=== PATIENT | male | born 1935 | race Caucasian/White ===

== ENCOUNTER → 2016-03-08 | Outpatient (CLI) | payer BC ==
[~2016-03-08] MED LIST: AMLO-114 PO; ANT25 PO; ASPEC81 PO; ATOR-24 PO; CEPH500C2 PO; CHOL1000 PO; CLOP1TAB15 PO; CYAN10004 PO; DOXY100C2 PO; INSDGIPEN SQ; INSU100I2 SC; ISOS120T5 PO; LSX20 PO; NTRGSL/4 SL; PANT40TA PO
[2016-03-08 15:07] LABS: SYNOVIAL FLUID APPEARANCE BLOODY; SYNOVIAL FLUID COLOR RED; SYNOVIAL FLUID MONONUC RELAT 8.1 %; SYNOVIAL FLUID POLYNUC RELAT 91.9 %
== END | disposition home or self-care (01) ==
LOC: C.LABSPEC 14:41
PROVIDERS: ATTEND Internal Medicine
DX: M25.469 Effusion, unspecified knee (principal)

== ENCOUNTER → 2016-03-11 | Outpatient (CLI) | payer BC ==
[2016-03-11 11:12] LABS: URINE APPEARANCE CLEAR (CLEAR); URINE BILIRUBIN NEG (NEG); URINE COLOR YELLOW; URINE EPITHELIAL CELL AUTO 20-30 /lpf (0-5); URINE NITRITE NEG (NEG); UROBILINOGEN NEG (NEG); ZZUR CULT IF INDIC CLEAN CATCH NO
[2016-03-11 11:19] LABS: MANUAL MICROSCOPIC REQUIRED? NO; REVIEW REQ? NO
[2016-03-11 12:56] LABS: URINE PROTIEN/CREAT RATIO 0.6 (0-0.2); URINE TOTAL PROTEIN 76.5 mg/dl (0-11.9)
[2016-03-11 12:58] LABS: BLOOD UREA NITROGEN 32 mg/dl (7-18); BUN/CREATININE RATIO 14.7 (10-20); CALCIUM 9.1 mg/dl (8.5-10.1); CARBON DIOXIDE 24 mmol/L (21-32); CHLORIDE 106 mmol/L (98-107); GLUCOSE 310 mg/dl (70-99); MAGNESIUM 1.9 mg/dl (1.8-2.4); PHOSPHORUS 3.4 mg/dl (2.5-4.9); POTASSIUM 4.5 mmol/L (3.5-5.1); SODIUM 140 mmol/L (136-145)
[2016-03-11 13:17] LABS: BETA-HYDROXYBUTYRATE 1.49 mg/dL (0.2-2.81)
== END | disposition home or self-care (01) ==
LOC: C.LAB1850 09:16
PROVIDERS: ATTEND Internal Medicine
DX: N18.4 Chronic kidney disease, stage 4 (severe) (principal)

== ENCOUNTER 2016-03-19 12:13 | Inpatient (IN) | payer BC, OTHER ==
[~2016-03-19] VITALS: Ht 177.8 cm; Wt 86.6 kg
[~2016-03-19 12:13] MED LIST changes: -ASPEC81 PO; -CEPH500C2 PO; -CHOL1000 PO; -DOXY100C2 PO
[2016-03-19] MEDS ORDERED: SODIUM CHLORIDE 0.9% 500ML 500 ML IV STA (12:53)
--- NOTE | 2016-03-19 12:59 | EMERGENCY ROOM VISIT NOTE ---
History Report prepared by Rupal: Isabell Valiente Under the Supervision of: Dr. Anayeli Livingston M.D. First contact with patient: 12:43 Chief Complaint: ILLNESS Stated Complaint: "HAS A COLD, CAN'T NAVIGATE" - REF BY History of Present Illness The patient is a 80 year old male who presents to the Emergency Room with complaints of worsening weakness and shortness of breath over the past several days. He has had a decreased appetite. Upon arrival to the ED, he had an episode of diarrhea. He has not had his temperature taken and is unsure if he has had a fever. Per patient's family, the patient had his left knee aspirated several days ago. His family is unsure of why fluid was accumulating. A couple days later, he had a fall against a chair. He still complains of left knee pain. His notes that his knee does look much better than it did prior tot he aspiration. He is currently on antibiotics. The patient has a history of heart disease and diabetes. He is on insulin and reports that he took his Lantus this morning, although his questions his compliance with taking his insulin. He does not have a history of lung disease and has no history of smoking. Denies vomiting or other complaints. 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 A total of 10 systems reviewed and were otherwise negative. 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) (9) NSTEMI, initial episode of care (10) Precordial chest pain (11) Thrombocytopenia Surgical Problems: (1) H/O heart bypass surgery Family History Heart disease Social History Smoking Status: Never Smoker Drug Use: none Marital Status: Housing Status: lives with significant other Occupation Status: retired Current/Historical Medications Scheduled Amlodipine (Norvasc), 10 MG PO DAILY Atorvastatin (Lipitor), 40 MG PO DAILY Cholecalciferol (Vitamin D3), 1 TAB PO DAILY Clopidogrel (Plavix), 75 MG PO DAILY Cyanocobalamin (Vitamin B-12 1000 Mcg), 1,000 MCG PO DAILY Doxycycline Hyclate (Vibramycin), 100 MG PO Q12H Insulin Glargine (Lantus Solostar), 18-20 UNITS SQ QAM Insulin Lispro (Human) (Humalog Kwikpen), 8 UNITS SC TIDM Isosorbide Mononitrate Ext Rel (Imdur Ext Rel), 120 MG PO QAM Meclizine HCl (Meclizine HCl), 25 MG PO Q6H Pantoprazole (Protonix), 40 MG PO DAILY Scheduled PRN Furosemide (Furosemide), 20 MG PO DAILY PRN for Fluid Retention Nitroglycerin (Nitrostat), 0.4 MG SL UD PRN for Chest Pain Allergies Coded Allergies: No Known Allergies (Verified , 03/19/16) Physical Exam Vital Signs Date Time Temp Pulse Resp B/P Pulse Ox O2 Delivery O2 Flow Rate FiO2 03/19/16 15:16 56 16 94/47 100 Room Air 03/19/16 14:41 57 18 89/50 100 Room Air 03/19/16 14:32 57 18 96/48 100 Room Air 03/19/16 14:25 57 03/19/16 14:21 62 18 96/45 100 Room Air 03/19/16 13:57 55 16 103/48 100 Room Air 03/19/16 13:42 58 18 100/48 100 Room Air 03/19/16 13:20 61 18 95/50 100 Room Air 03/19/16 13:10 65 18 82/45 100 Room Air 03/19/16 12:55 66 18 96/47 94 Room Air 03/19/16 12:44 68 18 82/46 100 Room Air 03/19/16 12:44 36.8 03/19/16 12:40 67 03/19/16 12:35 68 18 99/52 100 Room Air 03/19/16 12:24 77 18 55/39 94 Room Air Physical Exam Vital signs reviewed. General: Elderly, chronically ill-appearing 80 year old male, in no significant distress. HEENT: No scleral icterus, PERRLA, neck supple. Atraumatic. Cardiovascular: Regular rate and rhythm, no extra sounds. Pulmonary: Coarse breath sounds to auscultation bilaterally, normal work of breathing. Abdomen: Soft, nontender, nondistended, positive bowel sounds. Musculoskeletal: Swelling to the left knee positive fluctuance and erythema, minimally warm. No significant peripheral edema otherwise. Neurologic: Patient is somnolent, but arouses to verbal stimuli, oriented x 3. Follows commands. Skin: Warm, dry, no rash Medical Decision & Procedures ER Provider Diagnostic Interpretation: X-ray results as stated below per interpretation by me and the radiologist: SINGLE VIEW CHEST CLINICAL HISTORY: Cough. Hypotension. FINDINGS: An AP, portable, upright chest radiograph is compared to study dated 07/29/2015 and correlated with chest CT dated 06/25/2013. The examination is degraded by portable technique and patient rotation. The patient is status post midline sternotomy. The heart is mildly enlarged and there is atherosclerotic calcification of the thoracic aorta. The pulmonary vasculature is noncongested. Chronic elevation of the right hemidiaphragm with right basilar atelectasis is similar to previous. No airspace consolidation is seen typical for pneumonia and there is no large pleural effusion. Emphysema is suspected. No pneumothorax is seen. The skeletal structures are osteopenic. The bony thorax is grossly intact. IMPRESSION: Cardiomegaly with no acute cardiopulmonary abnormality. Chronic changes are detailed above. Electronically signed by: Tony Reagan M.D. 03/19/2016 1:34 PM Dictated Date/Time: 03/19/2016 1:32 PM LEFT KNEE 1 OR 2 VIEWS ROUTINE CLINICAL HISTORY: Left knee pain and swelling. COMPARISON: None FINDINGS: Extensive vascular calcification is noted. No acute fracture is present. No joint effusion is identified. There is marked prepatellar soft tissue swelling. Soft tissue calcifications are noted. There is an indeterminate 4 mm radiodensity anterior to the medial tibial plateau. IMPRESSION: 1. No acute fracture. 2. Marked prepatellar and infrapatellar soft tissue swelling. This is nonspecific but could reflect bursitis or contusion. Electronically signed by: Harjinder Moreira M.D. 03/19/2016 3:11 PM Dictated Date/Time: 03/19/2016 3:10 PM Laboratory Results 03/19/16 12:40 Red Blood Count 3.97, Mean Corpuscular Volume 90.7, Mean Corpuscular Hemoglobin 30.5, Mean Corpuscular Hemoglobin Concent 33.6, Mean Platelet Volume 12.0 1/20/17 12:40 Test 03/19/16 12:40 03/19/16 12:45 03/19/16 13:00 White Blood Count 15.20 K/uL (4.8-10.8) Red Blood Count 3.97 M/uL (4.7-6.1) Hemoglobin 12.1 g/dL (14.0-18.0) Hematocrit 36.0 % (42-52) Mean Corpuscular Volume 90.7 fL (80-100) Mean Corpuscular Hemoglobin 30.5 pg (25-34) Mean Corpuscular Hemoglobin Concent 33.6 g/dl (32-36) Platelet Count 169 K/uL (130-400) Mean Platelet Volume 12.0 fL (7.4-10.4) RDW Standard Deviation 65.2 fL (36.4-46.3) RDW Coefficient of Variation 19.6 % (11.5-14.5) Neutrophils % (Manual) 48.2 % Lymphocytes % (Manual) 7.1 % Monocytes % (Manual) 42.0 % Basophils % (Manual) 1.8 % (0-2) Myelocytes % 0.9 % Neutrophils # (Manual) 7.33 K/uL (1.4-6.5) Total Absolute Neutrophils 7.33 K/uL (1.4-6.5) Lymphocytes # (Manual) 1.08 K/uL (1.2-3.4) Total Absolute Lymphocytes 1.08 K/uL (1.2-3.4) Monocytes # (Manual) 6.38 K/uL (0.11-0.59) Basophils # (Manual) 0.27 K/uL (0-0.2) Myelocytes # 0.14 K/uL (0-0) Giant Platelets 1+ Spherocytes 1+ Prothrombin Time 12.3 SECONDS (9.0-12.0) Prothromb Time International Ratio 1.1 (0.9-1.1) Activated Partial Thromboplast Time 20.8 SECONDS (21.0-31.0) Partial Thromboplastin Ratio 0.8 Anion Gap 16.0 mmol/L (3-11) Estimated GFR () 26.9 Estimated GFR (Non- 23.2 BUN/Creatinine Ratio 12.3 (10-20) Calcium Level 9.1 mg/dl (8.5-10.1) Magnesium Level 1.7 mg/dl (1.8-2.4) Total Bilirubin 0.6 mg/dl (0.2-1) Direct Bilirubin 0.1 mg/dl (0-0.2) Aspartate Amino Transf (AST/SGOT) 23 U/L (15-37) Alanine Aminotransferase (ALT/SGPT) 15 U/L (12-78) Alkaline Phosphatase 97 U/L (45-117) Total Protein 7.8 gm/dl (6.4-8.2) Albumin 3.1 gm/dl (3.4-5.0) Beta-Hydroxybutyric Acid 1.97 mg/dL (0.2-2.81) Bedside Lactic Acid Venous 4.88 mmol/L (0.90-1.70) Influenza Type A (RT-PCR) Neg for Influ A (NEG) Influenza Type B (RT-PCR) Neg for Influ B (NEG) Laboratory results per my review. Medications Administered Medications (Trade) Dose Ordered Sig/Denny Route Start Time Stop Time Status Last Admin Dose Admin Sodium Chloride (Nss 500ml) 500 ml @ 999 mls/hr Q31M STAT IV 03/19/16 12:53 03/19/16 13:23 DC 03/19/16 12:53 999 MLS/HR Miscellaneous (Insulin Protocol Hhs Goal Range) 1 ea ONE ONCE N/A 03/19/16 13:30 03/19/16 13:31 DC 03/19/16 17:15 1 EA Miscellaneous (Insulin Protocol Severe Stress) 1 ea ONE ONCE N/A 03/19/16 13:30 03/19/16 13:31 DC 03/19/16 17:15 1 EA Piperacillin Sod/ Tazobactam Sod (Zosyn Iv) 4.5 gm NOW STAT IV 03/19/16 13:19 03/19/16 13:24 DC 03/19/16 13:35 4.5 GM Levofloxacin 750 mg 750 mg NOW ONCE IV 03/19/16 13:30 03/19/16 13:31 DC 03/19/16 14:08 750 MG Insulin Human Regular 3.5 unit/ Syringe 3.5 ml @ 21 mls/min NOW ONCE IV 03/19/16 13:45 03/19/16 13:46 DC 03/19/16 13:55 21 MLS/MIN Insulin Human Regular 250 units/ Sodium Chloride 252.5 ml @ 0 mls/hr DAILY@1130 IV 03/19/16 13:45 03/19/16 16:29 DC 03/19/16 13:57 3.3 MLS/HR Sodium Chloride (Nss 1000ml) 1,000 ml @ 100 mls/hr Q10H IV 03/19/16 15:12 04/18/16 15:11 03/19/16 17:16 100 MLS/HR ECG Indication: weakness Rate (beats per minute): 74 Rhythm: sinus rhythm Findings: 1st degree AV block, no acute ischemic change, no ectopy, other ( likely previous anterior and inferior infarct, poor quality baseline for interpretation) ED Course 1243: Past medical records reviewed. The patient was evaluated in room A1. A complete history and physical examination was performed. 1253: Ordered NSS 500 ml @ 999 mls/hr IV. 1319: I reassessed the patient. He was resting comfortably. Ordered NSS 1000 ml @ 200 mls/hr IV, Zosyn 4.5 gm IV, Insulin Human regular 1 ea, Levofloxacin 750 mg IV, Insulin protocol severe stress 1 ea, Insulin protocol Hhs goal range 1 ea. 1345: Ordered Glucagon 1 mg SQ, Dextrose 50 ml IV, Glucose chew tab 1 tab PO, Glucose 40% gel PO, Insulin Human Regular 250 units/Sodium Chloride 252.5 ml @ 0 mls/hr IV, Insulin Human Regular 3.5 unit/Syringe 3.5 ml @ 21 mls/min IV, Insulin Aspart sliding scale SC. 1409: I reassessed the patient. His blood pressure was up over 100. I discussed the treatment plan with the patient, his , and his daughter. They verbalized agreement. 1414: I discussed the case with Dr. Campbell [place] [facility] The patient will be evaluated for further management. 1420: Dr. Campbell was at the patient's bedside. Medical Decision Differential diagnosis: Etiologies such as benign positional vertigo, dehydration, hypovolemia, anemia, tumor, infection, hypoglycemia, electrolyte abnormalities, cardiac sources, intracerebral event, toxicologic, neurologic, as well as others were entertained. This patient was evaluated and appeared to be in no significant distress. Patient states he is tired and weak. He was hydrated with normal saline solution and noted to be markedly hypotensive. Patient's lactate is elevated. Blood cultures were obtained. Patient was medicated with IV Zosyn and Levaquin due to his cough. The left knee does not appear to be septic. Previous aspirate from the knee was reviewed and appears to be mostly blood. Patient's blood pressure did improve. Patient was started on an IV insulin infusion secondary to a hyperglycemia of 408. Patient's troponin is positive. EKG reveals a first-degree AV block without evidence of acute ischemic change to my review. His vital signs stabilized. His case was discussed with the hospitalist service, Dr. Murray who will evaluate the patient for further management. He was made aware of the findings and plan and agrees. Consults Time Called: 1400 Consulting Physician: Dr. Campbell - [facility] Returned Call: 1414 I discussed the case with him. The patient will be evaluated for further management. Impression Primary Impression: Cardiac ischemia Additional Impressions: Sepsis Weakness Critical Care I have personally spent greater than 30 minutes of critical care time in the direct management of this patient. This includes bedside care, interpretation of diagnostic studies, and testing, discussion with consultants, patient, and family members, and other required patient management activities. This 30 minutes is in excess of all separately billable procedures. Scribe Attestation The scribe's documentation has been prepared under my direction and personally reviewed by me in its entirety. I confirm that the note above accurately reflects all work, treatment, procedures, and medical decision making performed by me. Departure Information Dispostion Being Evaluated By Hospitalist Referrals Mahesh Hackett M.D. (PCP) Patient Instructions My [facility] Problem Qualifiers Additional Impressions: Sepsis Sepsis type: sepsis due to unspecified organism Qualified Codes: A41.9 - Sepsis, unspecified organism
[2016-03-19 13:04] LABS: MEAN CORPUSCULAR HGB CONC 33.6 g/dl (32-36); PLATELET COUNT 169 K/uL (130-400)
[2016-03-19 13:14] LABS: MEAN CELL VOLUME 90.7 fL (80-100); MEAN CORPUSCULAR HEMOGLOBIN 30.5 pg (25-34); RED BLOOD COUNT 3.97 M/uL (4.7-6.1)
[2016-03-19 13:18] LABS: ALKALINE PHOSPHATASE 97 U/L (45-117); ALT/SGPT 15 U/L (12-78); AST/SGOT 23 U/L (15-37); BLOOD UREA NITROGEN 31 mg/dl (7-18); BUN/CREATININE RATIO 12.3 (10-20); CALCIUM 9.1 mg/dl (8.5-10.1); CARBON DIOXIDE 19 mmol/L (21-32); CHLORIDE 103 mmol/L (98-107); CKMB/CK RATIO 5.3 (0-3.0); GLUCOSE 409 mg/dl (70-99); MAGNESIUM 1.7 mg/dl (1.8-2.4); POTASSIUM 4.3 mmol/L (3.5-5.1); SODIUM 138 mmol/L (136-145)
[2016-03-19 13:19] LABS: INR 1.1 (0.9-1.1); PARTIAL THROMBOPLASTIN RATIO 0.8; PROTHROMBIN TIME (PATIENT) 12.3 SECONDS (9.0-12.0)
[2016-03-19] MEDS ORDERED: SODIUM CHLORIDE 0.9% 1000ML 1,000 ML IV STA (13:19)
[2016-03-19] MEDS ORDERED: PIPERACILLIN/TAZOBACTAM 4.5 GM/100ML D5W IV STA (13:19)
[2016-03-19] MEDS ORDERED: INSULIN IV INFUSION PROTOCOL STA (13:19)
[2016-03-19 13:23] LABS: BASO ABS # 0.27 K/uL (0-0.2); BASOPHIL % 1.8 % (0-2); COMPLETE YES; GIANT PLATELETS 1+; LYMPH ABS # 1.08 K/uL (1.2-3.4); LYMPHOCYTE % 7.1 %; MYELOCYTE % 0.9 %; NEUTROPHILS % 48.2 %; SPHEROCYTE 1+
[2016-03-19] MEDS ORDERED: SEVERE STRESS LEVEL ONE (13:30)
[2016-03-19] MEDS ORDERED: HHS GOAL RANGE 250-350 mg/dl ONE (13:30)
[2016-03-19] MEDS ORDERED: LEVAQUIN 750MG / 150ML D5W IV ONE (13:30)
[2016-03-19 13:35] LABS: BETA-HYDROXYBUTYRATE 1.97 mg/dL (0.2-2.81)
--- NOTE | 2016-03-19 13:35 | DIAGNOSTIC IMAGING REPORT ---
SINGLE VIEW CHEST CLINICAL HISTORY: Cough. Hypotension. FINDINGS: An AP, portable, upright chest radiograph is compared to study dated 07/29/2015 and correlated with chest CT dated 06/25/2013. The examination is degraded by portable technique and patient rotation. The patient is status post midline sternotomy. The heart is mildly enlarged and there is atherosclerotic calcification of the thoracic aorta. The pulmonary vasculature is noncongested. Chronic elevation of the right hemidiaphragm with right basilar atelectasis is similar to previous. No airspace consolidation is seen typical for pneumonia and there is no large pleural effusion. Emphysema is suspected. No pneumothorax is seen. The skeletal structures are osteopenic. The bony thorax is grossly intact. IMPRESSION: Cardiomegaly with no acute cardiopulmonary abnormality. Chronic changes are detailed above. Electronically signed by: Tony Reagan M.D. 03/19/2016 1:34 PM Dictated Date/Time: 03/19/2016 1:32 PM
[2016-03-19] MEDS ORDERED: GLUCOSE 10 TABS/TUBE PO PRN ×2 (13:45→15:15)
[2016-03-19] MEDS ORDERED: GLUCAGON FOR INJ 1 MG VIAL SQ PRN ×2 (13:45→15:15)
[2016-03-19] MEDS ORDERED: DEXTROSE 50% 50 ML SYR IV PRN ×2 (13:45→15:15)
[2016-03-19] MEDS ORDERED: GLUCOSE 40% GEL 15 GM TUBE PO PRN ×2 (13:45→15:15)
[2016-03-19] MEDS ORDERED: INSULIN REGULAR 250 UNITS in SODIUM CHLORIDE 0.9% 250ML 250 ML IV SCH (13:45)
[2016-03-19] MEDS ORDERED: INSULIN HUMAN REGULAR IV BOLUS 3.5 UNIT in SYRINGE 0 ML IV ONE (13:45)
[2016-03-19] MEDS ORDERED: CHOL1000 PO (14:22)
[2016-03-19] MEDS ORDERED: DOXY100C2 PO (14:22)
[2016-03-19 15:03] LABS: INFLUENZA A PCR Neg for Influ A (NEG); INFLUENZA B PCR Neg for Influ B (NEG)
--- NOTE | 2016-03-19 15:13 | DIAGNOSTIC IMAGING REPORT ---
LEFT KNEE 1 OR 2 VIEWS ROUTINE CLINICAL HISTORY: Left knee pain and swelling. COMPARISON: None FINDINGS: Extensive vascular calcification is noted. No acute fracture is present. No joint effusion is identified. There is marked prepatellar soft tissue swelling. Soft tissue calcifications are noted. There is an indeterminate 4 mm radiodensity anterior to the medial tibial plateau. IMPRESSION: 1. No acute fracture. 2. Marked prepatellar and infrapatellar soft tissue swelling. This is nonspecific but could reflect bursitis or contusion. Electronically signed by: Harjinder Moreira M.D. 03/19/2016 3:11 PM Dictated Date/Time: 03/19/2016 3:10 PM
[2016-03-19] MEDS ORDERED: ONDANSETRON INJ 2 MG/ML 2 ML VIAL IV PRN ×2 (15:15→15:30)
[2016-03-19] MEDS ORDERED: NITROGLYCERIN 0.4 MG SL PER TAB CHARGE SL PRN (15:15)
[2016-03-19] MEDS ORDERED: LORAZEPAM 2 MG/ML 1 ML VIAL IV PRN (15:15)
[2016-03-19] MEDS ORDERED: DiphenhydrAMINE HCL 50 MG/ML VIAL IV PRN (15:15)
[2016-03-19] MEDS ORDERED: MAGNESIUM HYDROXIDE SUSP 30 ML UDC PO PRN (15:15)
[2016-03-19] MEDS ORDERED: ALUMINUM/MAGNESIUM/SIMETH (MAALOX MAX) 30 ML UDC PO PRN (15:15)
[2016-03-19] MEDS ORDERED: BISACODYL 10 MG SUPP PR PRN (15:15)
[2016-03-19] MEDS ORDERED: PROMETHAZINE HCL INJ 12.5 MG in SODIUM CHLORIDE 0.9% 50ML 50 ML IV PRN (15:15)
[2016-03-19] MEDS ORDERED: ZOLPIDEM TARTRATE 5 MG TAB PO PRN (15:15)
[2016-03-19] MEDS: INSULIN ASPART 100 UNITS/ML 3 ML PEN SC SCH ×3 (16:00→21:20)
[2016-03-19 16:15] VITALS: BP 108/54; PULSE 57; TEMP 36.5; O2SAT 98; Ht 177.8 cm; Wt 86.6 kg
[2016-03-19] MEDS ORDERED: PIPERACILL/TAZOBAC CONSULT ACTIVE PRN (16:15)
[2016-03-19] MEDS ORDERED: VANCOMYCIN CONSULT ACTIVE PRN (16:15)
[2016-03-19] MEDS ORDERED: LEVOFLOXACIN CONSULT ACTIVE PRN (16:15)
--- NOTE | 2016-03-19 16:21 | Pharmacy Progress Note ---
Pharmacy Antibiotic Consult Date of Service: Mar 19, 2016. Pharmacy Dosing Scope Pharmacy is consulted to initiate Vancomycin IV dosing therapy, order appropriate labs and adjust drug dose/frequency. Subjective The patient is a 80 year old male admitted on 03/20/16. Objective Height (Feet): 5 Height (Inches): 11.00 Weight (Kilograms): 87.100 Lab Results (24hrs): Laboratory Tests Test 03/19/16 12:40 BUN/Creatinine Ratio 12.3 Blood Urea Nitrogen 31 mg/dl Creatinine 2.50 mg/dl White Blood Count 15.20 K/uL Red Blood Count 3.97 M/uL Hemoglobin 12.1 g/dL Hematocrit 36.0 % Mean Corpuscular Volume 90.7 fL Mean Corpuscular Hemoglobin 30.5 pg Mean Corpuscular Hemoglobin Concent 33.6 g/dl Platelet Count 169 K/uL Mean Platelet Volume 12.0 fL Micro Results: Item Value Date Time Blood Culture Received 03/19/16 1250 Blood Pending Blood Culture Received 03/19/16 1240 Blood Pending Recent Pertinent Medications Item Value Date Time Levofloxacin 750 150 ml @ 100 mls/hr 03/21/16 1400 mg/Prmx Q2D@1400/IV Piperacillin Sod/ 115 ml 03/19/16 2200 Tazobactam Sod Q8/IV 3.375 gm/Dextrose Assessment & Plan 80 yo M admitted with weakness and shortness of breath initiated on broad spectrum IV antibiotics: Vancomycin, Levaquin, Zosyn IV. Of note, patient recently was on doxycycline PO- unsure of indication (knee or respiratory). Blood cultures pending. MRSA nasal swab ordered to aid in de-escalation of antibiotics given pulmonary source. Vancomycin * Loading dose: 1750 mg IV X 1 dose (modified load due to CKD) * Since patient's estimated half life is ~30 hours, I find it inappropriate to schedule ongoing dosing * Goal trough level estimate: between 15- 20 mcg/mL * A random level has been ordered for: with AM labs * *If MRSA swab negative, recommend discontinuing Vancomycin Zosyn * Continue 3.375 g IV every 8 hours * No renal adjustment unless Crcl <20 mL/min * No adjustment necessary for critical illness or BMI Levaquin * 750 mg IV every 48 hours * Adjustment for Crcl 20 to 49 mL/min Pharmacy will continue to follow and will adjust dose/frequency as necessary. Thank you
[2016-03-19] MEDS ORDERED: VANCOMYCIN INJ 1,750 MG in SODIUM CHLORIDE 0.9% 500ML 500 ML IV ONE (16:30)
[2016-03-19] MEDS ORDERED: INSULIN GLARGINE SOLOSTAR 100 UNITS/ML 3 ML PEN SQ ONE (16:30)
[2016-03-19] MEDS: SODIUM CHLORIDE 0.9% 1000ML 1,000 ML IV SCH (17:16)
--- NOTE | 2016-03-19 17:26 | Cardiology Consultation ---
Cardiology Consultation Date of Consultation: Mar 19, 2016. Requesting Physician: Dr. Campbell Reason for Consultation: Elevated troponin Pt evaluation today including: conversation w/ patient, conversation w/ family , physical exam, lab review, review of studies, review of inpatient medication list History of Present Illness This is an 80-year-old gentleman with a history of coronary artery disease including myocardial infarction in 1996 bypass surgery in 2007, stage IV kidney disease, diabetes, hyperlipidemia, sick sinus syndrome and a history of chest discomfort. His chest discomfort has been evaluated in the past and he has had elevated troponins in the past however with his kidney disease he has declined invasive evaluation although it has been offered. He has also had a GI bleed in June 2015. He was hospitalized in October 2014 and at that time his troponin increased to a maximum of 2.4, in June 2015 his troponin was 0.068. He had an echocardiogram done 07/27/2015 which showed normal left ventricular size and function with concentric left ventricular hypertrophy. He presents now with symptoms of fatigue and was noted to have an elevated troponin. He is not having chest discomfort, he does have chronic difficulty with exertion which is becoming very short of breath with climbing steps or even minimal exertion. He does not think that is been changing recently but has changed over the last several years. He did use a nitroglycerin tablet for chest discomfort on the evening of 03/18/2016, he evidently hasn't use one for some time before that. That did relieve his chest discomfort. He feels that he is suffering from a "cold" and is having little more difficulty with his breathing than usual. 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 (4) Thrombocytopenia Status: Chronic Surgical Problems: (1) H/O heart bypass surgery Status: Chronic Family History Heart disease Social History Smoking Status: Never Smoker History of Alcohol Use: No Review of Systems Constitutional: + fatigue, No fever, No weakness, No weight loss Respiratory: + dyspnea on exertion, + see HPI, + wheezing, No cough, No shortness of breath Cardiac: + chest pain, + see HPI Abdomen: No GI bleeding, No diarrhea, No nausea, No pain, No vomiting Male : No nocturia more than once/night, No sexual dysfunction, No slowing stream, No urinary frequency Neurologic: No balance problems, No numbness/tingling, No paralysis, No weakness Heme: No abnormal bleeding/bruising, No clotting problems Endo: No fatigue Skin: No problem reported All Other Systems: Reviewed and Negative Allergies Coded Allergies: No Known Allergies (Verified , 03/28/16) Medications Current Inpatient Medications Medications (Trade) Dose Ordered Sig/Denny Route Start Time Stop Time Status Last Admin Dose Admin Atorvastatin Calcium (Lipitor Tab) 40 mg DAILY PO 03/20/16 09:00 04/19/16 08:59 Cholecalciferol (Vitamin D Tab) 1,000 inter.unit DAILY PO 03/20/16 09:00 04/19/16 08:59 Clopidogrel Bisulfate (plAVix TAB) 75 mg DAILY PO 03/20/16 09:00 04/19/16 08:59 Cyanocobalamin (Vitamin B-12 Tab) 1,000 mcg DAILY PO 03/20/16 09:00 04/19/16 08:59 Meclizine HCl 25 mg 25 mg Q6 PO 03/19/16 18:00 04/18/16 17:59 Pantoprazole Sodium/Syringe (Protonix Inj/ Syringe) 10 ml @ 5 mls/min DAILY@11 IV 03/20/16 11:00 04/19/16 10:59 Enoxaparin Sodium 30 mg 30 mg QPM SC 03/19/16 21:00 04/18/16 20:59 Sodium Chloride (Nss 1000ml) 1,000 ml @ 100 mls/hr Q10H IV 03/19/16 15:12 04/18/16 15:11 Acetaminophen (Tylenol Tab) 650 mg Q4H PRN PO 03/19/16 15:15 04/18/16 15:14 Zolpidem Tartrate (Ambien Tab) 5 mg HSZ PRN PO 03/19/16 15:15 04/18/16 15:14 Nitroglycerin (Nitrostat Tab) 0.4 mg UD PRN SL 03/19/16 15:15 04/18/16 15:14 Lorazepam (Ativan Inj) 0.5 mg Q4H PRN IV 03/19/16 15:15 04/18/16 15:14 Magnesium Hydroxide (Milk Of Magnesia Susp) 30 ml Q6H PRN PO 03/19/16 15:15 04/18/16 15:14 Bisacodyl (Dulcolax Supp) 10 mg DAILY PRN SD 03/19/16 15:15 04/18/16 15:14 Diphenhydramine HCl (Benadryl Inj) 25 mg Q4H PRN IV 03/19/16 15:15 04/18/16 15:14 Al Hydrox/Mg Hydrox/ Simethicone 15 ml 15 ml Q4H PRN PO 03/19/16 15:15 04/18/16 15:14 Promethazine HCl/ Sodium Chloride (Phenergan Inj/ Nss 50ml) 50.5 ml @ 202 mls/hr Q4H PRN IV 03/19/16 15:15 04/18/16 15:14 Ondansetron HCl (Zofran Inj) 4 mg Q6H PRN IV 03/19/16 15:15 04/18/16 15:14 Docusate Sodium (coLACE CAP) 100 mg BID PO 03/19/16 21:00 04/18/16 20:59 Morphine Sulfate (MoRPHine SULFATE INJ) 2 mg Q2H PRN IV 03/19/16 15:15 04/02/16 15:14 Insulin Aspart (novoLOG ASPART) SLIDING SCALE If C... ACHS SC 03/19/16 16:00 04/18/16 15:59 Glucose (Glucose 40% Gel) UD PRN PO 03/19/16 15:15 04/18/16 15:14 Glucose (Glucose Chew Tab) 1 tabs UD PRN PO 03/19/16 15:15 04/18/16 15:14 Dextrose (Dextrose 50% 50ML Syringe) 50 ml UD PRN IV 03/19/16 15:15 04/18/16 15:14 Glucagon (Glucagon Inj) 1 mg UD PRN SQ 03/19/16 15:15 04/18/16 15:14 Insulin Glargine 20 unit 20 unit QAM SQ 03/20/16 09:00 04/19/16 08:59 Piperacillin Sod/ Tazobactam Sod 3.375 gm/Dextrose 115 ml @ 28.75 mls/ hr Q8H IV 03/19/16 20:00 03/26/16 19:59 Vancomycin HCl 1750 mg/Sodium Chloride 535 ml @ 200 mls/hr TODAY@1630 ONCE IV 03/19/16 16:30 03/19/16 19:10 Levofloxacin/Prmx (Levaquin / D5W/ Premixed D5W) 150 ml @ 100 mls/hr Q2D@1400 IV 03/21/16 14:00 03/25/16 23:59 Guaifenesin (Organidin Nr Tab) 600 mg BID PO 03/19/16 21:00 04/18/16 20:59 Budesonide (Pulmicort Respules 0.5MG/ 2ML Neb Soln) 0.5 mg BIDR INH 03/19/16 20:00 04/18/16 19:59 Levofloxacin (Consult) 1 ea UD PRN N/A 03/19/16 16:15 04/18/16 16:14 Piperacillin Sod/ Tazobactam Sod (Consult) 1 ea UD PRN N/A 03/19/16 16:15 04/18/16 16:14 Vancomycin HCl (Consult) 1 ea UD PRN N/A 03/19/16 16:15 04/18/16 16:14 Ipratropium [place] (Atrovent 0.02% 0.5MG/2.5ML [facility]) 0.5 mg Q6R INH 03/19/16 21:00 04/18/16 20:59 Levalbuterol (Xopenex 1.25MG/ 0.5ML [facility]) 1.25 mg Q6R INH 03/19/16 21:00 04/18/16 20:59 Physical Exam Vital Signs Past 12 Hours Date Time Temp Pulse Resp B/P Pulse Ox O2 Delivery O2 Flow Rate FiO2 03/19/16 15:43 61 16 87/44 100 Room Air 03/19/16 15:16 56 16 94/47 100 Room Air 03/19/16 14:41 57 18 89/50 100 Room Air 03/19/16 14:32 57 18 96/48 100 Room Air 03/19/16 14:25 57 03/19/16 14:21 62 18 96/45 100 Room Air 03/19/16 13:57 55 16 103/48 100 Room Air 03/19/16 13:42 58 18 100/48 100 Room Air 03/19/16 13:20 61 18 95/50 100 Room Air 03/19/16 13:10 65 18 82/45 100 Room Air 03/19/16 12:55 66 18 96/47 94 Room Air 03/19/16 12:44 68 18 82/46 100 Room Air 03/19/16 12:44 36.8 03/19/16 12:40 67 03/19/16 12:35 68 18 99/52 100 Room Air 03/19/16 12:24 77 18 55/39 94 Room Air Constitutional: Level of Distress: mild distress Psychiatric: Mental Status: active & alert Head: normocephalic Eyes: EOM: EOMI ENMT: normal ENT inspection, hearing grossly normal Neck: supple, no masses Lungs: Respiratory effort: no dyspnea, good air movement Auscultation: breath sounds normal, no wheezing Cardiovascular: Heart Auscultation: RRR, no murmurs, no rubs, no gallops Peripheral Pulses: Bruits: none appreciated Abdomen: Bowel Sounds: normal Inspection & Palpation: soft, no tenderness, guarding & rebound, no masses Musculoskeletal: normal strength (5/5 throughout) Extremities: no edema Neurologic: Cranial Nerves: grossly intact Sensation: grossly intact Data Laboratory Results: Last 24 Hours Test 03/19/16 12:37 03/19/16 12:40 03/19/16 12:45 03/19/16 13:00 Bedside Glucose 427 mg/dl White Blood Count 15.20 K/uL Red Blood Count 3.97 M/uL Hemoglobin 12.1 g/dL Hematocrit 36.0 % Mean Corpuscular Volume 90.7 fL Mean Corpuscular Hemoglobin 30.5 pg Mean Corpuscular Hemoglobin Concent 33.6 g/dl Platelet Count 169 K/uL Mean Platelet Volume 12.0 fL RDW Standard Deviation 65.2 fL RDW Coefficient of Variation 19.6 % Neutrophils % (Manual) 48.2 % Lymphocytes % (Manual) 7.1 % Monocytes % (Manual) 42.0 % Basophils % (Manual) 1.8 % Myelocytes % 0.9 % Neutrophils # (Manual) 7.33 K/uL Total Absolute Neutrophils 7.33 K/uL Lymphocytes # (Manual) 1.08 K/uL Total Absolute Lymphocytes 1.08 K/uL Monocytes # (Manual) 6.38 K/uL Basophils # (Manual) 0.27 K/uL Myelocytes # 0.14 K/uL Giant Platelets 1+ Spherocytes 1+ Prothrombin Time 12.3 SECONDS Prothromb Time International Ratio 1.1 Activated Partial Thromboplast Time 20.8 SECONDS Partial Thromboplastin Ratio 0.8 Sodium Level 138 mmol/L Potassium Level 4.3 mmol/L Chloride Level 103 mmol/L Carbon Dioxide Level 19 mmol/L Anion Gap 16.0 mmol/L Blood Urea Nitrogen 31 mg/dl Creatinine 2.50 mg/dl Estimated GFR () 26.9 Estimated GFR (Non- 23.2 BUN/Creatinine Ratio 12.3 Random Glucose 409 mg/dl Calcium Level 9.1 mg/dl Magnesium Level 1.7 mg/dl Total Bilirubin 0.6 mg/dl Direct Bilirubin 0.1 mg/dl Aspartate Amino Transf (AST/SGOT) 23 U/L Alanine Aminotransferase (ALT/SGPT) 15 U/L Alkaline Phosphatase 97 U/L Total Creatine Kinase 104 U/L Creatine Kinase MB 5.5 ng/ml Creatine Kinase MB Ratio 5.3 Troponin I 1.070 ng/ml Total Protein 7.8 gm/dl Albumin 3.1 gm/dl Beta-Hydroxybutyric Acid 1.97 mg/dL Bedside Lactic Acid Venous 4.88 mmol/L Influenza Type A (RT-PCR) Neg for Influ A Influenza Type B (RT-PCR) Neg for Influ B Test 03/19/16 14:56 03/19/16 15:12 03/19/16 15:58 03/19/16 16:47 Bedside Glucose 359 mg/dl 304 mg/dl Creatine Kinase MB Ratio EKG: His electrocardiogram shows sinus rhythm at 74 bpm, he has nonspecific ST- T abnormalities but no findings of acute infarction. There appears to be an age- indeterminate inferior and anterior myocardial infarction. Telemetry reviewed: Sinus rhythm with a controlled heart rate Assessment & Plan #1. Elevated cardiac enzymes: His troponin is slightly elevated, that could be from the chest discomfort he had yesterday, it could be due to demand ischemia due to his current pulmonary condition. He does not have anything to suggest an acute myocardial infarction now (no diagnostic electrocardiographic changes and no discomfort currently) therefore I would not consider invasive evaluation. I am going to start him on heparin and trend his cardiac enzymes. Depending on how things look tomorrow we can consider invasive evaluation although he is not wanted to do that in the past. #2. Coronary disease: He has coronary artery disease, he has significant difficulty with exertion which could be an anginal equivalent although he typically does not have chest discomfort with exertion. He did of chest discomfort last night without exertion which could have been due to coronary disease. We may have to consider stress testing but only if we would plan on further evaluation. Certainly I would not do that now with his pulmonary condition. #3. Chronic kidney disease: He has long-standing kidney disease and his creatinine is 2.5 today. That is roughly stable compared to prior values. This may interfere with our ability to perform invasive evaluation. Thank you for allowing me to participate in his care.
[2016-03-19] MEDS ORDERED: INSULIN ASPART 100 UNITS/ML 3 ML PEN SC SCH (17:30)
[2016-03-19 17:39] LABS: CKMB/CK RATIO 4.8 (0-3.0)
--- NOTE | 2016-03-19 17:49 | Nephrology Consultation ---
Nephrology Consultation Date & Providers Date of Consultation: Mar 19, 2016. Primary Care Provider: Mahesh Hackett M.D. Referring Provider: Reason for Consultation Chronic renal insufficiency History of Present Illness Mr. 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 I have followed Mr. Riggs for CKD in the nephrology clinic since October 2015. Renal function stable on assessment earlier this month with a serum creatinine of 2.2 mg/dL. It is noted that he was hyperglycemic at that time in the setting of oral steroids for a prepatellar bursitis. Mr. Riggs was hospitalized at [facility] from November 19 - with NSTEMI and lower GI bleed. He received medical management including transfusion support. Antiplatelet agents were held and due to persistent bradycardia metoprolol was decreased. He was discharged on twice daily pantoprazole. He continued to experience stable angina with intermittent chest heaviness as well as dyspnea with what he describes as moderate activity. 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 He did have stable angina with chest pain responsive to nitroglycerin. More recently, Mr. Riggs has been suffering from knee pain. His left knee is swollen and tender. The bursa was aspirated on March 08. Bloody fluid with minimal WBCs and negative culture was obtained. No crystals were appreciated. Doxycycline and methylprednisolone were started. Mr. Riggs developed persistent hyperglycemia with the medications. He was not taking any NSAIDs for pain. He was maintained on a course of doxycylcine for suspected septic bursitis. He presented to the ED today with progressive weakness and dyspnea. Poor appetite and one episode of loose stool were also reported. He has baseline occasional lightheadedness or dizziness but no syncopal episodes. He suffers from chronic orthostasis. Lightheadedness and dizziness has been present for several years and is unchanged. He has not had any recent change in weight. He has chronic resistant hypertension which has not been well controlled. Mr. Riggs multiple chronic urinary complaints including frequency, nocturia, hesitancy and weak urinary stream. He has not noted any recent change in his urine output. He denies any hematuria or foamy urine. He has occasional postvoiding incontinence denies denies any significant stress or urge incontinence. Initial laboratory studies show a slight rise in creatinine. Metabolic profile otherwise within normal limits. Hyperglycemia noted. CXR documented cardiomegaly without significant PVC or interstitial changes. EKG showing sinus rhythm with first degree AV block and anterior and inferior ST changes. Piña catheter was unable to be placed due to phimosis. Blood pressure was low on presentation. Normal saline infusion x 1 liter was administered. 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 (250.40,585.9) Chronic kidney disease, stage IV (severe) (585.4) Diabetes mellitus (250.00) Asymmetrical sensorineural hearing loss (389.16) Hyperlipidemia (272.4) Hypertension (401.9) Monoclonal gammopathy of undetermined significance (273.1) Prepatellar bursitis (726.65) Thrombocytopenia (287.5) Surgical: CABG Allergies Coded Allergies: No Known Allergies (Verified , 03/19/16) Inpatient Medications Current Inpatient Medications Medications (Trade) Dose Ordered Sig/Denny Route Start Time Stop Time Status Last Admin Dose Admin Atorvastatin Calcium (Lipitor Tab) 40 mg DAILY PO 03/20/16 09:00 04/19/16 08:59 Cholecalciferol (Vitamin D Tab) 1,000 inter.unit DAILY PO 03/20/16 09:00 04/19/16 08:59 Clopidogrel Bisulfate (plAVix TAB) 75 mg DAILY PO 03/20/16 09:00 04/19/16 08:59 Cyanocobalamin (Vitamin B-12 Tab) 1,000 mcg DAILY PO 03/20/16 09:00 04/19/16 08:59 Meclizine HCl 25 mg 25 mg Q6 PO 03/19/16 18:00 04/18/16 17:59 Pantoprazole Sodium/Syringe (Protonix Inj/ Syringe) 10 ml @ 5 mls/min DAILY@11 IV 03/20/16 11:00 04/19/16 10:59 Enoxaparin Sodium 30 mg 30 mg QPM SC 03/19/16 21:00 04/18/16 20:59 Sodium Chloride (Nss 1000ml) 1,000 ml @ 100 mls/hr Q10H IV 03/19/16 15:12 04/18/16 15:11 Acetaminophen (Tylenol Tab) 650 mg Q4H PRN PO 03/19/16 15:15 04/18/16 15:14 Zolpidem Tartrate (Ambien Tab) 5 mg HSZ PRN PO 03/19/16 15:15 04/18/16 15:14 Nitroglycerin (Nitrostat Tab) 0.4 mg UD PRN SL 03/19/16 15:15 04/18/16 15:14 Lorazepam (Ativan Inj) 0.5 mg Q4H PRN IV 03/19/16 15:15 04/18/16 15:14 Magnesium Hydroxide (Milk Of Magnesia Susp) 30 ml Q6H PRN PO 03/19/16 15:15 04/18/16 15:14 Bisacodyl (Dulcolax Supp) 10 mg DAILY PRN [place] 03/19/16 15:15 04/18/16 15:14 Diphenhydramine HCl (Benadryl Inj) 25 mg Q4H PRN IV 03/19/16 15:15 04/18/16 15:14 Al Hydrox/Mg Hydrox/ Simethicone 15 ml 15 ml Q4H PRN PO 03/19/16 15:15 04/18/16 15:14 Promethazine HCl/ Sodium Chloride (Phenergan Inj/ Nss 50ml) 50.5 ml @ 202 mls/hr Q4H PRN IV 03/19/16 15:15 04/18/16 15:14 Ondansetron HCl (Zofran Inj) 4 mg Q6H PRN IV 03/19/16 15:15 04/18/16 15:14 Docusate Sodium (coLACE CAP) 100 mg BID PO 03/19/16 21:00 04/18/16 20:59 Morphine Sulfate (MoRPHine SULFATE INJ) 2 mg Q2H PRN IV 03/19/16 15:15 04/02/16 15:14 Insulin Aspart (novoLOG ASPART) SLIDING SCALE If C... ACHS SC 03/19/16 16:00 04/18/16 15:59 Glucose (Glucose 40% Gel) UD PRN PO 03/19/16 15:15 04/18/16 15:14 Glucose (Glucose Chew Tab) 1 tabs UD PRN PO 03/19/16 15:15 04/18/16 15:14 Dextrose (Dextrose 50% 50ML Syringe) 50 ml UD PRN IV 03/19/16 15:15 04/18/16 15:14 Glucagon (Glucagon Inj) 1 mg UD PRN SQ 03/19/16 15:15 04/18/16 15:14 Insulin Glargine 20 unit 20 unit QAM SQ 03/20/16 09:00 04/19/16 08:59 Piperacillin Sod/ Tazobactam Sod 3.375 gm/Dextrose 115 ml @ 28.75 mls/ hr Q8H IV 03/19/16 20:00 03/26/16 19:59 Vancomycin HCl 1750 mg/Sodium Chloride 535 ml @ 200 mls/hr TODAY@1630 ONCE IV 03/19/16 16:30 03/19/16 19:10 Levofloxacin/Prmx (Levaquin / D5W/ Premixed D5W) 150 ml @ 100 mls/hr Q2D@1400 IV 03/21/16 14:00 03/25/16 23:59 Guaifenesin (Organidin Nr Tab) 600 mg BID PO 03/19/16 21:00 04/18/16 20:59 Budesonide (Pulmicort Respules 0.5MG/ 2ML Neb Soln) 0.5 mg BIDR INH 03/19/16 20:00 04/18/16 19:59 Levofloxacin (Consult) 1 ea UD PRN N/A 03/19/16 16:15 04/18/16 16:14 Piperacillin Sod/ Tazobactam Sod (Consult) 1 ea UD PRN N/A 03/19/16 16:15 04/18/16 16:14 Vancomycin HCl (Consult) 1 ea UD PRN N/A 03/19/16 16:15 04/18/16 16:14 Ipratropium [place] (Atrovent 0.02% 0.5MG/2.5ML Neb) 0.5 mg Q6R INH 03/19/16 21:00 04/18/16 20:59 Levalbuterol (Xopenex 1.25MG/ 0.5ML Neb) 1.25 mg Q6R INH 03/19/16 21:00 04/18/16 20:59 Family History Heart disease Social History Smoking Status: Never Smoker Drug Use: none Marital Status: Housing Status: lives with family Occupation: retired Review of Systems A complete review of systems was performed. Pertinent positives are noted above. All other systems are negative. Physical Exam Date Time Temp Pulse Resp B/P Pulse Ox O2 Delivery O2 Flow Rate FiO2 03/19/16 15:43 61 16 87/44 100 Room Air 03/19/16 15:16 56 16 94/47 100 Room Air 03/19/16 14:41 57 18 89/50 100 Room Air 03/19/16 14:32 57 18 96/48 100 Room Air 03/19/16 14:25 57 03/19/16 14:21 62 18 96/45 100 Room Air 03/19/16 13:57 55 16 103/48 100 Room Air 03/19/16 13:42 58 18 100/48 100 Room Air 03/19/16 13:20 61 18 95/50 100 Room Air 03/19/16 13:10 65 18 82/45 100 Room Air 03/19/16 12:55 66 18 96/47 94 Room Air 03/19/16 12:44 68 18 82/46 100 Room Air 03/19/16 12:44 36.8 03/19/16 12:40 67 03/19/16 12:35 68 18 99/52 100 Room Air 03/19/16 12:24 77 18 55/39 94 Room Air General Appearance: WD/WN, no apparent distress Head: normocephalic, atraumatic Eyes: normal inspection, sclerae normal ENT: normal ENT inspection, + pertinent finding (oral mucosa slightly dry) Neck: supple, no JVD Respiratory/Chest: lungs clear, no respiratory distress, no accessory muscle use Cardiovascular: regular rate, rhythm, no gallop Abdomen/GI: non tender, soft Back: normal inspection, no muscle spasm Extremities/Musculoskelatal: normal inspection, no pedal edema Neurologic/Psych: alert, oriented x 3 Skin: normal color Laboratory Results Last 24 Hours Test 03/19/16 12:37 03/19/16 12:40 03/19/16 12:45 03/19/16 13:00 Bedside Glucose 427 mg/dl White Blood Count 15.20 K/uL Red Blood Count 3.97 M/uL Hemoglobin 12.1 g/dL Hematocrit 36.0 % Mean Corpuscular Volume 90.7 fL Mean Corpuscular Hemoglobin 30.5 pg Mean Corpuscular Hemoglobin Concent 33.6 g/dl Platelet Count 169 K/uL Mean Platelet Volume 12.0 fL RDW Standard Deviation 65.2 fL RDW Coefficient of Variation 19.6 % Neutrophils % (Manual) 48.2 % Lymphocytes % (Manual) 7.1 % Monocytes % (Manual) 42.0 % Basophils % (Manual) 1.8 % Myelocytes % 0.9 % Neutrophils # (Manual) 7.33 K/uL Total Absolute Neutrophils 7.33 K/uL Lymphocytes # (Manual) 1.08 K/uL Total Absolute Lymphocytes 1.08 K/uL Monocytes # (Manual) 6.38 K/uL Basophils # (Manual) 0.27 K/uL Myelocytes # 0.14 K/uL Giant Platelets 1+ Spherocytes 1+ Prothrombin Time 12.3 SECONDS Prothromb Time International Ratio 1.1 Activated Partial Thromboplast Time 20.8 SECONDS Partial Thromboplastin Ratio 0.8 Sodium Level 138 mmol/L Potassium Level 4.3 mmol/L Chloride Level 103 mmol/L Carbon Dioxide Level 19 mmol/L Anion Gap 16.0 mmol/L Blood Urea Nitrogen 31 mg/dl Creatinine 2.50 mg/dl Estimated GFR () 26.9 Estimated GFR (Non- 23.2 BUN/Creatinine Ratio 12.3 Random Glucose 409 mg/dl Calcium Level 9.1 mg/dl Magnesium Level 1.7 mg/dl Total Bilirubin 0.6 mg/dl Direct Bilirubin 0.1 mg/dl Aspartate Amino Transf (AST/SGOT) 23 U/L Alanine Aminotransferase (ALT/SGPT) 15 U/L Alkaline Phosphatase 97 U/L Total Creatine Kinase 104 U/L Creatine Kinase MB 5.5 ng/ml Creatine Kinase MB Ratio 5.3 Troponin I 1.070 ng/ml Total Protein 7.8 gm/dl Albumin 3.1 gm/dl Beta-Hydroxybutyric Acid 1.97 mg/dL Bedside Lactic Acid Venous 4.88 mmol/L Influenza Type A (RT-PCR) Neg for Influ A Influenza Type B (RT-PCR) Neg for Influ B Test 03/19/16 14:56 03/19/16 15:12 03/19/16 15:58 03/19/16 16:47 Bedside Glucose 359 mg/dl 304 mg/dl Creatine Kinase MB Ratio Impression (1) CKD (chronic kidney disease), stage IV (2) Acute kidney injury superimposed on chronic kidney disease (3) MGUS (monoclonal gammopathy of unknown significance) (4) ACS (acute coronary syndrome) Mr. 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 Baseline creatinine ~2.0-2.2 mg/dL. He has stated that he would not consider hemodialysis during prior discussions. He has an extensive history of cardiovascular disease. He presented to the ED today with hypotension, hypoglycemia, generalized weakness, shortness of breath. He has been struggling recently with septic bursitis. He was admitted with ACS and acute on chronic renal insufficiency in addition to sepsis and hyperglycemia. Recommendations Acute renal insufficiency: -- Suspect prerenal in the setting of hyperglycemia, decreased PO intake and potential sepsis -- Agree with gentle monitored hydration - monitor with saline @ 100 ml/hr -- Document I/O -- Obtain renal US following Piña placement -- UA/microscopy pending -- Hold ACEi -- Check vanco level prior to next dose ACS: -- Cardiology consult pending Sepsis with bursitis: -- Antibiotics appropriate for renal function Chronic kidney disease stage IV A2 in the setting of vascular disease, diabetes mellitus and hypertension. --Mr. Riggs has expressed multiple times in the past that he would not consider dialysis under any circumstances. 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
[2016-03-19] MEDS: MECLIZINE HCL 25 MG TAB PO SCH (18:11)
[2016-03-19] MEDS ORDERED: HEPARIN IV BOLUS 6,000 UNIT in SYRINGE 0 ML IV ONE (18:45)
[2016-03-19 19:02] VITALS: PULSE 76; O2SAT 93
[2016-03-19] MEDS: IPRATROPIUM BROMIDE NEB SOLN 0.02% 2.5 ML VIAL INH SCH (19:02)
[2016-03-19] MEDS: LEVALBUTEROL 1.25MG/0.5ML NEB INH SCH (19:02)
[2016-03-19] MEDS: BUDESONIDE 0.5 MG/2 ML VIAL (PULMICORT) INH SCH (19:02)
[2016-03-19] MEDS: HEPARIN 25,000 UNIT/500ML D5W 500 ML IV PRN (19:32)
[2016-03-19 19:34] VITALS: BP 119/62; PULSE 62; TEMP 36.4; O2SAT 93
--- NOTE | 2016-03-19 19:36 | History and Physical ---
History & Physical Date & Time of Service: Mar 19, 2016 at 19:07 Chief Complaint: Nstemi,Initial Episode Of Care Primary Care Physician: Mahesh Hackett M.D. History of Present Illness Source: patient, family, spouse The patient is an 80-year-old male who presents to the emergency department with a complaint of worsening generalized weakness, dizziness, shortness of breath, cough, decreased appetite over the past several days, and over the past 24 hours has developed some loose stools. He did have a left knee aspiration done on March 08 by his PCP of his left knee was look to be primarily bloody aspirate, and since that time, after he fell on the knee again, the swelling returned, along with significant tenderness. He's currently on an unknown antibiotic. He reports he took his Lantus dosing this morning, but his says he is noncompliant and doubts he took it this morning. 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 (4) Thrombocytopenia Status: Chronic Surgical Problems: (1) H/O heart bypass surgery Status: Chronic Family History Heart disease Social History Smoking Status: Never Smoker Smokeless Tobacco Use: No Alcohol Use: none Drug Use: none Marital Status: Housing status: lives with family Occupational Status: retired Immunizations History of Influenza Vaccine: Yes History of Tetanus Vaccine?: Yes History of Pneumococcal: Yes History of Hepatitis B Vaccine: No Multi-Drug Resistant Organisms History of MDRO: No Allergies Coded Allergies: No Known Allergies (Verified , 03/19/16) Home Medications Scheduled Amlodipine (Norvasc), 10 MG PO DAILY Atorvastatin (Lipitor), 40 MG PO DAILY Cholecalciferol (Vitamin D3), 1 TAB PO DAILY Clopidogrel (Plavix), 75 MG PO DAILY Cyanocobalamin (Vitamin B-12 1000 Mcg), 1,000 MCG PO DAILY Doxycycline Hyclate (Vibramycin), 100 MG PO Q12H Insulin Glargine (Lantus Solostar), 18-20 UNITS SQ QAM Insulin Lispro (Human) (Humalog Kwikpen), 8 UNITS SC TIDM Isosorbide Mononitrate Ext Rel (Imdur Ext Rel), 120 MG PO QAM Meclizine HCl (Meclizine HCl), 25 MG PO Q6H Pantoprazole (Protonix), 40 MG PO DAILY Scheduled PRN Furosemide (Furosemide), 20 MG PO DAILY PRN for Fluid Retention Nitroglycerin (Nitrostat), 0.4 MG SL UD PRN for Chest Pain Review of Systems The patient denies palpitations, vision change, hearing change, sore throat, fevers, chills, sweats, weight change, nausea, vomiting, abdominal pain, pelvic pain, blood in urine or stool, dysuria, urinary frequency or urgency, headache , memory loss, abnormal bruising imbalance, focal weakness, numbness or tingling in arms , arthralgias or myalgias, back or neck pain, night sweats, or allergy symptoms. The review of systems is otherwise negative other than for that already noted above, and at least 10 systems have been reviewed. Physical Exam Vital Signs Date Time Temp Pulse Resp B/P Pulse Ox O2 Delivery O2 Flow Rate FiO2 03/19/16 19:02 76 16 93 Room Air 03/19/16 16:15 36.5 57 15 108/54 98 Room Air 03/19/16 15:43 61 16 87/44 100 Room Air 03/19/16 15:16 56 16 94/47 100 Room Air 03/19/16 14:41 57 18 89/50 100 Room Air 03/19/16 14:32 57 18 96/48 100 Room Air 03/19/16 14:25 57 03/19/16 14:21 62 18 96/45 100 Room Air 03/19/16 13:57 55 16 103/48 100 Room Air 03/19/16 13:42 58 18 100/48 100 Room Air 03/19/16 13:20 61 18 95/50 100 Room Air 03/19/16 13:10 65 18 82/45 100 Room Air 03/19/16 12:55 66 18 96/47 94 Room Air 03/19/16 12:44 68 18 82/46 100 Room Air 03/19/16 12:44 36.8 03/19/16 12:40 67 03/19/16 12:35 68 18 99/52 100 Room Air 03/19/16 12:24 77 18 55/39 94 Room Air The patient is awake, well-developed and adequately nourished, alert and oriented 3, normocephalic and atraumatic, lying in bed and in no acute distress. HEENT--PERRL, EOMI, mucous membranes moist, and oropharynx normal. Neck--supple, no JVD or bruits, thyroid normal, trachea midline, no adenopathy. Heart--normal S1 and S2, no extra beats, no murmurs, rubs or gallops. Lungs--wheezes left greater than right anterior and posterior, no respiratory distress, no accessory muscle use. Abdomen--normal bowel sounds and soft, nontender and nondistended, no hernias or masses, no organomegaly. Extremities--no cyanosis, clubbing or edema. There are good distal pulses b/l. Dermatologic--normal skin turgor, normal color, warm and dry, no abnormal lymph nodes. Neurologic--cranial nerves II through XII grossly intact. Rheumatologic--left knee with prepatellar bursitis, that is warm and red and swollen. Psychiatric--normal affect. Diagnostics Laboratory Results Results Past 24 Hours Test 03/19/16 12:37 03/19/16 12:40 03/19/16 12:45 03/19/16 13:00 Range/Units Bedside Glucose 427 70-99 mg/dl White Blood Count 15.20 4.8-10.8 K/uL Red Blood Count 3.97 4.7-6.1 M/uL Hemoglobin 12.1 14.0-18.0 g/dL Hematocrit 36.0 42-52 % Mean Corpuscular Volume 90.7 80-100 fL Mean Corpuscular Hemoglobin 30.5 25-34 pg Mean Corpuscular Hemoglobin Concent 33.6 32-36 g/dl Platelet Count 169 130-400 K/uL Mean Platelet Volume 12.0 7.4-10.4 fL RDW Standard Deviation 65.2 36.4-46.3 fL RDW Coefficient of Variation 19.6 11.5-14.5 % Neutrophils % (Manual) 48.2 % Lymphocytes % (Manual) 7.1 % Monocytes % (Manual) 42.0 % Basophils % (Manual) 1.8 0-2 % Myelocytes % 0.9 % Neutrophils # (Manual) 7.33 1.4-6.5 K/uL Total Absolute Neutrophils 7.33 1.4-6.5 K/uL Lymphocytes # (Manual) 1.08 1.2-3.4 K/uL Total Absolute Lymphocytes 1.08 1.2-3.4 K/uL Monocytes # (Manual) 6.38 0.11-0.59 K/uL Basophils # (Manual) 0.27 0-0.2 K/uL Myelocytes # 0.14 0-0 K/uL Giant Platelets 1+ Spherocytes 1+ Prothrombin Time 12.3 9.0-12.0 SECONDS Prothromb Time International Ratio 1.1 0.9-1.1 Activated Partial Thromboplast Time 20.8 21.0-31.0 SECONDS Partial Thromboplastin Ratio 0.8 Sodium Level 138 136-145 mmol/L Potassium Level 4.3 3.5-5.1 mmol/L Chloride Level 103 98-107 mmol/L Carbon Dioxide Level 19 21-32 mmol/L Anion Gap 16.0 3-11 mmol/L Blood Urea Nitrogen 31 7-18 mg/dl Creatinine 2.50 0.60-1.40 mg/dl Estimated GFR () 26.9 Estimated GFR (Non- 23.2 BUN/Creatinine Ratio 12.3 10-20 Random Glucose 409 70-99 mg/dl Calcium Level 9.1 8.5-10.1 mg/dl Magnesium Level 1.7 1.8-2.4 mg/dl Total Bilirubin 0.6 0.2-1 mg/dl Direct Bilirubin 0.1 0-0.2 mg/dl Aspartate Amino Transf (AST/SGOT) 23 15-37 U/L Alanine Aminotransferase (ALT/SGPT) 15 12-78 U/L Alkaline Phosphatase 97 45-117 U/L Total Creatine Kinase 104 39-308 U/L Creatine Kinase MB 5.5 0.5-3.6 ng/ml Creatine Kinase MB Ratio 5.3 0-3.0 Troponin I 1.070 0-0.045 ng/ml Total Protein 7.8 6.4-8.2 gm/dl Albumin 3.1 3.4-5.0 gm/dl Beta-Hydroxybutyric Acid 1.97 0.2-2.81 mg/dL Bedside Lactic Acid Venous 4.88 0.90-1.70 mmol/L Influenza Type A (RT-PCR) Neg for Influ A NEG Influenza Type B (RT-PCR) Neg for Influ B NEG Test 03/19/16 14:56 03/19/16 15:58 03/19/16 16:47 03/19/16 17:04 Range/Units Bedside Glucose 359 304 257 70-99 mg/dl Lactic Acid Level 3.1 0.4-2.0 mmol/L Total Creatine Kinase 83 39-308 U/L Creatine Kinase MB 4.0 0.5-3.6 ng/ml Creatine Kinase MB Ratio 4.8 0-3.0 Troponin I 0.996 0-0.045 ng/ml Test 03/19/16 18:06 Range/Units Bedside Glucose 204 70-99 mg/dl Microbiology Results 03/19/16 Blood Culture, Received Pending 03/19/16 Blood Culture, Received Pending 03/19/16 MRSA DNA Surveillance Screen, Received Pending Diagnostic Radiology Patient Name: LUPE BOWENS Unit Number: [id number] Dictated: 03/19/161509 Transcribed: 03/19/161509 JA Printed Date/Time: [~ rep prt dt]/[~ rep prt tm] [~ rep ct labl] - [~ rep ct ivnm] [facility] [place] [address] Dictated: 03/19/161509 Transcribed: 03/19/161509 JA Printed Date/Time: [~ rep prt dt]/[~ rep prt tm] [~ rep ct labl] - [~ rep ct ivnm] LEFT KNEE 1 OR 2 VIEWS ROUTINE CLINICAL HISTORY: Left knee pain and swelling. COMPARISON: None FINDINGS: Extensive vascular calcification is noted. No acute fracture is present. No joint effusion is identified. There is marked prepatellar soft tissue swelling. Soft tissue calcifications are noted. There is an indeterminate 4 mm radiodensity anterior to the medial tibial plateau. IMPRESSION: 1. No acute fracture. 2. Marked prepatellar and infrapatellar soft tissue swelling. This is nonspecific but could reflect bursitis or contusion. Electronically signed by: Harjinder Moreira M.D. 03/19/2016 3:11 PM Dictated Date/Time: 03/19/2016 3:10 PM The status of this report is Signed. Draft = Not yet reviewed or approved by Radiologist. Signed = Reviewed and approved by Radiologist. <AttendingPhy></AttendingPhy> <FamilyPhy>Mahesh Hackett M.D.</FamilyPhy> < PrimaryPhy>Mahesh Hackett M.D.</PrimaryPhy> <UnitNumber>[id number]</UnitNumber> <VisitNumber>[id number]</VisitNumber> <PatientName>LUPE BOWENS</ PatientName> <DateOfBirth>1935</DateOfBirth> <Location>[facility]</Location> < ServiceDate>03/19/16</ServiceDate> <MNE>ESINDI</MNE> <OrderingPhy>Anayeli Livingston M.D.</OrderingPhy> <OrderingPhyMNE>f rep ord dr olivares</OrderingPhyMNE> < DictatingPhyMNE>f rep dict dr olivares</DictatingPhyMNE> <CCListMNE>f rep ct mne</ CCListMNE> <AdmittingPhyMNE>f pt admit dr olivares</AdmittingPhyMNE> <AttendingPhyMNE >f pt attend dr olivares</AttendingPhyMNE> <ConsultingPhyMNE>f pt consult dr olivares</ConsultingPhyMNE> <FamilyPhyMNE>f pt fam dr olivares</FamilyPhyMNE> <OtherPhyMNE>f pt other dr olivares</OtherPhyMNE> < PrimaryPhyMNE>f pt prim care dr olivares</PrimaryPhyMNE> <ReferringPhyMNE>f pt referring dr olivares</ReferringPhyMNE> Patient Name: LUPE BOWENS Unit Number: [id number] Dictated: 03/19/161331 Transcribed: 03/19/161331 EV Printed Date/Time: [~ rep prt dt]/[~ rep prt tm] [~ rep ct labl] - [~ rep ct ivnm] [facility] [place] [address] Dictated: 03/19/161331 Transcribed: 03/19/161331 EV Printed Date/Time: [~ rep prt dt]/[~ rep prt tm] [~ rep ct labl] - [~ rep ct ivnm] SINGLE VIEW CHEST CLINICAL HISTORY: Cough. Hypotension. FINDINGS: An AP, portable, upright chest radiograph is compared to study dated 07/29/2015 and correlated with chest CT dated 06/25/2013. The examination is degraded by portable technique and patient rotation. The patient is status post midline sternotomy. The heart is mildly enlarged and there is atherosclerotic calcification of the thoracic aorta. The pulmonary vasculature is noncongested. Chronic elevation of the right hemidiaphragm with right basilar atelectasis is similar to previous. No airspace consolidation is seen typical for pneumonia and there is no large pleural effusion. Emphysema is suspected. No pneumothorax is seen. The skeletal structures are osteopenic. The bony thorax is grossly intact. IMPRESSION: Cardiomegaly with no acute cardiopulmonary abnormality. Chronic changes are detailed above. Electronically signed by: Tony Reagan M.D. 03/19/2016 1:34 PM Dictated Date/Time: 03/19/2016 1:32 PM The status of this report is Signed. Draft = Not yet reviewed or approved by Radiologist. Signed = Reviewed and approved by Radiologist. <AttendingPhy></AttendingPhy> <FamilyPhy>Mahesh Hackett M.D.</FamilyPhy> < PrimaryPhy>Mahesh Hackett M.D.</PrimaryPhy> <UnitNumber>[id number]</UnitNumber> <VisitNumber>[id number]</VisitNumber> <PatientName>LUPE BOWENS</ PatientName> <DateOfBirth>1935</DateOfBirth> <Location>C.ED</Location> < ServiceDate>03/19/16</ServiceDate> <MNE>ESINDI</MNE> <OrderingPhy>Anayeli Livingston M.D.</OrderingPhy> <OrderingPhyMNE>f rep ord dr olivares</OrderingPhyMNE> < DictatingPhyMNE>f rep dict dr olivares</DictatingPhyMNE> <CCListMNE>f rep ct marshall</ CCListMNE> <AdmittingPhyMNE>f pt admit dr olivares</AdmittingPhyMNE> <AttendingPhyMNE >f pt attend dr olivraes</AttendingPhyMNE> <ConsultingPhyMNE>f pt consult dr olivares</ConsultingPhyMNE> <FamilyPhyMNE>f pt fam dr olivares</FamilyPhyMNE> <OtherPhyMNE>f pt other dr olivares</OtherPhyMNE> < PrimaryPhyMNE>f pt prim care dr olivares</PrimaryPhyMNE> <ReferringPhyMNE>f pt referring dr olivares</ReferringPhyMNE> Impression Assessment and Plan SIRS - patient meets criteria for systemic inflammatory response syndrome, with possible sites including lungs and left knee. He is admitted to the hospital and will be placed on vancomycin IV per pharmacy dosing, Zosyn 3.375 mg IV every 8 hours, levofloxacin 500 mg IV every 24 hours, guaifenesin extended release 600 mg by mouth twice a day, and Xopenex with Atrovent nebulizers to use every 6 hours while awake and every 2 hours when necessary. Continue Plavix 75 mg by mouth daily. Lactic acid was elevated at 4.88, WBC is elevated at 15.20. 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 Preciado. His blood pressure was relatively low in the emergency department early on, and did respond to fluid resuscitation, but will hold his amlodipine 10 mg by mouth daily and isosorbide mononitrate extended release 120 mg by mouth every morning and his furosemide 20 mg daily when necessary. Diabetes mellitus--continue Lantus insulin 20 units subcutaneous every morning, and place on Accu-Cheks before meals and at bedtime with NovoLog coverage. Will hold his standard 8 units subcutaneous 3 times a day with meals Humalog. Of note, he did not take his Lantus insulin the morning of admission. And he was started on an insulin drip by the emergency department, but is not in either DKA or HHNK. The insulin drip has been discontinued when his sugar dropped to 240, and he'll be placed on coverage for the rest of the evening, and coverage as noted above. Left knee prepatellar bursitis--Will consult orthopedics. He was noted to have a previous On March 08 which appeared primarily bloody. Hypomagnesemia--magnesium upon entry labs is 1.7, will give 1 g of magnesium sulfate IV. GERD--continue pantoprazole 40 mg by mouth daily. Hypercholesterolemia--continue atorvastatin 40 mg by mouth daily. Level of Care Telemetry (6) Advanced Directives Existing Advance Directive: Yes Existing Living Will: Yes Existing Power of Recreational Aide: Yes Resuscitation Status FULL RESUSCITATION VTE Prophylaxis VTE Risk Assessment Done? Y/N: Yes Risk Level: High Given or contraindicated: SCD's
[2016-03-19] MEDS: PIPERACILL/TAZOBAC IV 3.375 GM in DEXTROSE 5% 100ML 100 ML IV SCH (19:51)
[2016-03-19] MEDS: DOCUSATE SODIUM 100 MG CAP PO SCH (19:57)
[2016-03-19] MEDS: GUAIFENESIN 200 MG TAB PO SCH (19:59)
[2016-03-19 20:00] VITALS: O2SAT 93
[2016-03-19] MEDS ORDERED: MAGNESIUM SULFATE 1GM / D5W 1 GM in PREMIXED IN D5W 100 ML IV ONE (20:00)
[2016-03-19] MEDS ORDERED: ENOXAPARIN 30 MG/0.3 ML SYR SC SCH (21:00)
[2016-03-19] MEDS ORDERED: LEVALBUTEROL/IPRATROPIUM NEB INH SCH (21:00)
[2016-03-19 22:21] LABS: URINE APPEARANCE CLOUDY (CLEAR); URINE BILIRUBIN NEG (NEG); URINE COLOR YELLOW; URINE EPITHELIAL CELL AUTO >30 /lpf (0-5); URINE NITRITE NEG (NEG); URINE SPECIFIC GRAVITY 1.014 (1.000-1.030); UROBILINOGEN NEG (NEG)
[2016-03-19 22:23] LABS: MANUAL MICROSCOPIC REQUIRED? NO; REVIEW REQ? YES
[2016-03-19 22:32] LABS: URINE PATH CASTS 1-5 GRANULAR CASTS /lpf (0)
[2016-03-20] VITALS (13 sets, daily range): BP systolic 115–176; BP diastolic 55–70; PULSE 55–75; TEMP 36.4–36.9; O2SAT 90–98
[2016-03-20 00:33] LABS: CKMB/CK RATIO 4.7 (0-3.0)
[2016-03-20] MEDS: SODIUM CHLORIDE 0.9% 1000ML 1,000 ML IV SCH (01:24)
[2016-03-20 03:00] LABS: PARTIAL THROMBOPLASTIN RATIO 2.7
[2016-03-20] MEDS: LEVALBUTEROL 1.25MG/0.5ML NEB INH SCH ×5 (03:00→23:40)
[2016-03-20] MEDS: IPRATROPIUM BROMIDE NEB SOLN 0.02% 2.5 ML VIAL INH SCH ×5 (03:00→23:40)
[2016-03-20] MEDS: PIPERACILL/TAZOBAC IV 3.375 GM in DEXTROSE 5% 100ML 100 ML IV SCH ×3 (04:12→21:44)
[2016-03-20] MEDS: ACETAMINOPHEN 325 MG TAB PO PRN (04:14)
[2016-03-20 05:42] LABS: INR 1.3 (0.9-1.1); PARTIAL THROMBOPLASTIN RATIO 3.1; PROTHROMBIN TIME (PATIENT) 13.6 SECONDS (9.0-12.0)
[2016-03-20 05:50] LABS: BUN/CREATININE RATIO 14.5 (10-20); CALCIUM 7.7 mg/dl (8.5-10.1); CREATININE 2.5 mg/dl (0.60-1.40); MAGNESIUM 1.8 mg/dl (1.8-2.4); POTASSIUM 3.7 mmol/L (3.5-5.1)
[2016-03-20 06:02] LABS: HEMATOCRIT 27.2 % (42-52); MEAN CELL VOLUME 88.3 fL (80-100); MEAN CORPUSCULAR HEMOGLOBIN 29.9 pg (25-34); MEAN CORPUSCULAR HGB CONC 33.8 g/dl (32-36); MEAN PLATELET VOLUME 12.3 fL (7.4-10.4); PLATELET COUNT 101 K/uL (130-400); RED BLOOD COUNT 3.08 M/uL (4.7-6.1); WHITE BLOOD COUNT 11.13 K/uL (4.8-10.8)
[2016-03-20 06:04] LABS: BASOPHIL % 0.9 % (0-2); COMPLETE YES; LYMPH ABS # 0.78 K/uL (1.2-3.4); META ABS # 0.19 K/uL (0-0); METAMYELOCYTE % 1.7 %; MYELOCYTE % 0.9 %; NEUTROPHILS % 48.6 %
[2016-03-20] MEDS: MECLIZINE HCL 25 MG TAB PO SCH ×4 (06:07→18:13)
[2016-03-20] MEDS: HEPARIN 25,000 UNIT/500ML D5W 500 ML IV PRN (06:25)
[2016-03-20] MEDS: INSULIN ASPART 100 UNITS/ML 3 ML PEN SC SCH ×4 (07:00→21:47)
[2016-03-20] MEDS: BUDESONIDE 0.5 MG/2 ML VIAL (PULMICORT) INH SCH ×2 (07:30→19:35)
[2016-03-20] MEDS: CHOLECALCIFEROL 1000 INTER.UNIT TAB PO SCH (08:04)
[2016-03-20] MEDS: GUAIFENESIN 200 MG TAB PO SCH ×2 (08:04→21:45)
[2016-03-20] MEDS: CLOPIDOGREL BISULFATE 75 MG TAB PO SCH (08:04)
[2016-03-20] MEDS: ATORVASTATIN 40 MG TAB PO SCH (08:04)
[2016-03-20] MEDS: CYANOCOBALAMIN 500 MCG TAB (VIT B-12) PO SCH (08:05)
[2016-03-20] MEDS: DOCUSATE SODIUM 100 MG CAP PO SCH ×2 (08:05→21:45)
[2016-03-20] MEDS: INSULIN GLARGINE SOLOSTAR 100 UNITS/ML 3 ML PEN SQ SCH (08:11)
[2016-03-20 08:22] LABS: CKMB/CK RATIO 3.9 (0-3.0)
--- NOTE | 2016-03-20 10:26 | Cardiology Follow-Up ---
Subjective Date of Service: Mar 20, 2016. Pt evaluation today including: conversation w/ patient, conversation w/ family , physical exam, lab review, review of studies, review of inpatient medication list History of Present Illness This is an 80-year-old gentleman with a history of coronary artery disease including myocardial infarction in 1996 bypass surgery in 2007, stage IV kidney disease, diabetes, hyperlipidemia, sick sinus syndrome and a history of chest discomfort. His chest discomfort has been evaluated in the past and he has had elevated troponins in the past however with his kidney disease he has declined invasive evaluation although it has been offered. He has also had a GI bleed in June 2015. He was hospitalized in October 2014 and at that time his troponin increased to a maximum of 2.4, in June 2015 his troponin was 0.068. He had an echocardiogram done 07/27/2015 which showed normal left ventricular size and function with concentric left ventricular hypertrophy. He presented now with symptoms of fatigue and was noted to have an elevated troponin as well as lung disease. He was not having chest discomfort, he does have chronic difficulty with exertion which is becoming very short of breath with climbing steps or even minimal exertion. He does not think that is been changing recently but has changed over the last several years. He did use a nitroglycerin tablet for chest discomfort on the evening of 03/18/2016, he evidently hasn't use one for some time before that. That did relieve his chest discomfort. He feels that he is suffering from a "cold" and is having little more difficulty with his breathing than usual. Since admission he has had no chest pain. He is only complaining of knee pain today. Social History Smoking Status: Never Smoker History of Alcohol Use: No Review of Systems Respiratory: + dyspnea on exertion, + see HPI, + wheezing, No cough, No shortness of breath Cardiac: + see HPI, No chest pain Medications Cardiovascular: Item Value Date Time Atorvastatin 40 mg 03/20/16 0900 Calcium DAILY/PO 03/20/16 0804 (Lipitor Tab) Clopidogrel 75 mg 03/20/16 0900 Bisulfate DAILY/PO 03/20/16 0804 (plAVix TAB) Nitroglycerin 0.4 mg 03/19/16 1515 (Nitrostat Tab) UD PRN/SL Objective Vital Signs Past 12 Hours Date Time Temp Pulse Resp B/P Pulse Ox O2 Delivery O2 Flow Rate FiO2 03/20/16 07:30 55 16 93 Room Air 03/20/16 07:30 36.9 56 20 142/68 94 03/20/16 04:12 36.6 71 18 115/55 96 03/20/16 04:00 96 Room Air 03/20/16 03:00 58 16 90 Room Air 03/20/16 00:46 36.6 70 16 136/70 95 Room Air 03/20/16 00:01 93 Room Air Last Recorded Weight-Kilograms: 88.200 Intake & Output 8-Hour Column 03/19/16 03/20/16 03/20/16 16:00 00:00 08:00 Intake Total 1554 ml 1261 ml Output Total 250 ml 690 ml Balance 1304 ml 571 ml 24-Hour Column 03/20/16 08:00 Intake Total 2815 ml Output Total 940 ml Balance 1875 ml Physical Exam Constitutional: Level of Distress: mild distress Lungs: Respiratory effort: no dyspnea, good air movement Auscultation: breath sounds normal, no wheezing Cardiovascular: Heart Auscultation: RRR, no murmurs, no rubs, no gallops Peripheral Pulses: Bruits: none appreciated Extremities: no edema Data Laboratory Results: Last 24 Hours Test 03/19/16 12:37 03/19/16 12:40 03/19/16 12:45 03/19/16 13:00 Bedside Glucose 427 mg/dl White Blood Count 15.20 K/uL Red Blood Count 3.97 M/uL Hemoglobin 12.1 g/dL Hematocrit 36.0 % Mean Corpuscular Volume 90.7 fL Mean Corpuscular Hemoglobin 30.5 pg Mean Corpuscular Hemoglobin Concent 33.6 g/dl Platelet Count 169 K/uL Mean Platelet Volume 12.0 fL RDW Standard Deviation 65.2 fL RDW Coefficient of Variation 19.6 % Neutrophils % (Manual) 48.2 % Lymphocytes % (Manual) 7.1 % Monocytes % (Manual) 42.0 % Basophils % (Manual) 1.8 % Myelocytes % 0.9 % Neutrophils # (Manual) 7.33 K/uL Total Absolute Neutrophils 7.33 K/uL Lymphocytes # (Manual) 1.08 K/uL Total Absolute Lymphocytes 1.08 K/uL Monocytes # (Manual) 6.38 K/uL Basophils # (Manual) 0.27 K/uL Myelocytes # 0.14 K/uL Giant Platelets 1+ Spherocytes 1+ Prothrombin Time 12.3 SECONDS Prothromb Time International Ratio 1.1 Activated Partial Thromboplast Time 20.8 SECONDS Partial Thromboplastin Ratio 0.8 Sodium Level 138 mmol/L Potassium Level 4.3 mmol/L Chloride Level 103 mmol/L Carbon Dioxide Level 19 mmol/L Anion Gap 16.0 mmol/L Blood Urea Nitrogen 31 mg/dl Creatinine 2.50 mg/dl Estimated GFR () 26.9 Estimated GFR (Non- 23.2 BUN/Creatinine Ratio 12.3 Random Glucose 409 mg/dl Calcium Level 9.1 mg/dl Magnesium Level 1.7 mg/dl Total Bilirubin 0.6 mg/dl Direct Bilirubin 0.1 mg/dl Aspartate Amino Transf (AST/SGOT) 23 U/L Alanine Aminotransferase (ALT/SGPT) 15 U/L Alkaline Phosphatase 97 U/L Total Creatine Kinase 104 U/L Creatine Kinase MB 5.5 ng/ml Creatine Kinase MB Ratio 5.3 Troponin I 1.070 ng/ml Total Protein 7.8 gm/dl Albumin 3.1 gm/dl Beta-Hydroxybutyric Acid 1.97 mg/dL Bedside Lactic Acid Venous 4.88 mmol/L Influenza Type A (RT-PCR) Neg for Influ A Influenza Type B (RT-PCR) Neg for Influ B Test 03/19/16 14:56 03/19/16 15:58 03/19/16 16:47 03/19/16 17:04 Bedside Glucose 359 mg/dl 304 mg/dl 257 mg/dl Lactic Acid Level 3.1 mmol/L Total Creatine Kinase 83 U/L Creatine Kinase MB 4.0 ng/ml Creatine Kinase MB Ratio 4.8 Troponin I 0.996 ng/ml Test 03/19/16 18:06 03/19/16 20:38 03/19/16 21:55 03/19/16 23:46 Bedside Glucose 204 mg/dl 219 mg/dl Urine Color YELLOW Urine Appearance CLOUDY Urine pH 5.0 Urine Specific [place] 1.014 Urine Protein TRACE Urine Glucose (UA) 2+ Urine Ketones NEG Urine Occult Blood 3+ Urine Nitrite NEG Urine Bilirubin NEG Urine Urobilinogen NEG Urine Leukocyte Esterase NEG Urine WBC (Auto) 1-5 /hpf Urine RBC (Auto) 0-4 /hpf Urine Hyaline Casts (Auto) 10-30 /lpf Urine Epithelial Cells (Auto) >30 /lpf Urine Bacteria (Auto) NEG Urine Renal Epithelial Cells 0-5 /lpf Urine Pathogenic Casts 1-5 GRANULAR CASTS /lpf Urine Yeast (Auto) Total Creatine Kinase 79 U/L Creatine Kinase MB 3.7 ng/ml Creatine Kinase MB Ratio 4.7 Troponin I 0.943 ng/ml Test 03/20/16 02:10 03/20/16 04:51 03/20/16 04:57 03/20/16 06:59 Activated Partial Thromboplast Time 69.9 SECONDS 80.7 SECONDS Partial Thromboplastin Ratio 2.7 3.1 White Blood Count 11.13 K/uL Red Blood Count 3.08 M/uL Hemoglobin 9.2 g/dL Hematocrit 27.2 % Mean Corpuscular Volume 88.3 fL Mean Corpuscular Hemoglobin 29.9 pg Mean Corpuscular Hemoglobin Concent 33.8 g/dl Platelet Count 101 K/uL Mean Platelet Volume 12.3 fL RDW Standard Deviation 63.7 fL RDW Coefficient of Variation 19.8 % Neutrophils % (Manual) 48.6 % Lymphocytes % (Manual) 7.0 % Monocytes % (Manual) 40.9 % Basophils % (Manual) 0.9 % Metamyelocytes % 1.7 % Myelocytes % 0.9 % Neutrophils # (Manual) 5.41 K/uL Total Absolute Neutrophils 5.41 K/uL Lymphocytes # (Manual) 0.78 K/uL Total Absolute Lymphocytes 0.78 K/uL Monocytes # (Manual) 4.55 K/uL Basophils # (Manual) 0.10 K/uL Metamyelocytes # 0.19 K/uL Myelocytes # 0.10 K/uL Prothrombin Time 13.6 SECONDS Prothromb Time International Ratio 1.3 Sodium Level 142 mmol/L Potassium Level 3.7 mmol/L Chloride Level 107 mmol/L Carbon Dioxide Level 23 mmol/L Anion Gap 12.0 mmol/L Blood Urea Nitrogen 36 mg/dl Creatinine 2.50 mg/dl Est Creatinine Clear Calc Drug Dose 23.9 ml/min Estimated GFR () 26.9 Estimated GFR (Non- 23.2 BUN/Creatinine Ratio 14.5 Random Glucose 205 mg/dl Calcium Level 7.7 mg/dl Phosphorus Level 4.0 mg/dl Magnesium Level 1.8 mg/dl Random Vancomycin Level 17.6 mcg/ml Bedside Glucose 208 mg/dl Test 03/20/16 07:25 Total Creatine Kinase 83 U/L Creatine Kinase MB 3.2 ng/ml Creatine Kinase MB Ratio 3.9 Troponin I 0.764 ng/ml EKG: Today SB, no acute change Telemetry reviewed: SR, no significant arrhythmia Assessment and Plan #1. Elevated cardiac enzymes: His troponin is slightly elevated but the pattern is descending, that could be from the chest discomfort he had the day before admission, it could be due to demand ischemia due to his current pulmonary condition. He does not have anything to suggest an acute myocardial infarction now (no diagnostic electrocardiographic changes and no discomfort currently) therefore I would not consider invasive evaluation. I am going to stop heparin. #2. Coronary disease: He has coronary artery disease, he has significant difficulty with exertion which could be an anginal equivalent although he typically does not have chest discomfort with exertion. He did of chest discomfort 03/18/2016 without exertion. We may have to consider stress testing but only if we would plan on further invasive evaluation. Certainly I would not do that now with his pulmonary condition. #3. Chronic kidney disease: He has long-standing kidney disease and his creatinine is stable at 2.5. That is roughly stable compared to prior values. This may interfere with our ability to perform invasive evaluation. Thank you for allowing me to participate in his care.
[2016-03-20] MEDS: PANTOprazole INJ 40 MG in SYRINGE 0 ML IV SCH (11:00)
--- NOTE | 2016-03-20 11:00 | Nephrology Progress Note ---
Nephrology Progress Note Date of Service Mar 20, 2016. Chief Complaint Chronic renal insufficiency Subjective No acute events overnight. Mr. Riggs has no complaints this morning. He states that he feels well but admits to some persistent dyspnea. No fevers or chills. Denies cough. Plan of care discussed with Dr. Darby this morning. Heparin gtt discontinued. Appetite fair. Nursing reports notable dyspnea with minimal exertion. Patient dribbles urine due to phimosis. Oxygen supplied this morning for comfort. Review of Systems A complete review of systems was performed. Pertinent positives are noted above. All other systems are negative. Vital Signs Last 8 Hrs Date Time Temp Pulse Resp B/P Pulse Ox O2 Delivery O2 Flow Rate FiO2 03/20/16 08:04 Nasal Cannula 2.0 03/20/16 07:30 55 16 93 Room Air 03/20/16 07:30 36.9 56 20 142/68 94 03/20/16 04:12 36.6 71 18 115/55 96 03/20/16 04:00 96 Room Air 03/20/16 03:00 58 16 90 Room Air I & O 24-Hour Column 03/20/16 08:00 Intake Total 2815 ml Output Total 940 ml Balance 1875 ml Last Recorded Weight Weight (Kilograms): 88.200 Physical Exam General Appearance: no apparent distress, + thin Head: normocephalic, atraumatic Eyes: normal inspection, sclerae normal ENT: normal ENT inspection, pharynx normal Neck: supple, no JVD Respiratory/Chest: chest non-tender, + decreased breath sounds, + pertinent finding (tight with slight wheeze) Cardiovascular: regular rate, rhythm, no murmur Abdomen/GI: non tender, soft Extremities/Musculoskelatal: normal inspection, no pedal edema Neurologic/Psych: alert, oriented x 3 Family History Heart disease Social History Smokeless Tobacco Use: No Alcohol Use: none Drug Use: none Marital Status: Housing Status: lives with family Occupation: retired Laboratory Results Past 24 Hours 03/19/16 12:40 Red Blood Count 3.97, Mean Corpuscular Volume 90.7, Mean Corpuscular Hemoglobin 30.5, Mean Corpuscular Hemoglobin Concent 33.6, Mean Platelet Volume 12.0 03/20/16 04:51 Red Blood Count 3.08, Mean Corpuscular Volume 88.3, Mean Corpuscular Hemoglobin 29.9, Mean Corpuscular Hemoglobin Concent 33.8, Mean Platelet Volume 12.3 03/19/16 12:40 03/20/16 04:57 Test 03/19/16 12:37 03/19/16 12:40 03/19/16 12:45 03/19/16 13:00 Bedside Glucose 427 mg/dl (70-99) White Blood Count 15.20 K/uL (4.8-10.8) Red Blood Count 3.97 M/uL (4.7-6.1) Hemoglobin 12.1 g/dL (14.0-18.0) Hematocrit 36.0 % (42-52) Mean Corpuscular Volume 90.7 fL (80-100) Mean Corpuscular Hemoglobin 30.5 pg (25-34) Mean Corpuscular Hemoglobin Concent 33.6 g/dl (32-36) Platelet Count 169 K/uL (130-400) Mean Platelet Volume 12.0 fL (7.4-10.4) RDW Standard Deviation 65.2 fL (36.4-46.3) RDW Coefficient of Variation 19.6 % (11.5-14.5) Neutrophils % (Manual) 48.2 % Lymphocytes % (Manual) 7.1 % Monocytes % (Manual) 42.0 % Basophils % (Manual) 1.8 % (0-2) Myelocytes % 0.9 % Neutrophils # (Manual) 7.33 K/uL (1.4-6.5) Total Absolute Neutrophils 7.33 K/uL (1.4-6.5) Lymphocytes # (Manual) 1.08 K/uL (1.2-3.4) Total Absolute Lymphocytes 1.08 K/uL (1.2-3.4) Monocytes # (Manual) 6.38 K/uL (0.11-0.59) Basophils # (Manual) 0.27 K/uL (0-0.2) Myelocytes # 0.14 K/uL (0-0) Giant Platelets 1+ Spherocytes 1+ Prothrombin Time 12.3 SECONDS (9.0-12.0) Prothromb Time International Ratio 1.1 (0.9-1.1) Activated Partial Thromboplast Time 20.8 SECONDS (21.0-31.0) Partial Thromboplastin Ratio 0.8 Anion Gap 16.0 mmol/L (3-11) Estimated GFR () 26.9 Estimated GFR (Non- 23.2 BUN/Creatinine Ratio 12.3 (10-20) Calcium Level 9.1 mg/dl (8.5-10.1) Magnesium Level 1.7 mg/dl (1.8-2.4) Total Bilirubin 0.6 mg/dl (0.2-1) Direct Bilirubin 0.1 mg/dl (0-0.2) Aspartate Amino Transf (AST/SGOT) 23 U/L (15-37) Alanine Aminotransferase (ALT/SGPT) 15 U/L (12-78) Alkaline Phosphatase 97 U/L (45-117) Total Creatine Kinase 104 U/L (39-308) Creatine Kinase MB 5.5 ng/ml (0.5-3.6) Creatine Kinase MB Ratio 5.3 (0-3.0) Troponin I 1.070 ng/ml (0-0.045) Total Protein 7.8 gm/dl (6.4-8.2) Albumin 3.1 gm/dl (3.4-5.0) Beta-Hydroxybutyric Acid 1.97 mg/dL (0.2-2.81) Bedside Lactic Acid Venous 4.88 mmol/L (0.90-1.70) Influenza Type A (RT-PCR) Neg for Influ A (NEG) Influenza Type B (RT-PCR) Neg for Influ B (NEG) Test 03/19/16 14:56 03/19/16 15:58 03/19/16 16:47 03/19/16 17:04 Bedside Glucose 359 mg/dl (70-99) 304 mg/dl (70-99) 257 mg/dl (70-99) Lactic Acid Level 3.1 mmol/L (0.4-2.0) Total Creatine Kinase 83 U/L (39-308) Creatine Kinase MB 4.0 ng/ml (0.5-3.6) Creatine Kinase MB Ratio 4.8 (0-3.0) Troponin I 0.996 ng/ml (0-0.045) Test 03/19/16 18:06 03/19/16 20:38 03/19/16 21:55 03/19/16 23:46 Bedside Glucose 204 mg/dl (70-99) 219 mg/dl (70-99) Urine Color YELLOW Urine Appearance CLOUDY (CLEAR) Urine pH 5.0 (4.5-7.5) Urine Specific [place] 1.014 (1.000-1.030) Urine Protein TRACE (NEG) Urine Glucose (UA) 2+ (NEG) Urine Ketones NEG (NEG) Urine Occult Blood 3+ (NEG) Urine Nitrite NEG (NEG) Urine Bilirubin NEG (NEG) Urine Urobilinogen NEG (NEG) Urine Leukocyte Esterase NEG (NEG) Urine WBC (Auto) 1-5 /hpf (0-5) Urine RBC (Auto) 0-4 /hpf (0-4) Urine Hyaline Casts (Auto) 10-30 /lpf (0-5) Urine Epithelial Cells (Auto) >30 /lpf (0-5) Urine Bacteria (Auto) NEG (NEG) Urine Renal Epithelial Cells 0-5 /lpf (0-5) Urine Pathogenic Casts 1-5 GRANULAR CASTS /lpf (0) Urine Yeast (Auto) (NONE PRSENT) Total Creatine Kinase 79 U/L (39-308) Creatine Kinase MB 3.7 ng/ml (0.5-3.6) Creatine Kinase MB Ratio 4.7 (0-3.0) Troponin I 0.943 ng/ml (0-0.045) Test 03/20/16 02:10 03/20/16 04:51 03/20/16 04:57 03/20/16 06:59 Activated Partial Thromboplast Time 69.9 SECONDS (21.0-31.0) 80.7 SECONDS (21.0-31.0) Partial Thromboplastin Ratio 2.7 3.1 White Blood Count 11.13 K/uL (4.8-10.8) Red Blood Count 3.08 M/uL (4.7-6.1) Hemoglobin 9.2 g/dL (14.0-18.0) Hematocrit 27.2 % (42-52) Mean Corpuscular Volume 88.3 fL (80-100) Mean Corpuscular Hemoglobin 29.9 pg (25-34) Mean Corpuscular Hemoglobin Concent 33.8 g/dl (32-36) Platelet Count 101 K/uL (130-400) Mean Platelet Volume 12.3 fL (7.4-10.4) RDW Standard Deviation 63.7 fL (36.4-46.3) RDW Coefficient of Variation 19.8 % (11.5-14.5) Neutrophils % (Manual) 48.6 % Lymphocytes % (Manual) 7.0 % Monocytes % (Manual) 40.9 % Basophils % (Manual) 0.9 % (0-2) Metamyelocytes % 1.7 % Myelocytes % 0.9 % Neutrophils # (Manual) 5.41 K/uL (1.4-6.5) Total Absolute Neutrophils 5.41 K/uL (1.4-6.5) Lymphocytes # (Manual) 0.78 K/uL (1.2-3.4) Total Absolute Lymphocytes 0.78 K/uL (1.2-3.4) Monocytes # (Manual) 4.55 K/uL (0.11-0.59) Basophils # (Manual) 0.10 K/uL (0-0.2) Metamyelocytes # 0.19 K/uL (0-0) Myelocytes # 0.10 K/uL (0-0) Prothrombin Time 13.6 SECONDS (9.0-12.0) Prothromb Time International Ratio 1.3 (0.9-1.1) Anion Gap 12.0 mmol/L (3-11) Est Creatinine Clear Calc Drug Dose 23.9 ml/min Estimated GFR () 26.9 Estimated GFR (Non- 23.2 BUN/Creatinine Ratio 14.5 (10-20) Calcium Level 7.7 mg/dl (8.5-10.1) Phosphorus Level 4.0 mg/dl (2.5-4.9) Magnesium Level 1.8 mg/dl (1.8-2.4) Random Vancomycin Level 17.6 mcg/ml Bedside Glucose 208 mg/dl (70-99) Test 03/20/16 07:25 Total Creatine Kinase 83 U/L (39-308) Creatine Kinase MB 3.2 ng/ml (0.5-3.6) Creatine Kinase MB Ratio 3.9 (0-3.0) Troponin I 0.764 ng/ml (0-0.045) Date/Time Source Procedure Growth Status 03/19/16 17:30 Nasal MRSA DNA Surveillance Screen - Final Specimen Negative for MRSA by DNA Probe Complete Allergies Coded Allergies: No Known Allergies (Verified , 03/19/16) Medications Current Inpatient Medications Medications (Trade) Dose Ordered Sig/Denny Route Start Time Stop Time Status Last Admin Dose Admin Atorvastatin Calcium (Lipitor Tab) 40 mg DAILY PO 03/20/16 09:00 04/19/16 08:59 03/20/16 08:04 40 MG Cholecalciferol (Vitamin D Tab) 1,000 inter.unit DAILY PO 03/20/16 09:00 04/19/16 08:59 03/20/16 08:04 1,000 INTER.UNIT Clopidogrel Bisulfate (plAVix TAB) 75 mg DAILY PO 03/20/16 09:00 04/19/16 08:59 03/20/16 08:04 75 MG Cyanocobalamin (Vitamin B-12 Tab) 1,000 mcg DAILY PO 03/20/16 09:00 04/19/16 08:59 03/20/16 08:05 1,000 MCG Meclizine HCl 25 mg 25 mg Q6 PO 03/19/16 18:00 04/18/16 17:59 03/20/16 06:07 25 MG Pantoprazole Sodium 40 mg/ Syringe 10 ml @ 5 mls/min DAILY@11 IV 03/20/16 11:00 04/19/16 10:59 Sodium Chloride (Nss 1000ml) 1,000 ml @ 100 mls/hr Q10H IV 03/19/16 15:12 04/18/16 15:11 03/20/16 01:24 100 MLS/HR Acetaminophen (Tylenol Tab) 650 mg Q4H PRN PO 03/19/16 15:15 04/18/16 15:14 03/20/16 04:14 650 MG Zolpidem Tartrate (Ambien Tab) 5 mg HSZ PRN PO 03/19/16 15:15 04/18/16 15:14 Nitroglycerin (Nitrostat Tab) 0.4 mg UD PRN SL 03/19/16 15:15 04/18/16 15:14 Lorazepam (Ativan Inj) 0.5 mg Q4H PRN IV 03/19/16 15:15 04/18/16 15:14 Magnesium Hydroxide (Milk Of Magnesia Susp) 30 ml Q6H PRN PO 03/19/16 15:15 04/18/16 15:14 Bisacodyl (Dulcolax Supp) 10 mg DAILY PRN [place] 03/19/16 15:15 04/18/16 15:14 Diphenhydramine HCl (Benadryl Inj) 25 mg Q4H PRN IV 03/19/16 15:15 04/18/16 15:14 Al Hydrox/Mg Hydrox/ Simethicone 15 ml 15 ml Q4H PRN PO 03/19/16 15:15 04/18/16 15:14 Promethazine HCl/ Sodium Chloride (Phenergan Inj/ Nss 50ml) 50.5 ml @ 202 mls/hr Q4H PRN IV 03/19/16 15:15 04/18/16 15:14 Ondansetron HCl (Zofran Inj) 4 mg Q6H PRN IV 03/19/16 15:15 04/18/16 15:14 Docusate Sodium (coLACE CAP) 100 mg BID PO 03/19/16 21:00 04/18/16 20:59 03/20/16 08:05 100 MG Morphine Sulfate (MoRPHine SULFATE INJ) 2 mg Q2H PRN IV 03/19/16 15:15 04/02/16 15:14 Insulin Aspart (novoLOG ASPART) SLIDING SCALE If C... ACHS SC 03/19/16 16:00 04/18/16 15:59 03/20/16 07:00 10 UNITS Glucose (Glucose 40% Gel) UD PRN PO 03/19/16 15:15 04/18/16 15:14 Glucose (Glucose Chew Tab) 1 tabs UD PRN PO 03/19/16 15:15 04/18/16 15:14 Dextrose (Dextrose 50% 50ML Syringe) 50 ml UD PRN IV 03/19/16 15:15 04/18/16 15:14 Glucagon (Glucagon Inj) 1 mg UD PRN SQ 03/19/16 15:15 04/18/16 15:14 Insulin Glargine 20 unit 20 unit QAM SQ 03/20/16 09:00 04/19/16 08:59 03/20/16 08:11 20 UNIT Piperacillin Sod/ Tazobactam Sod 3.375 gm/Dextrose 115 ml @ 28.75 mls/ hr Q8H IV 03/19/16 20:00 03/26/16 19:59 03/20/16 04:12 28.75 MLS/HR Levofloxacin/Prmx (Levaquin / D5W/ Premixed D5W) 150 ml @ 100 mls/hr Q2D@1400 IV 03/21/16 14:00 03/25/16 23:59 Guaifenesin (Organidin Nr Tab) 600 mg BID PO 03/19/16 21:00 04/18/16 20:59 03/20/16 08:04 600 MG Budesonide (Pulmicort Respules 0.5MG/ 2ML Neb Soln) 0.5 mg BIDR INH 03/19/16 20:00 04/18/16 19:59 03/20/16 07:30 0.5 MG Levofloxacin (Consult) 1 ea UD PRN N/A 03/19/16 16:15 04/18/16 16:14 Piperacillin Sod/ Tazobactam Sod (Consult) 1 ea UD PRN N/A 03/19/16 16:15 04/18/16 16:14 Vancomycin HCl (Consult) 1 ea UD PRN N/A 03/19/16 16:15 04/18/16 16:14 Ipratropium [place] (Atrovent 0.02% 0.5MG/2.5ML Neb) 0.5 mg Q6R INH 03/19/16 21:00 04/18/16 20:59 03/20/16 07:30 0.5 MG Levalbuterol (Xopenex 1.25MG/ 0.5ML Neb) 1.25 mg Q6R INH 03/19/16 21:00 04/18/16 20:59 03/20/16 07:30 1.25 MG Impression (1) CKD (chronic kidney disease), stage IV (2) Acute kidney injury superimposed on chronic kidney disease (3) MGUS (monoclonal gammopathy of unknown significance) (4) ACS (acute coronary syndrome) Mr. 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 Baseline creatinine ~2.0-2.2 mg/dL. He has stated that he would not consider hemodialysis during prior discussions. He has an extensive history of cardiovascular disease. He presented to the ED with hypotension, hypoglycemia, generalized weakness, shortness of breath. He has been struggling recently with right knee prepatellar bursitis. He was admitted to rule-out ACS with hyperglycemia and some evidence of acute on chronic renal insufficiency in addition to possible sepsis. Recommendations Acute renal insufficiency: -- Renal function stable -- Will stop IV saline infusion -- Encourage oral intake to encourage even to slightly positive fluid balance -- Check renal US. If there are no signs of obstruction then there is no need for Piña placement -- Hold ACEi -- Check vanco level prior to next dose Shortness of breath: -- Clinically consistent with a viral respiratory syndrome -- Agree with continued use of bronchodilators r/o ACS: -- Enzymes trending down -- No chest pain -- Discussed with cardiology this AM -- No further interventions required at this time Sepsis with bursitis: -- Knee does not appear infected on exam but if limiting mobility may certainly need to be aspirated Chronic kidney disease stage IV A2 in the setting of vascular disease, diabetes mellitus and hypertension. --Mr. Riggs has expressed multiple times in the past that he would not consider dialysis under any circumstances. 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
[2016-03-20] MEDS ORDERED: LIDOCAINE HCL 1% 20 ML VIAL ONE (11:30)
[2016-03-20] MEDS ORDERED: LIDOCAINE HCL 2% JELLY 30 ML TUBE EXT ONE (11:30)
--- NOTE | 2016-03-20 11:41 | ECHOCARDIOGRAM REPORT ---
*NOTICE TO RECEIVING LIBERTARIAN AGENCY This information is strictly Confidential and protected under [place] law. [place] law prohibits you from making any further disclosure of this information unless further disclosure is expressly permitted by the written consent of the person to whom it pertains or is authorized by law. A general authorization for the release of medical or other information is not sufficient for this purpose. Hospital accepts no responsibility if the information is made available to any other person, INCLUDING THE PATIENT. Interpretation Summary * Name: LUPE BOWENS SR Study Date: 03/20/2016 10:22 AM BP: 115/55 mmHg * Patient Location: C.2T\S\S239\S\2 HR: 71 * : 1935 (M/d/yy) Gender: Male Height: 71 in * Age: 80 yrs Ethnicity: [place] Weight: 192 lb * Ordering Physician: Richard Campbell * Referring Physician: Mahesh Hackett * Performed By: Bernice Ventura * * Reason For Study: NSTEMI * BSA: 2.1 m2 * -- Conclusions -- * 1. Normal LV size. Moderate concentric LVH with asymmetric basal septal hypertrophy. * 2. Normal LV systolic function. LVEF 65-70%. No regional wall motion abnormalities. * 3. Mildly dilated RV with borderline reduced function. * 4. Mild aortic insufficiency * 5. Questionable MV AMARJIT. Trace MR. * 6. Borderline dilated aortic root, ascending aorta. * 7. Compared with prior study on 07/27/2015: No significant change. Procedure Details * A complete two-dimensional transthoracic echocardiogram was performed (2D, M-mode, Doppler and color flow Doppler). Left Ventricle * The left ventricle is grossly normal size. * There is mild concentric left ventricular hypertrophy. * Asymmetric basal septal hypertrophy (1.8 cm) * Ejection Fraction = 65-70%. * No regional wall motion abnormalities noted. Right Ventricle * The right ventricle is not well visualized. * The right ventricle is mildly dilated. * The right ventricular systolic function is borderline reduced. Atria * The left atrial size is normal. * Borderline right atrial enlargement. * Right atrium not well visualized. * No ASD detected; PFO is not assessed. Mitral Valve * The mitral valve is grossly normal. * Questionable mitral valve AMARJIT * There is no mitral valve stenosis. * There is trace mitral regurgitation. Tricuspid Valve * The tricuspid valve is not well visualized, but is grossly normal. * There is no tricuspid stenosis. * There is trace tricuspid regurgitation. Aortic Valve * The aortic valve opens well. * The aortic valve is trileaflet. * No hemodynamically significant valvular aortic stenosis. * Mild aortic regurgitation. Pulmonic Valve * The pulmonic valve is not well seen, but is grossly normal. * There is no pulmonic valvular stenosis. * Mild pulmonic valvular regurgitation. Great Vessels * Borderline aortic root dilatation. * Borderline dilated ascending aorta. * No Doppler or imaging evidence of an aortic coarctation. * Normal inferior vena cava diameter and respiratory variation suggests normal central venous pressure. MMode 2D Measurements and Calculations IVSd 1.4 cm IVSs 1.7 cm LVIDd 4.5 cm LVIDs 2.4 cm LVPWd 1.2 cm LVPWs 2.0 cm IVS/LVPW 1.2 FS 46.7 % EDV(Teich) 90.8 ml ESV(Teich) 19.8 ml EF(Teich) 78.2 % EDV(cubed) 89.1 ml ESV(cubed) 13.5 ml EF(cubed) 84.8 % % IVS thick 21.8 % % LVPW thick 69.6 % LV mass(C)d 222.9 grams LV mass(C)dI 107.6 grams/m\S\2 LV mass(C)s 182.4 grams LV mass(C)sI 88.0 grams/m\S\2 SV(Teich) 71.1 ml SI(Teich) 34.3 ml/m\S\2 SV(cubed) 75.6 ml SI(cubed) 36.5 ml/m\S\2 Ao root diam 4.1 cm Ao root area 12.9 cm\S\2 ACS 1.5 cm LA dimension 5.1 cm asc Aorta Diam 3.8 cm LA/Ao 1.2 LVOT diam 1.8 cm LVOT area 2.6 cm\S\2 LVAd ap4 37.9 cm\S\2 LVLd ap4 8.7 cm EDV(MOD-sp4) 137.3 ml EDV(sp4-el) 141.0 ml LVAs ap4 17.8 cm\S\2 LVLs ap4 6.3 cm ESV(MOD-sp4) 41.8 ml ESV(sp4-el) 42.9 ml EF(MOD-sp4) 69.6 % EF(sp4-el) 69.6 % LVAd ap2 29.4 cm\S\2 LVLd ap2 8.7 cm EDV(MOD-sp2) 82.7 ml EDV(sp2-el) 84.3 ml LVAs ap2 13.5 cm\S\2 LVLs ap2 6.6 cm ESV(MOD-sp2) 24.8 ml ESV(sp2-el) 23.4 ml EF(MOD-sp2) 70.0 % EF(sp2-el) 72.2 % LVLd %diff 0.08 % EDV(MOD-bp) 107.4 ml LVLs %diff 4.2 % ESV(MOD-bp) 32.2 ml EF(MOD-bp) 70.0 % SV(MOD-sp4) 95.5 ml SI(MOD-sp4) 46.1 ml/m\S\2 SV(MOD-sp2) 57.9 ml SI(MOD-sp2) 27.9 ml/m\S\2 SV(MOD-bp) 75.1 ml SI(MOD-bp) 36.3 ml/m\S\2 SV(sp4-el) 98.1 ml SI(sp4-el) 47.3 ml/m\S\2 SV(sp2-el) 60.9 ml SI(sp2-el) 29.4 ml/m\S\2 Doppler Measurements and Calculations MV E max trina 87.4 cm/sec MV A max trina 102.5 cm/sec MV E/A 0.85 MV dec time 0.21 sec Ao V2 max 159.6 cm/sec Ao max PG 10.2 mmHg Ao max PG (full) 2.4 mmHg JAME(V,A) 2.3 cm\S\2 JAME(V,D) 2.3 cm\S\2 AI max trina 415.4 cm/sec AI max PG 69.0 mmHg AI dec slope 181.5 cm/sec\S\2 AI P1/2t 670.4 msec LV V1 max PG 7.8 mmHg LV V1 mean PG 3.6 mmHg LV V1 max 139.8 cm/sec LV V1 mean 87.1 cm/sec LV V1 VTI 31.1 cm SV(LVOT) 80.7 ml SI(LVOT) 39.0 ml/m\S\2 PA V2 max 81.4 cm/sec PA max PG 2.7 mmHg PI end-d trina 98.9 cm/sec TR max trina 240.1 cm/sec
[2016-03-20] MEDS: MoRPHine SULFATE 2 MG/ML CARP IV PRN (12:11)
--- NOTE | 2016-03-20 12:56 | Urology Consultation ---
Urology Consultation Patient is an 80-year-old white male admitted to the hospital with shortness of breath increasing lethargy. We are asked to see the patient because of a very tight phimotic foreskin Patient says he has had troubles voiding for 3 or 4 years he will basically voided into the foreskin pocket and then basically manipulate the end of the penis to drain the urine The concern was that he is probably going to need diuresis and if a Piña catheter as needed was impossible to get the catheter in due to the extremely tight phimosis On exam the patient did have a very tight phimosis with just a pinpoint opening was unable to place a catheter blindly even through the foreskin. Gave options the patient he could continue like he had been oriented have either a dorsal slit at the bedside or circumcision on Tuesday in the operating room Decided to have the dorsal slit at the bedside Patient's phallus was then prepped with Betadine and draped in a sterile fashion penile block was done with 1% plain lidocaine the foreskin was crushed with a clamp at the 12:00 and incised sharply. This was done down to the coronal sulcus. The 2 cut edges were then reapproximated with a running 3-0 chromic for hemostasis. After completing the procedure the wound was washed and dried and dry sterile dressing was applied he will have antibiotic ointment placed on the incision twice a day is currently on an antibiotic at the end of the procedure could easily see the meatus and this should help him with voiding problems that he was having
[2016-03-20] MEDS ORDERED: NURSING VERBAL MED ORDER ONE ×2 (14:30)
--- NOTE | 2016-03-20 14:37 | DIAGNOSTIC IMAGING REPORT ---
SINGLE VIEW CHEST CLINICAL HISTORY: Dyspnea. FINDINGS: 2 AP, portable, upright chest radiographs are compared to study dated 03/19/2016 and correlated with chest CT dated 06/25/2013. The examination is degraded by portable technique and patient rotation. The patient is status post midline sternotomy. The heart is mildly enlarged and there is atherosclerotic calcification of the thoracic aorta. The pulmonary vasculature is noncongested. Chronic elevation of the right hemidiaphragm with right basilar atelectasis is similar to previous. No airspace consolidation is seen typical for pneumonia and there is no large pleural effusion. Emphysema is suspected. No pneumothorax is seen. The skeletal structures are osteopenic. The bony thorax is grossly intact. IMPRESSION: Cardiomegaly with no acute cardiopulmonary abnormality. There is been no significant change from yesterday's examination. Electronically signed by: Tony Reagan M.D. 03/20/2016 2:35 PM Dictated Date/Time: 03/20/2016 2:34 PM
[2016-03-20] MEDS ORDERED: OXYCODONE HCL IR 5 MG TAB (IMMEDIATE RELEASE) PO PRN (14:45)
--- NOTE | 2016-03-20 14:47 | Hospitalist Progress Note ---
Hospitalist Progress Note Date of Service Mar 20, 2016. Subjective Pt evaluation today including: conversation w/ patient, physical exam, chart review, lab review, review of studies, review of inpatient medication list overnight doing ok, no acute event Objective Vital Signs Date Time Temp Pulse Resp B/P Pulse Ox O2 Delivery O2 Flow Rate FiO2 03/20/16 12:03 Nasal Cannula 2.0 03/20/16 11:52 36.4 56 16 132/68 98 2.0 03/20/16 08:04 Nasal Cannula 2.0 03/20/16 07:30 55 16 93 Room Air 03/20/16 07:30 36.9 56 20 142/68 94 03/20/16 04:12 36.6 71 18 115/55 96 03/20/16 04:00 96 Room Air 03/20/16 03:00 58 16 90 Room Air 03/20/16 00:46 36.6 70 16 136/70 95 Room Air 03/20/16 00:01 93 Room Air 03/19/16 20:00 93 Room Air 03/19/16 19:34 36.4 62 16 119/62 93 Room Air 03/19/16 19:02 76 16 93 Room Air 03/19/16 16:15 36.5 57 15 108/54 98 Room Air 03/19/16 15:43 61 16 87/44 100 Room Air 03/19/16 15:16 56 16 94/47 100 Room Air 03/19/16 14:41 57 18 89/50 100 Room Air Physical Exam General Appearance: no apparent distress Eyes: normal inspection ENT: hearing grossly normal Neck: supple Respiratory/Chest: chest non-tender, + decreased breath sounds, + pertinent finding (right side lung sound is more congested comparing to left side ) Cardiovascular: regular rate, rhythm, no edema Abdomen: normal bowel sounds, non tender, soft Extremities: + swelling, + pertinent finding (left knee swelling, erythma ) Neurologic/Psychiatric: no motor/sensory deficits Skin: + pertinent finding (left knee erythma) Laboratory Results Last 24 Hours Test 03/19/16 14:56 03/19/16 15:58 03/19/16 16:47 03/19/16 17:04 Bedside Glucose 359 mg/dl 304 mg/dl 257 mg/dl Lactic Acid Level 3.1 mmol/L Total Creatine Kinase 83 U/L Creatine Kinase MB 4.0 ng/ml Creatine Kinase MB Ratio 4.8 Troponin I 0.996 ng/ml Test 03/19/16 18:06 03/19/16 20:38 03/19/16 21:55 03/19/16 23:46 Bedside Glucose 204 mg/dl 219 mg/dl Urine Color YELLOW Urine Appearance CLOUDY Urine pH 5.0 Urine Specific Hart 1.014 Urine Protein TRACE Urine Glucose (UA) 2+ Urine Ketones NEG Urine Occult Blood 3+ Urine Nitrite NEG Urine Bilirubin NEG Urine Urobilinogen NEG Urine Leukocyte Esterase NEG Urine WBC (Auto) 1-5 /hpf Urine RBC (Auto) 0-4 /hpf Urine Hyaline Casts (Auto) 10-30 /lpf Urine Epithelial Cells (Auto) >30 /lpf Urine Bacteria (Auto) NEG Urine Renal Epithelial Cells 0-5 /lpf Urine Pathogenic Casts 1-5 GRANULAR CASTS /lpf Urine Yeast (Auto) Total Creatine Kinase 79 U/L Creatine Kinase MB 3.7 ng/ml Creatine Kinase MB Ratio 4.7 Troponin I 0.943 ng/ml Test 03/20/16 02:10 03/20/16 04:51 03/20/16 04:57 03/20/16 06:59 Activated Partial Thromboplast Time 69.9 SECONDS 80.7 SECONDS Partial Thromboplastin Ratio 2.7 3.1 White Blood Count 11.13 K/uL Red Blood Count 3.08 M/uL Hemoglobin 9.2 g/dL Hematocrit 27.2 % Mean Corpuscular Volume 88.3 fL Mean Corpuscular Hemoglobin 29.9 pg Mean Corpuscular Hemoglobin Concent 33.8 g/dl Platelet Count 101 K/uL Mean Platelet Volume 12.3 fL RDW Standard Deviation 63.7 fL RDW Coefficient of Variation 19.8 % Neutrophils % (Manual) 48.6 % Lymphocytes % (Manual) 7.0 % Monocytes % (Manual) 40.9 % Basophils % (Manual) 0.9 % Metamyelocytes % 1.7 % Myelocytes % 0.9 % Neutrophils # (Manual) 5.41 K/uL Total Absolute Neutrophils 5.41 K/uL Lymphocytes # (Manual) 0.78 K/uL Total Absolute Lymphocytes 0.78 K/uL Monocytes # (Manual) 4.55 K/uL Basophils # (Manual) 0.10 K/uL Metamyelocytes # 0.19 K/uL Myelocytes # 0.10 K/uL Prothrombin Time 13.6 SECONDS Prothromb Time International Ratio 1.3 Sodium Level 142 mmol/L Potassium Level 3.7 mmol/L Chloride Level 107 mmol/L Carbon Dioxide Level 23 mmol/L Anion Gap 12.0 mmol/L Blood Urea Nitrogen 36 mg/dl Creatinine 2.50 mg/dl Est Creatinine Clear Calc Drug Dose 23.9 ml/min Estimated GFR () 26.9 Estimated GFR (Non- 23.2 BUN/Creatinine Ratio 14.5 Random Glucose 205 mg/dl Calcium Level 7.7 mg/dl Phosphorus Level 4.0 mg/dl Magnesium Level 1.8 mg/dl Random Vancomycin Level 17.6 mcg/ml Bedside Glucose 208 mg/dl Test 03/20/16 07:25 03/20/16 11:09 Total Creatine Kinase 83 U/L Creatine Kinase MB 3.2 ng/ml Creatine Kinase MB Ratio 3.9 Troponin I 0.764 ng/ml Bedside Glucose 266 mg/dl Assessment and Plan Patient is an 79-year-old male with PMH of atherosclerotic coronary artery disease, diabetes mellitus, CKD stage IV, HTN, dyslipidemia, monoclonal gammopathy with chronic anemia and thrombocytopenia presented to ER due to weakness, SOB and cough 1 SIRS - possible etiologies including lung and left knee. will continue IV zosyn and vancomycin. f/u lactic acid. continue IV fluid 100/hour/ f/u blood culture, sputum culture. 2 Elevated troponin- troponin was trending down. ECHO showed EF 65-70%, color paste mixer is on board, doesn't consider to do stress test now. 3 Diabetes mellitus--continue Lantus insulin 20 units subcutaneous every morning , and place on Accu-Cheks before meals and at bedtime with NovoLog coverage. 4 Left knee prepatellar bursitis- f/u orthopedics, consider aspiration 5 Acute renal insufficiency: renal is on board, suspect prerenal in the setting of hyperglycemia and decreased PO intake, continue IV fluid 100cc/hour. f/u renal US. DVT prophylaxis: heparin Code: full
[2016-03-20] MEDS ORDERED: VANCOMYCIN INJ 750 MG in SODIUM CHLORIDE 0.9% 250ML 250 ML IV ONE (15:00)
[2016-03-20] MEDS: BACITRACIN OINT 15 GM TUBE EXT SCH (15:19)
--- NOTE | 2016-03-20 21:25 | DIAGNOSTIC IMAGING REPORT ---
RENAL ULTRASOUND CLINICAL HISTORY: Acute kidney injury. Chronic kidney disease. COMPARISON STUDY: CT of the abdomen and pelvis November 21, 2006. TECHNIQUE: Sonography of the kidneys and the urinary bladder was performed. FINDINGS: This exam is compromised by suboptimal penetration. However, there is no hydronephrosis. The right kidney measures 10.6 x 6.4 x 6.3 cm and the left measures 11.2 6.2 x 6.8 cm. There is moderate renal cortical thinning. Increased renal echogenicity is noted. The left ureteral jet was not visualized. IMPRESSION: 1. No hydronephrosis. 2. Moderate renal cortical thinning. 3. Study compromised by suboptimal penetration. Electronically signed by: Harjinder Moreira M.D. 03/20/2016 9:24 PM Dictated Date/Time: 03/20/2016 9:22 PM
[2016-03-20] MEDS: HEPARIN SOD 5000 UNIT/0.5 ML CARP SQ SCH (21:48)
[2016-03-21] VITALS (14 sets, daily range): BP systolic 124–171; BP diastolic 61–80; PULSE 58–107; TEMP 36.5–36.8; O2SAT 89–97
[2016-03-21] MEDS: LEVALBUTEROL 1.25MG/0.5ML NEB INH SCH ×6 (03:25→23:20)
[2016-03-21] MEDS: IPRATROPIUM BROMIDE NEB SOLN 0.02% 2.5 ML VIAL INH SCH ×6 (03:25→23:20)
[2016-03-21] MEDS: PIPERACILL/TAZOBAC IV 3.375 GM in DEXTROSE 5% 100ML 100 ML IV SCH ×3 (04:35→20:17)
[2016-03-21] MEDS: MECLIZINE HCL 25 MG TAB PO SCH ×4 (06:03→17:32)
[2016-03-21] MEDS: HEPARIN SOD 5000 UNIT/0.5 ML CARP SQ SCH (06:03)
[2016-03-21 06:52] LABS: INR 1.2 (0.9-1.1); PARTIAL THROMBOPLASTIN RATIO 1.2; PROTHROMBIN TIME (PATIENT) 13.3 SECONDS (9.0-12.0)
[2016-03-21] MEDS: INSULIN ASPART 100 UNITS/ML 3 ML PEN SC SCH ×4 (07:00→20:25)
[2016-03-21 07:04] LABS: BUN/CREATININE RATIO 12.3 (10-20); CALCIUM 7.9 mg/dl (8.5-10.1); CREATININE 2.8 mg/dl (0.60-1.40); MAGNESIUM 1.7 mg/dl (1.8-2.4); POTASSIUM 4.4 mmol/L (3.5-5.1)
[2016-03-21 07:05] LABS: ANISOCYTOSIS PRESENT; COMPLETE YES; EOSINOPHIL % 0.9 %; HEMATOCRIT 26.8 % (42-52); LYMPH ABS # 0.73 K/uL (1.2-3.4); LYMPHOCYTE % 3.5 %; MEAN CELL VOLUME 89.6 fL (80-100); MEAN CORPUSCULAR HEMOGLOBIN 29.4 pg (25-34); MEAN CORPUSCULAR HGB CONC 32.8 g/dl (32-36); NEUTROPHILS % 66.7 %; PLATELET COUNT 98 K/uL (130-400); PLT ESTIMATE DECREASED; RED BLOOD COUNT 2.99 M/uL (4.7-6.1); WHITE BLOOD COUNT 20.96 K/uL (4.8-10.8)
[2016-03-21] MEDS: BUDESONIDE 0.5 MG/2 ML VIAL (PULMICORT) INH SCH ×2 (07:19→20:10)
[2016-03-21] MEDS: ATORVASTATIN 40 MG TAB PO SCH (08:34)
[2016-03-21] MEDS: DOCUSATE SODIUM 100 MG CAP PO SCH ×2 (08:34→20:15)
[2016-03-21] MEDS: GUAIFENESIN 200 MG TAB PO SCH ×2 (08:34→20:16)
[2016-03-21] MEDS: CLOPIDOGREL BISULFATE 75 MG TAB PO SCH (08:34)
[2016-03-21] MEDS: CHOLECALCIFEROL 1000 INTER.UNIT TAB PO SCH (08:34)
[2016-03-21] MEDS: NITROGLYCERIN 0.4 MG/HR PATCH TD SCH (08:34)
[2016-03-21] MEDS: CYANOCOBALAMIN 500 MCG TAB (VIT B-12) PO SCH (08:34)
[2016-03-21] MEDS: BACITRACIN OINT 15 GM TUBE EXT SCH ×2 (08:36→20:14)
[2016-03-21] MEDS: INSULIN GLARGINE SOLOSTAR 100 UNITS/ML 3 ML PEN SQ SCH (08:40)
[2016-03-21] MEDS ORDERED: NURSING VERBAL MED ORDER ONE ×2 (09:00→12:30)
[2016-03-21] MEDS ORDERED: SODIUM CHLORIDE 0.9% 1000ML 1,000 ML IV SCH (09:15)
[2016-03-21] MEDS: MoRPHine SULFATE 2 MG/ML CARP IV PRN (09:25)
--- NOTE | 2016-03-21 09:34 | ORTHOPEDIC CONSULTATION ---
DATE OF CONSULTATION: 03/21/2016 CHIEF COMPLAINT: Left knee swelling. HISTORY OF PRESENT ILLNESS: The patient is an 80-year-old gentleman with multiple underlying medical issues recently admitted with generalized weakness, dizziness, and confusion. He apparently had some swelling in the front of his knee for the past several weeks. He was seen in Dr. Hackett's office and had his prepatella bursa aspirated. It showed mostly bloody fluid. He did have cultures done at that time, which were negative. He also was sent for gout and there were no signs of gout or pseudogout. It seemed to get a little bit better than he did bump it again recently and it swelled a little bit more. He was admitted to the hospital 2 days ago. He has been placed on antibiotics. He does say that he has gotten some better over the past day. No history of knee problems in the past. PAST MEDICAL HISTORY: Significant for, 1. Chronic anemia. 2. End-stage renal disease. 3. Diabetes. 4. History of bypass surgery. 5. Thrombocytopenia. PHYSICAL EXAMINATION: VITAL SIGNS: Temperature is 36.7. Vital signs stable. EXTREMITIES: Physical examination of the left lower extremity reveals an obvious swelling of his prepatellar bursa area of the left knee. There is a little bit of redness and bruising appearance to it. It does not look cellulitic per se, but just traumatized. He can do a good straight leg raise. There is no significant knee effusion. He can range his knee from 0 to 90 degrees without a lot of pain. There is not much warmth to it. LABORATORY DATA: His white cell count is 20.96. Hemoglobin 8.8. Hematocrit 26.8. Previous labs, his knee aspirate from March 08 revealed 3000 white cells with 92% polys. There were 3 million red cells. His culture results are no growth. ASSESSMENT: An 80-year-old male with multiple underlying medical problems, admitted for confusion and fatigue with the left knee what appears to be a hemorrhagic prepatellar bursitis. There are no signs of fracture or knee effusion or knee intraarticular problem. On x-ray, it does appear that there may be a hint of our suggestion of gout, but this was negative on his prepatellar aspirate in early March 08. I do not think his knee is the source of infection, but we will aspirate the prepatellar bursa and see if we can get any fluid off and send it for analysis. PLAN: We will aspirate his prepatellar bursa and send it for analysis. We will put a compression dressing on it. Continue medical management. Clinically, does not appear infected or source of infection. Any questions can be directed to me at [phone]. [facility]
--- NOTE | 2016-03-21 09:35 | Cardiology Follow-Up ---
Subjective Date of Service: Mar 21, 2016. Pt evaluation today including: conversation w/ patient, physical exam, lab review, review of studies, review of inpatient medication list History of Present Illness This is an 80-year-old gentleman with a history of coronary artery disease including myocardial infarction in 1996 bypass surgery in 2007, stage IV kidney disease, diabetes, hyperlipidemia, sick sinus syndrome and a history of chest discomfort. His chest discomfort has been evaluated in the past and he has had elevated troponins in the past however with his kidney disease he has declined invasive evaluation although it has been offered. He has also had a GI bleed in June 2015. He was hospitalized in October 2014 and at that time his troponin increased to a maximum of 2.4, in June 2015 his troponin was 0.068. He had an echocardiogram done 07/27/2015 which showed normal left ventricular size and function with concentric left ventricular hypertrophy. He presented now with symptoms of fatigue and was noted to have an elevated troponin as well as lung disease. He was not having chest discomfort, he does have chronic difficulty with exertion which is becoming very short of breath with climbing steps or even minimal exertion. He does not think that is been changing recently but has changed over the last several years. He did use a nitroglycerin tablet for chest discomfort on the evening of 03/18/2016, he evidently hasn't use one for some time before that. That did relieve his chest discomfort. He feels that he is suffering from a "cold" and is having little more difficulty with his breathing than usual. Since admission he has had no chest pain until this morning. He developed chest discomfort this morning which is very typical of his angina, and electrocardiogram did show anterolateral ST depression but no ST elevation. He did receive nitroglycerin 3 but continues to have chest discomfort. His blood pressure is somewhat elevated, probably due to the anxiety associated with the discomfort. Social History Smoking Status: Never Smoker History of Alcohol Use: No Review of Systems Respiratory: + dyspnea on exertion, + see HPI, + wheezing, No cough, No shortness of breath Cardiac: + see HPI, No chest pain Medications Cardiovascular: Item Value Date Time Nitroglycerin 1 patch 03/21/16 0900 (Nitro-Dur 0.4 QAM/TD 03/21/16 0834 Mg/Hr Patch) Heparin Sodium 5,000 unit 03/20/16 2200 (Porcine) Q8/SQ 03/21/16 0603 (Heparin Sq 5000 Unit/0.5ml) Atorvastatin 40 mg 03/20/16 0900 Calcium DAILY/PO 03/21/16 0834 (Lipitor Tab) Clopidogrel 75 mg 03/20/16 0900 Bisulfate DAILY/PO 03/21/16 0834 (plAVix TAB) Meclizine HCl 25 mg 03/19/16 1800 (Antivert Tab) Q6/PO 03/21/16 0603 Nitroglycerin 0.4 mg 03/19/16 1515 (Nitrostat Tab) UD PRN/SL 03/21/16 0832 Objective Vital Signs Past 12 Hours Date Time Temp Pulse Resp B/P Pulse Ox O2 Delivery O2 Flow Rate FiO2 03/21/16 08:02 36.7 63 18 144/74 93 03/21/16 07:20 64 16 93 Room Air 03/21/16 04:01 36.6 64 20 129/68 93 Room Air 03/21/16 04:00 Room Air 03/21/16 03:26 79 16 93 Room Air 03/21/16 00:00 Room Air 03/20/16 23:49 36.7 73 20 119/69 92 Room Air 03/20/16 23:41 73 16 94 Room Air Last Recorded Weight-Kilograms: 88.600 Intake & Output 8-Hour Column 03/20/16 03/21/16 03/21/16 16:00 00:00 08:00 Intake Total 3212 ml 1005 ml 805 ml Output Total 300 ml Balance 3212 ml 705 ml 805 ml 24-Hour Column 03/21/16 08:00 Intake Total 5022 ml Output Total 300 ml Balance 4722 ml Physical Exam Constitutional: Level of Distress: mild distress Lungs: Respiratory effort: no dyspnea, good air movement Auscultation: no rales/crackles, expiratory wheezing Cardiovascular: Heart Auscultation: RRR, no murmurs, no rubs, no gallops Peripheral Pulses: Bruits: none appreciated Extremities: no edema Data Laboratory Results: Last 24 Hours Test 03/20/16 11:09 03/20/16 16:08 03/20/16 16:33 03/20/16 20:21 Bedside Glucose 266 mg/dl 162 mg/dl 126 mg/dl Lactic Acid Level 2.6 mmol/L Test 1/22/17 05:49 03/21/16 06:47 03/21/16 08:47 White Blood Count 20.96 K/uL Red Blood Count 2.99 M/uL Hemoglobin 8.8 g/dL Hematocrit 26.8 % Mean Corpuscular Volume 89.6 fL Mean Corpuscular Hemoglobin 29.4 pg Mean Corpuscular Hemoglobin Concent 32.8 g/dl Platelet Count 98 K/uL RDW Standard Deviation 65.2 fL RDW Coefficient of Variation 20.0 % Neutrophils % (Manual) 66.7 % Lymphocytes % (Manual) 3.5 % Monocytes % (Manual) 28.9 % Eosinophils % (Manual) 0.9 % Neutrophils # (Manual) 13.98 K/uL Total Absolute Neutrophils 13.98 K/uL Lymphocytes # (Manual) 0.73 K/uL Total Absolute Lymphocytes 0.73 K/uL Monocytes # (Manual) 6.06 K/uL Eosinophils # (Manual) 0.19 K/uL Platelet Estimate DECREASED Anisocytosis PRESENT Prothrombin Time 13.3 SECONDS Prothromb Time International Ratio 1.2 Activated Partial Thromboplast Time 30.3 SECONDS Partial Thromboplastin Ratio 1.2 Sodium Level 140 mmol/L Potassium Level 4.4 mmol/L Chloride Level 107 mmol/L Carbon Dioxide Level 20 mmol/L Anion Gap 13.0 mmol/L Blood Urea Nitrogen 35 mg/dl Creatinine 2.80 mg/dl Est Creatinine Clear Calc Drug Dose 23.2 ml/min Estimated GFR () 23.5 Estimated GFR (Non- 20.2 BUN/Creatinine Ratio 12.3 Random Glucose 262 mg/dl Calcium Level 7.9 mg/dl Magnesium Level 1.7 mg/dl Random Vancomycin Level 15.0 mcg/ml Bedside Glucose 271 mg/dl EKG: This morning with chest discomfort, sinus rhythm with [address] depression consistent with ischemia. Telemetry reviewed: Sinus rhythm, no significant abnormality. Assessment and Plan #1. Chest discomfort: It sounds as though he has been having more chest discomfort lately, he had it the night before admission and had elevated troponins in the descending pattern after admission, and now he has had chest discomfort this morning not relieved by 3 nitroglycerin. He has been reluctant to consider catheterization but this certainly seems like it is an ischemic event based on his electrocardiogram and his symptoms. I am going to give him morphine and put him back on heparin. I discussed catheterization with him and he is not refusing, he does want to talk to his family. If we can control his chest discomfort it may not be urgent. #2. Elevated cardiac enzymes: His troponin was slightly elevated on admission but the pattern was descending, that could be from the chest discomfort he had the day before admission, it could be due to demand ischemia due to his current pulmonary condition. He does not have anything to suggest an acute myocardial infarction now (no diagnostic electrocardiographic changes) therefore I would not consider urgent invasive evaluation. #3. Coronary disease: He has coronary artery disease, he has significant difficulty with exertion which could be an anginal equivalent although he typically does not have chest discomfort with exertion. He did of chest discomfort 03/18/2016 without exertion. #4. Chronic kidney disease: He has long-standing kidney disease and his creatinine is a little bit higher at 2.8 today. This may interfere with our ability to perform invasive evaluation but if his symptoms persist we may have no alternative. Thank you for allowing me to participate in his care.
--- NOTE | 2016-03-21 09:59 | Cardiology Follow-Up ---
Subjective Subjective Date of Service: Mar 21, 2016. Pt evaluation today including: conversation w/ patient, physical exam, chart review, lab review, review of studies, review of inpatient medication list Additional Details: Chest pain this AM concerning for angina - max 10/07, SBP to 160s at that time Received nitropaste, 2 mg morphine --> chest pain now largely resolved. SBP 120s No other new complaints. Problem List Medical Problems: (1) Cardiac ischemia Status: Acute (2) Chest pain Status: Acute (3) Dyspnea on exertion Status: Acute (4) Renal insufficiency Status: Acute (5) Sepsis Status: Acute (6) Shortness of breath Status: Acute (7) SOB (shortness of breath) Status: Acute (8) Symptomatic anemia Status: Acute (9) Upper GI bleeding Status: Acute (10) Vertigo Status: Acute (11) Weakness Status: Acute Review of Systems Constitutional: + fatigue, No fever Respiratory: + see HPI, No cough, No shortness of breath Cardiac: + chest pain Abdomen: No GI bleeding, No pain Male : + urinary frequency, No sexual dysfunction Neurologic: No balance problems, No numbness/tingling, No paralysis, No weakness Skin: No problem reported Objective Vital Signs Last Vital Signs Documentation Date Time Temp Pulse Resp B/P Pulse Ox O2 Delivery O2 Flow Rate FiO2 03/21/16 09:26 94 20 167/74 93 Nasal Cannula 2.0 03/21/16 09:13 36.6 Physical Exam: General Appearance: no apparent distress ENT: hearing grossly normal Neck: supple Respiratory/Chest: chest non-tender, lungs clear, + decreased breath sounds ( minimally at bases), + pertinent finding (right side lung sound is more congested comparing to left side ) Cardiovascular: regular rate, rhythm, no edema, + pertinent finding (well- perfused) Abdomen: normal bowel sounds, non tender, soft Extremities: no pedal edema, + pertinent finding (left knee swelling, erythma ) Neurologic/Psychiatric: no motor/sensory deficits Skin: warm/dry, + pertinent finding (left knee erythma) Assessment and Plan 1. NSTEMI/H/o CAD s/p remote CABG 2. Acute on chronic renal insufficiency 3. Anemia, H/o GI bleed 4. ?Septic bursitis 5. DM 6. HTN 7. Prior history of symptomatic bradycardia Recurrent chest pain this AM now resolved with nitro/morphine. Remains hemodynamically/electrically stable, with no signs of heart failure and LV function preserved ---> in that setting, with acute on chronic renal insufficiency and worsening anemia - would hold off on cardiac cath at this time. Continue medical management - agree with plavix. Add ASA. Would hold off on restarting heparin for now. Continue to trend hemoglobin, if < 8 would transfuse. Continue nitropatch --> if recurrent symptoms would start nitro drip, target SBP <130 Continue Statin. Trend trops Please contact if were to develop uncontrollable chest pain. Will follow. Medications: Current Inpatient Medications Medications (Trade) Dose Ordered Sig/Denny Route Start Time Stop Time Status Last Admin Dose Admin Atorvastatin Calcium (Lipitor Tab) 40 mg DAILY PO 03/20/16 09:00 04/19/16 08:59 03/21/16 08:34 40 MG Cholecalciferol (Vitamin D Tab) 1,000 inter.unit DAILY PO 03/20/16 09:00 04/19/16 08:59 03/21/16 08:34 1,000 INTER.UNIT Clopidogrel Bisulfate (plAVix TAB) 75 mg DAILY PO 03/20/16 09:00 04/19/16 08:59 03/21/16 08:34 75 MG Cyanocobalamin (Vitamin B-12 Tab) 1,000 mcg DAILY PO 03/20/16 09:00 04/19/16 08:59 03/21/16 08:34 1,000 MCG Meclizine HCl 25 mg 25 mg Q6 PO 03/19/16 18:00 04/18/16 17:59 03/21/16 06:03 25 MG Pantoprazole Sodium/Syringe (Protonix Inj/ Syringe) 10 ml @ 5 mls/min DAILY@11 IV 03/20/16 11:00 04/19/16 10:59 03/20/16 11:00 5 MLS/MIN Acetaminophen (Tylenol Tab) 650 mg Q4H PRN PO 03/19/16 15:15 04/18/16 15:14 03/20/16 04:14 650 MG Zolpidem Tartrate (Ambien Tab) 5 mg HSZ PRN PO 03/19/16 15:15 04/18/16 15:14 Nitroglycerin (Nitrostat Tab) 0.4 mg UD PRN SL 03/19/16 15:15 04/18/16 15:14 03/21/16 08:32 0.4 MG Lorazepam (Ativan Inj) 0.5 mg Q4H PRN IV 03/19/16 15:15 04/18/16 15:14 Magnesium Hydroxide (Milk Of Magnesia Susp) 30 ml Q6H PRN PO 03/19/16 15:15 04/18/16 15:14 Bisacodyl (Dulcolax Supp) 10 mg DAILY PRN SC 03/19/16 15:15 04/18/16 15:14 Diphenhydramine HCl (Benadryl Inj) 25 mg Q4H PRN IV 03/19/16 15:15 04/18/16 15:14 Al Hydrox/Mg Hydrox/ Simethicone 15 ml 15 ml Q4H PRN PO 03/19/16 15:15 04/18/16 15:14 Promethazine HCl/ Sodium Chloride (Phenergan Inj/ Nss 50ml) 50.5 ml @ 202 mls/hr Q4H PRN IV 03/19/16 15:15 04/18/16 15:14 Ondansetron HCl (Zofran Inj) 4 mg Q6H PRN IV 03/19/16 15:15 04/18/16 15:14 Docusate Sodium (coLACE CAP) 100 mg BID PO 03/19/16 21:00 04/18/16 20:59 03/21/16 08:34 100 MG Morphine Sulfate (MoRPHine SULFATE INJ) 2 mg Q2H PRN IV 03/19/16 15:15 04/02/16 15:14 03/21/16 09:25 2 MG Insulin Aspart (novoLOG ASPART) SLIDING SCALE If C... ACHS SC 03/19/16 16:00 04/18/16 15:59 03/21/16 07:00 8 UNITS Glucose (Glucose 40% Gel) UD PRN PO 03/19/16 15:15 04/18/16 15:14 Glucose (Glucose Chew Tab) 1 tabs UD PRN PO 03/19/16 15:15 04/18/16 15:14 Dextrose (Dextrose 50% 50ML Syringe) 50 ml UD PRN IV 03/19/16 15:15 04/18/16 15:14 Glucagon (Glucagon Inj) 1 mg UD PRN SQ 03/19/16 15:15 04/18/16 15:14 Insulin Glargine 20 unit 20 unit QAM SQ 03/20/16 09:00 04/19/16 08:59 03/21/16 08:40 20 UNIT Piperacillin Sod/ Tazobactam Sod/ Dextrose (Zosyn Iv/D5 100ml) 115 ml @ 28.75 mls/ hr Q8H IV 03/19/16 20:00 03/26/16 19:59 03/21/16 04:35 28.75 MLS/HR Guaifenesin (Organidin Nr Tab) 600 mg BID PO 03/19/16 21:00 04/18/16 20:59 03/21/16 08:34 600 MG Budesonide (Pulmicort Respules 0.5MG/ 2ML Neb Soln) 0.5 mg BIDR INH 03/19/16 20:00 04/18/16 19:59 03/21/16 07:19 0.5 MG Levofloxacin (Consult) 1 ea UD PRN N/A 03/19/16 16:15 04/18/16 16:14 Piperacillin Sod/ Tazobactam Sod (Consult) 1 ea UD PRN N/A 03/19/16 16:15 04/18/16 16:14 Vancomycin HCl (Consult) 1 ea UD PRN N/A 03/19/16 16:15 04/18/16 16:14 Bacitracin (Bacitracin Oint) 1 appln BID EXT 03/20/16 21:00 03/25/16 09:01 03/21/16 08:36 1 APPLN Ipratropium [place] (Atrovent 0.02% 0.5MG/2.5ML Neb) 0.5 mg Q4R INH 03/20/16 16:00 04/18/16 20:59 03/21/16 07:18 0.5 MG Levalbuterol (Xopenex 1.25MG/ 0.5ML Neb) 1.25 mg Q4R INH 03/20/16 16:00 04/18/16 20:59 03/21/16 07:18 1.25 MG Oxycodone HCl (Roxicodone Immediate Rel Tab) 5 mg Q4 PRN PO 03/20/16 14:45 04/03/16 14:44 03/20/16 15:28 5 MG Heparin Sodium (Porcine) (Heparin Sq 5000 Unit/0.5ml) 5,000 unit Q8 SQ 03/20/16 22:00 04/19/16 21:59 03/21/16 06:03 5,000 UNIT Nitroglycerin (Nitro-Dur 0.4 Mg/Hr Patch) 1 patch QAM TD 03/21/16 09:00 04/20/16 08:59 03/21/16 08:34 1 PATCH Miscellaneous 1 ea 1 ea DAILY@21 N/A 03/20/16 21:00 04/19/16 20:59 Sodium Chloride (Nss 1000ml) 1,000 ml @ 100 mls/hr Q10H IV 03/21/16 09:15 04/20/16 09:14 03/21/16 09:06 100 MLS/HR Magnesium Oxide (Mag-Ox Tab) 400 mg QAM PO 03/22/16 09:00 04/21/16 08:59 UNV Heparin Sodium/ Dextrose 1 ea NOW STAT N/A 03/21/16 09:35 03/21/16 09:36 UNV Lab Results: 03/21/16 05:49 Red Blood Count 2.99, Mean Corpuscular Volume 89.6, Mean Corpuscular Hemoglobin 29.4, Mean Corpuscular Hemoglobin Concent 32.8 03/21/16 05:49 Test 03/20/16 16:33 03/21/16 05:49 03/21/16 06:47 03/21/16 08:47 Lactic Acid Level 2.6 mmol/L (0.4-2.0) White Blood Count 20.96 K/uL (4.8-10.8) Red Blood Count 2.99 M/uL (4.7-6.1) Hemoglobin 8.8 g/dL (14.0-18.0) Hematocrit 26.8 % (42-52) Mean Corpuscular Volume 89.6 fL (80-100) Mean Corpuscular Hemoglobin 29.4 pg (25-34) Mean Corpuscular Hemoglobin Concent 32.8 g/dl (32-36) Platelet Count 98 K/uL (130-400) RDW Standard Deviation 65.2 fL (36.4-46.3) RDW Coefficient of Variation 20.0 % (11.5-14.5) Neutrophils % (Manual) 66.7 % Lymphocytes % (Manual) 3.5 % Monocytes % (Manual) 28.9 % Eosinophils % (Manual) 0.9 % Neutrophils # (Manual) 13.98 K/uL (1.4-6.5) Total Absolute Neutrophils 13.98 K/uL (1.4-6.5) Lymphocytes # (Manual) 0.73 K/uL (1.2-3.4) Total Absolute Lymphocytes 0.73 K/uL (1.2-3.4) Monocytes # (Manual) 6.06 K/uL (0.11-0.59) Eosinophils # (Manual) 0.19 K/uL (0-0.5) Platelet Estimate DECREASED Anisocytosis PRESENT Prothrombin Time 13.3 SECONDS (9.0-12.0) Prothromb Time International Ratio 1.2 (0.9-1.1) Activated Partial Thromboplast Time 30.3 SECONDS (21.0-31.0) Partial Thromboplastin Ratio 1.2 Anion Gap 13.0 mmol/L (3-11) Est Creatinine Clear Calc Drug Dose 23.2 ml/min Estimated GFR () 23.5 Estimated GFR (Non- 20.2 BUN/Creatinine Ratio 12.3 (10-20) Calcium Level 7.9 mg/dl (8.5-10.1) Magnesium Level 1.7 mg/dl (1.8-2.4) Random Vancomycin Level 15.0 mcg/ml Bedside Glucose 271 mg/dl (70-99) Troponin I 0.260 ng/ml (0-0.045)
[2016-03-21] MEDS ORDERED: HEPARIN 25,000 UNIT/500ML D5W 500 ML IV PRN (10:30)
[2016-03-21] MEDS ORDERED: HEPARIN IV BOLUS 6,000 UNIT in SYRINGE 0 ML IV ONE (10:30)
[2016-03-21] MEDS: PANTOprazole INJ 40 MG in SYRINGE 0 ML IV SCH (10:45)
[2016-03-21] MEDS ORDERED: ASPIRIN 81 MG CHEW ONE (10:45)
[2016-03-21] MEDS: ASPIRIN 81 MG ECTAB PO SCH (11:00)
--- NOTE | 2016-03-21 11:18 | Nephrology Progress Note ---
Nephrology Progress Note Date of Service Mar 21, 2016. Chief Complaint Chronic renal insufficiency Subjective Mr. Riggs was resting comfortably on my assessment this morning. He did have reported chest pain with dynamic EKG changes reported. I discussed the plan of care with Dr. Darby. Opted to continue medical management at this time with close monitoring. Mr. Riggs denies significant shortness of breath at rest. No fevers or chills. Appetite appropriate. IV NS infusion restarted this morning. Mr. Smith denied significant pain or discomfort with regards to the dorsal slit procedure performed yesterday at the bedside for phimosis. He denies voiding difficulty. Review of Systems A complete review of systems was performed. Pertinent positives are noted above. All other systems are negative. Vital Signs Last 8 Hrs Date Time Temp Pulse Resp B/P Pulse Ox O2 Delivery O2 Flow Rate FiO2 03/21/16 09:26 94 20 167/74 93 Nasal Cannula 2.0 03/21/16 09:13 36.6 107 23 171/75 93 Nasal Cannula 2.0 03/21/16 08:05 Nasal Cannula 2.0 03/21/16 08:02 36.7 63 18 144/74 93 03/21/16 07:20 64 16 93 Room Air 03/21/16 04:01 36.6 64 20 129/68 93 Room Air 03/21/16 04:00 Room Air 03/21/16 03:26 79 16 93 Room Air I & O 24-Hour Column 03/21/16 08:00 Intake Total 5022 ml Output Total 300 ml Balance 4722 ml Last Recorded Weight Weight (Kilograms): 88.600 Physical Exam General Appearance: no apparent distress, + thin Head: normocephalic, atraumatic Eyes: normal inspection, sclerae normal ENT: normal ENT inspection, pharynx normal Neck: supple, no JVD Respiratory/Chest: + decreased breath sounds, + wheezing Cardiovascular: regular rate, rhythm, no gallop Abdomen/GI: non tender, soft Extremities/Musculoskelatal: normal inspection, + pedal edema (trace) Neurologic/Psych: alert, normal mood/affect Family History Heart disease Social History Smokeless Tobacco Use: No Alcohol Use: none Drug Use: none Marital Status: Housing Status: lives with family Occupation: retired Laboratory Results Past 24 Hours 03/21/16 05:49 Red Blood Count 2.99, Mean Corpuscular Volume 89.6, Mean Corpuscular Hemoglobin 29.4, Mean Corpuscular Hemoglobin Concent 32.8 03/21/16 05:49 Test 03/20/16 11:09 03/20/16 16:08 03/20/16 16:33 03/20/16 20:21 Bedside Glucose 266 mg/dl (70-99) 162 mg/dl (70-99) 126 mg/dl (70-99) Lactic Acid Level 2.6 mmol/L (0.4-2.0) Test 03/21/16 05:49 03/21/16 06:47 03/21/16 08:47 White Blood Count 20.96 K/uL (4.8-10.8) Red Blood Count 2.99 M/uL (4.7-6.1) Hemoglobin 8.8 g/dL (14.0-18.0) Hematocrit 26.8 % (42-52) Mean Corpuscular Volume 89.6 fL (80-100) Mean Corpuscular Hemoglobin 29.4 pg (25-34) Mean Corpuscular Hemoglobin Concent 32.8 g/dl (32-36) Platelet Count 98 K/uL (130-400) RDW Standard Deviation 65.2 fL (36.4-46.3) RDW Coefficient of Variation 20.0 % (11.5-14.5) Neutrophils % (Manual) 66.7 % Lymphocytes % (Manual) 3.5 % Monocytes % (Manual) 28.9 % Eosinophils % (Manual) 0.9 % Neutrophils # (Manual) 13.98 K/uL (1.4-6.5) Total Absolute Neutrophils 13.98 K/uL (1.4-6.5) Lymphocytes # (Manual) 0.73 K/uL (1.2-3.4) Total Absolute Lymphocytes 0.73 K/uL (1.2-3.4) Monocytes # (Manual) 6.06 K/uL (0.11-0.59) Eosinophils # (Manual) 0.19 K/uL (0-0.5) Platelet Estimate DECREASED Anisocytosis PRESENT Prothrombin Time 13.3 SECONDS (9.0-12.0) Prothromb Time International Ratio 1.2 (0.9-1.1) Activated Partial Thromboplast Time 30.3 SECONDS (21.0-31.0) Partial Thromboplastin Ratio 1.2 Anion Gap 13.0 mmol/L (3-11) Est Creatinine Clear Calc Drug Dose 23.2 ml/min Estimated GFR () 23.5 Estimated GFR (Non- 20.2 BUN/Creatinine Ratio 12.3 (10-20) Calcium Level 7.9 mg/dl (8.5-10.1) Magnesium Level 1.7 mg/dl (1.8-2.4) Random Vancomycin Level 15.0 mcg/ml Bedside Glucose 271 mg/dl (70-99) Troponin I 0.260 ng/ml (0-0.045) Allergies Coded Allergies: No Known Allergies (Verified , 03/19/16) Medications Current Inpatient Medications Medications (Trade) Dose Ordered Sig/Denny Route Start Time Stop Time Status Last Admin Dose Admin Atorvastatin Calcium (Lipitor Tab) 40 mg DAILY PO 03/20/16 09:00 04/19/16 08:59 03/21/16 08:34 40 MG Cholecalciferol (Vitamin D Tab) 1,000 inter.unit DAILY PO 03/20/16 09:00 04/19/16 08:59 03/21/16 08:34 1,000 INTER.UNIT Clopidogrel Bisulfate (plAVix TAB) 75 mg DAILY PO 03/20/16 09:00 04/19/16 08:59 03/21/16 08:34 75 MG Cyanocobalamin (Vitamin B-12 Tab) 1,000 mcg DAILY PO 03/20/16 09:00 04/19/16 08:59 03/21/16 08:34 1,000 MCG Meclizine HCl 25 mg 25 mg Q6 PO 03/19/16 18:00 04/18/16 17:59 03/21/16 06:03 25 MG Pantoprazole Sodium/Syringe (Protonix Inj/ Syringe) 10 ml @ 5 mls/min DAILY@11 IV 03/20/16 11:00 04/19/16 10:59 03/21/16 10:45 5 MLS/MIN Acetaminophen (Tylenol Tab) 650 mg Q4H PRN PO 03/19/16 15:15 04/18/16 15:14 03/20/16 04:14 650 MG Zolpidem Tartrate (Ambien Tab) 5 mg HSZ PRN PO 03/19/16 15:15 04/18/16 15:14 Nitroglycerin (Nitrostat Tab) 0.4 mg UD PRN SL 03/19/16 15:15 04/18/16 15:14 03/21/16 08:32 0.4 MG Lorazepam (Ativan Inj) 0.5 mg Q4H PRN IV 03/19/16 15:15 04/18/16 15:14 Magnesium Hydroxide (Milk Of Magnesia Susp) 30 ml Q6H PRN PO 03/19/16 15:15 04/18/16 15:14 Bisacodyl (Dulcolax Supp) 10 mg DAILY PRN RI 03/19/16 15:15 04/18/16 15:14 Diphenhydramine HCl (Benadryl Inj) 25 mg Q4H PRN IV 03/19/16 15:15 04/18/16 15:14 Al Hydrox/Mg Hydrox/ Simethicone 15 ml 15 ml Q4H PRN PO 03/19/16 15:15 04/18/16 15:14 Promethazine HCl/ Sodium Chloride (Phenergan Inj/ Nss 50ml) 50.5 ml @ 202 mls/hr Q4H PRN IV 03/19/16 15:15 04/18/16 15:14 Ondansetron HCl (Zofran Inj) 4 mg Q6H PRN IV 03/19/16 15:15 04/18/16 15:14 Docusate Sodium (coLACE CAP) 100 mg BID PO 03/19/16 21:00 04/18/16 20:59 03/21/16 08:34 100 MG Morphine Sulfate (MoRPHine SULFATE INJ) 2 mg Q2H PRN IV 03/19/16 15:15 04/02/16 15:14 03/21/16 09:25 2 MG Insulin Aspart (novoLOG ASPART) SLIDING SCALE If C... ACHS SC 03/19/16 16:00 04/18/16 15:59 03/21/16 07:00 8 UNITS Glucose (Glucose 40% Gel) UD PRN PO 03/19/16 15:15 04/18/16 15:14 Glucose (Glucose Chew Tab) 1 tabs UD PRN PO 03/19/16 15:15 04/18/16 15:14 Dextrose (Dextrose 50% 50ML Syringe) 50 ml UD PRN IV 03/19/16 15:15 04/18/16 15:14 Glucagon (Glucagon Inj) 1 mg UD PRN SQ 03/19/16 15:15 04/18/16 15:14 Insulin Glargine 20 unit 20 unit QAM SQ 03/20/16 09:00 04/19/16 08:59 03/21/16 08:40 20 UNIT Piperacillin Sod/ Tazobactam Sod/ Dextrose (Zosyn Iv/D5 100ml) 115 ml @ 28.75 mls/ hr Q8H IV 03/19/16 20:00 03/26/16 19:59 03/21/16 04:35 28.75 MLS/HR Guaifenesin (Organidin Nr Tab) 600 mg BID PO 03/19/16 21:00 04/18/16 20:59 03/21/16 08:34 600 MG Budesonide (Pulmicort Respules 0.5MG/ 2ML Neb Soln) 0.5 mg BIDR INH 03/19/16 20:00 04/18/16 19:59 03/21/16 07:19 0.5 MG Levofloxacin (Consult) 1 ea UD PRN N/A 03/19/16 16:15 04/18/16 16:14 Piperacillin Sod/ Tazobactam Sod (Consult) 1 ea UD PRN N/A 03/19/16 16:15 04/18/16 16:14 Vancomycin HCl (Consult) 1 ea UD PRN N/A 03/19/16 16:15 04/18/16 16:14 Bacitracin (Bacitracin Oint) 1 appln BID EXT 03/20/16 21:00 03/25/16 09:01 03/21/16 08:36 1 APPLN Ipratropium [place] (Atrovent 0.02% 0.5MG/2.5ML Neb) 0.5 mg Q4R INH 03/20/16 16:00 04/18/16 20:59 03/21/16 07:18 0.5 MG Levalbuterol (Xopenex 1.25MG/ 0.5ML Neb) 1.25 mg Q4R INH 03/20/16 16:00 04/18/16 20:59 03/21/16 07:18 1.25 MG Oxycodone HCl (Roxicodone Immediate Rel Tab) 5 mg Q4 PRN PO 03/20/16 14:45 04/03/16 14:44 03/20/16 15:28 5 MG Nitroglycerin (Nitro-Dur 0.4 Mg/Hr Patch) 1 patch QAM TD 03/21/16 09:00 04/20/16 08:59 03/21/16 08:34 1 PATCH Miscellaneous 1 ea 1 ea DAILY@21 N/A 03/20/16 21:00 04/19/16 20:59 Sodium Chloride (Nss 1000ml) 1,000 ml @ 100 mls/hr Q10H IV 03/21/16 09:15 04/20/16 09:14 03/21/16 09:06 100 MLS/HR Magnesium Oxide (Mag-Ox Tab) 400 mg QAM PO 03/22/16 09:00 04/21/16 08:59 Aspirin 81 mg 81 mg QAM PO 03/21/16 11:00 04/20/16 10:59 Heparin Sodium/ Dextrose (Heparin 25,000 Unit/500ml D5W) 500 ml @ 29 mls/hr [id number] PRN IV 03/21/16 10:30 04/20/16 10:29 Impression (1) CKD (chronic kidney disease), stage IV (2) Acute kidney injury superimposed on chronic kidney disease (3) MGUS (monoclonal gammopathy of unknown significance) (4) ACS (acute coronary syndrome) Mr. 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 Baseline creatinine ~2.0-2.2 mg/dL. He has stated that he would not consider hemodialysis during prior discussions. He has an extensive history of cardiovascular disease. He presented to the ED with hypotension, hypoglycemia, generalized weakness, shortness of breath. He has been struggling recently with right knee prepatellar bursitis. He was admitted to rule-out ACS with hyperglycemia and some evidence of acute on chronic renal insufficiency in addition to possible sepsis. Creatinine worsening in past 24 hours. Net positive fluid balance since admission. Recommendations Acute renal insufficiency: -- Volume status appears appropriate. Avoid aggressive IVF replacement -- Hold ACEi -- Suggest holding vancomycin unless clear source of infection Shortness of breath: -- Clinically consistent with a viral respiratory syndrome -- Agree with continued use of bronchodilators Cardiovascular disease with angina: -- Discussed with cardiology this AM -- Continue medical management Monoclonal gammopathy: -- Progressive anemia and thrombocytopenia noted -- Given evidence of cardiac ischemia suggest PRBC transfusion support Lactic acidosis: -- Continue to trend for improvement Bursitis: -- Knee does not appear infected on exam but if limiting mobility may certainly need to be aspirated Chronic kidney disease stage IV A2 in the setting of vascular disease, diabetes mellitus and hypertension. --Mr. Riggs has expressed multiple times in the past that he would not consider dialysis under any circumstances. 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
--- NOTE | 2016-03-21 11:24 | Progress Note ---
Progress Note Postop day 1 bedside dorsal slit Patient afebrile vital signs are stable He says he is voiding much better now that the foreskin has been opened no longer has to strain in order has any pain when he voids The incision is clean Assessment-history of phimosis post dorsal slit Patient doing well in terms of voiding Continue with antibiotic ointment application to the incision twice a day He should follow-up in our office in a couple weeks after discharge for wound check
--- NOTE | 2016-03-21 12:02 | PROGRESS NOTE ---
DATE: 03/21/2016 PROCEDURE: The patient's knee was prepped with alcohol. We aspirated the prepatellar bursa area. I got a small amount of just bloody fluid. There were no signs of infection or abscess. We got about a total of 5 mL of bloody fluid. There is still quite a bit of remaining blood present. We did not send this off for culture, as it was clearly just blood. A compressive bandage was applied. The patient tolerated the procedure well with no complications. EMEKA
[2016-03-21] MEDS ORDERED: LEVOFLOXACIN / D5W 750 MG in PREMIXED IN D5W 150 ML IV SCH (14:00)
--- NOTE | 2016-03-21 15:10 | Hospitalist Progress Note ---
Hospitalist Progress Note Date of Service Mar 21, 2016. Subjective Pt evaluation today including: conversation w/ patient, conversation w/ family , physical exam, chart review, lab review, review of studies, review of inpatient medication list overnight doing ok, but around 7am , has one episode of chest pain, Objective Vital Signs Date Time Temp Pulse Resp B/P Pulse Ox O2 Delivery O2 Flow Rate FiO2 03/21/16 12:06 Nasal Cannula 2.0 03/21/16 11:53 36.5 58 18 124/72 95 2.0 03/21/16 11:09 66 16 96 Room Air 03/21/16 09:26 94 20 167/74 93 Nasal Cannula 2.0 03/21/16 09:13 36.6 107 23 171/75 93 Nasal Cannula 2.0 03/21/16 08:05 Nasal Cannula 2.0 03/21/16 08:02 36.7 63 18 144/74 93 03/21/16 07:20 64 16 93 Room Air 03/21/16 04:01 36.6 64 20 129/68 93 Room Air 03/21/16 04:00 Room Air 03/21/16 03:26 79 16 93 Room Air 03/21/16 00:00 Room Air 03/20/16 23:49 36.7 73 20 119/69 92 Room Air 03/20/16 23:41 73 16 94 Room Air 03/20/16 20:00 Room Air 03/20/16 19:35 75 16 95 Nasal Cannula 2.0 03/20/16 19:23 36.6 75 18 176/68 97 Nasal Cannula 2.0 03/20/16 16:03 Nasal Cannula 2.0 03/20/16 15:48 36.9 64 16 159/70 97 Nasal Cannula 2.0 03/20/16 14:20 67 16 93 Room Air Physical Exam General Appearance: no apparent distress Eyes: normal inspection ENT: hearing grossly normal Neck: supple Respiratory/Chest: chest non-tender, normal breath sounds Cardiovascular: regular rate, rhythm Abdomen: normal bowel sounds, non tender Neurologic/Psychiatric: oriented x 3 Laboratory Results Last 24 Hours Test 03/20/16 16:08 03/20/16 16:33 03/20/16 20:21 03/21/16 05:49 Bedside Glucose 162 mg/dl 126 mg/dl Lactic Acid Level 2.6 mmol/L White Blood Count 20.96 K/uL Red Blood Count 2.99 M/uL Hemoglobin 8.8 g/dL Hematocrit 26.8 % Mean Corpuscular Volume 89.6 fL Mean Corpuscular Hemoglobin 29.4 pg Mean Corpuscular Hemoglobin Concent 32.8 g/dl Platelet Count 98 K/uL RDW Standard Deviation 65.2 fL RDW Coefficient of Variation 20.0 % Neutrophils % (Manual) 66.7 % Lymphocytes % (Manual) 3.5 % Monocytes % (Manual) 28.9 % Eosinophils % (Manual) 0.9 % Neutrophils # (Manual) 13.98 K/uL Total Absolute Neutrophils 13.98 K/uL Lymphocytes # (Manual) 0.73 K/uL Total Absolute Lymphocytes 0.73 K/uL Monocytes # (Manual) 6.06 K/uL Eosinophils # (Manual) 0.19 K/uL Platelet Estimate DECREASED Anisocytosis PRESENT Prothrombin Time 13.3 SECONDS Prothromb Time International Ratio 1.2 Activated Partial Thromboplast Time 30.3 SECONDS Partial Thromboplastin Ratio 1.2 Sodium Level 140 mmol/L Potassium Level 4.4 mmol/L Chloride Level 107 mmol/L Carbon Dioxide Level 20 mmol/L Anion Gap 13.0 mmol/L Blood Urea Nitrogen 35 mg/dl Creatinine 2.80 mg/dl Est Creatinine Clear Calc Drug Dose 23.2 ml/min Estimated GFR () 23.5 Estimated GFR (Non- 20.2 BUN/Creatinine Ratio 12.3 Random Glucose 262 mg/dl Calcium Level 7.9 mg/dl Magnesium Level 1.7 mg/dl Random Vancomycin Level 15.0 mcg/ml Test 03/21/16 06:47 03/21/16 08:47 03/21/16 11:14 Bedside Glucose 271 mg/dl 219 mg/dl Troponin I 0.260 ng/ml Assessment and Plan Patient is an 79-year-old male with PMH of atherosclerotic coronary artery disease, diabetes mellitus, CKD stage IV, HTN, dyslipidemia, 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 monitor 2 SIRS - improving, unknow etiology, according ortho, unlikely left knee infection. nasal MRSA is negative, D/C vancomycin now. continue IV zosyn. f/u lactic acid. f/u blood culture, sputum culture. 3 Diabetes mellitus--continue Lantus insulin 20 units subcutaneous every morning , and place on Accu-Cheks before meals and at bedtime with NovoLog coverage. 4 Left knee prepatellar bursitis- orthopedics did aspiration, doesn't look like infection. f/u culture results. 5 Acute renal insufficiency: renal is on board, hold vancomycin now due to renal toxicity and unclear infection source. monitor renal function DVT prophylaxis: heparin Code: full Diet: diabetic diet
[2016-03-22] VITALS (11 sets, daily range): BP systolic 122–170; BP diastolic 61–81; PULSE 57–96; TEMP 36.4–36.6; O2SAT 93–97
[2016-03-22 02:16] LABS: PARTIAL THROMBOPLASTIN RATIO 2.7
[2016-03-22] MEDS: LEVALBUTEROL 1.25MG/0.5ML NEB INH SCH ×6 (03:28→23:49)
[2016-03-22] MEDS: IPRATROPIUM BROMIDE NEB SOLN 0.02% 2.5 ML VIAL INH SCH ×6 (03:28→23:49)
[2016-03-22] MEDS: PIPERACILL/TAZOBAC IV 3.375 GM in DEXTROSE 5% 100ML 100 ML IV SCH ×3 (04:18→20:01)
[2016-03-22] MEDS: MECLIZINE HCL 25 MG TAB PO SCH ×4 (05:24→18:09)
[2016-03-22 07:19] LABS: HEMATOCRIT 25.7 % (42-52); MEAN CELL VOLUME 89.5 fL (80-100); MEAN CORPUSCULAR HEMOGLOBIN 28.9 pg (25-34); MEAN CORPUSCULAR HGB CONC 32.3 g/dl (32-36); RED BLOOD COUNT 2.87 M/uL (4.7-6.1); WHITE BLOOD COUNT 10.79 K/uL (4.8-10.8)
[2016-03-22 07:23] LABS: INR 1.1 (0.9-1.1); PARTIAL THROMBOPLASTIN RATIO 2.6; PROTHROMBIN TIME (PATIENT) 12.3 SECONDS (9.0-12.0)
[2016-03-22 07:31] LABS: BUN/CREATININE RATIO 11.8 (10-20); CALCIUM 8.1 mg/dl (8.5-10.1); CREATININE 2.5 mg/dl (0.60-1.40); MAGNESIUM 1.7 mg/dl (1.8-2.4); POTASSIUM 4.1 mmol/L (3.5-5.1)
[2016-03-22] MEDS: BUDESONIDE 0.5 MG/2 ML VIAL (PULMICORT) INH SCH ×2 (07:36→19:34)
[2016-03-22 07:44] LABS: BASO % 0.2 %; BASO ABS # 0.02 K/uL (0-0.2); COMPLETE YES; EOS % 0.2 %; IG% 1.5 %; LYMPH % 21.6 %; LYMPH ABS # 2.33 K/uL (1.2-3.4); MEAN PLATELET VOLUME 11.9 fL (7.4-10.4); MONO % 24.5 %; PLATELET COUNT 89 K/uL (130-400); PLT ESTIMATE DECREASED; ROULEAUX 1+
[2016-03-22] MEDS: INSULIN ASPART 100 UNITS/ML 3 ML PEN SC SCH ×4 (08:39→21:32)
[2016-03-22] MEDS: INSULIN GLARGINE SOLOSTAR 100 UNITS/ML 3 ML PEN SQ SCH (08:40)
[2016-03-22] MEDS: ASPIRIN 81 MG ECTAB PO SCH (08:43)
[2016-03-22] MEDS: DOCUSATE SODIUM 100 MG CAP PO SCH ×2 (08:43→20:00)
[2016-03-22] MEDS: GUAIFENESIN 200 MG TAB PO SCH ×2 (08:43→20:00)
[2016-03-22] MEDS: CLOPIDOGREL BISULFATE 75 MG TAB PO SCH (08:43)
[2016-03-22] MEDS: CHOLECALCIFEROL 1000 INTER.UNIT TAB PO SCH (08:44)
[2016-03-22] MEDS: CYANOCOBALAMIN 500 MCG TAB (VIT B-12) PO SCH (08:44)
[2016-03-22] MEDS: ATORVASTATIN 40 MG TAB PO SCH (08:44)
[2016-03-22] MEDS: MAGNESIUM OXIDE 400 MG TAB PO SCH (08:45)
[2016-03-22] MEDS: NITROGLYCERIN 0.4 MG/HR PATCH TD SCH (08:45)
[2016-03-22] MEDS: BACITRACIN OINT 15 GM TUBE EXT SCH ×2 (08:46→20:00)
--- NOTE | 2016-03-22 09:37 | Nephrology Progress Note ---
Nephrology Progress Note Date of Service Mar 22, 2016. Chief Complaint Follow up evaluation of acute on chronic kidney injury Subjective Mr. Riggs was seen & examined in the PCU this morning. He was admitted with a NSTEMI. Cardiology has recommended medical management. Patient currently denies angina. The patient was admitted w/ left prepatellar bursitis. He is on broad spectrum antibiotics. He reports that his pain and swelling have improved. He had follow up join aspiration performed yesterday. Mr. Smith has phimosis. He required a dorsal slit procedure this hospitalization. He currently denies voiding difficulty. Review of Systems Constitutional: No fever Cardiovascular: No chest pain Respiratory: No dyspnea at rest Abdomen: No nausea, No pain Genitourinary - Male: No dysuria, No urinary hesitancy Extremities: No leg edema A complete review of systems was performed. Pertinent positives are noted above. All other systems are negative. Vital Signs Last 8 Hrs Date Time Temp Pulse Resp B/P Pulse Ox O2 Delivery O2 Flow Rate FiO2 03/22/16 07:53 36.6 65 18 170/81 97 03/22/16 07:28 74 20 97 Nasal Cannula 2.0 03/22/16 04:36 36.6 69 18 122/69 97 Nasal Cannula 2.0 03/22/16 04:00 Nasal Cannula 2.0 03/22/16 03:29 62 18 97 Nasal Cannula 2.0 I & O 24-Hour Column 03/22/16 08:00 Intake Total 1620 ml Balance 1620 ml Last Recorded Weight Weight (Kilograms): 88.600 Physical Exam General Appearance: no apparent distress Head: atraumatic Eyes: PERRL, EOMI Neck: no adenopathy Respiratory/Chest: lungs clear, no respiratory distress Cardiovascular: regular rate, rhythm Abdomen/GI: normal bowel sounds, non tender, soft Extremities/Musculoskelatal: no calf tenderness, no pedal edema, + pertinent finding (left knee is currently wrapped) Neurologic/Psych: alert, oriented x 3 Family History Heart disease Social History Smokeless Tobacco Use: No Alcohol Use: none Drug Use: none Marital Status: Housing Status: lives with family Occupation: retired Laboratory Results Past 24 Hours 03/22/16 06:35 Red Blood Count 2.87, Mean Corpuscular Volume 89.5, Mean Corpuscular Hemoglobin 28.9, Mean Corpuscular Hemoglobin Concent 32.3, Mean Platelet Volume 11.9, Neutrophils (%) (Auto) 52.0, Lymphocytes (%) (Auto) 21.6, Monocytes (%) (Auto) 24.5, Eosinophils (%) (Auto) 0.2, Basophils (%) (Auto) 0.2, Neutrophils # (Auto ) 5.62, Lymphocytes # (Auto) 2.33, Monocytes # (Auto) 2.64, Eosinophils # (Auto ) 0.02, Basophils # (Auto) 0.02 03/22/16 06:35 Test 03/21/16 11:14 03/21/16 16:05 03/21/16 17:39 03/21/16 20:19 Bedside Glucose 219 mg/dl (70-99) 202 mg/dl (70-99) 125 mg/dl (70-99) Activated Partial Thromboplast Time 102.7 SECONDS (21.0-31.0) Partial Thromboplastin Ratio 4.0 Lactic Acid Level 2.0 mmol/L (0.4-2.0) Test 03/22/16 01:24 03/22/16 06:28 03/22/16 06:35 Activated Partial Thromboplast Time 69.5 SECONDS (21.0-31.0) 68.6 SECONDS (21.0-31.0) Partial Thromboplastin Ratio 2.7 2.6 Bedside Glucose 216 mg/dl (70-99) White Blood Count 10.79 K/uL (4.8-10.8) Red Blood Count 2.87 M/uL (4.7-6.1) Hemoglobin 8.3 g/dL (14.0-18.0) Hematocrit 25.7 % (42-52) Mean Corpuscular Volume 89.5 fL (80-100) Mean Corpuscular Hemoglobin 28.9 pg (25-34) Mean Corpuscular Hemoglobin Concent 32.3 g/dl (32-36) Platelet Count 89 K/uL (130-400) Mean Platelet Volume 11.9 fL (7.4-10.4) Neutrophils (%) (Auto) 52.0 % Lymphocytes (%) (Auto) 21.6 % Monocytes (%) (Auto) 24.5 % Eosinophils (%) (Auto) 0.2 % Basophils (%) (Auto) 0.2 % Neutrophils # (Auto) 5.62 K/uL (1.4-6.5) Lymphocytes # (Auto) 2.33 K/uL (1.2-3.4) Monocytes # (Auto) 2.64 K/uL (0.11-0.59) Eosinophils # (Auto) 0.02 K/uL (0-0.5) Basophils # (Auto) 0.02 K/uL (0-0.2) RDW Standard Deviation 65.2 fL (36.4-46.3) RDW Coefficient of Variation 19.9 % (11.5-14.5) Immature Granulocyte % (Auto) 1.5 % Immature Granulocyte # (Auto) 0.16 K/uL (0.00-0.02) Hypogranular Neutrophils 2+ Platelet Estimate DECREASED Rouleau 1+ Prothrombin Time 12.3 SECONDS (9.0-12.0) Prothromb Time International Ratio 1.1 (0.9-1.1) Anion Gap 13.0 mmol/L (3-11) Est Creatinine Clear Calc Drug Dose 26.0 ml/min Estimated GFR () 26.9 Estimated GFR (Non- 23.2 BUN/Creatinine Ratio 11.8 (10-20) Calcium Level 8.1 mg/dl (8.5-10.1) Magnesium Level 1.7 mg/dl (1.8-2.4) Allergies Coded Allergies: No Known Allergies (Verified , 03/19/16) Medications Current Inpatient Medications Medications (Trade) Dose Ordered Sig/Denny Route Start Time Stop Time Status Last Admin Dose Admin Atorvastatin Calcium (Lipitor Tab) 40 mg DAILY PO 03/20/16 09:00 04/19/16 08:59 03/22/16 08:44 40 MG Cholecalciferol (Vitamin D Tab) 1,000 inter.unit DAILY PO 03/20/16 09:00 04/19/16 08:59 03/22/16 08:44 1,000 INTER.UNIT Clopidogrel Bisulfate (plAVix TAB) 75 mg DAILY PO 03/20/16 09:00 04/19/16 08:59 03/22/16 08:43 75 MG Cyanocobalamin (Vitamin B-12 Tab) 1,000 mcg DAILY PO 03/20/16 09:00 04/19/16 08:59 03/22/16 08:44 1,000 MCG Meclizine HCl 25 mg 25 mg Q6 PO 03/19/16 18:00 04/18/16 17:59 03/21/16 17:32 25 MG Pantoprazole Sodium/Syringe (Protonix Inj/ Syringe) 10 ml @ 5 mls/min DAILY@11 IV 03/20/16 11:00 04/19/16 10:59 03/21/16 10:45 5 MLS/MIN Acetaminophen (Tylenol Tab) 650 mg Q4H PRN PO 03/19/16 15:15 04/18/16 15:14 03/20/16 04:14 650 MG Zolpidem Tartrate (Ambien Tab) 5 mg HSZ PRN PO 03/19/16 15:15 04/18/16 15:14 Nitroglycerin (Nitrostat Tab) 0.4 mg UD PRN SL 03/19/16 15:15 04/18/16 15:14 03/21/16 08:32 0.4 MG Lorazepam (Ativan Inj) 0.5 mg Q4H PRN IV 03/19/16 15:15 04/18/16 15:14 Magnesium Hydroxide (Milk Of Magnesia Susp) 30 ml Q6H PRN PO 03/19/16 15:15 04/18/16 15:14 Bisacodyl (Dulcolax Supp) 10 mg DAILY PRN [place] 03/19/16 15:15 04/18/16 15:14 Diphenhydramine HCl (Benadryl Inj) 25 mg Q4H PRN IV 03/19/16 15:15 04/18/16 15:14 Al Hydrox/Mg Hydrox/ Simethicone 15 ml 15 ml Q4H PRN PO 03/19/16 15:15 04/18/16 15:14 Promethazine HCl/ Sodium Chloride (Phenergan Inj/ Nss 50ml) 50.5 ml @ 202 mls/hr Q4H PRN IV 03/19/16 15:15 04/18/16 15:14 Ondansetron HCl (Zofran Inj) 4 mg Q6H PRN IV 03/19/16 15:15 04/18/16 15:14 Docusate Sodium (coLACE CAP) 100 mg BID PO 03/19/16 21:00 04/18/16 20:59 03/22/16 08:43 100 MG Morphine Sulfate (MoRPHine SULFATE INJ) 2 mg Q2H PRN IV 03/19/16 15:15 04/02/16 15:14 03/21/16 09:25 2 MG Insulin Aspart (novoLOG ASPART) SLIDING SCALE If C... ACHS SC 03/19/16 16:00 04/18/16 15:59 03/22/16 08:39 7 UNITS Glucose (Glucose 40% Gel) UD PRN PO 03/19/16 15:15 04/18/16 15:14 Glucose (Glucose Chew Tab) 1 tabs UD PRN PO 03/19/16 15:15 04/18/16 15:14 Dextrose (Dextrose 50% 50ML Syringe) 50 ml UD PRN IV 03/19/16 15:15 04/18/16 15:14 Glucagon (Glucagon Inj) 1 mg UD PRN SQ 03/19/16 15:15 04/18/16 15:14 Insulin Glargine 20 unit 20 unit QAM SQ 03/20/16 09:00 04/19/16 08:59 03/22/16 08:40 20 UNIT Piperacillin Sod/ Tazobactam Sod/ Dextrose (Zosyn Iv/D5 100ml) 115 ml @ 28.75 mls/ hr Q8H IV 03/19/16 20:00 03/26/16 19:59 03/22/16 04:18 28.75 MLS/HR Guaifenesin (Organidin Nr Tab) 600 mg BID PO 03/19/16 21:00 04/18/16 20:59 03/22/16 08:43 600 MG Budesonide (Pulmicort Respules 0.5MG/ 2ML Neb Soln) 0.5 mg BIDR INH 03/19/16 20:00 04/18/16 19:59 03/22/16 07:36 0.5 MG Piperacillin Sod/ Tazobactam Sod (Consult) 1 ea UD PRN N/A 03/19/16 16:15 04/18/16 16:14 Bacitracin (Bacitracin Oint) 1 appln BID EXT 03/20/16 21:00 03/25/16 09:01 03/22/16 08:46 1 APPLN Ipratropium [place] (Atrovent 0.02% 0.5MG/2.5ML Neb) 0.5 mg Q4R INH 03/20/16 16:00 04/18/16 20:59 03/22/16 07:36 0.5 MG Levalbuterol (Xopenex 1.25MG/ 0.5ML Neb) 1.25 mg Q4R INH 03/20/16 16:00 04/18/16 20:59 03/22/16 07:36 1.25 MG Oxycodone HCl (Roxicodone Immediate Rel Tab) 5 mg Q4 PRN PO 03/20/16 14:45 04/03/16 14:44 03/20/16 15:28 5 MG Nitroglycerin (Nitro-Dur 0.4 Mg/Hr Patch) 1 patch QAM TD 03/21/16 09:00 04/20/16 08:59 03/22/16 08:45 1 PATCH Miscellaneous (Remove Nitro-Dur Patch) 1 ea DAILY@21 N/A 03/20/16 21:00 04/19/16 20:59 Magnesium Oxide (Mag-Ox Tab) 400 mg QAM PO 03/22/16 09:00 04/21/16 08:59 03/22/16 08:45 400 MG Aspirin 81 mg 81 mg QAM PO 03/21/16 11:00 04/20/16 10:59 03/22/16 08:43 81 MG Heparin Sodium/ Dextrose (Heparin 25,000 Unit/500ml D5W) 500 ml @ 26 mls/hr [id number] PRN IV 03/21/16 10:30 04/20/16 10:29 03/21/16 11:23 29 MLS/HR Miscellaneous Information (Nursing Heparin Iv Rate Change) 1 ea ONE ONCE N/A 03/22/16 09:15 03/22/16 09:16 UNV Impression (1) CKD (chronic kidney disease), stage IV (2) Acute kidney injury superimposed on chronic kidney disease (3) MGUS (monoclonal gammopathy of unknown significance) (4) ACS (acute coronary syndrome) Mr. 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 Baseline creatinine ~2.0 - 2.2 mg/dL. He has stated that he would not consider hemodialysis during prior discussions. He has an extensive history of cardiovascular disease. He presented to the ED with hypotension, hypoglycemia, generalized weakness, shortness of breath. He has been struggling recently with right knee prepatellar bursitis. He was admitted to rule-out ACS with hyperglycemia and some evidence of acute on chronic renal insufficiency in addition to possible sepsis. Recommendations ACUTE KIDNEY INJURY: -- Improving. Baseline creatinine has been 2.0 - 2.2. Will ask staffing branch manager to record all UO -- Volume status and electrolyte balance remain acceptable at this time -- Monitor PRP CHRONIC KIDNEY DISEASE: -- Baseline creatinine 2.0 - 2.2 -- Mr. Riggs has expressed multiple times in the past that he would not consider dialysis under any circumstances. ASCVD: -- CPK normal. Troponin is trending down -- Medical management as per cardiology ANEMIA: -- H/o MGUS and ASCVD -- Recommend blood transfusion to maintain Hgb > or = 8.0 ID: -- L prepatellar bursitis -- Await joint aspirate results. Patient is on empiric IV Zosyn BPH & PHIMOSIS: -- Dorsal slit procedure performed 03/21/16 by urology
[2016-03-22] MEDS: PANTOprazole INJ 40 MG in SYRINGE 0 ML IV SCH (12:01)
--- NOTE | 2016-03-22 12:31 | Cardiology Follow-Up ---
Subjective Subjective Date of Service: Mar 22, 2016. Pt evaluation today including: conversation w/ patient, physical exam, chart review, lab review, review of studies, review of inpatient medication list Additional Details: Minimal chest pain overnight. No discomfort this AM. No shortness of breath. No other new complaints. Tele reviewed - sinus regla, otherwise no events. Problem List Medical Problems: (1) Cardiac ischemia Status: Acute (2) Chest pain Status: Acute (3) Dyspnea on exertion Status: Acute (4) Renal insufficiency Status: Acute (5) Sepsis Status: Acute (6) Shortness of breath Status: Acute (7) SOB (shortness of breath) Status: Acute (8) Symptomatic anemia Status: Acute (9) Upper GI bleeding Status: Acute (10) Vertigo Status: Acute (11) Weakness Status: Acute Review of Systems Constitutional: + fatigue, No fever Respiratory: + see HPI, No cough, No shortness of breath Cardiac: No chest pain Abdomen: No GI bleeding, No pain Male : + urinary frequency, No sexual dysfunction Neurologic: No balance problems, No numbness/tingling, No paralysis, No weakness Skin: No problem reported Objective Vital Signs Last Vital Signs Documentation Date Time Temp Pulse Resp B/P Pulse Ox O2 Delivery O2 Flow Rate FiO2 03/22/16 11:32 60 20 96 Nasal Cannula 2.0 03/22/16 07:53 36.6 170/81 Physical Exam: General Appearance: no apparent distress ENT: hearing grossly normal Neck: supple Respiratory/Chest: chest non-tender, lungs clear, + pertinent finding (coarse breath sounds with few scattered wheezing) Cardiovascular: regular rate, rhythm Abdomen: normal bowel sounds, non tender Extremities: no pedal edema Neurologic/Psychiatric: oriented x 3 Skin: warm/dry, + pertinent finding Assessment and Plan 1. NSTEMI/H/o CAD s/p remote CABG 2. Acute on chronic renal insufficiency 3. Anemia, H/o GI bleed 4. ?Septic bursitis 5. DM 6. HTN 7. Prior history of symptomatic bradycardia Remains largely chest pain free. Continued medical management for NSTEMI Can d/c heparin. Continue plavix, statin, ASA. No Beta-emerita with prior symptomatic sinus bradycardia Continue to trend hemoglobin, if < 8 would transfuse Can transition nitropatch--> to long acting nitrate, suggest Imdur 30 mg daily Medications: Current Inpatient Medications Medications (Trade) Dose Ordered Sig/Denny Route Start Time Stop Time Status Last Admin Dose Admin Atorvastatin Calcium (Lipitor Tab) 40 mg DAILY PO 03/20/16 09:00 04/19/16 08:59 03/22/16 08:44 40 MG Cholecalciferol (Vitamin D Tab) 1,000 inter.unit DAILY PO 03/20/16 09:00 04/19/16 08:59 03/22/16 08:44 1,000 INTER.UNIT Clopidogrel Bisulfate (plAVix TAB) 75 mg DAILY PO 03/20/16 09:00 04/19/16 08:59 03/22/16 08:43 75 MG Cyanocobalamin (Vitamin B-12 Tab) 1,000 mcg DAILY PO 03/20/16 09:00 04/19/16 08:59 03/22/16 08:44 1,000 MCG Meclizine HCl 25 mg 25 mg Q6 PO 03/19/16 18:00 04/18/16 17:59 03/22/16 12:04 25 MG Pantoprazole Sodium/Syringe (Protonix Inj/ Syringe) 10 ml @ 5 mls/min DAILY@11 IV 03/20/16 11:00 04/19/16 10:59 03/22/16 12:01 5 MLS/MIN Acetaminophen (Tylenol Tab) 650 mg Q4H PRN PO 03/19/16 15:15 04/18/16 15:14 03/20/16 04:14 650 MG Zolpidem Tartrate (Ambien Tab) 5 mg HSZ PRN PO 03/19/16 15:15 04/18/16 15:14 Nitroglycerin (Nitrostat Tab) 0.4 mg UD PRN SL 03/19/16 15:15 04/18/16 15:14 03/21/16 08:32 0.4 MG Lorazepam (Ativan Inj) 0.5 mg Q4H PRN IV 03/19/16 15:15 04/18/16 15:14 Magnesium Hydroxide (Milk Of Magnesia Susp) 30 ml Q6H PRN PO 03/19/16 15:15 04/18/16 15:14 Bisacodyl (Dulcolax Supp) 10 mg DAILY PRN [place] 03/19/16 15:15 04/18/16 15:14 Diphenhydramine HCl (Benadryl Inj) 25 mg Q4H PRN IV 03/19/16 15:15 04/18/16 15:14 Al Hydrox/Mg Hydrox/ Simethicone 15 ml 15 ml Q4H PRN PO 03/19/16 15:15 04/18/16 15:14 Promethazine HCl/ Sodium Chloride (Phenergan Inj/ Nss 50ml) 50.5 ml @ 202 mls/hr Q4H PRN IV 03/19/16 15:15 04/18/16 15:14 Ondansetron HCl (Zofran Inj) 4 mg Q6H PRN IV 03/19/16 15:15 04/18/16 15:14 Docusate Sodium (coLACE CAP) 100 mg BID PO 03/19/16 21:00 04/18/16 20:59 03/22/16 08:43 100 MG Morphine Sulfate (MoRPHine SULFATE INJ) 2 mg Q2H PRN IV 03/19/16 15:15 04/02/16 15:14 03/21/16 09:25 2 MG Insulin Aspart (novoLOG ASPART) SLIDING SCALE If C... ACHS SC 03/19/16 16:00 04/18/16 15:59 03/22/16 12:04 9 UNITS Glucose (Glucose 40% Gel) UD PRN PO 03/19/16 15:15 04/18/16 15:14 Glucose (Glucose Chew Tab) 1 tabs UD PRN PO 03/19/16 15:15 04/18/16 15:14 Dextrose (Dextrose 50% 50ML Syringe) 50 ml UD PRN IV 03/19/16 15:15 04/18/16 15:14 Glucagon (Glucagon Inj) 1 mg UD PRN SQ 03/19/16 15:15 04/18/16 15:14 Insulin Glargine 20 unit 20 unit QAM SQ 03/20/16 09:00 04/19/16 08:59 03/22/16 08:40 20 UNIT Piperacillin Sod/ Tazobactam Sod/ Dextrose (Zosyn Iv/D5 100ml) 115 ml @ 28.75 mls/ hr Q8H IV 03/19/16 20:00 03/26/16 19:59 03/22/16 12:05 28.75 MLS/HR Guaifenesin (Organidin Nr Tab) 600 mg BID PO 03/19/16 21:00 04/18/16 20:59 03/22/16 08:43 600 MG Budesonide (Pulmicort Respules 0.5MG/ 2ML Neb Soln) 0.5 mg BIDR INH 03/19/16 20:00 04/18/16 19:59 03/22/16 07:36 0.5 MG Piperacillin Sod/ Tazobactam Sod (Consult) 1 ea UD PRN N/A 03/19/16 16:15 04/18/16 16:14 Bacitracin (Bacitracin Oint) 1 appln BID EXT 03/20/16 21:00 03/25/16 09:01 03/22/16 08:46 1 APPLN Ipratropium [place] (Atrovent 0.02% 0.5MG/2.5ML [facility]) 0.5 mg Q4R INH 03/20/16 16:00 04/18/16 20:59 03/22/16 11:35 0.5 MG Levalbuterol (Xopenex 1.25MG/ 0.5ML [facility]) 1.25 mg Q4R INH 03/20/16 16:00 04/18/16 20:59 03/22/16 11:35 1.25 MG Oxycodone HCl (Roxicodone Immediate Rel Tab) 5 mg Q4 PRN PO 03/20/16 14:45 04/03/16 14:44 03/20/16 15:28 5 MG Nitroglycerin (Nitro-Dur 0.4 Mg/Hr Patch) 1 patch QAM TD 03/21/16 09:00 04/20/16 08:59 03/22/16 08:45 1 PATCH Miscellaneous (Remove Nitro-Dur Patch) 1 ea DAILY@21 N/A 03/20/16 21:00 04/19/16 20:59 Magnesium Oxide (Mag-Ox Tab) 400 mg QAM PO 03/22/16 09:00 04/21/16 08:59 03/22/16 08:45 400 MG Aspirin 81 mg 81 mg QAM PO 03/21/16 11:00 04/20/16 10:59 03/22/16 08:43 81 MG Heparin Sodium/ Dextrose (Heparin 25,000 Unit/500ml D5W) 500 ml @ 26 mls/hr [id number] PRN IV 03/21/16 10:30 04/20/16 10:29 03/21/16 11:23 29 MLS/HR Lab Results: 03/22/16 06:35 Red Blood Count 2.87, Mean Corpuscular Volume 89.5, Mean Corpuscular Hemoglobin 28.9, Mean Corpuscular Hemoglobin Concent 32.3, Mean Platelet Volume 11.9, Neutrophils (%) (Auto) 52.0, Lymphocytes (%) (Auto) 21.6, Monocytes (%) (Auto) 24.5, Eosinophils (%) (Auto) 0.2, Basophils (%) (Auto) 0.2, Neutrophils # (Auto ) 5.62, Lymphocytes # (Auto) 2.33, Monocytes # (Auto) 2.64, Eosinophils # (Auto ) 0.02, Basophils # (Auto) 0.02 03/22/16 06:35 Test 03/21/16 17:39 03/22/16 06:35 03/22/16 11:15 Lactic Acid Level 2.0 mmol/L (0.4-2.0) White Blood Count 10.79 K/uL (4.8-10.8) Red Blood Count 2.87 M/uL (4.7-6.1) Hemoglobin 8.3 g/dL (14.0-18.0) Hematocrit 25.7 % (42-52) Mean Corpuscular Volume 89.5 fL (80-100) Mean Corpuscular Hemoglobin 28.9 pg (25-34) Mean Corpuscular Hemoglobin Concent 32.3 g/dl (32-36) Platelet Count 89 K/uL (130-400) Mean Platelet Volume 11.9 fL (7.4-10.4) Neutrophils (%) (Auto) 52.0 % Lymphocytes (%) (Auto) 21.6 % Monocytes (%) (Auto) 24.5 % Eosinophils (%) (Auto) 0.2 % Basophils (%) (Auto) 0.2 % Neutrophils # (Auto) 5.62 K/uL (1.4-6.5) Lymphocytes # (Auto) 2.33 K/uL (1.2-3.4) Monocytes # (Auto) 2.64 K/uL (0.11-0.59) Eosinophils # (Auto) 0.02 K/uL (0-0.5) Basophils # (Auto) 0.02 K/uL (0-0.2) RDW Standard Deviation 65.2 fL (36.4-46.3) RDW Coefficient of Variation 19.9 % (11.5-14.5) Immature Granulocyte % (Auto) 1.5 % Immature Granulocyte # (Auto) 0.16 K/uL (0.00-0.02) Hypogranular Neutrophils 2+ Platelet Estimate DECREASED Rouleau 1+ Prothrombin Time 12.3 SECONDS (9.0-12.0) Prothromb Time International Ratio 1.1 (0.9-1.1) Activated Partial Thromboplast Time 68.6 SECONDS (21.0-31.0) Partial Thromboplastin Ratio 2.6 Anion Gap 13.0 mmol/L (3-11) Est Creatinine Clear Calc Drug Dose 26.0 ml/min Estimated GFR () 26.9 Estimated GFR (Non- 23.2 BUN/Creatinine Ratio 11.8 (10-20) Calcium Level 8.1 mg/dl (8.5-10.1) Magnesium Level 1.7 mg/dl (1.8-2.4) Bedside Glucose 269 mg/dl (70-99)
[2016-03-22] MEDS: ACETAMINOPHEN 325 MG TAB PO PRN ×2 (14:04→21:35)
--- NOTE | 2016-03-22 17:44 | Hospitalist Progress Note ---
Hospitalist Progress Note Date of Service Mar 22, 2016. Subjective Pt evaluation today including: conversation w/ patient, physical exam, chart review, lab review, review of studies, review of inpatient medication list The patient reports doing well without new complaint. He wants out of the hospital as soon as possible. Additional Comments: A 10 system review was performed and all were negative. Positives were placed in the subjective section. Objective Vital Signs Date Time Temp Pulse Resp B/P Pulse Ox O2 Delivery O2 Flow Rate FiO2 03/22/16 16:00 Nasal Cannula 2.0 03/22/16 15:48 36.4 58 20 132/61 93 Nasal Cannula 2.0 03/22/16 15:24 96 20 94 Nasal Cannula 2.0 03/22/16 12:42 36.5 57 18 152/71 94 Nasal Cannula 2.0 03/22/16 12:00 Nasal Cannula 2.0 03/22/16 11:32 60 20 96 Nasal Cannula 2.0 03/22/16 08:00 Nasal Cannula 2.0 03/22/16 07:53 36.6 65 18 170/81 97 03/22/16 07:28 74 20 97 Nasal Cannula 2.0 03/22/16 04:36 36.6 69 18 122/69 97 Nasal Cannula 2.0 03/22/16 04:00 Nasal Cannula 2.0 03/22/16 03:29 62 18 97 Nasal Cannula 2.0 03/22/16 00:00 Nasal Cannula 2.0 03/21/16 23:42 36.6 65 18 157/78 96 Room Air 03/21/16 23:20 73 18 97 Nasal Cannula 2.0 03/21/16 20:11 80 16 89 Room Air 03/21/16 20:00 Nasal Cannula 2.0 03/21/16 19:49 36.7 71 16 143/70 94 Room Air Physical Exam Notes: GEN: Awake, alert, and oriented x 3. Not in acute distress HEENT: Tm's intact, no inflammation, EOMI, PERRLA, MMM Neck: Soft, supple Lungs: CTA b/l, + prolonged expiratory phase. scattered rhonchi. Heart: REG, nrl S1S2 without murmurs, rubs or gallops Abdomen: Soft, NT, ND, + BS EXT: No C/C/E NEURO: CN's II-XII grossly intact, non-focal Skin: warm, dry, no rashes PSYCH: pleasant, cooperative, no signs of significant anxiety or depression. Laboratory Results Last 24 Hours Test 03/21/16 17:39 03/21/16 20:19 03/22/16 01:24 03/22/16 06:28 Activated Partial Thromboplast Time 102.7 SECONDS 69.5 SECONDS Partial Thromboplastin Ratio 4.0 2.7 Lactic Acid Level 2.0 mmol/L Bedside Glucose 125 mg/dl 216 mg/dl Test 03/22/16 06:35 03/22/16 11:15 03/22/16 16:03 03/22/16 16:04 White Blood Count 10.79 K/uL Red Blood Count 2.87 M/uL Hemoglobin 8.3 g/dL Hematocrit 25.7 % Mean Corpuscular Volume 89.5 fL Mean Corpuscular Hemoglobin 28.9 pg Mean Corpuscular Hemoglobin Concent 32.3 g/dl Platelet Count 89 K/uL Mean Platelet Volume 11.9 fL Neutrophils (%) (Auto) 52.0 % Lymphocytes (%) (Auto) 21.6 % Monocytes (%) (Auto) 24.5 % Eosinophils (%) (Auto) 0.2 % Basophils (%) (Auto) 0.2 % Neutrophils # (Auto) 5.62 K/uL Lymphocytes # (Auto) 2.33 K/uL Monocytes # (Auto) 2.64 K/uL Eosinophils # (Auto) 0.02 K/uL Basophils # (Auto) 0.02 K/uL RDW Standard Deviation 65.2 fL RDW Coefficient of Variation 19.9 % Immature Granulocyte % (Auto) 1.5 % Immature Granulocyte # (Auto) 0.16 K/uL Hypogranular Neutrophils 2+ Platelet Estimate DECREASED Rouleau 1+ Prothrombin Time 12.3 SECONDS Prothromb Time International Ratio 1.1 Activated Partial Thromboplast Time 68.6 SECONDS Partial Thromboplastin Ratio 2.6 Sodium Level 142 mmol/L Potassium Level 4.1 mmol/L Chloride Level 109 mmol/L Carbon Dioxide Level 20 mmol/L Anion Gap 13.0 mmol/L Blood Urea Nitrogen 29 mg/dl Creatinine 2.50 mg/dl Est Creatinine Clear Calc Drug Dose 26.0 ml/min Estimated GFR () 26.9 Estimated GFR (Non- 23.2 BUN/Creatinine Ratio 11.8 Random Glucose 210 mg/dl Calcium Level 8.1 mg/dl Magnesium Level 1.7 mg/dl Bedside Glucose 269 mg/dl 68 mg/dl 68 mg/dl Test 03/22/16 16:20 Bedside Glucose 79 mg/dl Assessment and Plan 1. Non-STEMI with history of CAD. - can D/C heparin gtt per cardiology recommendation. start imdur 30mg daily also per cards. 2. Acute on chronic renal insufficiency - stable and monitored. 3. Anemia, H/o GI bleed following H&H. 4. Prepatellar bursitis. 5. DM 6. HTN Continued medical management for NSTEMI Continue plavix, ASA. No Beta-emerita with prior symptomatic sinus bradycardia
[2016-03-23] VITALS (11 sets, daily range): BP systolic 143–192; BP diastolic 67–87; PULSE 61–84; TEMP 36.5–36.8; O2SAT 90–98
[2016-03-23] MEDS: LEVALBUTEROL 1.25MG/0.5ML NEB INH SCH ×6 (03:14→23:29)
[2016-03-23] MEDS: IPRATROPIUM BROMIDE NEB SOLN 0.02% 2.5 ML VIAL INH SCH ×6 (03:14→23:29)
[2016-03-23] MEDS: PIPERACILL/TAZOBAC IV 3.375 GM in DEXTROSE 5% 100ML 100 ML IV SCH ×2 (04:08→12:22)
[2016-03-23] MEDS: MECLIZINE HCL 25 MG TAB PO SCH ×5 (05:03→23:32)
[2016-03-23 06:42] LABS: MEAN CORPUSCULAR HGB CONC 33.9 g/dl (32-36)
[2016-03-23 06:51] LABS: PARTIAL THROMBOPLASTIN RATIO 1.5
[2016-03-23 06:52] LABS: HEMATOCRIT 24.2 % (42-52); MEAN CELL VOLUME 88.3 fL (80-100); MEAN CORPUSCULAR HEMOGLOBIN 29.9 pg (25-34); RED BLOOD COUNT 2.74 M/uL (4.7-6.1); WHITE BLOOD COUNT 8.91 K/uL (4.8-10.8)
[2016-03-23 07:13] LABS: CALCIUM 8.1 mg/dl (8.5-10.1); CREATININE 2.3 mg/dl (0.60-1.40)
[2016-03-23] MEDS: BUDESONIDE 0.5 MG/2 ML VIAL (PULMICORT) INH SCH ×2 (07:14→19:48)
[2016-03-23 07:22] LABS: PLATELET COUNT 85 K/uL (130-400); PLT ESTIMATE DECREASED
[2016-03-23] MEDS: ATORVASTATIN 40 MG TAB PO SCH (08:26)
[2016-03-23] MEDS: MAGNESIUM OXIDE 400 MG TAB PO SCH (08:26)
[2016-03-23] MEDS: GUAIFENESIN 200 MG TAB PO SCH ×2 (08:26→21:30)
[2016-03-23] MEDS: ISOSORBIDE MONONITRATE 30 MG TABCR PO SCH (08:26)
[2016-03-23] MEDS: CYANOCOBALAMIN 500 MCG TAB (VIT B-12) PO SCH (08:27)
[2016-03-23] MEDS: DOCUSATE SODIUM 100 MG CAP PO SCH ×2 (08:27→21:29)
[2016-03-23] MEDS: CHOLECALCIFEROL 1000 INTER.UNIT TAB PO SCH (08:28)
[2016-03-23] MEDS: INSULIN GLARGINE SOLOSTAR 100 UNITS/ML 3 ML PEN SQ SCH (08:34)
[2016-03-23] MEDS: INSULIN ASPART 100 UNITS/ML 3 ML PEN SC SCH ×4 (08:35→21:32)
[2016-03-23] MEDS: PANTOprazole SOD 40 MG TAB PO SCH (08:35)
[2016-03-23] MEDS: ASPIRIN 81 MG ECTAB PO SCH (11:09)
[2016-03-23] MEDS: CLOPIDOGREL BISULFATE 75 MG TAB PO SCH (11:10)
[2016-03-23] MEDS: BACITRACIN OINT 15 GM TUBE EXT SCH ×2 (11:25→21:29)
--- NOTE | 2016-03-23 12:23 | Progress Note ---
Progress Note Came by to check on the patient as he has had some bleeding after his bedside dorsal slit this weekend - denies any pain - reports he is voiding better than he has in several years - incision with some superficial clot, no active bleeding. - still with expected degree of edema - reassured the patient and his - no need for any further intervention right now
--- NOTE | 2016-03-23 13:10 | Nephrology Progress Note ---
Nephrology Progress Note Date of Service Mar 23, 2016. Chief Complaint Follow up evaluation of acute on chronic kidney injury Subjective Mr. Riggs was seen & examined in the PCU this morning. He was admitted with a NSTEMI. Cardiology has recommended medical management. Patient currently denies angina. The patient was admitted w/ left prepatellar bursitis. He is on broad spectrum antibiotics. He reports that his pain and swelling have improved. He had follow up join aspiration performed 03/21/16. 5 cc bloody fluid obtained. No purulent drainage. Aspirate was not sent for culture. Mr. Smith has phimosis. He required a dorsal slit procedure this hospitalization. He currently denies voiding difficulty. Review of Systems Constitutional: No fever Cardiovascular: No chest pain Respiratory: No dyspnea at rest Abdomen: No pain Extremities: + problem reported (L knee discomfort) A complete review of systems was performed. Pertinent positives are noted above. All other systems are negative. Vital Signs Last 8 Hrs Date Time Temp Pulse Resp B/P Pulse Ox O2 Delivery O2 Flow Rate FiO2 03/23/16 12:00 Nasal Cannula 2.0 03/23/16 11:19 66 20 94 Room Air 03/23/16 11:19 36.5 62 20 143/71 94 Room Air 03/23/16 07:38 36.6 66 20 161/78 94 Room Air 03/23/16 07:14 66 20 94 Room Air I & O 24-Hour Column 03/23/16 08:00 Intake Total 2130 ml Output Total 300 ml Balance 1830 ml Last Recorded Weight Weight (Kilograms): 87.500 Physical Exam General Appearance: no apparent distress Head: atraumatic Eyes: PERRL, EOMI Neck: no adenopathy Respiratory/Chest: lungs clear Cardiovascular: regular rate, rhythm Abdomen/GI: normal bowel sounds, non tender, soft Extremities/Musculoskelatal: + pertinent finding (Left knee with decreasing erythema and tenderness) Neurologic/Psych: alert, oriented x 3 Family History Heart disease Social History Smokeless Tobacco Use: No Alcohol Use: none Drug Use: none Marital Status: Housing Status: lives with family Occupation: retired Laboratory Results Past 24 Hours 03/23/16 06:03 03/23/16 06:03 Test 03/22/16 16:03 03/22/16 16:04 03/22/16 16:20 03/22/16 20:10 Bedside Glucose 68 mg/dl (70-99) 68 mg/dl (70-99) 79 mg/dl (70-99) 236 mg/dl (70-99) Test 03/23/16 06:03 03/23/16 06:38 03/23/16 09:59 03/23/16 11:11 Red Blood Count 2.74 M/uL (4.7-6.1) Mean Corpuscular Volume 88.3 fL (80-100) Mean Corpuscular Hemoglobin 29.9 pg (25-34) Mean Corpuscular Hemoglobin Concent 33.9 g/dl (32-36) RDW Standard Deviation 63.3 fL (36.4-46.3) RDW Coefficient of Variation 19.8 % (11.5-14.5) Platelet Estimate DECREASED Activated Partial Thromboplast Time 39.4 SECONDS (21.0-31.0) Partial Thromboplastin Ratio 1.5 Anion Gap 11.0 mmol/L (3-11) Est Creatinine Clear Calc Drug Dose 26.0 ml/min Estimated GFR () 29.8 Estimated GFR (Non- 25.7 BUN/Creatinine Ratio 10.0 (10-20) Calcium Level 8.1 mg/dl (8.5-10.1) Bedside Glucose 174 mg/dl (70-99) 261 mg/dl (70-99) 214 mg/dl (70-99) Allergies Coded Allergies: No Known Allergies (Verified , 03/19/16) Medications Current Inpatient Medications Medications (Trade) Dose Ordered Sig/Denny Route Start Time Stop Time Status Last Admin Dose Admin Atorvastatin Calcium (Lipitor Tab) 40 mg DAILY PO 03/20/16 09:00 04/19/16 08:59 03/23/16 08:26 40 MG Cholecalciferol (Vitamin D Tab) 1,000 inter.unit DAILY PO 03/20/16 09:00 04/19/16 08:59 03/23/16 08:28 1,000 INTER.UNIT Clopidogrel Bisulfate (plAVix TAB) 75 mg DAILY PO 03/20/16 09:00 04/19/16 08:59 03/22/16 08:43 75 MG Cyanocobalamin (Vitamin B-12 Tab) 1,000 mcg DAILY PO 03/20/16 09:00 04/19/16 08:59 03/23/16 08:27 1,000 MCG Meclizine HCl (Antivert Tab) 25 mg Q6 PO 03/19/16 18:00 04/18/16 17:59 03/23/16 12:22 25 MG Acetaminophen (Tylenol Tab) 650 mg Q4H PRN PO 03/19/16 15:15 04/18/16 15:14 03/22/16 21:35 650 MG Zolpidem Tartrate (Ambien Tab) 5 mg HSZ PRN PO 03/19/16 15:15 04/18/16 15:14 Nitroglycerin (Nitrostat Tab) 0.4 mg UD PRN SL 03/19/16 15:15 04/18/16 15:14 03/21/16 08:32 0.4 MG Lorazepam (Ativan Inj) 0.5 mg Q4H PRN IV 03/19/16 15:15 04/18/16 15:14 Magnesium Hydroxide (Milk Of Magnesia Susp) 30 ml Q6H PRN PO 03/19/16 15:15 04/18/16 15:14 Bisacodyl (Dulcolax Supp) 10 mg DAILY PRN WI 03/19/16 15:15 04/18/16 15:14 Diphenhydramine HCl (Benadryl Inj) 25 mg Q4H PRN IV 03/19/16 15:15 04/18/16 15:14 Al Hydrox/Mg Hydrox/ Simethicone 15 ml 15 ml Q4H PRN PO 03/19/16 15:15 04/18/16 15:14 Promethazine HCl/ Sodium Chloride (Phenergan Inj/ Nss 50ml) 50.5 ml @ 202 mls/hr Q4H PRN IV 03/19/16 15:15 04/18/16 15:14 Ondansetron HCl (Zofran Inj) 4 mg Q6H PRN IV 03/19/16 15:15 04/18/16 15:14 Docusate Sodium (coLACE CAP) 100 mg BID PO 03/19/16 21:00 04/18/16 20:59 03/23/16 08:27 100 MG Morphine Sulfate (MoRPHine SULFATE INJ) 2 mg Q2H PRN IV 03/19/16 15:15 04/02/16 15:14 03/21/16 09:25 2 MG Insulin Aspart (novoLOG ASPART) SLIDING SCALE If C... ACHS SC 03/19/16 16:00 04/18/16 15:59 03/23/16 12:25 6 UNITS Glucose (Glucose 40% Gel) UD PRN PO 03/19/16 15:15 04/18/16 15:14 Glucose (Glucose Chew Tab) 1 tabs UD PRN PO 03/19/16 15:15 04/18/16 15:14 Dextrose (Dextrose 50% 50ML Syringe) 50 ml UD PRN IV 03/19/16 15:15 04/18/16 15:14 Glucagon (Glucagon Inj) 1 mg UD PRN SQ 03/19/16 15:15 04/18/16 15:14 Insulin Glargine 20 unit 20 unit QAM SQ 03/20/16 09:00 04/19/16 08:59 03/23/16 08:34 20 UNIT Piperacillin Sod/ Tazobactam Sod/ Dextrose (Zosyn Iv/D5 100ml) 115 ml @ 28.75 mls/ hr Q8H IV 03/19/16 20:00 03/26/16 19:59 03/23/16 12:22 28.75 MLS/HR Guaifenesin (Organidin Nr Tab) 600 mg BID PO 03/19/16 21:00 04/18/16 20:59 03/23/16 08:26 600 MG Budesonide (Pulmicort Respules 0.5MG/ 2ML Neb Soln) 0.5 mg BIDR INH 03/19/16 20:00 04/18/16 19:59 03/23/16 07:14 0.5 MG Piperacillin Sod/ Tazobactam Sod (Consult) 1 ea UD PRN N/A 03/19/16 16:15 04/18/16 16:14 Bacitracin (Bacitracin Oint) 1 appln BID EXT 03/20/16 21:00 03/25/16 09:01 03/23/16 11:25 1 APPLN Ipratropium [place] (Atrovent 0.02% 0.5MG/2.5ML Neb) 0.5 mg Q4R INH 03/20/16 16:00 04/18/16 20:59 03/23/16 11:19 0.5 MG Levalbuterol (Xopenex 1.25MG/ 0.5ML Neb) 1.25 mg Q4R INH 03/20/16 16:00 04/18/16 20:59 03/23/16 11:19 1.25 MG Oxycodone HCl (Roxicodone Immediate Rel Tab) 5 mg Q4 PRN PO 03/20/16 14:45 04/03/16 14:44 03/20/16 15:28 5 MG Magnesium Oxide (Mag-Ox Tab) 400 mg QAM PO 03/22/16 09:00 04/21/16 08:59 03/23/16 08:26 400 MG Aspirin (Ecotrin Tab) 81 mg QAM PO 03/21/16 11:00 04/20/16 10:59 03/22/16 08:43 81 MG Pantoprazole Sodium (Protonix Tab) 40 mg QAM PO 03/23/16 09:00 04/22/16 08:59 03/23/16 08:35 40 MG Isosorbide Mononitrate (Imdur Ext Rel Tab) 30 mg QAM PO 03/23/16 09:00 04/22/16 08:59 03/23/16 08:26 30 MG Impression (1) CKD (chronic kidney disease), stage IV (2) Acute kidney injury superimposed on chronic kidney disease (3) MGUS (monoclonal gammopathy of unknown significance) (4) ACS (acute coronary syndrome) Mr. Gideon Riggs is an 80-year-old male w/ ASCVD, DM, HTN, dyslipidemia, MGUS with chronic anemia / thrombocytopenia and stage IV CKD. Baseline creatinine has been 2.0 - 2.2 mg/dL. He has stated that he would not consider hemodialysis during prior discussions. He has an extensive history of cardiovascular disease. He presented to the ED with hypotension, hypoglycemia, generalized weakness, shortness of breath. He has been struggling recently with right knee prepatellar bursitis. He was admitted to rule-out ACS with hyperglycemia and some evidence of acute on chronic renal insufficiency in addition to possible sepsis. Recommendations ACUTE KIDNEY INJURY: -- Improving. Baseline creatinine has been 2.0 - 2.2. Will ask staff auditor to record all UO -- Volume status and electrolyte balance remain acceptable at this time -- Monitor PRP CHRONIC KIDNEY DISEASE: -- Baseline creatinine 2.0 - 2.2 -- Mr. Riggs has expressed multiple times in the past that he would not consider dialysis under any circumstances. ASCVD: -- CPK normal. Troponin is trending down -- Medical management as per cardiology. Patient is on ASA, plavix and nitrate. Beta emerita held due to h/o symptomatic bradycardia ANEMIA: -- H/o MGUS and ASCVD -- Recommend blood transfusion to maintain Hgb > or = 8.0 ID: -- L prepatellar bursitis. Patient is on empiric IV Zosyn. Area of erythema appears to be much less. Patient is clinically improved BPH & PHIMOSIS: -- Dorsal slit procedure performed 03/21/16 by urology
[2016-03-23 17:13] LABS: SYNOVIAL FLUID APPEARANCE BLOODY; SYNOVIAL FLUID COLOR RED; SYNOVIAL FLUID MONONUC RELAT 2.9 %; SYNOVIAL FLUID POLYNUC RELAT 97.1 %
[2016-03-23 17:14] LABS: SALINE CHECK YES
--- NOTE | 2016-03-23 19:02 | PROGRESS NOTE ---
DATE: 03/23/2016 SUBJECTIVE: An 80-year-old gentleman admitted with medical reasons and we were consulted for left knee hemorrhagic prepatellar bursitis and possible infection. He had a painful night last night, but doing better today. Mostly pain is in the lateral side of his knee. It is very manageable. He removed the Sohail bandage and he seems much more comfortable. OBJECTIVE: VITAL SIGNS: Temperature 36.8. Vital signs stable. PHYSICAL EXAMINATION: Examination of the left knee reveals a boggy swollen prepatellar bursa. Any redness is completely resolved. He does have kind of a thickened indurated area laterally which is a bit more tender. He can do a straight leg raise. There are no signs of knee effusion. Range of motion is 0-90 degrees with fairly minor pain. He is neurologically intact. LABORATORIES: White cell count 8.91. Sed rate is elevated at 58. C-reactive protein is also elevated at 8.23. ASSESSMENT: An 80-year-old gentleman admitted for medical reasons and with left knee hemorrhagic prepatellar bursitis. There may have been associated cellulitis, but there is no sign of abscess. We did aspirate this before, it seems a little bit softer today and we will try and aspirate it again today. There are no signs of pus or surgical indication. Any cellulitis seems to have resolved. I do not think he has got a major infection in this area. PLAN: We are going to aspirate this prepatellar bursa area again today and try to get more fluid. We will send it off for analysis. I do not think there is any surgical indication at this point. I do think it is probably best to continue on antibiotics and he can be switched to p.o. antibiotics from my standpoint for about a 2-week period of time and we will follow him up in clinic. We did attempt to aspirate this and just got about 5-10 mL of bloody fluid. It did not look purulent at all. We did send it off for analysis. We aspirated the prepatellar bursa again today. We sent it off for analysis. He can be active within limits of pain or discomfort. I think he can be switched to oral antibiotics from his leg standpoint and discharged with a 2-week followup in my clinic. Any questions can be directed to me at [phone]. The patient's left knee was prepped with alcohol. We aspirated multiple areas and just got about 5-10 mL of bloody fluid. The patient tolerated the procedure well with no complications. EMEKA
--- NOTE | 2016-03-23 19:37 | Hospitalist Progress Note ---
Hospitalist Progress Note Date of Service Mar 23, 2016. Subjective Pt evaluation today including: conversation w/ patient, conversation w/ family , physical exam, chart review, lab review, review of studies, review of inpatient medication list I met the patients who was in the room with him today. He has had no further chest pain. Ortho planning to aspirate the left knee shortly after I was finish seeing the patient. Additional Comments: A 10 system review was performed and all were negative. Positives were placed in the subjective section. Objective Vital Signs Date Time Temp Pulse Resp B/P Pulse Ox O2 Delivery O2 Flow Rate FiO2 03/23/16 19:25 36.7 80 16 155/81 94 Room Air 03/23/16 15:22 79 20 90 Room Air 03/23/16 15:22 36.8 61 20 147/67 98 Room Air 03/23/16 12:00 Nasal Cannula 2.0 03/23/16 11:19 66 20 94 Room Air 03/23/16 11:19 36.5 62 20 143/71 94 Room Air 03/23/16 07:38 36.6 66 20 161/78 94 Room Air 03/23/16 07:14 66 20 94 Room Air 03/23/16 04:31 36.8 81 19 172/87 92 Room Air 03/23/16 04:00 Nasal Cannula 2.0 03/23/16 00:00 Nasal Cannula 2.0 03/22/16 23:49 83 20 94 Room Air 03/22/16 23:07 36.6 60 20 166/73 97 Room Air 03/22/16 20:23 36.6 64 20 159/71 93 Room Air 03/22/16 20:00 Nasal Cannula 2.0 Physical Exam Notes: GEN: Awake, alert, and oriented x 3. Not in acute distress HEENT: Tm's intact, no inflammation, EOMI, PERRLA, MMM Neck: Soft, supple Lungs: CTA b/l, no r/r/w Heart: REG, nrl S1S2 without murmurs, rubs or gallops Abdomen: Soft, NT, ND, + BS EXT: No C/C/E Swelling over the patella on left with purple discoloration to the skin surface. NEURO: CN's II-XII grossly intact, non-focal Skin: warm, dry, no rashes PSYCH: pleasant, cooperative, no signs of significant anxiety or depression. Laboratory Results Last 24 Hours Test 03/22/16 20:10 03/23/16 00:00 03/23/16 06:03 03/23/16 06:38 Bedside Glucose 236 mg/dl 174 mg/dl Synovial Fluid Source KNEE Synovial Fluid Color RED Synovial Fluid Appearance BLOODY Synovial Fluid WBC 71416 /uL Synovial Fluid RBC [id number] /uL Synovial Fluid Polynuclear WBCs % 97.1 % Synovial Fluid Mononuclear WBCs % 2.9 % White Blood Count 8.91 K/uL Red Blood Count 2.74 M/uL Hemoglobin 8.2 g/dL Hematocrit 24.2 % Mean Corpuscular Volume 88.3 fL Mean Corpuscular Hemoglobin 29.9 pg Mean Corpuscular Hemoglobin Concent 33.9 g/dl RDW Standard Deviation 63.3 fL RDW Coefficient of Variation 19.8 % Platelet Count 85 K/uL Platelet Estimate DECREASED Activated Partial Thromboplast Time 39.4 SECONDS Partial Thromboplastin Ratio 1.5 Sodium Level 141 mmol/L Potassium Level 4.0 mmol/L Chloride Level 108 mmol/L Carbon Dioxide Level 22 mmol/L Anion Gap 11.0 mmol/L Blood Urea Nitrogen 23 mg/dl Creatinine 2.30 mg/dl Est Creatinine Clear Calc Drug Dose 26.0 ml/min Estimated GFR () 29.8 Estimated GFR (Non- 25.7 BUN/Creatinine Ratio 10.0 Random Glucose 169 mg/dl Calcium Level 8.1 mg/dl Test 03/23/16 09:59 03/23/16 11:11 Bedside Glucose 261 mg/dl 214 mg/dl Assessment and Plan 1. Non-STEMI with history of CAD. - . imdur 30mg daily. . 2. Acute on chronic renal insufficiency - stable and monitored. 3. Anemia, H/o GI bleed following H&H. 4. Prepatellar bursitis aspiration today, await analysis results. 5. DM 6. HTN Continued medical management for NSTEMI Continue plavix, ASA. No Beta-emerita with prior symptomatic sinus bradycardia DVT prophylaxis - heparin gtt d/c'd thus I ordered sub-q heparin for prophylaxis after the aspiration was completed.
[2016-03-23] MEDS: HEPARIN SOD 5000 UNIT/0.5 ML CARP SQ SCH ×2 (21:00→21:33)
[2016-03-24] VITALS (14 sets, daily range): BP systolic 127–176; BP diastolic 68–83; PULSE 62–91; TEMP 36.5–37; O2SAT 94–97
[2016-03-24] MEDS: LEVALBUTEROL 1.25MG/0.5ML NEB INH SCH ×6 (03:08→23:15)
[2016-03-24] MEDS: IPRATROPIUM BROMIDE NEB SOLN 0.02% 2.5 ML VIAL INH SCH ×6 (03:08→23:15)
[2016-03-24] MEDS: MECLIZINE HCL 25 MG TAB PO SCH ×3 (06:15→18:27)
[2016-03-24 07:44] LABS: BUN/CREATININE RATIO 9.7 (10-20); CALCIUM 8.2 mg/dl (8.5-10.1); CREATININE 2.3 mg/dl (0.60-1.40); POTASSIUM 4.1 mmol/L (3.5-5.1)
[2016-03-24] MEDS: ATORVASTATIN 40 MG TAB PO SCH (08:12)
[2016-03-24] MEDS: ISOSORBIDE MONONITRATE 30 MG TABCR PO SCH (08:13)
[2016-03-24] MEDS: DOCUSATE SODIUM 100 MG CAP PO SCH ×2 (08:13→21:07)
[2016-03-24] MEDS: CYANOCOBALAMIN 500 MCG TAB (VIT B-12) PO SCH (08:13)
[2016-03-24] MEDS: MAGNESIUM OXIDE 400 MG TAB PO SCH (08:14)
[2016-03-24] MEDS: PANTOprazole SOD 40 MG TAB PO SCH (08:14)
[2016-03-24] MEDS: CHOLECALCIFEROL 1000 INTER.UNIT TAB PO SCH (08:14)
[2016-03-24] MEDS: GUAIFENESIN 200 MG TAB PO SCH ×2 (08:15→21:09)
[2016-03-24] MEDS: BACITRACIN OINT 15 GM TUBE EXT SCH ×2 (08:17→21:09)
[2016-03-24] MEDS: INSULIN ASPART 100 UNITS/ML 3 ML PEN SC SCH ×4 (08:21→21:14)
[2016-03-24] MEDS: INSULIN GLARGINE SOLOSTAR 100 UNITS/ML 3 ML PEN SQ SCH (08:22)
[2016-03-24] MEDS: ASPIRIN 81 MG ECTAB PO SCH (09:00)
[2016-03-24] MEDS: HEPARIN SOD 5000 UNIT/0.5 ML CARP SQ SCH ×2 (09:00→21:15)
[2016-03-24] MEDS: CLOPIDOGREL BISULFATE 75 MG TAB PO SCH (09:00)
--- NOTE | 2016-03-24 09:05 | Progress Note ---
Subjective Date of Service: Mar 24, 2016. Subjective Pt evaluation today including: conversation w/ patient, chart review, lab review Voiding: no voiding problems 80 yo male s/p dorsal slit. Pt reports he is voiding well on his own, but area of the dorsal slit is bleeding. He is currently on Heparin, Plavix, and ASA. Denies other pain today. Problem List Medical Problems: (1) Cardiac ischemia Status: Acute (2) Chest pain Status: Acute (3) Dyspnea on exertion Status: Acute (4) Renal insufficiency Status: Acute (5) Sepsis Status: Acute (6) Shortness of breath Status: Acute (7) SOB (shortness of breath) Status: Acute (8) Symptomatic anemia Status: Acute (9) Upper GI bleeding Status: Acute (10) Vertigo Status: Acute (11) Weakness Status: Acute Review of Systems Constitutional: No chills, No fever Respiratory: No shortness of breath Cardiac: No chest pain Abdomen: No nausea, No pain, No vomiting Male : No dysuria Heme: + abnormal bleeding/bruising (dorsal slit incision) Objective Vital Signs Date Time Temp Pulse Resp B/P Pulse Ox O2 Delivery O2 Flow Rate FiO2 03/24/16 07:35 36.6 71 18 137/74 95 Room Air 03/24/16 06:49 90 18 96 Room Air 03/24/16 04:10 36.7 88 18 159/78 95 Room Air 03/24/16 04:00 Room Air 03/24/16 03:08 91 18 97 Room Air 03/23/16 23:59 Room Air 03/23/16 23:29 84 18 93 Room Air 03/23/16 23:15 36.6 83 18 192/75 97 Room Air 03/23/16 20:00 95 Room Air 03/23/16 19:48 74 20 90 Room Air 03/23/16 19:25 36.7 80 16 155/81 94 Room Air 03/23/16 16:00 96 Room Air 03/23/16 15:22 79 20 90 Room Air 03/23/16 15:22 36.8 61 20 147/67 98 Room Air 03/23/16 12:00 Nasal Cannula 2.0 03/23/16 11:19 66 20 94 Room Air 03/23/16 11:19 36.5 62 20 143/71 94 Room Air Physical Exam General Appearance: no apparent distress Eyes: normal inspection ENT: hearing grossly normal Neck: no JVD Respiratory/Chest: no respiratory distress, no accessory muscle use Cardiovascular: no JVD Extremities: normal inspection Neurologic/Psychiatric: alert, normal mood/affect, oriented x 3 Comments: Significant amount of blood noted around dorsal slit and in brief this AM. No areas of active bleeding visualized. Laboratory Results Last 24 Hours Test 03/23/16 09:59 03/23/16 11:11 03/23/16 16:20 03/23/16 20:16 Bedside Glucose 261 mg/dl 214 mg/dl 186 mg/dl 229 mg/dl Test 03/24/16 06:34 Sodium Level 141 mmol/L Potassium Level 4.1 mmol/L Chloride Level 109 mmol/L Carbon Dioxide Level 21 mmol/L Anion Gap 11.0 mmol/L Blood Urea Nitrogen 22 mg/dl Creatinine 2.30 mg/dl Est Creatinine Clear Calc Drug Dose 26.0 ml/min Estimated GFR () 29.8 Estimated GFR (Non- 25.7 BUN/Creatinine Ratio 9.7 Random Glucose 191 mg/dl Calcium Level 8.2 mg/dl Assessment and Plan S/p dorsal slit. AFVSS. Significant amount of blood noted around dorsal slit and in brief this AM. No areas of active bleeding visualized. Will have nursing cleanse the wound twice daily with soap and water and apply Bacitracin ointment and sterile 4x4s to the area. Consider stopping anticoagulation while actively bleeding if able. Continue to monitor H&H. Discussed the pt's bleeding with Dr. Serrano this morning. He will stop by to check the incision at some point today.
[2016-03-24] MEDS ORDERED: LIDOCAINE HCL 1% 20 ML VIAL ONE (09:06)
--- NOTE | 2016-03-24 09:31 | Progress Note ---
Progress Note Patient is 4 days post dorsal slit He had some bleeding from one of the incisions yesterday basically just a very slow ooze My partner came to evaluate him at that time and it appeared that the bleeding had stopped Overnight though the bleeding again started again just a very slow ooze On inspection it appeared that the issues came from the inferior portion of the skin from the dorsal slit on the right-hand side Since the oozing seems to be intermittent but persistent I prepped his phallus with Betadine and draped in a sterile fashion and a numb the inferior portion of the right side dorsal slit skin and then using a 3-0 chromic and put a [id number] stitch in which stopped the bleeding. I also used silver nitrate sticks around the edge to cauterize any other areas of ooze although I didn't see any at this time. Patient said he is voiding much better since having the dorsal slit. He tolerated the procedure well we'll watch him for signs of recurrent bleeding.
[2016-03-24 10:12] LABS: HEMATOCRIT 24.9 % (42-52); MEAN CELL VOLUME 89.6 fL (80-100); MEAN CORPUSCULAR HEMOGLOBIN 29.1 pg (25-34); RED BLOOD COUNT 2.78 M/uL (4.7-6.1); WHITE BLOOD COUNT 7.52 K/uL (4.8-10.8)
[2016-03-24 10:26] LABS: MEAN CORPUSCULAR HGB CONC 32.5 g/dl (32-36); PLATELET COUNT 95 K/uL (130-400); PLT ESTIMATE DECREASED
--- NOTE | 2016-03-24 11:41 | Nephrology Progress Note ---
Nephrology Progress Note Date of Service Mar 24, 2016. Chief Complaint Follow up evaluation of acute on chronic kidney injury Subjective Mr. Riggs was seen & examined in the PCU this morning. He was admitted with a NSTEMI. Cardiology has recommended medical management. Patient currently denies angina. The patient was admitted w/ left prepatellar bursitis. He is on broad spectrum antibiotics. He reports that his pain and swelling have improved. He had follow up join aspiration performed 03/21 and 03/23. Only a small amount of bloody fluid was obtained each time. No purulent drainage. Aspirates were not sent for culture. Mr. Smith has phimosis. He required a dorsal slit procedure this hospitalization. He currently denies voiding difficulty. Review of Systems Constitutional: No fever Cardiovascular: No chest pain Respiratory: No dyspnea at rest Abdomen: No nausea, No pain, No vomiting Extremities: No leg edema A complete review of systems was performed. Pertinent positives are noted above. All other systems are negative. Vital Signs Last 8 Hrs Date Time Temp Pulse Resp B/P Pulse Ox O2 Delivery O2 Flow Rate FiO2 03/24/16 11:14 36.6 69 22 127/68 97 Room Air 03/24/16 11:13 66 18 95 Room Air 03/24/16 08:00 Room Air 03/24/16 07:35 36.6 71 18 137/74 95 Room Air 03/24/16 06:49 90 18 96 Room Air 03/24/16 04:10 36.7 88 18 159/78 95 Room Air 03/24/16 04:00 Room Air I & O 24-Hour Column 03/24/16 08:00 Intake Total 820 ml Output Total 1375 ml Balance -555 ml Last Recorded Weight Weight (Kilograms): 86.500 Physical Exam General Appearance: no apparent distress Head: normocephalic, atraumatic Eyes: PERRL, EOMI Neck: no adenopathy Respiratory/Chest: lungs clear Cardiovascular: regular rate, rhythm Abdomen/GI: normal bowel sounds, non tender, soft Extremities/Musculoskelatal: no pedal edema, + pertinent finding (Left prepatellar erythema and swelling is greatly improved) Neurologic/Psych: alert, oriented x 3 Family History Heart disease Social History Smokeless Tobacco Use: No Alcohol Use: none Drug Use: none Marital Status: Housing Status: lives with family Occupation: retired Laboratory Results Past 24 Hours 1/25/17 09:45 03/24/16 06:34 Test 03/23/16 16:20 03/23/16 20:16 03/24/16 06:34 03/24/16 09:45 Bedside Glucose 186 mg/dl (70-99) 229 mg/dl (70-99) Anion Gap 11.0 mmol/L (3-11) Est Creatinine Clear Calc Drug Dose 26.0 ml/min Estimated GFR () 29.8 Estimated GFR (Non- 25.7 BUN/Creatinine Ratio 9.7 (10-20) Calcium Level 8.2 mg/dl (8.5-10.1) Red Blood Count 2.78 M/uL (4.7-6.1) Mean Corpuscular Volume 89.6 fL (80-100) Mean Corpuscular Hemoglobin 29.1 pg (25-34) Mean Corpuscular Hemoglobin Concent 32.5 g/dl (32-36) RDW Standard Deviation 64.5 fL (36.4-46.3) RDW Coefficient of Variation 19.6 % (11.5-14.5) Platelet Estimate DECREASED Test 03/24/16 11:20 Bedside Glucose 220 mg/dl (70-99) Allergies Coded Allergies: No Known Allergies (Verified , 03/19/16) Medications Current Inpatient Medications Medications (Trade) Dose Ordered Sig/Denny Route Start Time Stop Time Status Last Admin Dose Admin Atorvastatin Calcium (Lipitor Tab) 40 mg DAILY PO 03/20/16 09:00 04/19/16 08:59 03/24/16 08:12 40 MG Cholecalciferol (Vitamin D Tab) 1,000 inter.unit DAILY PO 03/20/16 09:00 04/19/16 08:59 03/24/16 08:14 1,000 INTER.UNIT Clopidogrel Bisulfate (plAVix TAB) 75 mg DAILY PO 03/20/16 09:00 04/19/16 08:59 03/22/16 08:43 75 MG Cyanocobalamin (Vitamin B-12 Tab) 1,000 mcg DAILY PO 03/20/16 09:00 04/19/16 08:59 03/24/16 08:13 1,000 MCG Meclizine HCl (Antivert Tab) 25 mg Q6 PO 03/19/16 18:00 04/18/16 17:59 03/24/16 06:15 25 MG Acetaminophen (Tylenol Tab) 650 mg Q4H PRN PO 03/19/16 15:15 04/18/16 15:14 03/22/16 21:35 650 MG Zolpidem Tartrate (Ambien Tab) 5 mg HSZ PRN PO 03/19/16 15:15 04/18/16 15:14 Nitroglycerin (Nitrostat Tab) 0.4 mg UD PRN SL 03/19/16 15:15 04/18/16 15:14 03/21/16 08:32 0.4 MG Lorazepam (Ativan Inj) 0.5 mg Q4H PRN IV 03/19/16 15:15 04/18/16 15:14 Magnesium Hydroxide (Milk Of Magnesia Susp) 30 ml Q6H PRN PO 03/19/16 15:15 04/18/16 15:14 Bisacodyl (Dulcolax Supp) 10 mg DAILY PRN VT 03/19/16 15:15 04/18/16 15:14 Diphenhydramine HCl (Benadryl Inj) 25 mg Q4H PRN IV 03/19/16 15:15 04/18/16 15:14 Al Hydrox/Mg Hydrox/ Simethicone 15 ml 15 ml Q4H PRN PO 03/19/16 15:15 04/18/16 15:14 Promethazine HCl/ Sodium Chloride (Phenergan Inj/ Nss 50ml) 50.5 ml @ 202 mls/hr Q4H PRN IV 03/19/16 15:15 04/18/16 15:14 Ondansetron HCl (Zofran Inj) 4 mg Q6H PRN IV 03/19/16 15:15 04/18/16 15:14 Docusate Sodium (coLACE CAP) 100 mg BID PO 03/19/16 21:00 04/18/16 20:59 03/24/16 08:13 100 MG Morphine Sulfate (MoRPHine SULFATE INJ) 2 mg Q2H PRN IV 03/19/16 15:15 04/02/16 15:14 03/21/16 09:25 2 MG Insulin Aspart (novoLOG ASPART) SLIDING SCALE If C... ACHS SC 03/19/16 16:00 04/18/16 15:59 03/24/16 08:21 9 UNITS Glucose (Glucose 40% Gel) UD PRN PO 03/19/16 15:15 04/18/16 15:14 Glucose (Glucose Chew Tab) 1 tabs UD PRN PO 03/19/16 15:15 04/18/16 15:14 Dextrose (Dextrose 50% 50ML Syringe) 50 ml UD PRN IV 03/19/16 15:15 04/18/16 15:14 Glucagon (Glucagon Inj) 1 mg UD PRN SQ 03/19/16 15:15 04/18/16 15:14 Insulin Glargine (Lantus Solostar Pen) 20 unit QAM SQ 03/20/16 09:00 04/19/16 08:59 03/24/16 08:22 20 UNIT Guaifenesin (Organidin Nr Tab) 600 mg BID PO 03/19/16 21:00 04/18/16 20:59 03/24/16 08:15 600 MG Budesonide (Pulmicort Respules 0.5MG/ 2ML Neb Soln) 0.5 mg BIDR INH 03/19/16 20:00 04/18/16 19:59 03/23/16 19:48 0.5 MG Bacitracin (Bacitracin Oint) 1 appln BID EXT 03/20/16 21:00 03/25/16 09:01 03/24/16 08:17 1 APPLN Ipratropium [place] (Atrovent 0.02% 0.5MG/2.5ML Neb) 0.5 mg Q4R INH 03/20/16 16:00 04/18/16 20:59 03/24/16 11:13 0.5 MG Levalbuterol (Xopenex 1.25MG/ 0.5ML Neb) 1.25 mg Q4R INH 03/20/16 16:00 04/18/16 20:59 03/24/16 11:13 1.25 MG Oxycodone HCl (Roxicodone Immediate Rel Tab) 5 mg Q4 PRN PO 03/20/16 14:45 04/03/16 14:44 03/20/16 15:28 5 MG Magnesium Oxide (Mag-Ox Tab) 400 mg QAM PO 1/23/17 09:00 04/21/16 08:59 03/24/16 08:14 400 MG Aspirin (Ecotrin Tab) 81 mg QAM PO 03/21/16 11:00 04/20/16 10:59 03/22/16 08:43 81 MG Pantoprazole Sodium (Protonix Tab) 40 mg QAM PO 03/23/16 09:00 04/22/16 08:59 03/24/16 08:14 40 MG Isosorbide Mononitrate (Imdur Ext Rel Tab) 30 mg QAM PO 03/23/16 09:00 04/22/16 08:59 03/24/16 08:13 30 MG Heparin Sodium (Porcine) (Heparin Sq 5000 Unit/0.5ml) 5,000 unit Q12 SQ 03/23/16 21:00 04/22/16 20:59 Impression (1) CKD (chronic kidney disease), stage IV (2) Acute kidney injury superimposed on chronic kidney disease (3) MGUS (monoclonal gammopathy of unknown significance) (4) ACS (acute coronary syndrome) Mr. Riggs is an 80-year-old male w/ ASCVD, DM, HTN, dyslipidemia, MGUS with chronic anemia / thrombocytopenia and stage IV CKD. Baseline creatinine has been 2.0 - 2.2. He has stated that he would not consider hemodialysis during prior discussions. He has an extensive history of cardiovascular disease. He presented to the ED with hypotension, hypoglycemia, generalized weakness, shortness of breath. He has been struggling recently with right knee prepatellar bursitis. He was admitted to rule-out ACS with hyperglycemia and some evidence of acute on chronic renal insufficiency in addition to possible sepsis. Recommendations ACUTE KIDNEY INJURY: -- Resolved. -- Volume status and electrolyte balance remain acceptable at this time CHRONIC KIDNEY DISEASE: -- Baseline creatinine 2.0 - 2.2 -- Mr. Riggs has expressed multiple times in the past that he would not consider dialysis under any circumstances. ASCVD: -- CPK normal. Troponin is trending down -- Medical management as per cardiology. Patient is on ASA, plavix and nitrate. Beta emerita held due to h/o symptomatic bradycardia ANEMIA: -- H/o MGUS and ASCVD -- Recommend blood transfusion to maintain Hgb > or = 8.0 ID: -- L prepatellar bursitis. Patient is on empiric IV Zosyn. Area of erythema appears to be much less. Patient is clinically improved BPH & PHIMOSIS: -- Dorsal slit procedure performed 03/21/16 by urology OTHER: -- No further nephrology evaluation needed at this time. Will sign off. Please call if further assistance is needed. Patient does already have an appointment scheduled to follow up as with Dr. Gorge Gamble [facility] Nephrology within the next 2 - 3 weeks.
--- NOTE | 2016-03-24 13:25 | PROGRESS NOTE ---
DATE: 03/24/2016 SUBJECTIVE: An 80-year-old gentleman admitted by the medicine service and we were consulted for a prepatellar bursitis. He seems to be doing better. He really does not complain of much pain in his leg today. OBJECTIVE: VITAL SIGNS: Temperature 36.6. Vital signs stable. EXTREMITIES: Physical examination of the left knee and leg reveals a thickened boggy prepatellar bursa. There is pretty minimal warmth. Minimal redness to this. There is no knee effusion. He can flex his knee to 90 degrees without much pain. Good straight leg raise. He is neurologically intact. LABS: His white cell count is normal. His prepatellar bursa aspirate revealed mostly all red blood cells. There were 12,000 white cells. Culture is pending. ASSESSMENT: An 80-year-old gentleman admitted with a hemorrhagic prepatellar bursitis. There may have been some surrounding cellulitis, but if so appears markedly improved. We attempted to aspirate this and it is just blood. No pus. PLAN: From the orthopedic standpoint now, he can be discharged at any time. I would recommend he be discharged on 2 weeks of p.o. antibiotics. If there is concern for MRSA, I would recommend Keflex 500 mg 4 times a day with some Bactrim double strength tablets twice a day. He can follow up in my office in 2 weeks for repeat clinical exam. He can weightbear as tolerated. Any questions can be directed to me at [phone]. [facility]
[2016-03-24] MEDS: BUDESONIDE 0.5 MG/2 ML VIAL (PULMICORT) INH SCH (19:04)
--- NOTE | 2016-03-24 19:20 | Hospitalist Progress Note ---
Hospitalist Progress Note Date of Service Mar 24, 2016. Subjective Pt evaluation today including: conversation w/ patient, physical exam, chart review, lab review, review of studies, review of inpatient medication list Patient is feeling better. He continued to bleed from the dorsal slit and required suturing. I would like to watch him overnight and make sure that he has no further bleeding and discharge to home. He is pleased with this plan. I spoke with the patients updating her on his conditions and plan of care. She was in agreement with discharge tomorrow. Additional Comments: A 10 system review was performed and all were negative. Positives were placed in the subjective section. Objective Vital Signs Date Time Temp Pulse Resp B/P Pulse Ox O2 Delivery O2 Flow Rate FiO2 03/24/16 19:08 37.0 65 20 176/80 96 Room Air 03/24/16 19:05 65 18 96 Room Air 03/24/16 16:00 94 Room Air 03/24/16 15:26 63 18 94 Room Air 03/24/16 15:23 36.5 62 18 136/69 94 Room Air 03/24/16 12:00 Room Air 03/24/16 11:14 36.6 69 22 127/68 97 Room Air 03/24/16 11:13 66 18 95 Room Air 03/24/16 08:00 Room Air 03/24/16 07:35 36.6 71 18 137/74 95 Room Air 03/24/16 06:49 90 18 96 Room Air 03/24/16 04:10 36.7 88 18 159/78 95 Room Air 03/24/16 04:00 Room Air 03/24/16 03:08 91 18 97 Room Air 03/23/16 23:59 Room Air 03/23/16 23:29 84 18 93 Room Air 03/23/16 23:15 36.6 83 18 192/75 97 Room Air 03/23/16 20:00 95 Room Air 03/23/16 19:48 74 20 90 Room Air 03/23/16 19:25 36.7 80 16 155/81 94 Room Air Physical Exam Notes: GEN: Awake, alert, and oriented x 3. Not in acute distress HEENT: Tm's intact, no inflammation, EOMI, PERRLA, MMM Neck: Soft, supple Lungs: CTA b/l, no r/r/w Heart: REG, nrl S1S2 without murmurs, rubs or gallops Abdomen: Soft, NT, ND, + BS EXT: No C/C/E There is much less swelling over the patella on left with purple discoloration to the skin surface. NEURO: CN's II-XII grossly intact, non-focal Skin: warm, dry, no rashes PSYCH: pleasant, cooperative, no signs of significant anxiety or depression. Laboratory Results Last 24 Hours Test 03/23/16 20:16 03/24/16 06:34 03/24/16 09:45 03/24/16 11:20 Bedside Glucose 229 mg/dl 220 mg/dl Sodium Level 141 mmol/L Potassium Level 4.1 mmol/L Chloride Level 109 mmol/L Carbon Dioxide Level 21 mmol/L Anion Gap 11.0 mmol/L Blood Urea Nitrogen 22 mg/dl Creatinine 2.30 mg/dl Est Creatinine Clear Calc Drug Dose 26.0 ml/min Estimated GFR () 29.8 Estimated GFR (Non- 25.7 BUN/Creatinine Ratio 9.7 Random Glucose 191 mg/dl Calcium Level 8.2 mg/dl White Blood Count 7.52 K/uL Red Blood Count 2.78 M/uL Hemoglobin 8.1 g/dL Hematocrit 24.9 % Mean Corpuscular Volume 89.6 fL Mean Corpuscular Hemoglobin 29.1 pg Mean Corpuscular Hemoglobin Concent 32.5 g/dl RDW Standard Deviation 64.5 fL RDW Coefficient of Variation 19.6 % Platelet Count 95 K/uL Platelet Estimate DECREASED Test 03/24/16 16:04 Bedside Glucose 173 mg/dl Assessment and Plan 1. Non-STEMI with history of CAD. - . imdur 30mg daily. . 2. Acute on chronic renal insufficiency - stable and monitored. 3. Anemia, H/o GI bleed following H&H. 4. Prepatellar bursitis aspiration today, await analysis results. 5. DM 6. HTN Continued medical management for NSTEMI Continue plavix, ASA. No Beta-emerita with prior symptomatic sinus bradycardia DVT prophylaxis - sub-q heparin Discharge to home planned for tomorrow.
[2016-03-25] VITALS (15 sets, daily range): BP systolic 120–191; BP diastolic 63–76; PULSE 68–85; TEMP 36.5–37; O2SAT 92–97
[2016-03-25] MEDS: MECLIZINE HCL 25 MG TAB PO SCH ×4 (00:28→17:35)
[2016-03-25] MEDS: IPRATROPIUM BROMIDE NEB SOLN 0.02% 2.5 ML VIAL INH SCH ×4 (03:25→15:27)
[2016-03-25] MEDS: LEVALBUTEROL 1.25MG/0.5ML NEB INH SCH ×4 (03:25→15:27)
[2016-03-25] MEDS: BUDESONIDE 0.5 MG/2 ML VIAL (PULMICORT) INH SCH (07:13)
[2016-03-25 07:40] LABS: BUN/CREATININE RATIO 11.1 (10-20); CALCIUM 8.1 mg/dl (8.5-10.1); CREATININE 2.1 mg/dl (0.60-1.40); POTASSIUM 4.2 mmol/L (3.5-5.1)
[2016-03-25 07:43] LABS: HEMATOCRIT 22.8 % (42-52); MEAN CELL VOLUME 90.5 fL (80-100); MEAN CORPUSCULAR HEMOGLOBIN 29.4 pg (25-34); MEAN CORPUSCULAR HGB CONC 32.5 g/dl (32-36); MEAN PLATELET VOLUME 12.1 fL (7.4-10.4); PLATELET COUNT 100 K/uL (130-400); PLT ESTIMATE DECREASED; RED BLOOD COUNT 2.52 M/uL (4.7-6.1); WHITE BLOOD COUNT 6.71 K/uL (4.8-10.8)
--- NOTE | 2016-03-25 07:45 | Progress Note ---
Subjective Date of Service: Mar 25, 2016. Subjective Pt evaluation today including: conversation w/ patient, chart review, lab review Voiding: no voiding problems 80 yo male s/p dorsal slit. Suture placed by Dr. Nayak yesterday, and bleeding has stopped since that time. Pt denies pain or difficulty voiding this morning. Cr has improved to 2.10. Problem List Medical Problems: (1) Cardiac ischemia Status: Acute (2) Chest pain Status: Acute (3) Dyspnea on exertion Status: Acute (4) Renal insufficiency Status: Acute (5) Sepsis Status: Acute (6) Shortness of breath Status: Acute (7) SOB (shortness of breath) Status: Acute (8) Symptomatic anemia Status: Acute (9) Upper GI bleeding Status: Acute (10) Vertigo Status: Acute (11) Weakness Status: Acute Review of Systems Constitutional: No chills, No fever Respiratory: + cough, + shortness of breath (chronic per pt; nebulizer in progress), + sputum Cardiac: No chest pain Abdomen: No nausea, No pain, No vomiting Male : No dysuria, No hematuria Heme: No abnormal bleeding/bruising Objective Vital Signs Date Time Temp Pulse Resp B/P Pulse Ox O2 Delivery O2 Flow Rate FiO2 03/25/16 07:09 36.5 83 18 191/76 94 Room Air 03/25/16 04:00 Room Air 03/25/16 03:51 36.6 76 17 129/69 92 Room Air 03/25/16 03:25 78 18 93 Room Air 03/24/16 23:59 Room Air 03/24/16 23:16 91 18 94 Room Air 03/24/16 23:06 36.7 84 17 166/83 95 Room Air 03/24/16 20:00 96 Room Air 2.0 03/24/16 19:08 37.0 65 20 176/80 96 Room Air 03/24/16 19:05 65 18 96 Room Air 03/24/16 16:00 94 Room Air 03/24/16 15:26 63 18 94 Room Air 03/24/16 15:23 36.5 62 18 136/69 94 Room Air 03/24/16 12:00 Room Air 03/24/16 11:14 36.6 69 22 127/68 97 Room Air 03/24/16 11:13 66 18 95 Room Air 03/24/16 08:00 Room Air Physical Exam General Appearance: no apparent distress Eyes: normal inspection ENT: hearing grossly normal Neck: no JVD Respiratory/Chest: no respiratory distress, no accessory muscle use Cardiovascular: no JVD Extremities: normal inspection Neurologic/Psychiatric: alert, normal mood/affect, oriented x 3 Skin: normal color Laboratory Results Last 24 Hours Test 03/24/16 09:45 03/24/16 11:20 03/24/16 16:04 03/24/16 20:01 White Blood Count 7.52 K/uL Red Blood Count 2.78 M/uL Hemoglobin 8.1 g/dL Hematocrit 24.9 % Mean Corpuscular Volume 89.6 fL Mean Corpuscular Hemoglobin 29.1 pg Mean Corpuscular Hemoglobin Concent 32.5 g/dl RDW Standard Deviation 64.5 fL RDW Coefficient of Variation 19.6 % Platelet Count 95 K/uL Platelet Estimate DECREASED Bedside Glucose 220 mg/dl 173 mg/dl 154 mg/dl Test 03/25/16 06:35 03/25/16 06:39 Sodium Level 141 mmol/L Potassium Level 4.2 mmol/L Chloride Level 109 mmol/L Carbon Dioxide Level 22 mmol/L Anion Gap 10.0 mmol/L Blood Urea Nitrogen 23 mg/dl Creatinine 2.10 mg/dl Est Creatinine Clear Calc Drug Dose 28.5 ml/min Estimated GFR () 33.2 Estimated GFR (Non- 28.7 BUN/Creatinine Ratio 11.1 Random Glucose 144 mg/dl Calcium Level 8.1 mg/dl Bedside Glucose 151 mg/dl Assessment and Plan S/p dorsal slit. AFVSS. Incisional bleeding improved this morning. H&H pending. Will have nursing cleanse the wound twice daily with soap and water and apply Bacitracin ointment and sterile 4x4s to the area. Pt OK for d/c home from [facility]. Will arrange for outpatient f/u in 2 weeks. No further management at this time. Recall PRN issues. Thanks for allowing us to participate in this pt's care.
[2016-03-25] MEDS: CHOLECALCIFEROL 1000 INTER.UNIT TAB PO SCH (09:08)
[2016-03-25] MEDS: ATORVASTATIN 40 MG TAB PO SCH (09:08)
[2016-03-25] MEDS: CLOPIDOGREL BISULFATE 75 MG TAB PO SCH (09:08)
[2016-03-25] MEDS: DOCUSATE SODIUM 100 MG CAP PO SCH (09:08)
[2016-03-25] MEDS: MAGNESIUM OXIDE 400 MG TAB PO SCH (09:08)
[2016-03-25] MEDS: PANTOprazole SOD 40 MG TAB PO SCH (09:08)
[2016-03-25] MEDS: CYANOCOBALAMIN 500 MCG TAB (VIT B-12) PO SCH (09:08)
[2016-03-25] MEDS: ASPIRIN 81 MG ECTAB PO SCH (09:08)
[2016-03-25] MEDS: ISOSORBIDE MONONITRATE 30 MG TABCR PO SCH (09:08)
[2016-03-25] MEDS: GUAIFENESIN 200 MG TAB PO SCH (09:09)
[2016-03-25] MEDS: BACITRACIN OINT 15 GM TUBE EXT SCH (09:09)
[2016-03-25] MEDS: HEPARIN SOD 5000 UNIT/0.5 ML CARP SQ SCH (09:11)
[2016-03-25] MEDS: INSULIN GLARGINE SOLOSTAR 100 UNITS/ML 3 ML PEN SQ SCH (09:12)
[2016-03-25] MEDS: INSULIN ASPART 100 UNITS/ML 3 ML PEN SC SCH ×3 (09:13→17:39)
[2016-03-25] MEDS: CEPHALEXIN MONOHYDRATE 250 MG CAP PO SCH ×2 (10:00→17:36)
[2016-03-25 17:28] LABS: HEMATOCRIT 26.3 % (42-52)
[2016-03-25] MEDS ORDERED: ASPEC81 PO (18:13)
[2016-03-25] MEDS ORDERED: CEPH500C2 PO (18:13)
--- NOTE | 2016-03-25 18:43 | Discharge Instructions ---
Discharge Instructions Admission Reason for Admission: Nstemi,Initial Episode Of Care Discharge Discharge Diagnosis / Problem: Chest pain, Demand ischemia, Phimosis, Acute on chronic kidney disease Discharge Goals Goal(s): Decrease discomfort, Improve function, Improve disease control Activity Recommendations Activity Limitations: resume your previous activity . Instructions / Follow-Up Instructions / Follow-Up Nephrology - follow up with Dr. Gorge Gamble D.O. - as is already scheduled Urology - follow up with Dr. Chino Nayak M.D. and/or JANELL Dodson in 2 weeks. Call office for appointment Wound care: Use soap and water twice a day. Dry the area gently and place Bacitracin ointment on area and cover with sterile 4x4. Orthopedics - follow up with Dr. Leonel Rowell M.D. in 2 weeks. Call office for appointment Cardiology - follow up with Dr. Micah Darby M.D. or Dr. Tristan Wiggins M.D. for hospital follow up. Call office for appointment Current Hospital Diet Patient's current hospital diet: Diabetes Type 2 Diet, AHA Diet (Heart Healthy) Discharge Diet Recommended Diet: AHA Diet (Heart Healthy), Diabetes Type 2 Diet Procedures Procedures Performed: Dorsal slit due to phimosis on 03/20/16 Aspiration of prepattellar bursa on 03/21 and 03/23/16 You received 1 unit of blood due to Hgb of 7.5. After the transfusion your Hgb was 8.8. Pending Studies Studies pending at discharge: no Laboratory Results Last 24 Hours Test 03/24/16 20:01 03/25/16 06:35 03/25/16 06:39 03/25/16 10:49 Bedside Glucose 154 mg/dl 151 mg/dl 163 mg/dl White Blood Count 6.71 K/uL Red Blood Count 2.52 M/uL Hemoglobin 7.4 g/dL Hematocrit 22.8 % Mean Corpuscular Volume 90.5 fL Mean Corpuscular Hemoglobin 29.4 pg Mean Corpuscular Hemoglobin Concent 32.5 g/dl RDW Standard Deviation 64.5 fL RDW Coefficient of Variation 19.4 % Platelet Count 100 K/uL Mean Platelet Volume 12.1 fL Platelet Estimate DECREASED Sodium Level 141 mmol/L Potassium Level 4.2 mmol/L Chloride Level 109 mmol/L Carbon Dioxide Level 22 mmol/L Anion Gap 10.0 mmol/L Blood Urea Nitrogen 23 mg/dl Creatinine 2.10 mg/dl Est Creatinine Clear Calc Drug Dose 28.5 ml/min Estimated GFR () 33.2 Estimated GFR (Non- 28.7 BUN/Creatinine Ratio 11.1 Random Glucose 144 mg/dl Calcium Level 8.1 mg/dl Test 03/25/16 16:06 03/25/16 17:20 Bedside Glucose 92 mg/dl Hemoglobin 8.8 g/dL Hematocrit 26.3 % Medical Emergencies . Who to Call and When: Medical Emergencies: If at any time you feel your situation is an emergency, please call 911 immediately. . Non-Emergent Contact Non-Emergency issues call your: Primary Care Provider . . "Provider Documentation" section prepared by Calixto Frost. VTE Core Measure Inpt VTE Proph given/why not?: Unfractionated heparin SQ, SCD's
--- NOTE | 2016-03-25 19:07 | Discharge Summary ---
Discharge Summary Admission Date: Mar 19, 2016 at 15:20 Discharge Date: Mar 25, 2016 Discharge Disposition: Home with services Principal Diagnosis: SIRS Problems/Secondary Diagnoses: Elevated troponins felt to be demand ischemia Phimosis Acute on Chronic Kidney Disease Anemia - multifactorial Hemorrhagic prepatellar bursitis with local cellulitis Left. BPH CAD Immunizations: Have You Had Influenza Vaccine: Yes History of Tetanus Vaccine?: Yes History of Pneumococcal: Yes History of Hepatitis B Vaccine: No Procedures: Dorsal slit 03/20/16 Aspiration of Left prepatellar bursa 03/21 & 03/23/16 Consultations: Nephrology, Dr. Gorge Gamble D.O. Urology, Dr. Chino Nayak M.D. & JANELL Dodson Ortho, Dr. Leonel Rowell M.D. Cardiology, Dr. Tristan Wiggins M.D. & Dr. Micah Darby M.D. Medication Reconciliation New Medications: Aspirin (Aspirin EC Low Dose) 81 Mg Ectab 81 MG PO DAILY for 30 Days, #30 0 Refills NS Cephalexin Monohydrate (Keflex) 500 Mg Cap 500 MG PO QID for 14 Days, #56 CAP NS Continued Medications: Amlodipine (Norvasc) 10 Mg Tab 10 MG PO DAILY, TAB Atorvastatin (Lipitor) 40 Mg Tab 40 MG PO DAILY, TAB Cholecalciferol (Vitamin D3) 1,000 Unit Tab 1 TAB PO DAILY, TAB 3 Refills Clopidogrel (Plavix) 75 Mg Tab 75 MG PO DAILY, TAB Cyanocobalamin (Vitamin B-12 1000 Mcg) 1,000 Mcg Tab 1000 MCG PO DAILY, TAB Furosemide (Furosemide) 20 Mg Tab 20 MG PO DAILY PRN for Fluid Retention Insulin Glargine (Lantus Solostar) 100 Unit/Ml Inj 18-20 UNITS SQ QAM Insulin Lispro (Human) (Humalog Kwikpen) 100 Unit/Ml Inj 8 UNITS SC TIDM ADJUST DIRECTED BY SLIDING SCALE. Isosorbide Mononitrate Ext Rel (Imdur Ext Rel) 120 Mg Ertab 120 MG PO QAM, TAB Meclizine HCl (Meclizine HCl) 25 Mg Tab 25 MG PO Q6H, #30 TAB Nitroglycerin (Nitrostat) 0.4 Mg Tab 0.4 MG SL UD PRN for Chest Pain PLACE ONE TABLET UNDER THE TONGUE EVERY 5 MINUTES FOR UP TO 3 DOSES IF NEEDED FOR CHEST PAIN. Pantoprazole (Protonix) 40 Mg Tab 40 MG PO DAILY, #30 TAB Discontinued Medications: Doxycycline Hyclate (Vibramycin) 100 Mg Cap 100 MG PO Q12H, #14 Discharge Exam A 10 system review was performed and all were negative. Positives were placed in the subjective section. GEN: Awake, alert, and oriented x 3. Not in acute distress HEENT: Tm's intact, no inflammation, EOMI, PERRLA, MMM Neck: Soft, supple Lungs: trace expiratory wheeze b/l. Heart: REG, nrl S1S2 without murmurs, rubs or gallops Abdomen: Soft, NT, ND, + BS EXT: No C/C/E NEURO: CN's II-XII grossly intact, non-focal Skin: warm, dry, no rashes PSYCH: pleasant, cooperative, no signs of significant anxiety or depression. Hospital Course Patient was initially admitted with SIRS criteria with possible infectious sites to be lung and Left knee. He was placed on vancomycin IV per pharmacy dosing, Zosyn 3.375 mg IV every 8 hours, levofloxacin 500 mg IV every 24 hours , Xopenex with Atrovent nebs. Lactic acid was elevated at 4.88, WBC is elevated at 15.20. His troponin was elevated and cardiology evaluated and followed the patient. It was felt that the elevation was due to demand ischemia and that he did NOT have an RI this admission. The patient described difficulty with urination and was found to have a phimosis. Urology was consulted and performed a dorsal slit. Swelling over the left prepatellar bursa led to orthopedic evaluation and the patient underwent aspiration on 2 occasions. The bursal fluid was bloody, but did not appear to be infected. [id number] the patient was on broad antibiotic coverage for possibility of lung infection. At discharge the patient was sent with Keflex 500mg QID for the next 14 days as advised by ortho. The combination of antiplatelet therapy and heparin gtt for cardiac issues lead to oozing of blood from the dorsal slit incision. The day prior to discharge, urology sutured the site and there was no further bleeding. The patients Hgb came down to 7.5. He was given 1 unit of PRBCs and the post transfusion Hgb was 8.8. Physical therapy recommend to continue home physical therapy. Total Time Spent: Greater than 30 minutes This includes examination of the patient, discharge planning, medication reconciliation, and communication with other providers. Discharge Instructions Please refer to the electronic Patient Visit Report (Discharge Instructions) for additional information. Follow-Up See the patient discharge record for follow up instructions.
[2016-07-09] MEDS ORDERED: PANT40TA PO (15:44)
== END 2016-03-25 19:15 | disposition home or self-care (01) | DRG 558 ==
LOC: ENRESERVDT → ENRESERVTM → C.EDB 12:14 → C.2T 15:20
PROVIDERS: ADMIT Hospitalist; ATTEND Hospitalist
PROC: 0VNTXZZ Release Prepuce, External Approach (ICD-10-PCS; 2016-03-20)
PROC: 0M9P3ZX Drainage of Left Knee Bursa and Ligament, Percutaneous Approach, Diagnostic (ICD-10-PCS; principal; 2016-03-21)
DX: M71.162 Other infective bursitis, left knee (principal); M25.062 Hemarthrosis, left knee; I24.8 Other forms of acute ischemic heart disease; N18.4 Chronic kidney disease, stage 4 (severe); L03.116 Cellulitis of left lower limb; N47.1 Phimosis; D47.2 Monoclonal gammopathy; D69.6 Thrombocytopenia, unspecified; Z82.49 Family history of ischemic heart disease and other diseases of the circulatory system; E83.42 Hypomagnesemia; K21.9 Gastro-esophageal reflux disease without esophagitis; I25.2 Old myocardial infarction; Z95.0 Presence of cardiac pacemaker; Z95.1 Presence of aortocoronary bypass graft; I25.10 Atherosclerotic heart disease of native coronary artery without angina pectoris; I12.9 Hypertensive chronic kidney disease with stage 1 through stage 4 chronic kidney disease, or unspecified chronic kidney disease; D46.9 Myelodysplastic syndrome, unspecified; N40.1 Benign prostatic hyperplasia with lower urinary tract symptoms; M10.9 Gout, unspecified; E78.00 Pure hypercholesterolemia, unspecified; E11.21 Type 2 diabetes mellitus with diabetic nephropathy

== ENCOUNTER 2016-03-28 15:32 | Emergency (ER) | payer BC, OTHER ==
[~2016-03-28] VITALS: Ht 177.8 cm; Wt 90.5 kg
[~2016-03-28 15:32] MED LIST changes: +ASPEC81 PO; +CEPH500C2 PO; +CHOL1000 PO
[2016-03-28 15:42] VITALS: TEMP 36.4; Ht 177.8 cm; Wt 90.5 kg
[2016-03-28] MEDS ORDERED: SODIUM CHLORIDE 0.9% 1000ML 1,000 ML IV STA (16:21)
[2016-03-28 16:56] LABS: HEMATOCRIT 25.1 % (42-52); MEAN CELL VOLUME 91.6 fL (80-100); MEAN CORPUSCULAR HEMOGLOBIN 29.6 pg (25-34); MEAN CORPUSCULAR HGB CONC 32.3 g/dl (32-36); MEAN PLATELET VOLUME 11.4 fL (7.4-10.4); PLATELET COUNT 260 K/uL (130-400); RED BLOOD COUNT 2.74 M/uL (4.7-6.1); WHITE BLOOD COUNT 12.21 K/uL (4.8-10.8)
[2016-03-28 17:12] LABS: BUN/CREATININE RATIO 11.1 (10-20); CALCIUM 8.4 mg/dl (8.5-10.1); CREATININE 2.4 mg/dl (0.60-1.40); POTASSIUM 4.2 mmol/L (3.5-5.1)
--- NOTE | 2016-03-28 17:22 | EMERGENCY ROOM VISIT NOTE ---
History Report prepared by Rupal: Marina Narvaez Under the Supervision of: Dr. Gorge Beaulieu D.O. First contact with patient: 16:16 Chief Complaint: HYPOGLYCEMIA Stated Complaint: HYPOGLYCEMIA Nursing Triage Summary: pt arrived via ALS states "I fell asleep while frying chicken", was frying chicken; states he checked his sugar, "it was 160 something""took 8 units humalog"; BSG on EMS arrival 60, gave D10, repeat BSG 102; pt A&O on arrival. History of Present Illness The patient is a 80 year old male who presents to the Emergency Room with complaints of constant hypoglycemia occurring just prior to arrival. The patient ate breakfast this morning and has since not eaten. He checked his blood sugar levels and it was 167. He took 8 units of Humalog. When EMS arrived his blood sugar level was 60 and he was given D10. A repeat blood sugar level was 102. He notes that he has an headache. The patient has an appointment with his doctor this coming week to follow up about this recent episode of hypoglycemia. He was been hospitalized before for hyperglycemia. The patient denies any other symptoms at this time. 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 Review of Systems See HPI for pertinent positives & negatives. A total of 10 systems reviewed and were otherwise negative. 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) (9) NSTEMI, initial episode of care (10) Precordial chest pain (11) Thrombocytopenia Surgical Problems: (1) H/O heart bypass surgery Family History Heart disease Social History Smoking Status: Never Smoker Drug Use: none Marital Status: Housing Status: lives with significant other Occupation Status: retired Current/Historical Medications Scheduled Amlodipine (Norvasc), 10 MG PO DAILY Aspirin (Aspirin EC Low Dose), 81 MG PO DAILY Atorvastatin (Lipitor), 40 MG PO DAILY Cephalexin Monohydrate (Keflex), 500 MG PO QID Cholecalciferol (Vitamin D3), 1 TAB PO DAILY Clopidogrel (Plavix), 75 MG PO DAILY Cyanocobalamin (Vitamin B-12 1000 Mcg), 1,000 MCG PO DAILY Insulin Glargine (Lantus Solostar), 18-20 UNITS SQ QAM Insulin Lispro (Human) (Humalog Kwikpen), 8 UNITS SC TIDM Isosorbide Mononitrate Ext Rel (Imdur Ext Rel), 120 MG PO QAM Meclizine HCl (Meclizine HCl), 25 MG PO Q6H Pantoprazole (Protonix), 40 MG PO DAILY Scheduled PRN Furosemide (Furosemide), 20 MG PO DAILY PRN for Fluid Retention Nitroglycerin (Nitrostat), 0.4 MG SL UD PRN for Chest Pain Allergies Coded Allergies: No Known Allergies (Verified , 03/28/16) Physical Exam Vital Signs Date Time Temp Pulse Resp B/P Pulse Ox O2 Delivery O2 Flow Rate FiO2 03/28/16 17:13 59 20 155/61 96 Room Air 03/28/16 16:09 57 03/28/16 15:42 36.4 62 24 158/67 100 Room Air Physical Exam CONSTITUTIONAL/VITAL SIGNS: Reviewed / noted above. GENERAL: Non-toxic in appearance. INTEGUMENTARY: Warm, dry, and [place]. HEAD: Normocephalic. EYES: without scleral icterus or trauma. ENT/OROPHARYNX: clear and moist. LYMPHADENOPATHY/NECK: Is supple without lymphadenopathy or meningismus. RESPIRATORY: Lungs clear and equal. CARDIOVASCULAR: Regular rate and rhythm. GI/ABDOMEN: Soft and nontender. No organomegaly or pulsatile mass. No rebound or guarding. Normal bowel sounds. EXTREMITIES: Warm and well perfused. BACK: No CVA tenderness. NEUROLOGICAL: Intact without focal deficits. PSYCHIATRIC: normal affect. MUSCULOSKELETAL: Normally developed with good muscle tone. Medical Decision & Procedures Laboratory Results 03/28/16 15:49 Red Blood Count 2.74, Mean Corpuscular Volume 91.6, Mean Corpuscular Hemoglobin 29.6, Mean Corpuscular Hemoglobin Concent 32.3, Mean Platelet Volume 11.4 03/28/16 15:49 Test 03/28/16 15:49 White Blood Count 12.21 K/uL (4.8-10.8) Red Blood Count 2.74 M/uL (4.7-6.1) Hemoglobin 8.1 g/dL (14.0-18.0) Hematocrit 25.1 % (42-52) Mean Corpuscular Volume 91.6 fL (80-100) Mean Corpuscular Hemoglobin 29.6 pg (25-34) Mean Corpuscular Hemoglobin Concent 32.3 g/dl (32-36) Platelet Count 260 K/uL (130-400) Mean Platelet Volume 11.4 fL (7.4-10.4) RDW Standard Deviation 61.4 fL (36.4-46.3) RDW Coefficient of Variation 19.0 % (11.5-14.5) Anion Gap 12.0 mmol/L (3-11) Est Creatinine Clear Calc Drug Dose 27.3 ml/min Estimated GFR () 28.3 Estimated GFR (Non- 24.4 BUN/Creatinine Ratio 11.1 (10-20) Bedside Glucose 96 mg/dl (70-99) Calcium Level 8.4 mg/dl (8.5-10.1) Laboratory results as stated above per my review. Medications Administered Medications (Trade) Dose Ordered Sig/Denny Route Start Time Stop Time Status Last Admin Dose Admin Sodium Chloride (Nss 1000ml) 1,000 ml @ 999 mls/hr Q1H1M STAT IV 03/28/16 16:21 03/28/16 17:21 DC 03/28/16 17:09 999 MLS/HR ED Course 1618: Previous medical records were reviewed. The patient was evaluated in room A11. A complete history and physical examination was performed. 1621: Sodium Chloride 1,000 ml @ 999 mls/hr IV. 1729: On reevaluation, the patient is hemodynamically stable. I discussed the results and findings with the patient. He verbalized agreement of the treatment plan. He was discharged home. Medical Decision The patient is a 80 year old male who presents to the ED with complaints of hypoglycemia. The patient states that he took 8 units of Humalog insulin for a blood sugar 160. His was watching a movie and she did not cooker loader right away. She began cooking some chicken and when she called her , he did not respond. He was found unresponsive by family and EMS was called. A blood sugar was reportedly 60. D10 was administered and the patient's blood sugar improved and the patient became awake and alert. On my evaluation, the patient is awake, alert and oriented. His blood sugar here was 96. He was fed. Blood work reveals hemoglobin of 8.1. Based on his last admission, this is multifactorial and chronic. The patient's BUN was 27 and the creatinine was 2.4. This is slightly worse than his baseline but this is likely related to dehydration. He was hydrated with IV fluids. On reassessment, the patient is continuing to feel well. He has no complaints. He was fed. He is felt to be stable for discharge with family. Differential includes acute coronary syndrome, myocardial infarction, CVA, TIA, anemia, infection, pneumonia, UTI, pyelonephritis, poor nutrition, dehydration, electrolyte disturbance,hypoglycemia. Impression Primary Impression: Hypoglycemia Additional Impression: Anemia Scribe Attestation The scribe's documentation has been prepared under my direction and personally reviewed by me in its entirety. I confirm that the note above accurately reflects all work, treatment, procedures, and medical decision making performed by me. Departure Information Dispostion Home / Self-Care Referrals Mahesh Hackett M.D. (PCP) Forms HOME CARE DOCUMENTATION FORM, IMPORTANT VISIT INFORMATION, WORK / SCHOOL INSTRUCTIONS Patient Instructions My [facility] Additional Instructions Follow-up with your doctor as scheduled. Return for any concerns or worsening. Problem Qualifiers
[2016-03-28 17:35] LABS: ANISOCYTOSIS PRESENT; BASO % 0.2 %; BASO ABS # 0.03 K/uL (0-0.2); COMPLETE YES; EOS % 0.2 %; IG% 5.4 %; LYMPH % 21.2 %; LYMPH ABS # 2.59 K/uL (1.2-3.4); MONO % 22.9 %; NEUT % 50.1 %
[2016-03-28 18:07] VITALS: BP 140/55; PULSE 64; O2SAT 94
[2016-07-09] MEDS ORDERED: PANT40TA PO (15:44)
== END 2016-03-28 18:09 | disposition home or self-care (01) ==
LOC: EDBD 15:32 → C.EDA 15:33
DX: E16.2 Hypoglycemia, unspecified (principal); D64.9 Anemia, unspecified; N18.6 End stage renal disease; Z82.49 Family history of ischemic heart disease and other diseases of the circulatory system; R51 Headache

== ENCOUNTER → 2016-04-12 | Outpatient (CLI) | payer BC ==
[~2016-04-12] MED LIST changes: -CEPH500C2 PO
[2016-04-12 12:46] LABS: MEAN CORPUSCULAR HGB CONC 31.3 g/dl (32-36)
[2016-04-12 13:04] LABS: BLOOD UREA NITROGEN 19 mg/dl (7-18); BUN/CREATININE RATIO 8.4 (10-20); CALCIUM 8.8 mg/dl (8.5-10.1); CARBON DIOXIDE 22 mmol/L (21-32); CHLORIDE 104 mmol/L (98-107); GLUCOSE 247 mg/dl (70-99); SODIUM 138 mmol/L (136-145)
[2016-04-12 13:33] LABS: MEAN CELL VOLUME 92.5 fL (80-100); MEAN CORPUSCULAR HEMOGLOBIN 28.9 pg (25-34); MEAN PLATELET VOLUME 11.6 fL (7.4-10.4); PLATELET COUNT 133 K/uL (130-400); PLT ESTIMATE NORMAL; RED BLOOD COUNT 3.46 M/uL (4.7-6.1); WHITE BLOOD COUNT 7.64 K/uL (4.8-10.8)
== END | disposition home or self-care (01) ==
LOC: C.LABPVFM 09:12
PROVIDERS: ATTEND Internal Medicine Geriatric Medicine
DX: D64.9 Anemia, unspecified (principal); E11.9 Type 2 diabetes mellitus without complications

== ENCOUNTER → 2016-04-27 | Outpatient (CLI) | payer BC ==
[2016-04-27 12:28] LABS: BLOOD UREA NITROGEN 20 mg/dl (7-18); BUN/CREATININE RATIO 9.3 (10-20); CALCIUM 8.4 mg/dl (8.5-10.1); CARBON DIOXIDE 24 mmol/L (21-32); CHLORIDE 107 mmol/L (98-107); GLUCOSE 255 mg/dl (70-99); MAGNESIUM 1.6 mg/dl (1.8-2.4); PHOSPHORUS 3.7 mg/dl (2.5-4.9); POTASSIUM 4.3 mmol/L (3.5-5.1); SODIUM 140 mmol/L (136-145)
== END | disposition home or self-care (01) ==
LOC: C.LABPVFM 08:38
PROVIDERS: ATTEND Internal Medicine Nephrology
DX: N18.4 Chronic kidney disease, stage 4 (severe) (principal)

== ENCOUNTER 2016-07-04 13:10 | Inpatient (IN) | payer BC, OTHER ==
[2016-07-04] VITALS (11 sets, daily range): BP systolic 103–157; BP diastolic 58–72; PULSE 57–74; TEMP 36.3–36.8; O2SAT 95–100; BMI 28.5
[~2016-07-04] VITALS: Ht 177.8 cm; Wt 84.8 kg
[2016-07-04] MEDS ORDERED: SODIUM CHLORIDE 0.9% 500ML 500 ML IV STA (13:23)
[2016-07-04] MEDS ORDERED: PANTOprazole INJ 80 MG in DEXTROSE 5% 100ML IV SCH (13:45)
[2016-07-04] MEDS ORDERED: PANTOprazole INJ 40 MG in DEXTROSE 5% 100ML IV SCH (14:00)
[2016-07-04 14:05] LABS: ISTAT CREATININE 2.6 mg/dl (0.6-1.3); ISTAT HEMOGLOBIN 7.1 g/dl (14.0-18.0); ISTAT IONIZED CALCIUM 1.11 mmol/l (1.12-1.32)
--- NOTE | 2016-07-04 14:11 | DIAGNOSTIC IMAGING REPORT ---
CHEST ONE VIEW PORTABLE CLINICAL HISTORY: Torus of breath. Gastrointestinal hemorrhage COMPARISON STUDY: 03/20/2016 FINDINGS: There are postsurgical changes of a midline sternotomy. The heart is normal in size. There is no failure. There is persistent elevation right hemidiaphragm. There are improving right basilar atelectatic changes.[ There is no lobar consolidation. IMPRESSION: 1. Persistent elevation right hemidiaphragm. Improving right basilar atelectatic change. Electronically signed by: Trenton Lofton M.D. 07/04/2016 2:09 PM Dictated Date/Time: 07/04/2016 2:08 PM
[2016-07-04 14:15] LABS: INR 1.1 (0.9-1.1); PARTIAL THROMBOPLASTIN RATIO 0.9; PROTHROMBIN TIME (PATIENT) 11.6 SECONDS (9.0-12.0)
[2016-07-04 14:16] LABS: ALT/SGPT 14 U/L (12-78); AST/SGOT 9 U/L (15-37); BLOOD UREA NITROGEN 54 mg/dl (7-18); BUN/CREATININE RATIO 19.2 (10-20); CALCIUM 8.1 mg/dl (8.5-10.1); CARBON DIOXIDE 20 mmol/L (21-32); CHLORIDE 107 mmol/L (98-107); GLUCOSE 340 mg/dl (70-99); POTASSIUM 4.8 mmol/L (3.5-5.1); SODIUM 141 mmol/L (136-145)
[2016-07-04 14:26] LABS: ALKALINE PHOSPHATASE 52 U/L (45-117); BETA-HYDROXYBUTYRATE 1.29 mg/dL (0.2-2.81)
[2016-07-04 14:36] LABS: COMPLETE YES; EOSINOPHIL % 0.8 %; LYMPH ABS # 1.03 K/uL (1.2-3.4); LYMPHOCYTE % 7.6 %; MEAN CORPUSCULAR HEMOGLOBIN 27.6 pg (25-34); MEAN CORPUSCULAR HGB CONC 31.4 g/dl (32-36); NEUTROPHILS % 75.5 %; PLATELET COUNT 67 K/uL (130-400); PLT ESTIMATE DECREASED; WHITE BLOOD COUNT 13.51 K/uL (4.8-10.8)
[2016-07-04] MEDS ORDERED: ONDANSETRON INJ 2 MG/ML 2 ML VIAL IV PRN (16:00)
[2016-07-04] MEDS ORDERED: NITROGLYCERIN 0.4 MG SL PER TAB CHARGE SL PRN (16:00)
--- NOTE | 2016-07-04 16:13 | History and Physical ---
History & Physical Date & Time of Service: July 04, 2016 at 14:54 Chief Complaint: Light Headed, Sob, Dark Stool Primary Care Physician: Mahesh Hackett M.D. History of Present Illness Patient is an 80 year old male with a history of End Stage Renal Disease, GERD, HLD, and Thrombocytopenia that presents with GI bleeding that has been going on since . his stool started to look dark but he did not mention it to any of his family members until today. This week his states that he was getting very short of breath with ambulation, was stumbling while walking, and was very lightheaded when getting out of bed this morning. His sons were needing to help him walk out of fear that he would have a fall. A few years ago he had a similar incidence of bleeding while taking aspirin daily and had a dark stools, eventually requiring blood transfusions. He also had a circumcision in March and had an episode of bleeding and thrombocytopenia that required blood transfusions as well. He is currently on plavix for his previous history of CAD. Patient states that he did once have hemorrhoids around 50 years ago but otherwise provides no history. Patient denies any abdominal pain, denies seeing any blood on toilet paper when wiping, denies seeing any gross blood in the stool or in the toilet. Patient denies any vomiting, coughing up blood, or any heartburn. His blood sugars were also in the 350s this morning when he took his blood glucose. His blood pressure at once point was 160 systolic on the home blood pressure cuff. 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 (4) Thrombocytopenia Status: Chronic Surgical Problems: (1) H/O heart bypass surgery Status: Chronic Family History Heart disease Social History Smoking Status: Never Smoker Drug Use: none Marital Status: Housing status: lives with family Occupational Status: retired Immunizations History of Influenza Vaccine: Yes History of Tetanus Vaccine?: Yes History of Pneumococcal: Yes History of Hepatitis B Vaccine: No Multi-Drug Resistant Organisms History of MDRO: No Allergies Coded Allergies: No Known Allergies (Verified , 07/04/16) Home Medications Scheduled Amlodipine (Norvasc), 10 MG PO DAILY Atorvastatin (Lipitor), 40 MG PO DAILY Cholecalciferol (Vitamin D3), 1 TAB PO DAILY Clopidogrel (Plavix), 75 MG PO DAILY Cyanocobalamin (Vitamin B-12 1000 Mcg), 1,000 MCG PO DAILY Insulin Glargine (Lantus Solostar), 18-20 UNITS SQ QAM Insulin Lispro (Human) (Humalog Kwikpen), 8 UNITS SC TIDM Isosorbide Mononitrate Ext Rel (Imdur Ext Rel), 120 MG PO QAM Pantoprazole (Protonix), 40 MG PO DAILY Scheduled PRN Furosemide (Furosemide), 20 MG PO DAILY PRN for Fluid Retention Nitroglycerin (Nitrostat), 0.4 MG SL UD PRN for Chest Pain Review of Systems Constitutional: + fatigue, + weakness, No chills, No fever, No weight loss ENT: No unusual epistaxis Respiratory: + dyspnea on exertion, + shortness of breath, No cough, No dyspnea at rest, No hemoptysis, No sputum Abdomen: + GI bleeding, No diarrhea, No nausea, No pain, No vomiting Genitourinary - Male: No dysuria, No hematuria, No urinary frequency Endocrine: + fatigue Physical Exam Vital Signs Date Time Temp Pulse Resp B/P Pulse Ox O2 Delivery O2 Flow Rate FiO2 07/04/16 14:18 58 18 95/47 98 Room Air 07/04/16 14:00 67 114/51 07/04/16 13:45 56 81/41 07/04/16 13:38 57 24 96/45 98 Room Air 07/04/16 13:27 58 07/04/16 13:22 95 Room Air 07/04/16 13:22 58 18 97/58 99 Room Air 07/04/16 13:14 36.4 93 24 77/46 100 Room Air General Appearance: WD/WN, no apparent distress Head: normocephalic, atraumatic Eyes: normal inspection, PERRL, EOMI, sclerae normal Neck: supple, no carotid bruits, trachea midline Respiratory/Chest: chest non-tender, lungs clear, normal breath sounds, no respiratory distress, no accessory muscle use Cardiovascular: regular rate, rhythm, no edema, no gallop, no murmur, normal peripheral pulses Abdomen/GI: normal bowel sounds, non tender, soft, no pulsatile mass, normal rectal exam Back: normal inspection, no CVA tenderness Extremities/Musculoskelatal: normal inspection, no calf tenderness, no pedal edema Neurologic/Psych: director social II-XII nml as tested, no motor/sensory deficits, alert, normal mood/affect, oriented x 3 Diagnostics Laboratory Results Results Past 24 Hours Test 07/04/16 13:46 07/04/16 13:52 07/04/16 13:54 Range/Units White Blood Count 13.51 4.8-10.8 K/uL Red Blood Count 2.50 4.7-6.1 M/uL Hemoglobin 6.9 14.0-18.0 g/dL Hematocrit 22.0 42-52 % Mean Corpuscular Volume 88.0 80-100 fL Mean Corpuscular Hemoglobin 27.6 25-34 pg Mean Corpuscular Hemoglobin Concent 31.4 32-36 g/dl Platelet Count 67 130-400 K/uL RDW Standard Deviation 64.8 36.4-46.3 fL RDW Coefficient of Variation 20.2 11.5-14.5 % Neutrophils % (Manual) 75.5 % Lymphocytes % (Manual) 7.6 % Monocytes % (Manual) 16.1 % Eosinophils % (Manual) 0.8 % Neutrophils # (Manual) 10.20 1.4-6.5 K/uL Total Absolute Neutrophils 10.20 1.4-6.5 K/uL Lymphocytes # (Manual) 1.03 1.2-3.4 K/uL Total Absolute Lymphocytes 1.03 1.2-3.4 K/uL Monocytes # (Manual) 2.18 0.11-0.59 K/uL Eosinophils # (Manual) 0.11 0-0.5 K/uL Platelet Estimate DECREASED Red Blood Cell Morphology Unremarkable Prothrombin Time 11.6 9.0-12.0 SECONDS Prothromb Time International Ratio 1.1 0.9-1.1 Activated Partial Thromboplast Time 23.6 21.0-31.0 SECONDS Partial Thromboplastin Ratio 0.9 Sodium Level 141 136-145 mmol/L Potassium Level 4.8 3.5-5.1 mmol/L Chloride Level 107 98-107 mmol/L Carbon Dioxide Level 20 21-32 mmol/L Anion Gap 14.0 22.0 16-25 mmol/L Blood Urea Nitrogen 54 7-18 mg/dl Creatinine 2.80 0.60-1.40 mg/dl Est Creatinine Clear Calc Drug Dose 23.4 ml/min Estimated GFR () 23.5 Estimated GFR (Non- 20.2 BUN/Creatinine Ratio 19.2 10-20 Random Glucose 340 70-99 mg/dl Calcium Level 8.1 8.5-10.1 mg/dl Total Bilirubin 0.3 0.2-1 mg/dl Direct Bilirubin < 0.1 0-0.2 mg/dl Aspartate Amino Transf (AST/SGOT) 9 15-37 U/L Alanine Aminotransferase (ALT/SGPT) 14 12-78 U/L Alkaline Phosphatase 52 45-117 U/L Total Protein 6.6 6.4-8.2 gm/dl Albumin 3.1 3.4-5.0 gm/dl Lipase 223 73-393 U/L Beta-Hydroxybutyric Acid 1.29 0.2-2.81 mg/dL Bedside Hemoglobin 7.1 14.0-18.0 g/dl Bedside Hematocrit 21 42-52 % Bedside Sodium 138 135-144 mEq/L Bedside Potassium 4.9 3.3-5.0 mEq/L Bedside Chloride 105 101-112 mEq/L Bedside Total CO2 18 24-31 mEq/l Bedside Blood Urea Nitrogen 53 7-18 mg/dl Bedside Creatinine 2.6 0.6-1.3 mg/dl Bedside Glucose (other) 334 70-99 mg/dl Bedside Ionized Calcium (Jose) 1.11 1.12-1.32 mmol/l Bedside Troponin I 0.000 0-0.045 ng/ml Impression Assessment and Plan Patient is an 80 year old male that presents with melena and hypotension 1) Melena with acute blood loss anemia - Received IV NS Bolus 1L - IV maintenance fluids 125 ml/hr - 2 unit PRBC transfusion, 2 units on hold - H/H q4h - NPO - Stool occult blood - INR/PTT - Protonix Drip - Admission to telemetry - GI consult. Has had negative GI evaluation in 07/13 2) Hypotension - IV Fluids - Regular blood pressure monitoring - Hold home Norvasc and Furosemide 3) Thrombocytopenia with h/o MGUS - Previous history of low platelets - Currently on Plavix. Hold - Initial resuscitation with fluids and blood products - If remains hemodynamically unstable consider platelet replacement 4) Diabetes - Lantus 10 units now, 14 units qAM since NPO. On 18-20 units at home 5) Hyperlipidemia - Hold Lipitor 6) DVT Prophylaxis - SCDs 7) Resuscitation status - Full Resuscitation Level of Care Telemetry Advanced Directives Existing Power of Bark Peeler: Yes Resuscitation Status FULL RESUSCITATION VTE Prophylaxis VTE Risk Assessment Done? Y/N: Yes Risk Level: High Given or contraindicated: SCD's Reviewed: Pt Seen/Exam by Me History 80 y/o with h/o anemia and MGUS here for feeling dizzi and having dark stools Constitutional: denies: fever Respiratory: negative: short of breath Cardiovascular: denies chest pain Gastrointestinal/Abdominal: positive: other (dark stools), negative: abdominal pain Musculoskeletal: negative: back pain General Appearance: no apparent distress Respiratory: lungs clear, no respiratory distress Cardiovascular: regular rate, rhythm Gastrointestinal: normal bowel sounds, non tender, soft Neurologic/Psychiatric: alert, oriented x 3 Skin Characteristics: pallor Assessment/Plan I have reviewed the medical record and performed a history and physical examination of this patient today. I have discussed the case with Dr. Stacy. The above note reflects my findings, conclusions, and recommendations.
[2016-07-04] MEDS ORDERED: GLUCAGON FOR INJ 1 MG VIAL SQ PRN (16:15)
[2016-07-04] MEDS ORDERED: GLUCOSE 40% GEL 15 GM TUBE PO PRN (16:15)
[2016-07-04] MEDS ORDERED: DEXTROSE 50% 50 ML SYR IV PRN (16:15)
[2016-07-04] MEDS ORDERED: GLUCOSE 10 TABS/TUBE PO PRN (16:15)
[2016-07-04 16:59] LABS: PARTIAL THROMBOPLASTIN RATIO 0.9
[2016-07-04] MEDS ORDERED: INSULIN GLARGINE SOLOSTAR 100 UNITS/ML 3 ML PEN SC ONE (17:00)
[2016-07-04 17:05] LABS: HEMATOCRIT 21.2 % (42-52)
[2016-07-04] MEDS: SODIUM CHLORIDE 0.9% 1000ML 1,000 ML IV SCH (17:17)
--- NOTE | 2016-07-04 18:13 | EMERGENCY ROOM VISIT NOTE ---
History Report prepared by Rupal: Josué Del Rosario Under the Supervision of: Dr. Rohit Valencia M.D. First contact with patient: 13:17 Chief Complaint: SHORTNESS OF BREATH Stated Complaint: LIGHT HEADED, SOB, DARK STOOL History of Present Illness The patient is a 80 year old male who presents to the Emergency Room with complaints of intermittent dark stools beginning two days ago. He also complains of shortness of breath, and lightheadedness. He denies any chest pain or abdominal pain. The patient has a history of blood transfusions and a stomach bleed. He is on Plavix but no other blood thinners. He notes that he had a circumcision three months ago that had a large amount of bleeding. Source of History: patient Onset: two days ago Position: other (global) Symptom Intensity: moderate Quality: other (dark stool) Timing: intermittent Associated Symptoms: + SOB, No abdominal pain, No chest pain Note: The patient also complains of lightheadedness. Review of Systems See HPI for pertinent positives & negatives. A total of 10 systems reviewed and were otherwise negative. 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) (9) NSTEMI, initial episode of care (10) Precordial chest pain (11) Thrombocytopenia Surgical Problems: (1) H/O heart bypass surgery Family History Heart disease Social History Smoking Status: Never Smoker Drug Use: none Marital Status: Housing Status: lives with significant other Occupation Status: retired Current/Historical Medications Scheduled Amlodipine (Norvasc), 10 MG PO DAILY Atorvastatin (Lipitor), 40 MG PO DAILY Cholecalciferol (Vitamin D3), 1 TAB PO DAILY Clopidogrel (Plavix), 75 MG PO DAILY Cyanocobalamin (Vitamin B-12 1000 Mcg), 1,000 MCG PO DAILY Insulin Glargine (Lantus Solostar), 18-20 UNITS SQ QAM Insulin Lispro (Human) (Humalog Kwikpen), 8 UNITS SC TIDM Isosorbide Mononitrate Ext Rel (Imdur Ext Rel), 120 MG PO QAM Pantoprazole (Protonix), 40 MG PO DAILY Scheduled PRN Furosemide (Furosemide), 20 MG PO DAILY PRN for Fluid Retention Nitroglycerin (Nitrostat), 0.4 MG SL UD PRN for Chest Pain Allergies Coded Allergies: No Known Allergies (Verified , 07/04/16) Physical Exam Vital Signs Date Time Temp Pulse Resp B/P Pulse Ox O2 Delivery O2 Flow Rate FiO2 07/04/16 15:11 61 20 120/53 99 Room Air 07/04/16 14:18 58 18 95/47 98 Room Air 07/04/16 14:00 67 114/51 07/04/16 13:45 56 81/41 07/04/16 13:38 57 24 96/45 98 Room Air 07/04/16 13:27 58 07/04/16 13:22 95 Room Air 07/04/16 13:22 58 18 97/58 99 Room Air 07/04/16 13:14 36.4 93 24 77/46 100 Room Air Physical Exam Constitutional: Vital signs reviewed. Hypotensive. Eyes: Pupils are equal round reactive to light. Conjunctiva are noninjected. ENT: Pharynx is clear without erythema or exudate. Mucous membranes are moist. Neck supple without meningeal signs. Respiratory: Clear to auscultation bilaterally. Breath sounds are equal bilaterally. Cardiovascular: Regular rate and rhythm. No rubs or gallops. GI: Soft, nondistended and nontender. Bowel sounds are present. Rectal: Guaiac positive with dark stool. No gross blood. Musculoskeletal: No peripheral edema. No lower extremity tenderness. Integumentary: No cyanosis. Pale. Neurological: The patient is awake and alert. No focal deficits. Psychiatric: Normal affect. Medical Decision & Procedures ER Provider Diagnostic Interpretation: X-ray results as stated below per interpretation by me and the radiologist: CHEST ONE VIEW PORTABLE FINDINGS: There are postsurgical changes of a midline sternotomy. The heart is normal in size. There is no failure. There is persistent elevation right hemidiaphragm. There are improving right basilar atelectatic changes.[ There is no lobar consolidation. IMPRESSION: 1. Persistent elevation right hemidiaphragm. Improving right basilar atelectatic change. Electronically signed by: Trenton Lofton M.D. Laboratory Results 07/04/16 13:46 Red Blood Count 2.50, Mean Corpuscular Volume 88.0, Mean Corpuscular Hemoglobin 27.6, Mean Corpuscular Hemoglobin Concent 31.4 07/04/16 13:46 Test 07/04/16 13:46 07/04/16 13:52 07/04/16 13:54 White Blood Count 13.51 K/uL (4.8-10.8) Red Blood Count 2.50 M/uL (4.7-6.1) Hemoglobin 6.9 g/dL (14.0-18.0) Hematocrit 22.0 % (42-52) Mean Corpuscular Volume 88.0 fL (80-100) Mean Corpuscular Hemoglobin 27.6 pg (25-34) Mean Corpuscular Hemoglobin Concent 31.4 g/dl (32-36) Platelet Count 67 K/uL (130-400) RDW Standard Deviation 64.8 fL (36.4-46.3) RDW Coefficient of Variation 20.2 % (11.5-14.5) Neutrophils % (Manual) 75.5 % Lymphocytes % (Manual) 7.6 % Monocytes % (Manual) 16.1 % Eosinophils % (Manual) 0.8 % Neutrophils # (Manual) 10.20 K/uL (1.4-6.5) Total Absolute Neutrophils 10.20 K/uL (1.4-6.5) Lymphocytes # (Manual) 1.03 K/uL (1.2-3.4) Total Absolute Lymphocytes 1.03 K/uL (1.2-3.4) Monocytes # (Manual) 2.18 K/uL (0.11-0.59) Eosinophils # (Manual) 0.11 K/uL (0-0.5) Platelet Estimate DECREASED Red Blood Cell Morphology Unremarkable Prothrombin Time 11.6 SECONDS (9.0-12.0) Prothromb Time International Ratio 1.1 (0.9-1.1) Activated Partial Thromboplast Time 23.6 SECONDS (21.0-31.0) Partial Thromboplastin Ratio 0.9 Est Creatinine Clear Calc Drug Dose 23.4 ml/min Estimated GFR () 23.5 Estimated GFR (Non- 20.2 BUN/Creatinine Ratio 19.2 (10-20) Calcium Level 8.1 mg/dl (8.5-10.1) Total Bilirubin 0.3 mg/dl (0.2-1) Direct Bilirubin < 0.1 mg/dl (0-0.2) Aspartate Amino Transf (AST/SGOT) 9 U/L (15-37) Alanine Aminotransferase (ALT/SGPT) 14 U/L (12-78) Alkaline Phosphatase 52 U/L (45-117) Total Protein 6.6 gm/dl (6.4-8.2) Albumin 3.1 gm/dl (3.4-5.0) Lipase 223 U/L (73-393) Beta-Hydroxybutyric Acid 1.29 mg/dL (0.2-2.81) Bedside Hemoglobin 7.1 g/dl (14.0-18.0) Bedside Hematocrit 21 % (42-52) Bedside Sodium 138 mEq/L (135-144) Bedside Potassium 4.9 mEq/L (3.3-5.0) Bedside Chloride 105 mEq/L (101-112) Bedside Total CO2 18 mEq/l (24-31) Anion Gap 22.0 mmol/L (16-25) Bedside Blood Urea Nitrogen 53 mg/dl (7-18) Bedside Creatinine 2.6 mg/dl (0.6-1.3) Bedside Glucose (other) 334 mg/dl (70-99) Bedside Ionized Calcium (Jose) 1.11 mmol/l (1.12-1.32) Bedside Troponin I 0.000 ng/ml (0-0.045) Laboratory results as reviewed by me. Medications Administered Medications (Trade) Dose Ordered Sig/Denny Route Start Time Stop Time Status Last Admin Dose Admin Sodium Chloride (Nss 500ml) 500 ml @ 999 mls/hr Q31M STAT IV 07/04/16 13:23 07/04/16 13:53 DC 07/04/16 13:39 999 MLS/HR Pantoprazole Sodium 1 ea 1 ea NOW STAT IV 07/04/16 13:23 07/04/16 13:26 DC 07/04/16 14:00 1 EA Pantoprazole Sodium 80 mg/ Dextrose 120 ml @ 480 mls/hr TODAY@1345 IV 07/04/16 13:45 07/04/16 13:59 DC 07/04/16 13:57 480 MLS/HR Pantoprazole Sodium/Dextrose (Protonix Inj/D5 100ml) 100 ml @ 20 mls/hr Q5H IV 07/04/16 14:00 07/04/16 18:59 07/04/16 14:16 20 MLS/HR ECG Indication: SOB/dyspnea, weakness Rate (beats per minute): 57 Rhythm: sinus bradycardia Findings: 1st degree AV block, no ectopy ED Course 1318: The patient was evaluated in room A9. A complete history and physical exam was performed. 1323: Ordered Protonix IV Bolus/Drip IV, Sodium Chloride 500 ml @ 999 mls/hr IV. 1334: I checked in on the patient. He is resting. He is still hypotensive. A second line is being established. I obtained consent for blood transfusions from the patient. 1345: Ordered Pantoprazole Sodium 80 mg/Dextrose 120 mL @ 480 mL/hr IV. 1358: I conducted a rectal exam. See the physical exam for findings. He is still hypotensive and waiting for transfusion 1413: The patient's blood pressure is 115/51, waiting for blood from the blood bank. 1436: The patient is normotensive awaiting blood transfusion. 1512: I reassessed the patient. He has no complaints. His blood pressure is 116/ 71. The blood bank informed me that there would be a delay in the transfusion because the patient has some antibodies. 1539: I was informed that the patient will be transfused in about an hour. Medical Decision This is an 80-year-old male who presents with dark stools and shortness of breath. Differential diagnosis includes anemia, GI bleed, peptic ulcer disease , cardiac, pneumonia. I did perform a limited focused review of portions of the patient's old chart on the electronic medical record. The patient had blood work April 122016 which showed a hemoglobin of 10 and a creatinine of 2.1. He was admitted for a GI bleed june of 2015 with a normal EDG and colonoscopy. I did evaluate the patient as noted above. IV access was established. 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 He is hypotensive and was immediately given an IV bolus of normal saline. Rectal examination shows guaiac positive black stools. I did order a type and cross for the patient. I did order 2 units of packed RBCs to be immediately given. I did obtain written and verbal consent from the patient for blood transfusion. I did order and personally review the patient's 12-lead EKG and chest x-ray as described above. I did order and review the patient's blood work as noted in the electronic medical record. He is severely anemic. I did reassess the patient multiple times. His blood pressure did improve. I did discuss the case with the [facility] case work aide. Consults Time Called: 1402 Consulting Physician: Dr. Shelton -MALDONADO Returned Call: [address] Shelton of [facility]. We discussed the patient and his results. The patient will be further evaluated by MALDONADO. Impression Primary Impression: Acute GI bleeding Additional Impressions: Symptomatic anemia Hypotension Critical Care I have personally spent 38 minutes of critical care time in the direct management of this patient. This includes bedside care, interpretation of diagnostic studies, and testing, discussion with consultants, patient, and family members, and other required patient management activities. This 38 minutes is in excess of all separately billable procedures. Scribe Attestation The scribe's documentation has been prepared under my direct and personally reviewed by me in its entirety. I confirm that the note above accurately reflects all work, treatment, procedures, and medical decision making performed by me. Departure Information Dispostion Being Evaluated By Hospitalist Referrals Mahesh Hackett M.D. (PCP) Patient Instructions My [facility] Problem Qualifiers Additional Impressions: Hypotension Hypotension type: unspecified hypotension type Qualified Codes: I95.9 - Hypotension, unspecified
--- NOTE | 2016-07-04 18:18 | Gastroenterology Progress Note ---
Progress Note Date of Service: July 04, 2016 Subjective Pt evaluation today including: conversation w/ patient, conversation w/ family ( and grandson), physical exam, chart review (EMR this admit, admit for GI bleed 2015 and outpt EMR capsule), lab review, review of studies, review of inpatient medication list Medications Current Inpatient Medications Medications (Trade) Dose Ordered Sig/Denny Route Start Time Stop Time Status Last Admin Dose Admin Pantoprazole Sodium 40 mg/ Dextrose 100 ml @ 20 mls/hr Q5H IV 07/04/16 14:00 07/04/16 18:59 07/04/16 14:16 20 MLS/HR Sodium Chloride (Nss 1000ml) 1,000 ml @ 125 mls/hr Q8H IV 07/04/16 15:55 08/03/16 15:54 07/04/16 17:17 125 MLS/HR Ondansetron HCl (Zofran Inj) 4 mg Q6H PRN IV 07/04/16 16:00 08/03/16 15:59 Cyanocobalamin (Vitamin B-12 Tab) 1,000 mcg DAILY PO 07/05/16 09:00 08/04/16 08:59 Nitroglycerin (Nitrostat Tab) 0.4 mg UD PRN SL 07/04/16 16:00 08/03/16 15:59 Insulin Glargine (Lantus Solostar Pen) 14 unit QAM SC 07/05/16 09:00 08/04/16 08:59 Glucose (Glucose 40% Gel) 15-30 GRAMS 15 GRAMS... UD PRN PO 07/04/16 16:15 08/03/16 16:14 Glucose (Glucose Chew Tab) 4-8 Tablets 4 Tabl... UD PRN PO 07/04/16 16:15 08/03/16 16:14 Dextrose (Dextrose 50% 50ML Syringe) 25-50ML OF 50% DW IV FOR... UD PRN IV 07/04/16 16:15 08/03/16 16:14 Glucagon (Glucagon Inj) 1 mg UD PRN SQ 07/04/16 16:15 08/03/16 16:14 Insulin Aspart (novoLOG ASPART) SLIDING SCALE Q6 SC 07/04/16 18:00 08/03/16 17:59 Objective Vital Signs Date Time Temp Pulse Resp B/P Pulse Ox O2 Delivery O2 Flow Rate FiO2 07/04/16 17:47 36.7 62 22 146/67 98 Room Air 07/04/16 16:30 36.4 62 20 139/68 100 Room Air 07/04/16 16:12 Room Air 07/04/16 15:11 61 20 120/53 99 Room Air 07/04/16 14:18 58 18 95/47 98 Room Air 07/04/16 14:00 67 114/51 07/04/16 13:45 56 81/41 07/04/16 13:38 57 24 96/45 98 Room Air 07/04/16 13:27 58 07/04/16 13:22 95 Room Air 07/04/16 13:22 58 18 97/58 99 Room Air 07/04/16 13:14 36.4 93 24 77/46 100 Room Air Laboratory Results Last 24 Hours Test 07/04/16 13:46 07/04/16 13:52 07/04/16 13:54 07/04/16 16:26 White Blood Count 13.51 K/uL Red Blood Count 2.50 M/uL Hemoglobin 6.9 g/dL 6.7 g/dL Hematocrit 22.0 % 21.2 % Mean Corpuscular Volume 88.0 fL Mean Corpuscular Hemoglobin 27.6 pg Mean Corpuscular Hemoglobin Concent 31.4 g/dl Platelet Count 67 K/uL RDW Standard Deviation 64.8 fL RDW Coefficient of Variation 20.2 % Neutrophils % (Manual) 75.5 % Lymphocytes % (Manual) 7.6 % Monocytes % (Manual) 16.1 % Eosinophils % (Manual) 0.8 % Neutrophils # (Manual) 10.20 K/uL Total Absolute Neutrophils 10.20 K/uL Lymphocytes # (Manual) 1.03 K/uL Total Absolute Lymphocytes 1.03 K/uL Monocytes # (Manual) 2.18 K/uL Eosinophils # (Manual) 0.11 K/uL Platelet Estimate DECREASED Red Blood Cell Morphology Unremarkable Prothrombin Time 11.6 SECONDS Prothromb Time International Ratio 1.1 Activated Partial Thromboplast Time 23.6 SECONDS Partial Thromboplastin Ratio 0.9 Sodium Level 141 mmol/L Potassium Level 4.8 mmol/L Chloride Level 107 mmol/L Carbon Dioxide Level 20 mmol/L Anion Gap 14.0 mmol/L 22.0 mmol/L Blood Urea Nitrogen 54 mg/dl Creatinine 2.80 mg/dl Est Creatinine Clear Calc Drug Dose 23.4 ml/min Estimated GFR () 23.5 Estimated GFR (Non- 20.2 BUN/Creatinine Ratio 19.2 Random Glucose 340 mg/dl Calcium Level 8.1 mg/dl Total Bilirubin 0.3 mg/dl Direct Bilirubin < 0.1 mg/dl Aspartate Amino Transf (AST/SGOT) 9 U/L Alanine Aminotransferase (ALT/SGPT) 14 U/L Alkaline Phosphatase 52 U/L Total Protein 6.6 gm/dl Albumin 3.1 gm/dl Lipase 223 U/L Beta-Hydroxybutyric Acid 1.29 mg/dL Bedside Hemoglobin 7.1 g/dl Bedside Hematocrit 21 % Bedside Sodium 138 mEq/L Bedside Potassium 4.9 mEq/L Bedside Chloride 105 mEq/L Bedside Total CO2 18 mEq/l Bedside Blood Urea Nitrogen 53 mg/dl Bedside Creatinine 2.6 mg/dl Bedside Glucose (other) 334 mg/dl Bedside Ionized Calcium (Jose) 1.11 mmol/l Bedside Troponin I 0.000 ng/ml Test 07/04/16 16:30 07/04/16 17:24 Activated Partial Thromboplast Time 23.1 SECONDS Partial Thromboplastin Ratio 0.9 Bedside Glucose 245 mg/dl Assessment and Plan GI consult dictated Job: [id number] GI bleeding---06/2015 admit with EGD /colo then outpt capsule negative--dark stool suggests UGI source so plan EGD tomorrow. Procedure and risks explained to patient and which include but not limited to medication reaction, bleeding, perforation, aspiration. Agree with protonix to cover UGI bleeding acute blood loss anemia---transfuse prn thrombocytopenia--low but should be adequate to prevent spontaneous GI bleeding
[2016-07-04] MEDS: INSULIN ASPART 100 UNITS/ML 3 ML PEN SC SCH (19:03)
--- NOTE | 2016-07-04 19:55 | GASTROINTESTINAL CONSULTATION ---
DATE OF CONSULTATION: 07/04/2016 DATE OF CONSULTATION: 07/04/2016. REQUESTING PHYSICIAN: Hospitalist. REASON FOR CONSULTATION: GI bleeding. CHIEF COMPLAINT OF THE PATIENT: Bleeding. HISTORY OF PRESENT ILLNESS: The patient had upper GI bleeding and dark stools in June 2015. I reviewed that admission from 07/01/2015 to 07/04/2015. EGD showed a small hiatal hernia. Colonoscopy showed some dark liquid in the colon, but bilious fluid in the terminal ileum, otherwise normal. A capsule endoscopy done as an outpatient 08/06/2015 showed duodenal diverticulum, otherwise unremarkable. No further bleeding until started having black stools, maybe 3 days prior to this admit, none yesterday. He became short of breath and weak and lightheaded and came to the Emergency Room with hemoglobin initial noted to 6.9 versus 10 on 04/12/2016. No abdominal pain. Stools are somewhat looser. Overall no dysphagia, no change in weight, feels cold. No nausea, vomiting. PAST MEDICAL HISTORY: ALLERGIES: Negative. MEDICATIONS ON ADMISSION: Norvasc, Lipitor, vitamin D, Plavix, vitamin B12, insulin, Imdur, Protonix, Lasix, nitrite. Denies any nonsteroidal use or aspirin use. PROBLEMS AND SURGERY: Coronary artery disease, history [place], chronic kidney disease, monoclonal gammopathy, diabetes, thrombocytopenia. He has had a CABG. FAMILY HISTORY: Coronary artery disease. SOCIAL HISTORY: Tobacco negative. REVIEW OF SYSTEMS: CONSTITUTIONAL: Lightheaded. EYES: Negative. EARS, NOSE, MOUTH AND THROAT: Negative. CARDIOVASCULAR: Negative. RESPIRATORY: Short of breath. GENITOURINARY: Negative. MUSCULOSKELETAL: Back pain. INTEGUMENTARY, NEUROLOGIC, PSYCHOLOGIC, ENDOCRINE, HEMATOLOGIC: Negative except as noted above. PHYSICAL EXAMINATION: GENERAL: Male appears stated age in no acute distress. VITAL SIGNS: Most recent vital signs in chart, temp 36.7, pulse 62, respiration 22, BP 146/67, O2 saturation 98% on room air. EYES: Conjunctivae and lids normal. EARS, NOSE, THROAT: Oropharynx clear. NECK: Without obvious mass or thyroid enlargement. RESPIRATORY: Normal effort, clear to anterior auscultation. CARDIOVASCULAR: Without obvious murmur. EXTREMITIES: Without edema. ABDOMEN: Positive bowel sounds, nontender, no obvious organomegaly or masses are appreciated. RECTAL EXAMINATION: Done by the Emergency Room dark heme positive stool, not repeated by me. LYMPH: No obvious neck or groin nodes. MUSCULOSKELETAL: Digits and nails normal. SKIN: Without obvious rash or induration anteriorly. NEUROLOGIC: Cranial nerves intact. Sensation intact. PSYCHIATRIC: Recent and remote memory good. Insight and judgment good. LABORATORY DATA: CBC, hemoglobin 6.9, platelets 67,000. PT, PTT were okay. CMP normal LFTs. Lipase was normal. Chest x-ray elevated right hemidiaphragm. IMPRESSION AND PLAN: 1. Gastrointestinal bleeding. Previous workup in 2016 normal. The dark stools suggests upper GI source. We will repeat an EGD tomorrow. I would transfuse tonight. I explained the procedure and risk to the patient and . The risks include but are not limited to medication reaction, bleeding, perforation, aspiration. Agree with Protonix in the meantime. 2. Acute blood loss anemia. Transfuse p.r.n. 3. Thrombocytopenia. Low but should be adequate to prevent spontaneous bleeding. MTDD
[2016-07-04] MEDS: PANTOprazole INJ 40 MG in DEXTROSE 5% 100ML IV SCH (21:09)
[2016-07-05] VITALS (9 sets, daily range): BP systolic 93–158; BP diastolic 49–78; PULSE 53–70; TEMP 36.6–37; O2SAT 92–97; Ht 177.8 cm; Wt 84.8 kg
[2016-07-05] MEDS: SODIUM CHLORIDE 0.9% 1000ML 1,000 ML IV SCH ×2 (00:31→07:55)
[2016-07-05 01:18] LABS: HEMATOCRIT 27.1 % (42-52)
[2016-07-05] MEDS: PANTOprazole INJ 40 MG in DEXTROSE 5% 100ML IV SCH ×3 (01:36→12:11)
[2016-07-05 03:55] LABS: HEMATOCRIT 25.1 % (42-52)
[2016-07-05] MEDS: INSULIN ASPART 100 UNITS/ML 3 ML PEN SC SCH ×5 (06:00→21:57)
--- NOTE | 2016-07-05 08:40 | Family Medicine Progress Note ---
Progress Note Date of Service July 05, 2016. Subjective Pt evaluation today including: conversation w/ patient, physical exam, chart review, lab review Patient feeling well currently, he denies any pain or discomfort. He does state that he has felt dizzy/lightheaded over the last few days, but that it has improved since admission. No headaches, syncope or presyncopal episodes. Family concerned about frequency of episodes of anemia requiring hospitalization and transfusion (last time similar symptoms occurred was a few months ago) and are keen to determine etiology. Constitutional: No chills, No fever Respiratory: No cough, No wheezing Cardiovascular: No chest pain, No edema, No palpitations Abdomen: + GI bleeding (dark tarry stools), No constipation, No diarrhea, No nausea, No pain, No vomiting Male : No dysuria, No hematuria Objective Vital Signs Date Time Temp Pulse Resp B/P Pulse Ox O2 Delivery O2 Flow Rate FiO2 07/05/16 07:58 36.6 64 20 112/64 96 Room Air 07/05/16 04:54 36.6 70 17 122/63 97 Room Air 07/05/16 04:01 36.6 70 17 122/63 97 Room Air 07/05/16 04:00 Room Air 07/04/16 23:59 Room Air 07/04/16 23:42 36.6 65 18 103/58 95 07/04/16 22:05 67 18 105/58 98 07/04/16 21:35 36.7 70 18 103/62 95 07/04/16 21:17 36.5 74 18 157/66 99 07/04/16 20:50 36.8 69 16 130/60 96 07/04/16 20:00 Room Air 07/04/16 19:50 60 16 151/71 97 07/04/16 18:50 36.3 57 16 122/69 95 07/04/16 18:15 36.5 58 12 152/70 96 07/04/16 18:10 36.4 58 16 149/72 97 07/04/16 17:47 36.7 62 22 146/67 98 Room Air 07/04/16 16:30 36.4 62 20 139/68 100 Room Air 07/04/16 16:12 Room Air 07/04/16 15:11 61 20 120/53 99 Room Air 07/04/16 14:18 58 18 95/47 98 Room Air 07/04/16 14:00 67 114/51 07/04/16 13:45 56 81/41 07/04/16 13:38 57 24 96/45 98 Room Air 07/04/16 13:27 58 07/04/16 13:22 95 Room Air 07/04/16 13:22 58 18 97/58 99 Room Air 07/04/16 13:14 36.4 93 24 77/46 100 Room Air Physical Exam General Appearance: WD/WN, no apparent distress Eyes: + abnormal sclerae exam (some conjunctival pallor) ENT: hearing grossly normal, pharynx normal Neck: supple Respiratory/Chest: lungs clear, normal breath sounds, no respiratory distress, no accessory muscle use Cardiovascular: regular rate, rhythm, no murmur, + normal peripheral pulses Abdomen: normal bowel sounds, non tender, soft Extremities: normal inspection, no pedal edema, no calf tenderness Neurologic/Psychiatric: alert, normal mood/affect, oriented x 3 Skin: normal color, warm/dry, no rash Laboratory Results Results Past 24 Hours Test 07/05/16 00:00 07/05/16 01:12 07/05/16 03:45 07/05/16 06:00 Range/Units Bedside Glucose 111 105 70-99 mg/dl Hemoglobin 8.8 8.3 14.0-18.0 g/dL Hematocrit 27.1 25.1 42-52 % Test 07/05/16 09:00 07/05/16 11:16 07/05/16 12:06 07/05/16 12:15 Range/Units White Blood Count 17.28 4.8-10.8 K/uL Red Blood Count 2.94 4.7-6.1 M/uL Hemoglobin 8.1 8.1 14.0-18.0 g/dL Hematocrit 25.2 25.4 42-52 % Mean Corpuscular Volume 85.7 80-100 fL Mean Corpuscular Hemoglobin 27.6 25-34 pg Mean Corpuscular Hemoglobin Concent 32.1 32-36 g/dl Platelet Count 41 130-400 K/uL Mean Platelet Volume 10.8 7.4-10.4 fL RDW Standard Deviation 58.0 36.4-46.3 fL RDW Coefficient of Variation 19.1 11.5-14.5 % Neutrophils % (Manual) 76.3 % Lymphocytes % (Manual) 2.6 % Monocytes % (Manual) 20.2 % Basophils % (Manual) 0.9 0-2 % Neutrophils # (Manual) 13.18 1.4-6.5 K/uL Total Absolute Neutrophils 13.18 1.4-6.5 K/uL Lymphocytes # (Manual) 0.45 1.2-3.4 K/uL Total Absolute Lymphocytes 0.45 1.2-3.4 K/uL Monocytes # (Manual) 3.49 0.11-0.59 K/uL Basophils # (Manual) 0.16 0-0.2 K/uL Hypogranular Neutrophils 1+ Anisocytosis PRESENT Sodium Level 144 136-145 mmol/L Potassium Level 4.4 3.5-5.1 mmol/L Chloride Level 114 98-107 mmol/L Carbon Dioxide Level 23 21-32 mmol/L Anion Gap 7.0 3-11 mmol/L Blood Urea Nitrogen 45 7-18 mg/dl Creatinine 2.20 0.60-1.40 mg/dl Est Creatinine Clear Calc Drug Dose 27.2 ml/min Estimated GFR () 31.4 Estimated GFR (Non- 27.1 BUN/Creatinine Ratio 20.6 10-20 Random Glucose 110 70-99 mg/dl Calcium Level 7.8 8.5-10.1 mg/dl Bedside Glucose 123 70-99 mg/dl Urine Color YELLOW Urine Appearance CLEAR CLEAR Urine pH 5.0 4.5-7.5 Urine Specific [place] 1.018 1.000-1.030 Urine Protein NEG NEG Urine Glucose (UA) NEG NEG Urine Ketones NEG NEG Urine Occult Blood NEG NEG Urine Nitrite NEG NEG Urine Bilirubin NEG NEG Urine Urobilinogen NEG NEG Urine Leukocyte Esterase NEG NEG Test 07/05/16 16:04 07/05/16 20:07 Range/Units Bedside Glucose 224 255 70-99 mg/dl Assessment and Plan 80 year old male presenting with severe anemia with melena and hypotension Melena with acute blood loss anemia - Plavix held. Symptoms improved post bolus IV fluids and 2 unit pRBC. Negative GI evaluation in 07/13. GI consult- recs appreciated. Ongoing melena but H/H stabilized. 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 Argon coagulation applied. Biopsies for H.Pylori taken. - IV maintenance fluids 75 ml/hr - 2 unit PRBC on hold if needed - Diet allowed - Protonix Drip - Recheck CBC, coags, BMP tomorrow AM Hypotension - measured BPs improving - mIV fluids reduced rate 75ml/hr in view of CKD IV - Regular blood pressure monitoring - Home Norvasc and Furosemide held Thrombocytopenia with h/o IgG Benjy MGUS - followed by [facility] hematology/ oncology. Previous history of low platelets, was on Plavix (held). Initial resuscitation with fluids and blood products, and monitoring of platelets - Consider platelet replacement if platelet level continues to fall, or spontaneous bleeding/bruising Leukocytosis - Likely secondary to acute stress given stable vitals. UA negative. - Trend on CBC tomorrow Diabetes - Lantus 10 units reduced while NPO - Resume home dose of insulin if tolerating diet well KYLE on CKD IV - Creatinine 2.8 on admission, now at baseline 2.2 - Monitor I/O - Trend on BMP tomorrow Hyperlipidemia - Lipitor held, will resume tomorrow DVT Prophylaxis - SCDs Resuscitation status - Full Resuscitation Continued [facility] stay due to: multiple IV medications needed Discharge planning: home Resident Tracking Resident Involvement: Resident Care Provided Care Provided: Adult Hospital Medicine Reviewed: Pt Seen/Exam by Me History Resident Physician Supervision Note: I interviewed and examined the patient. Discussed with Dr. Mckeon and agree with findings and plan as documented in the note. Any exceptions or clarifications are listed here: Had a dark stool today after the EGD but Hgb stable, BPs actually elevated. Eating and no abd pain. Vitals reviewed NAD RRR no mgr CTAB no wcr +BS soft NT ND no HSM Ext no edema 81 yo male with acute blood loss anemia from GI bleeding. 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 -continue to follow CBC, hold Plavix -continue PPI -may need another capsule endoscopy but will discuss with GI -may need plts transfused if continued bleeding and <50k Documented By: Marie Rodgers
[2016-07-05] MEDS: CYANOCOBALAMIN 500 MCG TAB (VIT B-12) PO SCH (09:00)
[2016-07-05] MEDS ORDERED: ATORVASTATIN 20 MG TAB PO SCH (09:00)
[2016-07-05 09:13] LABS: MEAN CORPUSCULAR HGB CONC 32.1 g/dl (32-36)
[2016-07-05 09:33] LABS: BUN/CREATININE RATIO 20.6 (10-20); CALCIUM 7.8 mg/dl (8.5-10.1); CREATININE 2.2 mg/dl (0.60-1.40); POTASSIUM 4.4 mmol/L (3.5-5.1)
[2016-07-05 09:49] LABS: HEMATOCRIT 25.2 % (42-52); MEAN CELL VOLUME 85.7 fL (80-100); MEAN CORPUSCULAR HEMOGLOBIN 27.6 pg (25-34); MEAN PLATELET VOLUME 10.8 fL (7.4-10.4); PLATELET COUNT 41 K/uL (130-400); RED BLOOD COUNT 2.94 M/uL (4.7-6.1); WHITE BLOOD COUNT 17.28 K/uL (4.8-10.8)
[2016-07-05 09:54] LABS: ANISOCYTOSIS PRESENT; BASO ABS # 0.16 K/uL (0-0.2); BASOPHIL % 0.9 % (0-2); COMPLETE YES; LYMPH ABS # 0.45 K/uL (1.2-3.4); LYMPHOCYTE % 2.6 %; NEUTROPHILS % 76.3 %
[2016-07-05 12:22] LABS: HEMATOCRIT 25.4 % (42-52)
[2016-07-05] MEDS ORDERED: SUCCINYLCHOLINE CHLORIDE 20 MG/ML 10 ML VIAL IV ONE (12:25)
[2016-07-05] MEDS ORDERED: LIDOCAINE HCL 2% 2 ML VIAL (20MG/ML) ONE (12:25)
--- NOTE | 2016-07-05 12:45 | Gastroenterology Progress Note ---
Progress Note Date of Service: July 05, 2016 Subjective Pt evaluation today including: conversation w/ patient, physical exam, chart review, lab review, review of studies, review of inpatient medication list CC f/u GI bleeding HPI Pt denies abd pain. No stools since admission. Review of Systems Respiratory: No shortness of breath Cardiac: No chest pain Medications Current Inpatient Medications Medications (Trade) Dose Ordered Sig/Denny Route Start Time Stop Time Status Last Admin Dose Admin Sodium Chloride (Nss 1000ml) 1,000 ml @ 75 mls/hr [id number] IV 07/04/16 15:55 08/04/16 15:54 07/05/16 07:55 125 MLS/HR Ondansetron HCl (Zofran Inj) 4 mg Q6H PRN IV 07/04/16 16:00 08/03/16 15:59 Cyanocobalamin (Vitamin B-12 Tab) 1,000 mcg DAILY PO 07/05/16 09:00 08/04/16 08:59 Nitroglycerin (Nitrostat Tab) 0.4 mg UD PRN SL 07/04/16 16:00 08/03/16 15:59 Insulin Glargine (Lantus Solostar Pen) 14 unit QAM SC 07/05/16 09:00 08/04/16 08:59 Glucose (Glucose 40% Gel) 15-30 GRAMS 15 GRAMS... UD PRN PO 07/04/16 16:15 08/03/16 16:14 Glucose (Glucose Chew Tab) 4-8 Tablets 4 Tabl... UD PRN PO 07/04/16 16:15 08/03/16 16:14 Dextrose (Dextrose 50% 50ML Syringe) 25-50ML OF 50% DW IV FOR... UD PRN IV 07/04/16 16:15 08/03/16 16:14 Glucagon (Glucagon Inj) 1 mg UD PRN SQ 07/04/16 16:15 08/03/16 16:14 Insulin Aspart SLIDING SCALE Q6 SC 07/04/16 18:00 08/03/16 17:59 07/04/16 19:03 4 UNITS Pantoprazole Sodium/Dextrose (Protonix Inj/D5 100ml) 100 ml @ 20 mls/hr Q5H IV 07/04/16 21:00 08/03/16 20:59 07/05/16 12:11 20 MLS/HR Objective Vital Signs Date Time Temp Pulse Resp B/P Pulse Ox O2 Delivery O2 Flow Rate FiO2 07/05/16 12:24 36.7 82 20 158/70 96 Room Air 07/05/16 12:00 95 Room Air 07/05/16 11:46 37.0 53 07/05/16 08:00 96 Room Air 07/05/16 07:58 36.6 64 20 112/64 96 Room Air 07/05/16 04:54 36.6 70 17 122/63 97 Room Air 07/05/16 04:01 36.6 70 17 122/63 97 Room Air 07/05/16 04:00 Room Air 07/04/16 23:59 Room Air 07/04/16 23:42 36.6 65 18 103/58 95 07/04/16 22:05 67 18 105/58 98 07/04/16 21:35 36.7 70 18 103/62 95 07/04/16 21:17 36.5 74 18 157/66 99 07/04/16 20:50 36.8 69 16 130/60 96 07/04/16 20:00 Room Air 07/04/16 19:50 60 16 151/71 97 07/04/16 18:50 36.3 57 16 122/69 95 07/04/16 18:15 36.5 58 12 152/70 96 07/04/16 18:10 36.4 58 16 149/72 97 07/04/16 17:47 36.7 62 22 146/67 98 Room Air 07/04/16 16:30 36.4 62 20 139/68 100 Room Air 07/04/16 16:12 Room Air 07/04/16 15:11 61 20 120/53 99 Room Air 07/04/16 14:18 58 18 95/47 98 Room Air 07/04/16 14:00 67 114/51 07/04/16 13:45 56 81/41 07/04/16 13:38 57 24 96/45 98 Room Air 07/04/16 13:27 58 07/04/16 13:22 95 Room Air 07/04/16 13:22 58 18 97/58 99 Room Air 07/04/16 13:14 36.4 93 24 77/46 100 Room Air Physical Exam General Appearance: WD/WN, no apparent distress Respiratory/Chest: lungs clear, no respiratory distress Cardiovascular: regular rate, rhythm Abdomen: normal bowel sounds, non tender, soft Neurologic/Psych: normal mood/affect, oriented x 3 Laboratory Results Last 24 Hours Test 07/04/16 13:46 07/04/16 13:52 07/04/16 13:54 07/04/16 16:26 White Blood Count 13.51 K/uL Red Blood Count 2.50 M/uL Hemoglobin 6.9 g/dL 6.7 g/dL Hematocrit 22.0 % 21.2 % Mean Corpuscular Volume 88.0 fL Mean Corpuscular Hemoglobin 27.6 pg Mean Corpuscular Hemoglobin Concent 31.4 g/dl Platelet Count 67 K/uL RDW Standard Deviation 64.8 fL RDW Coefficient of Variation 20.2 % Neutrophils % (Manual) 75.5 % Lymphocytes % (Manual) 7.6 % Monocytes % (Manual) 16.1 % Eosinophils % (Manual) 0.8 % Neutrophils # (Manual) 10.20 K/uL Total Absolute Neutrophils 10.20 K/uL Lymphocytes # (Manual) 1.03 K/uL Total Absolute Lymphocytes 1.03 K/uL Monocytes # (Manual) 2.18 K/uL Eosinophils # (Manual) 0.11 K/uL Platelet Estimate DECREASED Red Blood Cell Morphology Unremarkable Prothrombin Time 11.6 SECONDS Prothromb Time International Ratio 1.1 Activated Partial Thromboplast Time 23.6 SECONDS Partial Thromboplastin Ratio 0.9 Sodium Level 141 mmol/L Potassium Level 4.8 mmol/L Chloride Level 107 mmol/L Carbon Dioxide Level 20 mmol/L Anion Gap 14.0 mmol/L 22.0 mmol/L Blood Urea Nitrogen 54 mg/dl Creatinine 2.80 mg/dl Est Creatinine Clear Calc Drug Dose 23.4 ml/min Estimated GFR () 23.5 Estimated GFR (Non- 20.2 BUN/Creatinine Ratio 19.2 Random Glucose 340 mg/dl Calcium Level 8.1 mg/dl Total Bilirubin 0.3 mg/dl Direct Bilirubin < 0.1 mg/dl Aspartate Amino Transf (AST/SGOT) 9 U/L Alanine Aminotransferase (ALT/SGPT) 14 U/L Alkaline Phosphatase 52 U/L Total Protein 6.6 gm/dl Albumin 3.1 gm/dl Lipase 223 U/L Beta-Hydroxybutyric Acid 1.29 mg/dL Bedside Hemoglobin 7.1 g/dl Bedside Hematocrit 21 % Bedside Sodium 138 mEq/L Bedside Potassium 4.9 mEq/L Bedside Chloride 105 mEq/L Bedside Total CO2 18 mEq/l Bedside Blood Urea Nitrogen 53 mg/dl Bedside Creatinine 2.6 mg/dl Bedside Glucose (other) 334 mg/dl Bedside Ionized Calcium (Jose) 1.11 mmol/l Bedside Troponin I 0.000 ng/ml Test 07/04/16 16:30 07/04/16 17:24 07/04/16 18:17 07/05/16 00:00 Activated Partial Thromboplast Time 23.1 SECONDS Partial Thromboplastin Ratio 0.9 Bedside Glucose 245 mg/dl 260 mg/dl 111 mg/dl Test 07/05/16 01:12 07/05/16 03:45 07/05/16 06:00 07/05/16 09:00 Hemoglobin 8.8 g/dL 8.3 g/dL 8.1 g/dL Hematocrit 27.1 % 25.1 % 25.2 % Bedside Glucose 105 mg/dl White Blood Count 17.28 K/uL Red Blood Count 2.94 M/uL Mean Corpuscular Volume 85.7 fL Mean Corpuscular Hemoglobin 27.6 pg Mean Corpuscular Hemoglobin Concent 32.1 g/dl Platelet Count 41 K/uL Mean Platelet Volume 10.8 fL RDW Standard Deviation 58.0 fL RDW Coefficient of Variation 19.1 % Neutrophils % (Manual) 76.3 % Lymphocytes % (Manual) 2.6 % Monocytes % (Manual) 20.2 % Basophils % (Manual) 0.9 % Neutrophils # (Manual) 13.18 K/uL Total Absolute Neutrophils 13.18 K/uL Lymphocytes # (Manual) 0.45 K/uL Total Absolute Lymphocytes 0.45 K/uL Monocytes # (Manual) 3.49 K/uL Basophils # (Manual) 0.16 K/uL Hypogranular Neutrophils 1+ Anisocytosis PRESENT Sodium Level 144 mmol/L Potassium Level 4.4 mmol/L Chloride Level 114 mmol/L Carbon Dioxide Level 23 mmol/L Anion Gap 7.0 mmol/L Blood Urea Nitrogen 45 mg/dl Creatinine 2.20 mg/dl Est Creatinine Clear Calc Drug Dose 27.2 ml/min Estimated GFR () 31.4 Estimated GFR (Non- 27.1 BUN/Creatinine Ratio 20.6 Random Glucose 110 mg/dl Calcium Level 7.8 mg/dl Test 07/05/16 11:16 07/05/16 12:06 07/05/16 12:18 Bedside Glucose 123 mg/dl Hemoglobin 8.1 g/dL Hematocrit 25.4 % Assessment and Plan GI bleeding---06/2015 admit with EGD /colo then outpt capsule negative--dark stool suggests UGI source so plan EGD today. Procedure and risks explained to patient and which include but not limited to medication reaction, bleeding , perforation, aspiration. acute blood loss anemia---transfuse prn--Hgb incremented appropriately post 2 units transfused then drift down but no stools to indicate active bleeding. thrombocytopenia--low but should be adequate to prevent spontaneous GI bleeding
[2016-07-05] MEDS ORDERED: EpHEDrine SULFATE INJ 50 MG/ML AMP ONE (13:25)
--- NOTE | 2016-07-05 13:33 | GI REPORT ---
Procedure Date: 07/05/2016 12:56 PM Procedure: Upper GI endoscopy Indications: Melena Medicines: Monitored Anesthesia Care Complications: No immediate complications. Estimated Blood Loss: Estimated blood loss was minimal. Procedure: Pre-Anesthesia Assessment: - Patient identification and proposed procedure were verified prior to the procedure by the physician, the nurse, the oracle database administrator and the forensic technician. The procedure was verified in the procedure room. After obtaining informed consent, the endoscope was passed under direct vision. Throughout the procedure, the patient's blood pressure, pulse, and oxygen saturations were monitored continuously. The Scope was introduced through the mouth, and advanced to the second part of duodenum. The upper GI endoscopy was accomplished without difficulty. The patient tolerated the procedure well. Procedure and risks explained to patient which include but not limited to medication reaction, bleeding, perforation, aspiration , and missed lesions. Judicious gas insufflation was used and gas removal done on the way out. The lumen was always visualized when advancing the scope. Prep was good. Washes and suctioning used as needed to get good visualization of the mucosa. Retroflexion to look at the fundus and cardia of the stomach and GE junction was done. Findings: A 5 cm hiatus hernia was present. A mild Schatzki ring (acquired) was found at the gastroesophageal junction (at 38 cm). A single small non bleeding angioectasia was found in the gastric body. Coagulation for bleeding prevention using argon plasma was successful. Estimated blood loss: none. The gastric antrum was normal. Biopsies were taken with a cold forceps for Helicobacter pylori testing. Estimated blood loss was minimal. A few localized erosions without bleeding were found in the second part of the duodenum. No fresh nor old blood noted except post biopsy. The exam was otherwise without abnormality. Impression: - 5 cm hiatus hernia. - Mild Schatzki ring. - A single non-bleeding angioectasia in the stomach. Treated with argon plasma coagulation (APC) in case this was a source of bleeding. - Normal antrum. Biopsied. - Duodenal erosions without bleeding. - No fresh nor old blood noted except post biopsy. - The examination was otherwise normal. Recommendation: - Return patient to hospital lane for ongoing care. - Resume solid diet. Laxative to purge gut. Tagged RBC scan if has ongoing bleeding. Sam Bravo M.D. Sam Bravo MD 07/05/2016 1:33:22 PM This report has been signed electronically. Note Initiated On: 07/05/2016 12:56 PM I attest to the content of the Intraoperative Record and orders documented therein, exceptions below
[2016-07-05 13:36] LABS: URINE APPEARANCE CLEAR (CLEAR); URINE BILIRUBIN NEG (NEG); URINE COLOR YELLOW; URINE NITRITE NEG (NEG); URINE SPECIFIC GRAVITY 1.018 (1.000-1.030); UROBILINOGEN NEG (NEG)
[2016-07-05 13:43] LABS: MANUAL MICROSCOPIC REQUIRED? NO; REVIEW REQ? NO
[2016-07-05] MEDS ORDERED: LACTULOSE SYRUP 30 GM/45 ML UDP PO ONE (14:00)
[2016-07-05] MEDS ORDERED: NURSING VERBAL MED ORDER ONE (14:15)
[2016-07-05] MEDS: INSULIN GLARGINE SOLOSTAR 100 UNITS/ML 3 ML PEN SC SCH (14:19)
--- NOTE | 2016-07-05 16:05 | Anesthesiology Progress Note ---
Anesthesia Post Op Note Date & Time July 05, 2016 at 16:05 Vital Signs Pain Intensity: 0.0 Vital Signs Past 12 Hours Date Time Temp Pulse Resp B/P Pulse Ox O2 Delivery O2 Flow Rate FiO2 07/05/16 13:44 55 20 132/53 96 Room Air 0 07/05/16 13:29 62 20 134/53 97 Room Air 0 07/05/16 13:13 60 20 118/46 96 Nasal Cannula 10 07/05/16 12:24 36.7 82 20 158/70 96 Room Air 07/05/16 12:00 95 Room Air 07/05/16 11:46 37.0 53 07/05/16 08:00 96 Room Air 07/05/16 07:58 36.6 64 20 112/64 96 Room Air 07/05/16 04:54 36.6 70 17 122/63 97 Room Air Notes Mental Status: alert / awake / arousable, participated in evaluation Pt Amnestic to Procedure: Yes Nausea / Vomiting: adequately controlled Pain: adequately controlled Airway Patency, RR, SpO2: stable & adequate BP & HR: stable & adequate Hydration State: stable & adequate Anesthetic Complications: no major complications apparent
[2016-07-05] MEDS: PANTOprazole SOD 40 MG TAB PO SCH (21:54)
[2016-07-06] VITALS (16 sets, daily range): BP systolic 107–186; BP diastolic 59–81; PULSE 55–71; TEMP 36.4–36.9; O2SAT 92–99
[2016-07-06 06:21] LABS: MEAN CORPUSCULAR HGB CONC 32.5 g/dl (32-36)
[2016-07-06 06:25] LABS: ESTIMATED AVERAGE GLUCOSE 174 mg/dl; HA1C FLAG Normal (Normal)
[2016-07-06 06:41] LABS: INR 1.1 (0.9-1.1); PARTIAL THROMBOPLASTIN RATIO 0.9; PROTHROMBIN TIME (PATIENT) 12.3 SECONDS (9.0-12.0)
[2016-07-06 06:57] LABS: MEAN CELL VOLUME 86.3 fL (80-100); MEAN CORPUSCULAR HEMOGLOBIN 28.1 pg (25-34); PLATELET COUNT 47 K/uL (130-400); RED BLOOD COUNT 2.78 M/uL (4.7-6.1); WHITE BLOOD COUNT 8.87 K/uL (4.8-10.8)
[2016-07-06 06:58] LABS: ANISOCYTOSIS PRESENT; BASO % 0.1 %; BASO ABS # 0.01 K/uL (0-0.2); COMPLETE YES; ECHINOCYTES 1+; EOS % 0.7 %; IG% 0.9 %; LYMPH % 17.4 %; LYMPH ABS # 1.54 K/uL (1.2-3.4); MONO % 37.2 %; NEUT % 43.7 %; PLT ESTIMATE DECREASED
[2016-07-06 07:02] LABS: BUN/CREATININE RATIO 20.5 (10-20); CALCIUM 7.7 mg/dl (8.5-10.1); CREATININE 2.2 mg/dl (0.60-1.40); POTASSIUM 4.4 mmol/L (3.5-5.1)
[2016-07-06 07:05] LABS: ALB/GLOB RATIO 0.8 (0.9-2)
[2016-07-06] MEDS: PANTOprazole SOD 40 MG TAB PO SCH ×2 (08:09→20:37)
[2016-07-06] MEDS: CYANOCOBALAMIN 500 MCG TAB (VIT B-12) PO SCH (08:09)
[2016-07-06] MEDS: INSULIN ASPART 100 UNITS/ML 3 ML PEN SC SCH ×4 (08:12→20:38)
[2016-07-06] MEDS: INSULIN GLARGINE SOLOSTAR 100 UNITS/ML 3 ML PEN SC SCH (08:13)
--- NOTE | 2016-07-06 13:10 | Gastroenterology Progress Note ---
Progress Note Date of Service: July 06, 2016 Subjective Pt evaluation today including: conversation w/ patient, conversation w/ family (), physical exam, chart review, lab review, review of studies, review of inpatient medication list CC f/U GI bleeding HPI Had loose black stools last pm after laxative. Last stool about 6 hours ago still black. NO abd pain. Review of Systems Respiratory: No shortness of breath Cardiac: + chest pain (off and on) Medications Current Inpatient Medications Medications (Trade) Dose Ordered Sig/Denny Route Start Time Stop Time Status Last Admin Dose Admin Ondansetron HCl (Zofran Inj) 4 mg Q6H PRN IV 07/04/16 16:00 08/03/16 15:59 Cyanocobalamin (Vitamin B-12 Tab) 1,000 mcg DAILY PO 07/05/16 09:00 08/04/16 08:59 07/06/16 08:09 1,000 MCG Nitroglycerin (Nitrostat Tab) 0.4 mg UD PRN SL 07/04/16 16:00 08/03/16 15:59 Insulin Glargine (Lantus Solostar Pen) 14 unit QAM SC 07/05/16 09:00 08/04/16 08:59 07/06/16 08:13 14 UNIT Glucose (Glucose 40% Gel) 15-30 GRAMS 15 GRAMS... UD PRN PO 07/04/16 16:15 08/03/16 16:14 Glucose (Glucose Chew Tab) 4-8 Tablets 4 Tabl... UD PRN PO 07/04/16 16:15 08/03/16 16:14 Dextrose (Dextrose 50% 50ML Syringe) 25-50ML OF 50% DW IV FOR... UD PRN IV 07/04/16 16:15 08/03/16 16:14 Glucagon (Glucagon Inj) 1 mg UD PRN SQ 07/04/16 16:15 08/03/16 16:14 Pantoprazole Sodium (Protonix Tab) 40 mg BID PO 07/05/16 21:00 08/04/16 20:59 07/06/16 08:09 40 MG Insulin Aspart (novoLOG ASPART) SLIDING SCALE ACHS SC 07/05/16 16:15 07/06/16 11:00 9 UNITS Objective Vital Signs Date Time Temp Pulse Resp B/P Pulse Ox O2 Delivery O2 Flow Rate FiO2 5/9/17 12:02 Room Air 07/06/16 11:56 36.9 66 18 110/60 96 07/06/16 08:06 Room Air 07/06/16 07:54 36.8 58 18 107/59 96 07/06/16 05:59 Room Air 07/06/16 03:45 36.4 71 20 144/71 92 Room Air 07/05/16 23:49 36.6 66 19 125/68 92 Room Air 07/05/16 23:18 Room Air 07/05/16 20:00 Room Air 07/05/16 19:11 36.6 64 20 148/71 96 Room Air 07/05/16 16:05 36.6 61 18 158/78 97 Room Air 07/05/16 16:00 Room Air 07/05/16 13:44 55 20 132/53 96 Room Air 0 07/05/16 13:29 62 20 134/53 97 Room Air 0 07/05/16 13:13 60 20 118/46 96 Nasal Cannula 10 Physical Exam General Appearance: WD/WN, no apparent distress Cardiovascular: regular rate, rhythm Abdomen: normal bowel sounds, non tender, soft Neurologic/Psych: normal mood/affect, oriented x 3 Laboratory Results Last 24 Hours Test 07/05/16 16:04 07/05/16 20:07 07/06/16 06:00 07/06/16 06:52 Bedside Glucose 224 mg/dl 255 mg/dl 156 mg/dl White Blood Count 8.87 K/uL Red Blood Count 2.78 M/uL Hemoglobin 7.8 g/dL Hematocrit 24.0 % Mean Corpuscular Volume 86.3 fL Mean Corpuscular Hemoglobin 28.1 pg Mean Corpuscular Hemoglobin Concent 32.5 g/dl Platelet Count 47 K/uL Neutrophils (%) (Auto) 43.7 % Lymphocytes (%) (Auto) 17.4 % Monocytes (%) (Auto) 37.2 % Eosinophils (%) (Auto) 0.7 % Basophils (%) (Auto) 0.1 % Neutrophils # (Auto) 3.88 K/uL Lymphocytes # (Auto) 1.54 K/uL Monocytes # (Auto) 3.30 K/uL Eosinophils # (Auto) 0.06 K/uL Basophils # (Auto) 0.01 K/uL RDW Standard Deviation 60.1 fL RDW Coefficient of Variation 19.4 % Immature Granulocyte % (Auto) 0.9 % Immature Granulocyte # (Auto) 0.08 K/uL Nucleated RBC Absolute Count (auto) 0.07 K/uL Nucleated Red Blood Cells % 0.7 % Platelet Estimate DECREASED Anisocytosis PRESENT Echinocytes 1+ Prothrombin Time 12.3 SECONDS Prothromb Time International Ratio 1.1 Activated Partial Thromboplast Time 23.5 SECONDS Partial Thromboplastin Ratio 0.9 Sodium Level 142 mmol/L Potassium Level 4.4 mmol/L Chloride Level 113 mmol/L Carbon Dioxide Level 20 mmol/L Anion Gap 9.0 mmol/L Blood Urea Nitrogen 45 mg/dl Creatinine 2.20 mg/dl Est Creatinine Clear Calc Drug Dose 26.7 ml/min Estimated GFR () 31.2 Estimated GFR (Non- 26.9 BUN/Creatinine Ratio 20.5 Random Glucose 146 mg/dl Estimated Average Glucose 174 mg/dl Hemoglobin A1c 7.7 % Calcium Level 7.7 mg/dl Total Bilirubin 0.4 mg/dl Aspartate Amino Transf (AST/SGOT) 9 U/L Alanine Aminotransferase (ALT/SGPT) 13 U/L Alkaline Phosphatase 49 U/L Total Protein 5.8 gm/dl Albumin 2.5 gm/dl Globulin 3.3 gm/dl Albumin/Globulin Ratio 0.8 Test 07/06/16 11:25 07/06/16 13:00 Bedside Glucose 214 mg/dl Assessment and Plan GI bleeding---06/2015 admit with EGD /colo then outpt capsule negative--dark stool suggests UGI source. EGD duod erosion and AVM possible source but no fresh blood and no stigmata of bleeding so not sure. Recommend patient remain inpatient until stools brown and then can repeat outpt capsule endoscopy. On the other hand, if stools remain black then do nuc med bleeding scan. Give another dose of lactulose to purge gut. acute blood loss anemia---transfuse prn--Hgb slightly lower this am thrombocytopenia--low but should be adequate to prevent spontaneous GI bleeding
[2016-07-06 13:27] LABS: MEAN CORPUSCULAR HGB CONC 31.8 g/dl (32-36)
[2016-07-06 14:00] LABS: HEMATOCRIT 23.6 % (42-52); MEAN CELL VOLUME 86.8 fL (80-100); MEAN CORPUSCULAR HEMOGLOBIN 27.6 pg (25-34); RED BLOOD COUNT 2.72 M/uL (4.7-6.1); WHITE BLOOD COUNT 9.73 K/uL (4.8-10.8)
[2016-07-06 14:14] LABS: PLATELET COUNT 41 K/uL (130-400); PLT ESTIMATE DECREASED
[2016-07-06] MEDS ORDERED: LACTULOSE SYRUP 30 GM/45 ML UDP PO ONE (14:30)
--- NOTE | 2016-07-06 15:35 | Family Medicine Progress Note ---
Progress Note Date of Service July 06, 2016. Subjective Pt evaluation today including: conversation w/ patient, conversation w/ family , physical exam, chart review, lab review Patient feeling well currently, he denies any pain or discomfort. He does state that he has felt dizzy/lightheaded over the last few days, but that it has improved since admission. He is able to walk comfortably to the washroom without further orthostatic symptoms. He denies SOB, headaches, syncope or presyncopal episodes. He does say that he occasionally gets brief chest pain which resolves with nitroglycerin at home. He has not required any nitroglycerin in hospital. Constitutional: No chills, No fever Respiratory: + dyspnea on exertion, No cough, No shortness of breath, No wheezing Cardiovascular: No chest pain, No edema, No palpitations Abdomen: + GI bleeding (still having dark stools), No constipation, No diarrhea, No nausea, No pain, No vomiting Musculoskeletal: No joint pain Male : No dysuria, No hematuria Neurologic: No balance problems, No numbness/tingling, No weakness Psychiatric: No anxiety Endo: + fatigue Objective Vital Signs Date Time Temp Pulse Resp B/P Pulse Ox O2 Delivery O2 Flow Rate FiO2 07/06/16 15:26 36.5 64 22 158/81 97 Room Air 07/06/16 13:35 97 07/06/16 12:02 Room Air 07/06/16 11:56 36.9 66 18 110/60 96 07/06/16 08:06 Room Air 07/06/16 07:54 36.8 58 18 107/59 96 07/06/16 05:59 Room Air 07/06/16 03:45 36.4 71 20 144/71 92 Room Air 07/05/16 23:49 36.6 66 19 125/68 92 Room Air 07/05/16 23:18 Room Air 07/05/16 20:00 Room Air 07/05/16 19:11 36.6 64 20 148/71 96 Room Air 07/05/16 16:05 36.6 61 18 158/78 97 Room Air 07/05/16 16:00 Room Air Physical Exam General Appearance: WD/WN, no apparent distress Eyes: + pertinent finding (some conjunctival pallor) ENT: hearing grossly normal, pharynx normal Neck: supple Respiratory/Chest: lungs clear, normal breath sounds, no respiratory distress, no accessory muscle use Cardiovascular: regular rate, rhythm, no murmur Abdomen: normal bowel sounds, non tender, soft Extremities: normal inspection, no pedal edema, no calf tenderness Neurologic/Psychiatric: alert, normal mood/affect, oriented x 3 Laboratory Results Results Past 24 Hours Test 07/05/16 20:07 07/06/16 06:00 07/06/16 06:52 07/06/16 11:25 Range/Units Bedside Glucose 255 156 214 70-99 mg/dl White Blood Count 8.87 4.8-10.8 K/uL Red Blood Count 2.78 4.7-6.1 M/uL Hemoglobin 7.8 14.0-18.0 g/dL Hematocrit 24.0 42-52 % Mean Corpuscular Volume 86.3 80-100 fL Mean Corpuscular Hemoglobin 28.1 25-34 pg Mean Corpuscular Hemoglobin Concent 32.5 32-36 g/dl Platelet Count 47 130-400 K/uL Neutrophils (%) (Auto) 43.7 % Lymphocytes (%) (Auto) 17.4 % Monocytes (%) (Auto) 37.2 % Eosinophils (%) (Auto) 0.7 % Basophils (%) (Auto) 0.1 % Neutrophils # (Auto) 3.88 1.4-6.5 K/uL Lymphocytes # (Auto) 1.54 1.2-3.4 K/uL Monocytes # (Auto) 3.30 0.11-0.59 K/uL Eosinophils # (Auto) 0.06 0-0.5 K/uL Basophils # (Auto) 0.01 0-0.2 K/uL RDW Standard Deviation 60.1 36.4-46.3 fL RDW Coefficient of Variation 19.4 11.5-14.5 % Immature Granulocyte % (Auto) 0.9 % Immature Granulocyte # (Auto) 0.08 0.00-0.02 K/uL Nucleated RBC Absolute Count (auto) 0.07 0-0 K/uL Nucleated Red Blood Cells % 0.7 % Platelet Estimate DECREASED Anisocytosis PRESENT Echinocytes 1+ Prothrombin Time 12.3 9.0-12.0 SECONDS Prothromb Time International Ratio 1.1 0.9-1.1 Activated Partial Thromboplast Time 23.5 21.0-31.0 SECONDS Partial Thromboplastin Ratio 0.9 Sodium Level 142 136-145 mmol/L Potassium Level 4.4 3.5-5.1 mmol/L Chloride Level 113 98-107 mmol/L Carbon Dioxide Level 20 21-32 mmol/L Anion Gap 9.0 3-11 mmol/L Blood Urea Nitrogen 45 7-18 mg/dl Creatinine 2.20 0.60-1.40 mg/dl Est Creatinine Clear Calc Drug Dose 26.7 ml/min Estimated GFR () 31.2 Estimated GFR (Non- 26.9 BUN/Creatinine Ratio 20.5 10-20 Random Glucose 146 70-99 mg/dl Estimated Average Glucose 174 mg/dl Hemoglobin A1c 7.7 4.5-5.6 % Calcium Level 7.7 8.5-10.1 mg/dl Total Bilirubin 0.4 0.2-1 mg/dl Aspartate Amino Transf (AST/SGOT) 9 15-37 U/L Alanine Aminotransferase (ALT/SGPT) 13 12-78 U/L Alkaline Phosphatase 49 45-117 U/L Total Protein 5.8 6.4-8.2 gm/dl Albumin 2.5 3.4-5.0 gm/dl Globulin 3.3 2.5-4.0 gm/dl Albumin/Globulin Ratio 0.8 0.9-2 Test 07/06/16 12:57 07/06/16 16:03 Range/Units White Blood Count 9.73 4.8-10.8 K/uL Red Blood Count 2.72 4.7-6.1 M/uL Hemoglobin 7.5 14.0-18.0 g/dL Hematocrit 23.6 42-52 % Mean Corpuscular Volume 86.8 80-100 fL Mean Corpuscular Hemoglobin 27.6 25-34 pg Mean Corpuscular Hemoglobin Concent 31.8 32-36 g/dl RDW Standard Deviation 60.0 36.4-46.3 fL RDW Coefficient of Variation 19.4 11.5-14.5 % Platelet Count 41 130-400 K/uL Platelet Estimate DECREASED Bedside Glucose 272 70-99 mg/dl Assessment and Plan 80 year old male presenting with severe anemia with melena and hypotension Melena with acute blood loss anemia - ongoing melena despite lactulose and H/H continuing slow trend downwards. Patient describing anginal symptoms. Plavix held on admission. 2 unit pRBC transfused on 07/04. Negative GI evaluation in 07/13. GI consult- recs appreciated. 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 Argon coagulation applied. Biopsies for H.Pylori taken. - Transfuse 1 unit pRBC (1 unit pRBC on hold if needed) - Protonix 40mg BID - Recheck CBC, coags, BMP tomorrow AM - As per GI, may proceed to nuclear med bleeding scan - Trace H. pylori biopsy results - Iron supplementation on discharge Hypotension - BPs improved. Discontinued mIVF - Home Norvasc and Furosemide held Thrombocytopenia with h/o IgG Benjy MGUS - followed by [facility] hematology/ oncology. Previous history of low platelets. Initial resuscitation with fluids and blood products, and monitoring of platelets - Consider platelet replacement if platelet level continues to fall or spontaneous bleeding/bruising Leukocytosis - Previously elevated at 17.28, but now back WNL. Likely secondary to acute stress given stable vitals. UA negative. Diabetes - elevated glucose levels on lowered dose of Lantus for NPO status - Lantus 16 units qAM - ISS KYLE on CKD IV - Creatinine 2.8 on admission, now at baseline 2.2 - Monitor I/O - Trend on BMP tomorrow CAD - s/p CABG - on Plavix instead of aspirin given thrombocytopenia - Lipitor 40mg daily - Plavix held DVT Prophylaxis - SCDs Resuscitation status - Full Resuscitation Dispo - PT/OT evals Continued [facility] stay due to: multiple IV medications needed, other (unstable H/H ) Discharge planning: home Resident Tracking Resident Involvement: Resident Care Provided Care Provided: Adult Hospital Medicine Reviewed: Pt Seen/Exam by Me History Resident Physician Supervision Note: I interviewed and examined the patient. Discussed with Dr. Clayton and agree with findings and plan as documented in the note. Any exceptions or clarifications are listed here: Having substernal chest pain with bilateral arm numbness with walking around the hallway and back today that goes away with rest. He reports this is his typical angina because with nitroglycerin at home. Hemoglobin down to 7.5 today. Vitals reviewed NAD RRR no mgr CTAB no wcr +BS soft NT ND no HSM Ext no edema 81 yo male with acute blood loss anemia from GI bleeding. 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 Hemoglobin just slightly lower today at 7.5 and black stool probably old blood -continue to follow CBC, hold Plavix -Transfused 2 units PRBCs today due to history of CAD and stable angina in the hospital, patient refusing EKG and nitroglycerin at this time as symptoms resolved with rest -continue PPI -may need another capsule endoscopy but will discuss with GI -Consider RBC tagged scan if has persistent evidence of bleeding -may need plts transfused if continued bleeding and <50k Documented By: Marie Rodgers
--- NOTE | 2016-07-06 16:02 | Medical Student: [facility] ---
Med Student Progress Note Date of Service July 06, 2016. Subjective Pt evaluation today including: conversation w/ patient, chart review, lab review, review of studies, review of inpatient medication list Patient slept well through the night and was feeling well this morning. Complains of generalized weakness, in addition to chest pain/tightness "once or twice" through the night that relieved either on its own or by leaning forward. He states this happens at home as well, and takes sublingual nitroglycerin tablets for relief. Denies headache, denies vision or hearing changes, and denies abdominal pain. He was persistent in his desire to figure out what was wrong so he can go home. Family came in toward the end of the visit and any concerns/questions were addressed or reassurance was given that they would be addressed soon. Review of Systems Constitutional: + weakness, No fever ENT: + tinnitus, No trouble swallowing Respiratory: No dyspnea at rest, No dyspnea on exertion Cardiac: + chest pain ("once or twice" through the night. Relieved when he takes nitro sublingual at home, other times "leans forward" to relieve tightness and discomfort) Abdomen: + GI bleeding (dark, tarry black stool), No constipation, No diarrhea , No nausea, No pain, No vomiting Male : No dysuria Neurologic: + weakness Objective Vital Signs Date Time Temp Pulse Resp B/P Pulse Ox O2 Delivery O2 Flow Rate FiO2 07/06/16 12:02 Room Air 07/06/16 11:56 36.9 66 18 110/60 96 07/06/16 08:06 Room Air 07/06/16 07:54 36.8 58 18 107/59 96 07/06/16 05:59 Room Air 07/06/16 03:45 36.4 71 20 144/71 92 Room Air 07/05/16 23:49 36.6 66 19 125/68 92 Room Air 07/05/16 23:18 Room Air 07/05/16 20:00 Room Air 07/05/16 19:11 36.6 64 20 148/71 96 Room Air 07/05/16 16:05 36.6 61 18 158/78 97 Room Air 07/05/16 16:00 Room Air 07/05/16 13:44 55 20 132/53 96 Room Air 0 07/05/16 13:29 62 20 134/53 97 Room Air 0 Physical Exam General Appearance: WD/WN, no apparent distress Eyes: right eye abnormal pupil (ellipse shaped pupil in right eye, patient states he received silicon injection for his retina), bilateral eyes EOMI, bilateral eyes PERRL ENT: normal ENT inspection, hearing grossly normal, pharynx normal Respiratory/Chest: lungs clear, normal breath sounds, no respiratory distress Cardiovascular: regular rate, rhythm, no gallop, no murmur, + normal peripheral pulses Abdomen: normal bowel sounds, non tender, soft Neurologic/Psychiatric: director staffing II-XII nml as tested, alert, normal mood/affect, oriented x 3 Skin: normal color, warm/dry Laboratory Results Last 24 Hours Test 07/05/16 16:04 07/05/16 20:07 07/06/16 06:00 07/06/16 06:52 Bedside Glucose 224 mg/dl 255 mg/dl 156 mg/dl White Blood Count 8.87 K/uL Red Blood Count 2.78 M/uL Hemoglobin 7.8 g/dL Hematocrit 24.0 % Mean Corpuscular Volume 86.3 fL Mean Corpuscular Hemoglobin 28.1 pg Mean Corpuscular Hemoglobin Concent 32.5 g/dl Platelet Count 47 K/uL Neutrophils (%) (Auto) 43.7 % Lymphocytes (%) (Auto) 17.4 % Monocytes (%) (Auto) 37.2 % Eosinophils (%) (Auto) 0.7 % Basophils (%) (Auto) 0.1 % Neutrophils # (Auto) 3.88 K/uL Lymphocytes # (Auto) 1.54 K/uL Monocytes # (Auto) 3.30 K/uL Eosinophils # (Auto) 0.06 K/uL Basophils # (Auto) 0.01 K/uL RDW Standard Deviation 60.1 fL RDW Coefficient of Variation 19.4 % Immature Granulocyte % (Auto) 0.9 % Immature Granulocyte # (Auto) 0.08 K/uL Nucleated RBC Absolute Count (auto) 0.07 K/uL Nucleated Red Blood Cells % 0.7 % Platelet Estimate DECREASED Anisocytosis PRESENT Echinocytes 1+ Prothrombin Time 12.3 SECONDS Prothromb Time International Ratio 1.1 Activated Partial Thromboplast Time 23.5 SECONDS Partial Thromboplastin Ratio 0.9 Sodium Level 142 mmol/L Potassium Level 4.4 mmol/L Chloride Level 113 mmol/L Carbon Dioxide Level 20 mmol/L Anion Gap 9.0 mmol/L Blood Urea Nitrogen 45 mg/dl Creatinine 2.20 mg/dl Est Creatinine Clear Calc Drug Dose 26.7 ml/min Estimated GFR () 31.2 Estimated GFR (Non- 26.9 BUN/Creatinine Ratio 20.5 Random Glucose 146 mg/dl Estimated Average Glucose 174 mg/dl Hemoglobin A1c 7.7 % Calcium Level 7.7 mg/dl Total Bilirubin 0.4 mg/dl Aspartate Amino Transf (AST/SGOT) 9 U/L Alanine Aminotransferase (ALT/SGPT) 13 U/L Alkaline Phosphatase 49 U/L Total Protein 5.8 gm/dl Albumin 2.5 gm/dl Globulin 3.3 gm/dl Albumin/Globulin Ratio 0.8 Test 07/06/16 11:25 07/06/16 13:00 Bedside Glucose 214 mg/dl Medications Current Inpatient Medications Medications (Trade) Dose Ordered Sig/Denny Route Start Time Stop Time Status Last Admin Dose Admin Ondansetron HCl (Zofran Inj) 4 mg Q6H PRN IV 07/04/16 16:00 08/03/16 15:59 Cyanocobalamin (Vitamin B-12 Tab) 1,000 mcg DAILY PO 07/05/16 09:00 08/04/16 08:59 07/06/16 08:09 1,000 MCG Nitroglycerin (Nitrostat Tab) 0.4 mg UD PRN SL 07/04/16 16:00 08/03/16 15:59 Insulin Glargine (Lantus Solostar Pen) 14 unit QAM SC 07/05/16 09:00 08/04/16 08:59 07/06/16 08:13 14 UNIT Glucose (Glucose 40% Gel) 15-30 GRAMS 15 GRAMS... UD PRN PO 07/04/16 16:15 08/03/16 16:14 Glucose (Glucose Chew Tab) 4-8 Tablets 4 Tabl... UD PRN PO 07/04/16 16:15 08/03/16 16:14 Dextrose (Dextrose 50% 50ML Syringe) 25-50ML OF 50% DW IV FOR... UD PRN IV 07/04/16 16:15 08/03/16 16:14 Glucagon (Glucagon Inj) 1 mg UD PRN SQ 07/04/16 16:15 08/03/16 16:14 Pantoprazole Sodium (Protonix Tab) 40 mg BID PO 07/05/16 21:00 08/04/16 20:59 07/06/16 08:09 40 MG Insulin Aspart (novoLOG ASPART) SLIDING SCALE ACHS SC 07/05/16 16:15 07/06/16 11:00 9 UNITS Assessment and Plan Assessment and Plan: 81 year old male presenting with acute blood loss anemia and melena secondary to a GI bleed. Melena with acute blood loss anemia Clopidogrel is being held. He has received 2 units of pRBC and bolus IV fluids and symptoms improved. However, since the initial improvement, Hgb has decreased steadily from 8.1-->7.8-->7.5 over the last 24 hours. Melena continues. 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 A biopsy for H. pylori was taken and results are pending. -Continue to monitor CBC, coagulation studies, and BMP -May need to transfuse pRBC if H&H do not stabilize. -pentoprazole PO to help GI bleed -May need capsule endoscopy to investigate possible bleed distal to the proximal duodenum. Thrombocytopenia Clopidogrel is being held. Patient is followed by [facility] hem/onc. 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 -Platelet replacement if needed if the level continues to fall. -Check for any spontaneous bleeding or bruising Hypotension Resolved May be able to start Furosemide and Amlodipine again soon for HTN Diabetes Considering age and severity of comorbitidies, a recent Hgb A1C of 7.7 reveals relatively well controlled diabetes. Patient has experienced blood glucose fluctuations in the past including a hospital visit for hypoglycemia, so continue to educate the patient and family on diet and medication administration. Hyperlipidemia Lipitor was held, but being resumed tomorrow 07/07 CKD stage IV Creatinine stable at 2.2 -Continue to monitor Intake and Output as well as Creatinine levels DVT Prophylaxis -SCDs Continued [facility] stay due to: multiple IV medications needed, other (unstable H&H , unstable platelets, persistent melena)
[2016-07-07] VITALS (19 sets, daily range): BP systolic 150–179; BP diastolic 63–81; PULSE 51–60; TEMP 36.3–36.8; O2SAT 95–100
[2016-07-07] MEDS: PANTOprazole SOD 40 MG TAB PO SCH ×2 (07:40→19:27)
[2016-07-07] MEDS: CYANOCOBALAMIN 500 MCG TAB (VIT B-12) PO SCH (07:40)
[2016-07-07] MEDS: ATORVASTATIN 40 MG TAB PO SCH (07:40)
[2016-07-07] MEDS: INSULIN ASPART 100 UNITS/ML 3 ML PEN SC SCH ×4 (07:43→21:00)
[2016-07-07] MEDS: INSULIN GLARGINE SOLOSTAR 100 UNITS/ML 3 ML PEN SC SCH (07:44)
--- NOTE | 2016-07-07 08:02 | Family Medicine Progress Note ---
Progress Note Date of Service July 07, 2016. Subjective Pt evaluation today including: conversation w/ patient, conversation w/ family , physical exam, chart review, lab review Patient feeling well currently, he denies any pain or discomfort. He denies SOB , headaches, syncope or presyncopal episodes, feeling dizzy/lightheaded. He has not noticed any swelling in his face or extremities. He has not gone for a walk since the transfusion was completed last night, but feels that he would be able to. He did have another bowel movement with dark tarry stools yesterday evening. Constitutional: + fatigue, No chills, No fever, No weakness Respiratory: No cough, No shortness of breath Cardiovascular: No chest pain, No edema, No palpitations Abdomen: + GI bleeding, No nausea, No pain, No vomiting Male : No dysuria, No hematuria Objective Vital Signs Date Time Temp Pulse Resp B/P Pulse Ox O2 Delivery O2 Flow Rate FiO2 07/07/16 04:00 95 Room Air 07/07/16 03:43 36.3 57 19 150/72 95 Room Air 07/07/16 00:00 95 Room Air 07/06/16 23:13 36.5 58 20 166/75 95 07/06/16 21:19 36.7 65 17 143/73 97 07/06/16 20:49 36.6 66 16 154/69 97 07/06/16 20:43 36.5 62 17 186/78 96 07/06/16 20:00 96 Room Air 07/06/16 19:58 36.6 55 18 154/71 97 07/06/16 19:16 36.6 61 17 140/60 98 07/06/16 18:08 36.6 58 17 172/66 99 07/06/16 17:30 36.6 58 17 173/66 97 07/06/16 17:24 36.6 60 17 167/77 97 07/06/16 16:00 95 Room Air 07/06/16 15:26 36.5 64 22 158/81 97 Room Air 07/06/16 13:35 97 07/06/16 12:02 Room Air 07/06/16 11:56 36.9 66 18 110/60 96 07/06/16 08:06 Room Air Physical Exam General Appearance: WD/WN, no apparent distress Eyes: + pertinent finding ENT: pharynx normal Neck: supple Respiratory/Chest: lungs clear, normal breath sounds, no respiratory distress, no accessory muscle use Cardiovascular: regular rate, rhythm, + bradycardia Abdomen: normal bowel sounds, non tender, soft Extremities: normal inspection, no pedal edema, no calf tenderness Neurologic/Psychiatric: alert, normal mood/affect, oriented x 3 Skin: normal color, warm/dry, no rash Laboratory Results Results Past 24 Hours Test 07/07/16 06:54 07/07/16 08:30 07/07/16 11:31 07/07/16 12:45 Range/Units Bedside Glucose 144 223 70-99 mg/dl White Blood Count 6.65 4.8-10.8 K/uL Red Blood Count 3.33 4.7-6.1 M/uL Hemoglobin 9.8 14.0-18.0 g/dL Hematocrit 28.6 42-52 % Mean Corpuscular Volume 85.9 80-100 fL Mean Corpuscular Hemoglobin 29.4 25-34 pg Mean Corpuscular Hemoglobin Concent 34.3 32-36 g/dl Platelet Count 37 130-400 K/uL Mean Platelet Volume 10.2 7.4-10.4 fL Neutrophils (%) (Auto) 56.5 % Lymphocytes (%) (Auto) 22.7 % Monocytes (%) (Auto) 18.0 % Eosinophils (%) (Auto) 0.5 % Basophils (%) (Auto) 0.2 % Neutrophils # (Auto) 3.76 1.4-6.5 K/uL Lymphocytes # (Auto) 1.51 1.2-3.4 K/uL Monocytes # (Auto) 1.20 0.11-0.59 K/uL Eosinophils # (Auto) 0.03 0-0.5 K/uL Basophils # (Auto) 0.01 0-0.2 K/uL RDW Standard Deviation 54.9 36.4-46.3 fL RDW Coefficient of Variation 17.8 11.5-14.5 % Immature Granulocyte % (Auto) 2.1 % Immature Granulocyte # (Auto) 0.14 0.00-0.02 K/uL Sodium Level 140 136-145 mmol/L Potassium Level 4.1 3.5-5.1 mmol/L Chloride Level 110 98-107 mmol/L Carbon Dioxide Level 21 21-32 mmol/L Anion Gap 9.0 3-11 mmol/L Blood Urea Nitrogen 34 7-18 mg/dl Creatinine 2.20 0.60-1.40 mg/dl Est Creatinine Clear Calc Drug Dose 26.7 ml/min Estimated GFR () 31.2 Estimated GFR (Non- 26.9 BUN/Creatinine Ratio 15.4 10-20 Random Glucose 186 70-99 mg/dl Calcium Level 8.1 8.5-10.1 mg/dl Chemistry Specimen Hemolysis Peripheral Blood Smear Path Consult Test 07/07/16 16:08 07/07/16 17:16 07/07/16 20:13 Range/Units Bedside Glucose 136 166 70-99 mg/dl Hemoglobin 9.9 14.0-18.0 g/dL Hematocrit 30.5 42-52 % Absolute Reticulocyte Count 0.11 0.02-0.10 10^6/uL Percent Reticulocyte Count 3.1 0.5-2.0 % Iron Level 45 35-175 mcg/dl Total Iron Binding Capacity 256 250-450 mcg/dl Ferritin 33.5 8.0-388.0 ng/ml Vitamin B12 Level 513 211-911 pg/mL Folate 18.06 >5.38 ng/mL Assessment and Plan 80 year old male presenting with severe anemia with melena and hypotension Melena with acute blood loss anemia - ongoing melena. Bleeding source not confirmed. Patient asymptomatic currently. H/H stable Plavix held on admission. 2 unit pRBC transfused on 07/04. Negative GI evaluation in 07/13. GI consult- recs appreciated. 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 Argon coagulation applied. Biopsies for H.Pylori taken. 2 unit pRBC transfused on 07/06. Iron stores assessed and found to be largely WNL. - Protonix 40mg BID - Recheck CBC, coags, BMP tomorrow AM - As per GI, may proceed to nuclear med bleeding scan if ongoing bleeding - Trace H. pylori biopsy results - Iron supplementation on discharge Hypotension - BPs in acceptable range IVF bolus and mIVF given at admission, but since discontinued. - Home Norvasc and Furosemide held Thrombocytopenia with h/o IgG Benjy MGUS - previously followed by [facility] hematology/oncology. Previous history of low platelets. Initial resuscitation with fluids and blood products, and monitoring of platelets. Hematology/ oncology consulted- recs appreciated. Required platelet transfusion of 1 unit . - Trend platelets on CBC - Consider repeat platelet replacement if platelet level continues to fall or spontaneous bleeding/bruising Leukocytosis - Previously elevated at 17.28, but now back WNL. Likely secondary to acute stress given stable vitals. UA negative. Diabetes - elevated glucose levels on lowered dose of Lantus for NPO status, now improved with slight dose increase - Lantus 16 units qAM - ISS KYLE on CKD IV - Creatinine 2.8 on admission, now at baseline 2.2 - Monitor I/O - Trend on BMP tomorrow CAD - s/p CABG - on Plavix instead of aspirin given thrombocytopenia - Lipitor 40mg daily - Plavix held DVT Prophylaxis - SCDs Resuscitation status - Full Resuscitation Dispo - PT/OT evals Continued [facility] stay due to: multiple IV medications needed Discharge planning: home Resident Tracking Resident Involvement: Resident Care Provided Care Provided: Adult Hospital Medicine Reviewed: Pt Seen/Exam by Me History Resident Physician Supervision Note: I interviewed and examined the patient. Discussed with Dr. Clayton and agree with findings and plan as documented in the note. Any exceptions or clarifications are listed here: No more chest pain, doing well today, had 1 small bowel movement and he did not see what color it was, hemoglobin remained stable. Transfuse 2 units yesterday Vitals reviewed NAD RRR no mgr CTAB no wcr +BS soft NT ND no HSM Ext no edema Skin-some petechiae on the chest where he scratched himself earlier today 81 yo male with acute blood loss anemia from GI bleeding. 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 Hemoglobin dropped again to 7.5 and transfused 2 more units on 07/06/2016, hemoglobin up to 9.8 now today and stable. Platelets continue to drop down to 37. Thrombocytopenia may be related to autoimmune process. Peripheral smear showed evidence of MDS -continue to follow CBC, hold Plavix --Consult hematology appreciated-transfused platelets today, appreciate further recommendations moving forward -continue PPI -may need another capsule endoscopy as an outpatient -Consider RBC tagged scan if has persistent evidence of bleeding Documented By: Marie Rodgers
[2016-07-07 08:35] LABS: HEMATOCRIT 28.6 % (42-52); MEAN CELL VOLUME 85.9 fL (80-100); MEAN CORPUSCULAR HEMOGLOBIN 29.4 pg (25-34); MEAN CORPUSCULAR HGB CONC 34.3 g/dl (32-36); RED BLOOD COUNT 3.33 M/uL (4.7-6.1); WHITE BLOOD COUNT 6.65 K/uL (4.8-10.8)
[2016-07-07 08:49] LABS: MEAN PLATELET VOLUME 10.2 fL (7.4-10.4); PLATELET COUNT 37 K/uL (130-400)
[2016-07-07 09:08] LABS: BUN/CREATININE RATIO 15.4 (10-20); CREATININE 2.2 mg/dl (0.60-1.40); POTASSIUM 4.1 mmol/L (3.5-5.1)
[2016-07-07 09:29] LABS: BASO % 0.2 %; BASO ABS # 0.01 K/uL (0-0.2); COMPLETE YES; EOS % 0.5 %; IG% 2.1 %; LYMPH % 22.7 %; LYMPH ABS # 1.51 K/uL (1.2-3.4); NEUT % 56.5 %
[2016-07-07 09:35] LABS: CALCIUM 8.1 mg/dl (8.5-10.1)
--- NOTE | 2016-07-07 13:34 | Medical Student: [facility] ---
Med Student Progress Note Date of Service July 07, 2016. Subjective Pt evaluation today including: conversation w/ patient, conversation w/ family , physical exam, chart review, lab review, review of studies, review of inpatient medication list Objective Vital Signs Date Time Temp Pulse Resp B/P Pulse Ox O2 Delivery O2 Flow Rate FiO2 07/07/16 12:00 97 Room Air 07/07/16 11:50 36.8 54 18 158/63 98 07/07/16 08:29 36.8 60 18 166/81 100 07/07/16 08:00 95 Room Air 07/07/16 04:00 95 Room Air 07/07/16 03:43 36.3 57 19 150/72 95 Room Air 07/07/16 00:00 95 Room Air 07/06/16 23:13 36.5 58 20 166/75 95 07/06/16 21:19 36.7 65 17 143/73 97 07/06/16 20:49 36.6 66 16 154/69 97 07/06/16 20:43 36.5 62 17 186/78 96 07/06/16 20:00 96 Room Air 07/06/16 19:58 36.6 55 18 154/71 97 07/06/16 19:16 36.6 61 17 140/60 98 07/06/16 18:08 36.6 58 17 172/66 99 07/06/16 17:30 36.6 58 17 173/66 97 07/06/16 17:24 36.6 60 17 167/77 97 07/06/16 16:00 95 Room Air 07/06/16 15:26 36.5 64 22 158/81 97 Room Air 07/06/16 13:35 97 Laboratory Results Last 24 Hours Test 07/06/16 16:03 07/06/16 20:04 07/07/16 06:54 07/07/16 08:30 Bedside Glucose 272 mg/dl 164 mg/dl 144 mg/dl White Blood Count 6.65 K/uL Red Blood Count 3.33 M/uL Hemoglobin 9.8 g/dL Hematocrit 28.6 % Mean Corpuscular Volume 85.9 fL Mean Corpuscular Hemoglobin 29.4 pg Mean Corpuscular Hemoglobin Concent 34.3 g/dl Platelet Count 37 K/uL Mean Platelet Volume 10.2 fL Neutrophils (%) (Auto) 56.5 % Lymphocytes (%) (Auto) 22.7 % Monocytes (%) (Auto) 18.0 % Eosinophils (%) (Auto) 0.5 % Basophils (%) (Auto) 0.2 % Neutrophils # (Auto) 3.76 K/uL Lymphocytes # (Auto) 1.51 K/uL Monocytes # (Auto) 1.20 K/uL Eosinophils # (Auto) 0.03 K/uL Basophils # (Auto) 0.01 K/uL RDW Standard Deviation 54.9 fL RDW Coefficient of Variation 17.8 % Immature Granulocyte % (Auto) 2.1 % Immature Granulocyte # (Auto) 0.14 K/uL Sodium Level 140 mmol/L Potassium Level 4.1 mmol/L Chloride Level 110 mmol/L Carbon Dioxide Level 21 mmol/L Anion Gap 9.0 mmol/L Blood Urea Nitrogen 34 mg/dl Creatinine 2.20 mg/dl Est Creatinine Clear Calc Drug Dose 26.7 ml/min Estimated GFR () 31.2 Estimated GFR (Non- 26.9 BUN/Creatinine Ratio 15.4 Random Glucose 186 mg/dl Calcium Level 8.1 mg/dl Chemistry Specimen Hemolysis Test 07/07/16 11:31 07/07/16 12:45 Bedside Glucose 223 mg/dl Assessment and Plan Continued [facility] stay due to: multiple IV medications needed, other (unstable H/H ) Discharge planning: home
--- NOTE | 2016-07-07 15:47 | ONCOLOGY CONSULTATION ---
DATE OF CONSULTATION: 07/07/2016 DATE OF CONSULTATION: 07/07/2016. REASON FOR CONSULTATION: Anemia and thrombocytopenia. HISTORY OF PRESENT ILLNESS: Mr. Riggs is an 81-year-old gentleman who was admitted on 07/04/2016 with ongoing gastrointestinal bleeding. According to Gideon he had noticed darkening of his stools but did not relay this to any family members until the day of admission. During the week preceding admission, he had become very short of breath with ambulation to the point where he was stumbling and the risk of fall was quite high. He also reports becoming lightheaded on change of positions, specifically arising from bed. Mr. Riggs has a noted history of requiring blood transfusions. He has been hospitalized on numerous occasions over the past year. In fact, I had seen Mr. Riggs back in January 2015, at which time he was evaluated for anemia. At that time, I had suggested with his history of iron deficiency blood loss should be ruled out. He also had a degree of renal insufficiency which may have been attributable. For reasons unclear, he was lost to follow up. In fact, he was supposed to see me as an outpatient within the past couple weeks and because of adverse weather was unable to make that appointment. I have read gastroenterology notes, it appears he has undergone EGD with no direct active bleeding. The lean consultant suggests that if his stools normalize capsule endoscopy may be arranged for as outpatient. There is certainly a high degree of suspicion for arteriovenous malformation bleeding. Since hospitalization, he has received 4 units of packed RBCs. His platelet count has been steadily decreasing presently at 37,000. Important to note, his platelet count was well over 100,000 when I saw him in consultation which suggests a subacute onset process, particularly antibody related which may be causing his decreased platelet count. PAST MEDICAL HISTORY: Include coronary artery disease, history of iron deficiency, hypertension, chronic kidney disease stage IV, gastrointestinal bleeding and thrombocytopenia as well as monoclonal gammopathy of unclear significance. PAST SURGICAL HISTORY: Coronary artery bypass grafting in 2007 and inguinal hernia repair in 2006. MEDICATIONS: Prior to admission include Norvasc 10 mg p.o. every day, atorvastatin 40 mg p.o. every day, cholecalciferol 1 tablet p.o. every day, Plavix 75 mg p.o. every day, cyanocobalamin 1000 mcg p.o. every day, insulin Glargine 18-20 units subQ q.a.m., insulin lispro 8 units subQ t.i.d. and Imdur 120 mg p.o. q.a.m., Protonix 40 mg p.o. every day. ALLERGIES: No known drug allergies. FAMILY HISTORY: Positive for coronary artery disease on his paternal side and Parkinson's disease. SOCIAL HISTORY: The patient lives with his , negative for smoking, alcohol or illicit drug use. REVIEW OF SYSTEMS: Again, most notably for decreased exercise tolerance, lightheadedness and fatigue. No fevers, chills or sweats. He denies weight loss or anorexia. HEENT: Negative for headaches, lightheadedness or dizziness. No visual or hearing deficits. He wears corrective lenses, however. No dysphagia or sore throat. LYMPH: No history of lymphoproliferative disorder or peripheral lymphadenopathy. CARDIAC: Positive for coronary artery disease by history. No current angina or palpitations. PULMONARY: Negative for COPD. No shortness of breath, dyspnea or orthopnea. GASTROINTESTINAL: Currently being evaluated for possible upper gastrointestinal bleeding. Positive for melena. GENITOURINARY: No history of prostate disease. No current hematuria, dysuria, urinary incontinence. PSYCHIATRIC: Negative for anxiety, depression or psychoses. ENDOCRINE: Positive for diabetes mellitus, negative for thyroid disease. NEUROLOGIC: Negative for seizure, stroke, or migraine headache. HEMATOLOGIC: Positive for anemia and thrombocytopenia. PHYSICAL EXAMINATION: GENERAL: Mr. Riggs is a pleasant 81-year-old gentleman lying supine in bed in no acute distress. VITAL SIGNS: Temperature 36.4, pulse 52, respiration 16, blood pressure 153/72. SKIN: Warm, dry, noncyanotic with petechia, rash or ecchymosis. HEAD, EYES, EARS, NOSE, AND THROAT: Head atraumatic, normocephalic. Eyes -- PERRLA, EOMI. Sclerae nonicteric. No conjunctival injection. Nares are patent without rhinorrhea or discharge. Throat is clear. Tongue is midline. Mucous membranes are moist. NECK: Supple without JVD or thyromegaly. LYMPH: No cervical, supraclavicular, axillary or palpable nodes. HEART: Regular rate and rhythm. No clicks, rubs, murmurs or gallops. LUNGS: Clear to auscultation bilaterally. ABDOMEN: Soft, nontender, nondistended, without palpable hepatosplenomegaly. EXTREMITIES: No calf tenderness or swelling. MUSCULOSKELETAL: Strength and pulses are equal. NEUROLOGICALLY: Nonfocal, awake, alert and oriented x3. Cranial nerves are intact. No gross motor or sensory deficits are noted. LABORATORY DATA: WBC count 6650, hemoglobin 9.8, hematocrit 28.6%, platelet count 37,000. Sodium 140, potassium 4.1, chloride 110, carbon dioxide 21, creatinine 2.2, BUN 34. IMPRESSION: 1. Suspected upper gastrointestinal bleeding. 2. Normocytic normochromic anemia. 3. Thrombocytopenia. 4. Chronic renal disease. PLAN: I am asked to evaluate Mr. Riggs for ongoing recurrent anemia and relatively new onset thrombocytopenia. [facility] is well [facility] to [facility]. I last saw him in consultation back in January 2015, at which time his platelet count was within normal limits but was having issues with gastrointestinal bleeding and anemia at that time. For reasons unclear he was lost to follow up. Nonetheless, there is suggestion of active bleeding as he has required 4 units of transfused blood since hospitalization. Gastroenterology suspects this could represent AVM bleeding. However, diagnosis has not been formalized. They suggest t stabilization and outpatient camera endoscopy. I agree camera endoscopy would be effective in evaluating the small bowel which is missed doing solely EGD and colonoscopy. I suspect his anemia is multifactorial and will check iron stores and potentially incorporate erythropoietin as an outpatient. In regards to his low platelets, this is relatively new. Thrombocytopenias occur secondary to sequestration versus increased destruction versus decreased production. Conceivably there may be myelosuppression and dilutional effect from transfusion during this admission. However, antibody is not ruled out and Mr. Riggs should be monitored closely once he is discharged. I am concerned with his renal insufficiency however platelet function may not be optimal and suggest transfusion single donor platelet pheresis in the hopes of maybe stabilizing his ongoing bleeding. All antiplatelet agents and blood thinners should be held until bleeding source found. I will continue to follow Mr. Riggs closely during hospitalization and ensure he is seen in followup post discharge. Thank you very much for allowing me to participate in his care. If you have any questions or concerns with these recommendations feel free to contact me at any time.
[2016-07-07 17:29] LABS: HEMATOCRIT 30.5 % (42-52)
--- NOTE | 2016-07-07 17:42 | PROGRESS NOTE ---
DATE: 07/07/2016 SUBJECTIVE: The patient reports no abdominal pain and has a good appetite and eating supper. Objectively, the patient's vital signs show blood pressure 161/79, pulse 52, temperature is 36.4. The patient has received 2 units of red cells on July 04 and 2 more on July 06. Today his hemoglobin is 9.8, ups from 7.5 yesterday. He did have a little bit of a dark stool earlier today, that is the only bowel movement all day and he did think it was choral director than it has been in the past. IMPRESSION: The patient has continued gastrointestinal blood loss of unclear etiology. It appears to be improving at this. He did get some platelets today for a low platelet count which may be autoimmune. PLAN: The plan is for him to get an outpatient small bowel video capsule procedure as long as he does not have any more active bleeding and his hemoglobin and hematocrit remain stable. If he shows signs of continued bleeding, then he will need to have a tagged red blood cell scan, during his hospital stay.
[2016-07-07 18:22] LABS: FERRITIN 33.5 ng/ml (8.0-388.0)
[2016-07-08] VITALS (13 sets, daily range): BP systolic 139–203; BP diastolic 63–87; PULSE 54–61; TEMP 36.3–37; O2SAT 95–98
[2016-07-08] MEDS: ATORVASTATIN 40 MG TAB PO SCH (07:39)
[2016-07-08] MEDS: PANTOprazole SOD 40 MG TAB PO SCH ×2 (07:39→20:25)
[2016-07-08] MEDS: CYANOCOBALAMIN 500 MCG TAB (VIT B-12) PO SCH (07:39)
[2016-07-08] MEDS: INSULIN ASPART 100 UNITS/ML 3 ML PEN SC SCH ×4 (07:41→20:24)
[2016-07-08] MEDS: INSULIN GLARGINE SOLOSTAR 100 UNITS/ML 3 ML PEN SC SCH (07:42)
[2016-07-08 08:24] LABS: HEMATOCRIT 31.8 % (42-52); MEAN CELL VOLUME 85.5 fL (80-100); MEAN CORPUSCULAR HEMOGLOBIN 27.4 pg (25-34); MEAN CORPUSCULAR HGB CONC 32.1 g/dl (32-36); MEAN PLATELET VOLUME 11.1 fL (7.4-10.4); PLATELET COUNT 81 K/uL (130-400); RED BLOOD COUNT 3.72 M/uL (4.7-6.1); WHITE BLOOD COUNT 5.58 K/uL (4.8-10.8)
[2016-07-08 08:25] LABS: BUN/CREATININE RATIO 14.1 (10-20); CREATININE 2.1 mg/dl (0.60-1.40); POTASSIUM 4.2 mmol/L (3.5-5.1)
[2016-07-08 08:27] LABS: BASO % 0.2 %; BASO ABS # 0.01 K/uL (0-0.2); COMPLETE YES; EOS % 0.4 %; IG% 2.3 %; LYMPH % 17.7 %; LYMPH ABS # 0.99 K/uL (1.2-3.4); MONO % 36.9 %; NEUT % 42.5 %
[2016-07-08 08:35] LABS: CALCIUM 8.8 mg/dl (8.5-10.1)
--- NOTE | 2016-07-08 08:42 | Medical Student: [facility] ---
Med Student Progress Note Date of Service July 08, 2016. Subjective Pt evaluation today including: conversation w/ patient, physical exam, chart review, lab review, review of studies, review of inpatient medication list Pain: patient denied any pain or discomfort PO Intake: Appetite great. Cleans tray. Denies any dysphagia Voiding: no voiding problems Mr. Riggs is an 81 year old Male presenting with blood loss anemia and melena secondary to an upper GI bleed. He feels well currently, denies any pain or discomfort. Mr. Riggs denies headache, shortness of breath, lightheadedness, dizziness, and chest pain both at rest and ambulating to restroom. He denied any difficulty urinating or moving his bowels. Last BM was "middle of last night" and remained dark and tarry. Review of Systems Constitutional: + weakness, No chills, No fever, No sweats Eyes: No worsening of vision ENT: No hearing loss, No trouble swallowing Respiratory: No dyspnea at rest, No dyspnea on exertion, No shortness of breath Cardiac: No chest pain, No claudication Abdomen: + GI bleeding, No constipation, No diarrhea, No nausea, No pain, No vomiting Musculoskeletal: No calf pain, No joint pain, No swelling Male : No dysuria, No incontinence Neurologic: No vertigo Skin: No itch, No new/changing skin lesions, No rash Objective Vital Signs Date Time Temp Pulse Resp B/P Pulse Ox O2 Delivery O2 Flow Rate FiO2 07/08/16 07:50 36.8 56 18 147/74 96 07/08/16 04:00 96 Room Air 07/08/16 03:45 36.3 58 18 176/80 95 Room Air 07/07/16 23:59 96 Room Air 07/07/16 23:20 36.4 59 20 160/80 96 Room Air 07/07/16 20:00 96 Room Air 07/07/16 19:31 36.5 54 22 156/72 98 Room Air 07/07/16 16:00 98 Room Air 07/07/16 15:24 36.4 52 16 161/79 97 07/07/16 15:18 36.6 53 22 165/75 96 Room Air 07/07/16 15:00 36.4 55 12 178/75 98 07/07/16 14:45 36.4 52 16 166/72 96 07/07/16 14:30 36.4 52 16 153/72 96 07/07/16 14:19 36.4 53 16 163/76 98 07/07/16 14:14 36.4 51 16 179/78 97 07/07/16 12:00 97 Room Air 07/07/16 11:50 36.8 54 18 158/63 98 07/07/16 08:29 36.8 60 18 166/81 100 Physical Exam General Appearance: WD/WN, no apparent distress Eyes: right eye abnormal pupil ENT: normal ENT inspection, hearing grossly normal (Family claims hearing loss but no difficulting conversing bedside or across the room. Nothing acute) Respiratory/Chest: chest non-tender, lungs clear, normal breath sounds, no respiratory distress Cardiovascular: no edema, no gallop, no murmur Abdomen: normal bowel sounds, non tender, soft, no organomegaly, no pulsatile mass Extremities: non-tender, no pedal edema, no calf tenderness Neurologic/Psychiatric: normal mood/affect, oriented x 3 Skin: normal color, warm/dry, no rash, + pertinent finding (Small area of petechiae located around right clavicle. Not appreciated anywhere else on exam) Laboratory Results Last 24 Hours Test 07/07/16 20:13 07/08/16 07:01 07/08/16 07:36 07/08/16 11:10 Bedside Glucose 166 mg/dl 157 mg/dl 204 mg/dl White Blood Count 5.58 K/uL Red Blood Count 3.72 M/uL Hemoglobin 10.2 g/dL Hematocrit 31.8 % Mean Corpuscular Volume 85.5 fL Mean Corpuscular Hemoglobin 27.4 pg Mean Corpuscular Hemoglobin Concent 32.1 g/dl Platelet Count 81 K/uL Mean Platelet Volume 11.1 fL Neutrophils (%) (Auto) 42.5 % Lymphocytes (%) (Auto) 17.7 % Monocytes (%) (Auto) 36.9 % Eosinophils (%) (Auto) 0.4 % Basophils (%) (Auto) 0.2 % Neutrophils # (Auto) 2.37 K/uL Lymphocytes # (Auto) 0.99 K/uL Monocytes # (Auto) 2.06 K/uL Eosinophils # (Auto) 0.02 K/uL Basophils # (Auto) 0.01 K/uL RDW Standard Deviation 53.7 fL RDW Coefficient of Variation 17.8 % Immature Granulocyte % (Auto) 2.3 % Immature Granulocyte # (Auto) 0.13 K/uL Sodium Level 141 mmol/L Potassium Level 4.2 mmol/L Chloride Level 109 mmol/L Carbon Dioxide Level 23 mmol/L Anion Gap 9.0 mmol/L Blood Urea Nitrogen 30 mg/dl Creatinine 2.10 mg/dl Est Creatinine Clear Calc Drug Dose 28.0 ml/min Estimated GFR () 33.0 Estimated GFR (Non- 28.5 BUN/Creatinine Ratio 14.1 Random Glucose 158 mg/dl Calcium Level 8.8 mg/dl Test 07/08/16 16:04 07/08/16 16:14 Hemoglobin 10.0 g/dL Hematocrit 30.3 % Bedside Glucose 140 mg/dl Medications Current Inpatient Medications Medications (Trade) Dose Ordered Sig/Denny Route Start Time Stop Time Status Last Admin Dose Admin Ondansetron HCl (Zofran Inj) 4 mg Q6H PRN IV 07/04/16 16:00 08/03/16 15:59 Cyanocobalamin (Vitamin B-12 Tab) 1,000 mcg DAILY PO 07/05/16 09:00 08/04/16 08:59 07/08/16 07:39 1,000 MCG Nitroglycerin (Nitrostat Tab) 0.4 mg UD PRN SL 07/04/16 16:00 08/03/16 15:59 Glucose (Glucose 40% Gel) 15-30 GRAMS 15 GRAMS... UD PRN PO 07/04/16 16:15 08/03/16 16:14 Glucose (Glucose Chew Tab) 4-8 Tablets 4 Tabl... UD PRN PO 07/04/16 16:15 08/03/16 16:14 Dextrose (Dextrose 50% 50ML Syringe) 25-50ML OF 50% DW IV FOR... UD PRN IV 07/04/16 16:15 08/03/16 16:14 Glucagon (Glucagon Inj) 1 mg UD PRN SQ 07/04/16 16:15 08/03/16 16:14 Pantoprazole Sodium (Protonix Tab) 40 mg BID PO 07/05/16 21:00 08/04/16 20:59 07/08/16 07:39 40 MG Insulin Aspart (novoLOG ASPART) SLIDING SCALE ACHS SC 07/05/16 16:15 08/04/16 16:14 07/08/16 16:57 6 UNITS Atorvastatin Calcium (Lipitor Tab) 40 mg QAM PO 07/07/16 09:00 08/06/16 08:59 07/08/16 07:39 40 MG Insulin Glargine (Lantus Solostar Pen) 16 unit QAM SC 07/07/16 09:00 08/06/16 08:59 07/08/16 07:42 16 UNIT Amlodipine Besylate (Norvasc Tab) 10 mg DAILY PO 07/09/16 09:00 08/08/16 08:59 Assessment and Plan Assessment and Plan: 81 year old male presenting with acute blood loss anemia and melena secondary to a GI bleed. Melena with acute blood loss anemia Clopidogrel is being held. He has received 4 units to date of pRBC and bolus IV fluids and symptoms improved. Hgb increased to 9.8 and then to 10.2 on the subsequent measurement. However Melena continues. 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 A biopsy for H. pylori was taken and was negative for H. pylori infection. -Because of persistent melena, repeat CBC. -pentoprazole PO to help GI bleed -F/u with GI for Outpatient capsule endoscopy -If evidence of an active bleed exists, possibly perform RBC tagged nuclear scan to investigate source. Thrombocytopenia -Patient is followed by [facility] hem/onc. 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 -Platelet replacement if needed if the level continues to fall. -Check for any spontaneous bleeding or bruising -Recent blood smear reveals hyposegmented neutrophils, which can be indicator of MDS. F/u with hem/onc 1-2 weeks to recheck this and thrombocytopenia. H/o CAD -Received 3 vessel CABG in 1996 following [place]. -Hold off on taking Plavix until meeting with PCP, due to this acute history of GI bleed Hypotension Resolved Resumed Furosemide and Amlodipine Diabetes Considering age and severity of comorbidities, a recent Hgb A1C of 7.7 reveals relatively well controlled diabetes. Patient has experienced blood glucose fluctuations in the past including a hospital visit for hypoglycemia, so continue to educate the patient and family on diet and medication administration. Hyperlipidemia Lipitor resumed CKD stage IV Creatinine stable at 2.1 -Continue to monitor Intake and Output as well as Creatinine levels -Renally dose medications DVT Prophylaxis -SCDs Continued [facility] stay due to: abnormal vital signs, multiple IV medications needed, other
--- NOTE | 2016-07-08 12:36 | HEME/ONC PROGRESS NOTE ---
DATE: 07/08/2016 DATE: 07/08/2016. DIAGNOSES: 1. Gastrointestinal bleeding. 2. Anemia/thrombocytopenia. 3. Chronic renal insufficiency. HISTORY OF PRESENT ILLNESS: Mr. Riggs is a pleasant 81-year-old gentleman admitted on 07/04/2016 with ongoing gastrointestinal bleeding. He is currently being seen by GI who suggests pursuing camera endoscopy as outpatient. He continues on observational status as he has continued to have melanotic stools throughout his hospital stay. I did recommend and ordered single donor platelet pheresis to be administered in the hopes of stabilizing his hemoglobin. Mr. Riggs is sitting at bedside. Clinically, seems to be doing well and hopefully is approaching discharge. His platelet count did arise markedly now at 81,000. PHYSICAL EXAMINATION: GENERAL: He is in no acute distress. VITAL SIGNS: Temperature 37.0, pulse 55, respirations 18, blood pressure 139/63. SKIN: Without rash or lesion. HEAD, EYES, EARS, NOSE, AND THROAT: Oral mucosa without erythema or ulceration. HEART: Regular rate and rhythm. LUNGS: Clear to auscultation bilaterally. ABDOMEN: Soft, nontender, nondistended. EXTREMITIES: No clubbing, cyanosis or edema. NEUROLOGIC EXAMINATION: Grossly intact. LABORATORY DATA: WBC count 5580, hemoglobin 10.2, platelet count 81,000. Chemistries 141, potassium 4.2, chloride 109, carbon dioxide 23, creatinine 2.1 and BUN 30. IMPRESSION: 1. Gastrointestinal bleeding, source unclear. 2. Normocytic normochromic anemia most likely secondary to renal insufficiency/chronic disease. 3. 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 PLAN: I had the pleasure of seeing Gideon at bedside today. He seems to be feeling much better and wants to go home. From hematology standpoint, he tolerated platelet transfusion well with nice bump in his counts. I would prefer to work him up further as outpatient. If he is to be discharged in the next 24-48 hours make sure that order is placed for followup within the next week or two post hospitalization. I believe camera endoscopy is the way to go to pursue diagnosis, specifically to evaluate the small bowel. Thank you very much for allowing me to participate in his care. I will continue to periodically follow him during his hospital stay.
[2016-07-08] MEDS ORDERED: CLOP1TAB15 PO (15:51)
[2016-07-08] MEDS ORDERED: AMLODIPINE BESYLATE 5 MG TAB PO ONE (15:52)
[2016-07-08] MEDS: AMLODIPINE BESYLATE 5 MG TAB PO ONE ×2 (16:17→16:24)
[2016-07-08 16:19] LABS: HEMATOCRIT 30.3 % (42-52)
--- NOTE | 2016-07-08 16:37 | Family Medicine Progress Note ---
Progress Note Date of Service July 08, 2016. Subjective Pt evaluation today including: conversation w/ patient, conversation w/ family , physical exam, chart review, lab review Patient feeling well currently, he denies any pain or discomfort. He denies SOB , headaches, dizziness/lightheadedness, syncope or presyncopal episodes. He has not noticed any swelling in his face or extremities. He walked a bit after his transfusion yesterday evening, and said he did not experience any exertional symptoms. He did have another bowel movement with dark tarry stools yesterday evening. Nursing staff says there were some brown streaks in it. Constitutional: No chills, No fever Respiratory: No cough, No shortness of breath Cardiovascular: No chest pain, No palpitations Abdomen: + GI bleeding, No constipation, No diarrhea, No nausea, No pain, No vomiting Male : No dysuria, No hematuria Objective Vital Signs Date Time Temp Pulse Resp B/P Pulse Ox O2 Delivery O2 Flow Rate FiO2 07/08/16 16:06 97 Room Air 07/08/16 15:47 54 176/78 07/08/16 15:38 36.4 59 18 203/78 97 Room Air 202/87 07/08/16 12:00 97 Room Air 0.0 07/08/16 11:38 37.0 55 18 139/63 98 07/08/16 08:00 96 Room Air 0.0 07/08/16 07:50 36.8 56 18 147/74 96 07/08/16 04:00 96 Room Air 07/08/16 03:45 36.3 58 18 176/80 95 Room Air 07/07/16 23:59 96 Room Air 07/07/16 23:20 36.4 59 20 160/80 96 Room Air 07/07/16 20:00 96 Room Air 07/07/16 19:31 36.5 54 22 156/72 98 Room Air Physical Exam General Appearance: WD/WN, no apparent distress Eyes: normal inspection ENT: pharynx normal Respiratory/Chest: lungs clear, normal breath sounds, no respiratory distress, no accessory muscle use Cardiovascular: regular rate, rhythm, no murmur Abdomen: normal bowel sounds, non tender, soft Extremities: normal inspection, no pedal edema, no calf tenderness Neurologic/Psychiatric: alert, normal mood/affect, oriented x 3 Skin: normal color, warm/dry, no rash Laboratory Results Results Past 24 Hours Test 07/08/16 07:01 07/08/16 07:36 07/08/16 11:10 07/08/16 16:04 Range/Units Bedside Glucose 157 204 70-99 mg/dl White Blood Count 5.58 4.8-10.8 K/uL Red Blood Count 3.72 4.7-6.1 M/uL Hemoglobin 10.2 10.0 14.0-18.0 g/dL Hematocrit 31.8 30.3 42-52 % Mean Corpuscular Volume 85.5 80-100 fL Mean Corpuscular Hemoglobin 27.4 25-34 pg Mean Corpuscular Hemoglobin Concent 32.1 32-36 g/dl Platelet Count 81 130-400 K/uL Mean Platelet Volume 11.1 7.4-10.4 fL Neutrophils (%) (Auto) 42.5 % Lymphocytes (%) (Auto) 17.7 % Monocytes (%) (Auto) 36.9 % Eosinophils (%) (Auto) 0.4 % Basophils (%) (Auto) 0.2 % Neutrophils # (Auto) 2.37 1.4-6.5 K/uL Lymphocytes # (Auto) 0.99 1.2-3.4 K/uL Monocytes # (Auto) 2.06 0.11-0.59 K/uL Eosinophils # (Auto) 0.02 0-0.5 K/uL Basophils # (Auto) 0.01 0-0.2 K/uL RDW Standard Deviation 53.7 36.4-46.3 fL RDW Coefficient of Variation 17.8 11.5-14.5 % Immature Granulocyte % (Auto) 2.3 % Immature Granulocyte # (Auto) 0.13 0.00-0.02 K/uL Sodium Level 141 136-145 mmol/L Potassium Level 4.2 3.5-5.1 mmol/L Chloride Level 109 98-107 mmol/L Carbon Dioxide Level 23 21-32 mmol/L Anion Gap 9.0 3-11 mmol/L Blood Urea Nitrogen 30 7-18 mg/dl Creatinine 2.10 0.60-1.40 mg/dl Est Creatinine Clear Calc Drug Dose 28.0 ml/min Estimated GFR () 33.0 Estimated GFR (Non- 28.5 BUN/Creatinine Ratio 14.1 10-20 Random Glucose 158 70-99 mg/dl Calcium Level 8.8 8.5-10.1 mg/dl Test 07/08/16 16:14 Range/Units Bedside Glucose 140 70-99 mg/dl Assessment and Plan 80 year old male presenting with severe anemia with melena and hypotension Melena with acute blood loss anemia - ongoing melena. Bleeding source not confirmed. Patient asymptomatic currently. H/H stable Plavix held on admission. 2 unit pRBC transfused on 07/04. Negative GI evaluation in 07/13. GI consult- recs appreciated. 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 Argon coagulation applied. Biopsies for H.Pylori negative. 2 unit pRBC transfused on 07/06. Iron stores assessed and found to be largely WNL. - Protonix 40mg BID - Recheck CBC tomorrow AM - As per GI, may proceed to nuclear med bleeding scan if ongoing bleeding - Iron supplementation on discharge Hypotension - BPs slightly elevated. IVF bolus and mIVF given at admission, but since discontinued. - Resume Norvasc 10mg daily - Home Imdur and PRN Furosemide held Thrombocytopenia with h/o IgG Benjy MGUS - previously followed by [facility] hematology/oncology. Previous history of low platelets. Initial resuscitation with fluids and blood products, and monitoring of platelets. Hematology/ oncology consulted- recs appreciated. Required 1 unit platelet transfusion on . - Trend platelets on CBC - Consider repeat platelet replacement if platelet level continues to fall or spontaneous bleeding/bruising - Follow up with Dr. Pate, oncologist 1-2 weeks post discharge Leukocytosis - Resolved. Previously elevated at 17.28, but now back WNL. Likely secondary to acute stress given stable vitals. UA negative. 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 stay due to: other (ongoing melena) Discharge planning: home Resident Tracking Resident Involvement: Resident Care Provided Care Provided: [facility] Medicine Reviewed: Pt Seen/Exam by Me History Resident Physician Supervision Note: I interviewed and examined the patient. Discussed with Dr. Clayton and agree with findings and plan as documented in the note. Any exceptions or clarifications are listed here: Doing well, feels good, however had another big black tarry stool today. Hemoglobin remains stable and is actually higher than yesterday. Vitals reviewed NAD RRR no mgr CTAB no wcr +BS soft NT ND no HSM Ext no edema Skin-some petechiae on the chest where he scratched himself yesterday 81 yo male with acute blood loss anemia from GI bleeding. 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 Hemoglobin dropped again to 7.5 and transfused 2 more units on 07/06/2016, hemoglobin up to 10 now today and stable despite recurrent melena which may be old blood. Platelets dropped down to a soledad of 37 but her now improved to 81, 000 after platelet transfusion. Thrombocytopenia may be related to autoimmune process. Peripheral smear showed evidence of MDS -continue to follow CBC, hold Plavix for at least 1 week until seen by PCP and has stable CBC as an outpatient --Consult hematology appreciated-follow up with hematology in the office in 1-2 weeks is recommended -continue PPI -may need another capsule endoscopy as an outpatient -Consider RBC tagged scan if has persistent evidence of bleeding-we'll hold off on this today as I think this is still old blood as H&H is stable -Follow up CBC in the morning and if stable, will discharge to home Documented By: Marie Rodgers
[2016-07-09] VITALS (7 sets, daily range): BP systolic 98–159; BP diastolic 53–81; PULSE 48–78; TEMP 36.3–36.8; O2SAT 95–97
[2016-07-09 07:21] LABS: HEMATOCRIT 29.8 % (42-52); MEAN CELL VOLUME 86.4 fL (80-100); MEAN CORPUSCULAR HEMOGLOBIN 27.8 pg (25-34); MEAN CORPUSCULAR HGB CONC 32.2 g/dl (32-36); RED BLOOD COUNT 3.45 M/uL (4.7-6.1); WHITE BLOOD COUNT 5.89 K/uL (4.8-10.8)
[2016-07-09 07:27] LABS: MEAN PLATELET VOLUME 10.4 fL (7.4-10.4); PLATELET COUNT 93 K/uL (130-400)
--- NOTE | 2016-07-09 07:43 | GASTROENTEROLOGY PROGRESS NOTE ---
DATE: 07/08/2016 DATE: 07/08/2016. HISTORY OF PRESENT ILLNESS: The patient is sitting at the bedside eating dinner accompanied by his daughter. The patient is overall doing well. The patient reports he continues to experience very dark appearing stools. Despite this his hemoglobin remains stable and at 1600 hours was 10.0. His hemoglobin had been as low as 6.9 on admission with a normal MCV. His platelet count however is low and does have a history of thrombocytopenia. The patient did undergo upper endoscopy during this hospitalization for which a 5 cm hiatal hernia was identified. 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 There were small erosions without bleeding in the second portion of the duodenum. The patient has had evaluation by upper endoscopy and colonoscopy, by his history today, in the past which was essentially unrevealing. MEDICATIONS: His medications were reviewed. His medications currently include amlodipine, atorvastatin, insulin, pantoprazole 40 mg p.o. b.i.d. and Zofran p.r.n. PHYSICAL EXAMINATION: VITAL SIGNS: This afternoon, blood pressure 176/78, heart rate 54, afebrile 36.4, 97% on room air. GENERAL: Physical exam unremarkable. HEAD, EYES, EARS, NOSE, AND THROAT: Sclerae are anicteric, conjunctiva moist. Oral mucosa moist. ABDOMEN: Soft, nontender, without rebound or guarding. EXTREMITIES: Without edema. RECTAL: Deferred. IMPRESSION: The patient with melena of unclear etiology although hemoglobin remains stable. He did receive blood transfusions a total of 4 units transfused, 2 units on 07/04/2016 and 2 units on 07/06/2016. He has had no further transfusions since that time and hemoglobin seems to be stable at this point despite his black stools. I believe that it is reasonable to continue to observe. If the stool color or volume intensifies to suggest ongoing bleeding or if his BUN and creatinine were to further increase then I would favor a tagged red blood cell scan to help localize a region of the GI tract for the origin of blood loss. If this seems stabilized, we can arrange for an outpatient video capsule small bowel endoscopy through our office. All questions answered for the patient and his daughter. We will continue to follow throughout the patient's hospitalization. All questions answered to their satisfaction.
[2016-07-09 07:50] LABS: BUN/CREATININE RATIO 12.6 (10-20); CALCIUM 8.4 mg/dl (8.5-10.1); CREATININE 2.1 mg/dl (0.60-1.40)
[2016-07-09] MEDS: CYANOCOBALAMIN 500 MCG TAB (VIT B-12) PO SCH (08:16)
[2016-07-09] MEDS: ATORVASTATIN 40 MG TAB PO SCH (08:16)
[2016-07-09] MEDS: PANTOprazole SOD 40 MG TAB PO SCH (08:16)
[2016-07-09] MEDS: INSULIN GLARGINE SOLOSTAR 100 UNITS/ML 3 ML PEN SC SCH (08:19)
[2016-07-09] MEDS: INSULIN ASPART 100 UNITS/ML 3 ML PEN SC SCH ×2 (08:20→12:47)
[2016-07-09] MEDS ORDERED: AMLODIPINE BESYLATE 5 MG TAB PO SCH ×2 (09:00)
--- NOTE | 2016-07-09 09:01 | HEME/ONC PROGRESS NOTE ---
DATE: 07/09/2016 DATE: 07/09/2016. DIAGNOSES: 1. Melena stools, suspected gastrointestinal bleeding. 2. Anemia/thrombocytopenia. 3. Chronic renal insufficiency. HOSPITAL COURSE: Mr. Riggs was seen and examined at bedside today. He was eating breakfast with a vigorous appetite and otherwise feels well. Review of his most recent labs confirm stability with hemoglobin, actually his platelet count linda a bit in the past 24 hours, which again would strengthen the argument that he may have an active antibody. He is very anxious to go home and from a hematologic standpoint, I see no reason why that cannot take place today. PHYSICAL EXAMINATION: GENERAL: He is in no acute distress. VITAL SIGNS: Temperature 36.3, pulse 48, respirations 20, blood pressure 148/78. SKIN: Without rash or lesion. HEAD, EYES, EARS, NOSE, AND THROAT: Oral mucosa without erythema or ulceration. NECK: Supple. HEART: Regular rate and rhythm. LUNGS: Clear to auscultation. ABDOMEN: Soft, nontender, nondistended. EXTREMITIES: No clubbing, cyanosis or edema. NEUROLOGIC EXAMINATION: Grossly intact. LABORATORY DATA: WBC count 5890, hemoglobin 9.6, platelet count 93,000. Sodium 142, potassium 4.0, chloride 110, carbon dioxide 25, creatinine 2.1, BUN 26. IMPRESSION: 1. Gastrointestinal bleeding, source unclear. 2. Normocytic normochromic anemia secondary to renal insufficiency/chronic disease. 3. 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 PLAN: Mr. Riggs again was seen at bedside. Clinically stable. Review of his most recent labs are for the most part unchanged. From a hematologic standpoint, I believe he could be discharged today. I would be more than happy to review a CBC on Tuesday to ensure followup. I understand his stools are still melanotic. Gastroenterology plans to carry out camera endoscopy as outpatient. I have nothing further to add and will make arrangements to see Mr. Riggs as an outpatient. Thank you very much for allowing me to participate in his care.
[2016-07-09] MEDS ORDERED: ISOSORBIDE MONONITRATE 60 MG TABCR PO SCH (10:00)
--- NOTE | 2016-07-09 12:57 | PROGRESS NOTE ---
DATE: 07/09/2016 SUBJECTIVE: The patient is here for melena and anemia. He has had an essentially negative EGD and he has received a total of 4 units of blood. His hemoglobin today is 9.6, which is relatively stable. He has had no recorded bowel movements so far today. Our plan is to continue to follow him clinically and if he shows signs of more active bleeding or drop in his blood count, then we would proceed with a tagged red blood scan, if he is stable then will undergo a small bowel video capsule procedure as an outpatient, for further evaluation of the small bowel for possible bleeding site. Dr. Nguyen will be covering for the weekend.
[2016-07-09 13:19] LABS: HEMATOCRIT 33.6 % (42-52)
--- NOTE | 2016-07-09 14:03 | Discharge Instructions ---
Discharge Instructions Date of Service July 09, 2016. Admission Reason for Admission: Hypotension, Melena Discharge Discharge Diagnosis / Problem: Acute blood loss from GI bleed, MGUS Discharge Goals Goal(s): Decrease discomfort, Improve disease control, Diagnostic testing, Therapeutic intervention Activity Recommendations Activity Limitations: resume your previous activity . Instructions / Follow-Up Instructions / Follow-Up You came to hospital feeling weak and your hemoglobin was 6.7. Your dark tarry stools were indicative of bleeding in the gut. Your Plavix was held to prevent worsening of the bleeding. You required transfusion of 4 units of red blood cells and 1 unit of platelets, which resulted in you feeling better and your labs appearing within normal limits. The gastroenterology (GI) and oncology doctors were consulted, and have been helping to take care of you. At time of discharge, you are still having dark stool, but they do contain brown stool indicating probable resolution of bleeding. However, you will require close follow up to find the cause and hopefully prevent your levels from dropping again. The GI doctors will follow up in office and do a repeat capsule camera test with you. The oncology doctor (Dr. Pate) will follow up with you and do more tests to make sure your blood levels remain steady. Please see Dr. Hackett early next week. He may do a repeat blood check to assess your hemoglobin and ask you questions about the color of your stool. He will help you determine if it is safe to restart your Plavix or not. Please do not take the Plavix until a physician tells you that it is safe to do so. Once your stool becomes normal/brown in colour, he may also decide to put you on an iron supplement. You may continue all other medications as they were prior to admission. Please seek medical care by calling your PCP or GI doctor if you experience any recurrence of large volume of dark, tarry stool, if you start to feel dizzy/ lightheaded, or have any chest discomfort or shortness of breath, especially on minimal exertion. Current Hospital Diet Patient's current hospital diet: Diabetes Type 2 Diet Discharge Diet Recommended Diet: Diabetes Type 2 Diet Procedures Procedures Performed: EGD Pending Studies Studies pending at discharge: no Laboratory Results Hemoglobin A1c Test 07/06/16 06:00 Range/Units Estimated Average Glucose 174 mg/dl Hemoglobin A1c 7.7 H 4.5-5.6 % Medical Emergencies . Who to Call and When: Medical Emergencies: If at any time you feel your situation is an emergency, please call 911 immediately. . Non-Emergent Contact Non-Emergency issues call your: Primary Care Provider, Filler Block Inserter Remover, Oncologist . . "Provider Documentation" section prepared by Sara Clayton. . VTE Core Measure Inpt VTE Proph given/why not?: SCD's
--- NOTE | 2016-07-09 14:04 | Discharge Summary ---
Discharge Summary Date of Service July 09, 2016. (Alka. Clayton MD) Discharge Summary Admission Date: July 04, 2016 at 16:10 Discharge Date: July 08, 2016 Discharge Disposition: Home Principal Diagnosis: Acute blood loss from GI bleed, hypotension, MGUS Immunizations: Have You Had Influenza Vaccine: Yes History of Tetanus Vaccine?: Yes History of Pneumococcal: Yes History of Hepatitis B Vaccine: No (Alka. 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 CAD - s/p CABG Procedures: Chest xray EGD (Marie Rodgers MD) Medication Reconciliation Changed Medications: Clopidogrel (Plavix) 75 Mg Tab 75 MG PO DAILY for 1 Day, #1 TAB (Medication details modified) Do not take until told by your PCP to resume Pantoprazole (Protonix) 40 Mg Tab 40 MG PO BID, #60 TAB (Changed from: DAILY; 30) Continued Medications: Amlodipine (Norvasc) 10 Mg Tab 10 MG PO DAILY, TAB Atorvastatin (Lipitor) 40 Mg Tab 40 MG PO DAILY, TAB Cholecalciferol (Vitamin D3) 1,000 Unit Tab 1 TAB PO DAILY, TAB 3 Refills Cyanocobalamin (Vitamin B-12 1000 Mcg) 1,000 Mcg Tab 1000 MCG PO DAILY, TAB Furosemide (Furosemide) 20 Mg Tab 20 MG PO DAILY PRN for Fluid Retention Insulin Glargine (Lantus Solostar) 100 Unit/Ml Inj 18-20 UNITS SQ QAM Insulin Lispro (Human) (Humalog Kwikpen) 100 Unit/Ml Inj 8 UNITS SC TIDM ADJUST DIRECTED BY SLIDING SCALE. Isosorbide Mononitrate Ext Rel (Imdur Ext Rel) 120 Mg Ertab 120 MG PO QAM, TAB Nitroglycerin (Nitrostat) 0.4 Mg Tab 0.4 MG SL UD PRN for Chest Pain PLACE ONE TABLET UNDER THE TONGUE EVERY 5 MINUTES FOR UP TO 3 DOSES IF NEEDED FOR CHEST PAIN. Discharge Exam Patient says his stools have started to become more brown. His family is happy to hear that both his hemoglobin and platelets have remained stable. Patient is keen for home and understands the importance of close follow up, especially while etiology of GI bleeding is not fully determined. Review of Systems: Constitutional: No chills, No fatigue, No fever, No sweats, No weakness Respiratory: No cough, No shortness of breath, No wheezing Cardiovascular: No chest pain, No edema, No palpitations Abdomen: + GI bleeding, No nausea, No pain, No vomiting Genitourinary - Male: No dysuria, No hematuria Hematologic / Lymphatic: No abnormal bleeding/bruising Physical Exam: General Appearance: WD/WN, no apparent distress Eyes: normal inspection ENT: hearing grossly normal, pharynx normal Neck: supple, no adenopathy Respiratory/Chest: lungs clear, normal breath sounds, no respiratory distress, no accessory muscle use Cardiovascular: regular rate, rhythm, no murmur Abdomen / GI: normal bowel sounds, non tender, soft Extremities: normal inspection, no calf tenderness, no pedal edema Neurologic/Psychiatric: alert, normal mood/affect, oriented x 3 Skin: normal color, warm/dry, no rash (Alka. Clayton MD) Hospital Course 80 year old male presenting with severe anemia with melena and hypotension Melena with acute blood loss anemia - ongoing melena. Bleeding source not confirmed. Patient asymptomatic currently. H/H stable Plavix held on admission. 2 unit pRBC transfused on 07/04. Negative GI evaluation in 07/13. GI consult- recs appreciated. 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 Argon coagulation applied. Biopsies for H.Pylori negative. 2 unit pRBC transfused on 07/06. Iron stores assessed and found to be largely WNL. On discharge: - Continue Protonix 40mg BID - Follow up with PCP early next week for CBC, and assessment of safety to resume Plavix and start iron supplementation - Follow up with GI, for capsular camera test Blood pressure Hypotensive at admission requiring holding antihypertensive meds, IVF bolus and mIVF. Discontinued as blood pressures continue improve. Eventually resumed home medications. On discharge: - Resume Norvasc 10mg daily, Imdur 120mg daily and PRN Furosemide 20mg daily PRN weight gain Thrombocytopenia with h/o IgG Benjy MGUS Previously followed by [facility] hematology/oncology. Previous history of low platelets. Initial resuscitation with fluids and blood products, and monitoring of platelets. Hematology/oncology consulted- recs appreciated. Required 1 unit platelet transfusion on 07/07. On discharge, - Follow up with Dr. Pate, oncologist 1-2 weeks for further work up Leukocytosis - Resolved. Previously elevated at 17.28, but subsequently back WNL. Likely secondary to acute stress given stable vitals. UA negative. Diabetes - elevated glucose levels on lowered dose of Lantus for NPO status, then improved with slight dose increase. Resume home dose of 18 units Lantus on discharge. 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 I /Os and BMP monitored closely. CAD - s/p CABG - on Plavix instead of aspirin given thrombocytopenia. However Plavix held since admission and to be resumed upon instruction of physician. - Continue Lipitor 40mg daily DVT Prophylaxis - SCDs Resuscitation status - Full Resuscitation Total Time Spent: Greater than 30 minutes This includes examination of the patient, discharge planning, medication reconciliation, and communication with other providers. (Alka. Clayton MD) Discharge Instructions Please refer to the electronic Patient Visit Report (Discharge Instructions) for additional information. (Alka. Clayton MD) Resident Tracking Resident Involvement: Resident Care Provided Care Provided: Adult Hospital Medicine (Alka. Clayton MD) Reviewed: Pt Seen/Exam by Me (Marie Rodgers MD) History Resident Physician Supervision Note: I interviewed and examined the patient. Discussed with Dr. Clayton and agree with findings and plan as documented in the note. Any exceptions or clarifications are listed here: Doing well, feels good,no further melena Vitals reviewed NAD RRR no mgr CTAB no wcr +BS soft NT ND no HSM Ext no edema Skin-no rash 81 yo male with acute blood loss anemia from GI bleeding. 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 Hemoglobin dropped again to 7.5 and transfused 2 more units on 07/06/2016, hemoglobin up to 11 now today and stable. Platelets dropped down to a soledad of 37 but now improved to 93,000 after platelet transfusion. Thrombocytopenia may be related to autoimmune process. Peripheral smear showed evidence of MDS -continue to follow CBC, hold Plavix for at least 1 week until seen by PCP and has stable CBC as an outpatient --Consult hematology appreciated-follow up with hematology in the office in 1-2 weeks is recommended -continue PPI -may need another capsule endoscopy as an outpatient -stable for dc to home Documented By: Marie Rodgers (Marie Rodgers MD)
[2016-07-09] MEDS ORDERED: PANT40TA PO (15:44)
[2016-07-10] MEDS ORDERED: INSULIN GLARGINE SOLOSTAR 100 UNITS/ML 3 ML PEN SC SCH (09:00)
== END 2016-07-09 16:15 | disposition home or self-care (01) | DRG 378 ==
LOC: ENRESERVDT → CANRESERV → ENRESERVTM → C.EDB 13:11 → UNDOADMIN 16:10 → C.MED 16:10 → C.MS4W 16:10 → C.2T 17:57 → C.MED 07-08 20:53
PROVIDERS: ADMIT Student in an Organized Health Care Education/Training Program; ATTEND Family Medicine
PROC: 0W3P8ZZ Control Bleeding in Gastrointestinal Tract, Via Natural or Artificial Opening Endoscopic (ICD-10-PCS; principal; 2016-07-05 12:21)
PROC: 0DB68ZX Excision of Stomach, Via Natural or Artificial Opening Endoscopic, Diagnostic (ICD-10-PCS; principal; 2016-07-05 12:21)
DX: K31.811 Angiodysplasia of stomach and duodenum with bleeding (principal); D62 Acute posthemorrhagic anemia; N17.9 Acute kidney failure, unspecified; N18.4 Chronic kidney disease, stage 4 (severe); I12.9 Hypertensive chronic kidney disease with stage 1 through stage 4 chronic kidney disease, or unspecified chronic kidney disease; K22.2 Esophageal obstruction; D72.829 Elevated white blood cell count, unspecified; K44.9 Diaphragmatic hernia without obstruction or gangrene; R23.1 Pallor; I95.9 Hypotension, unspecified; D47.2 Monoclonal gammopathy; D69.6 Thrombocytopenia, unspecified; K21.9 Gastro-esophageal reflux disease without esophagitis; E78.5 Hyperlipidemia, unspecified; I25.10 Atherosclerotic heart disease of native coronary artery without angina pectoris; E11.22 Type 2 diabetes mellitus with diabetic chronic kidney disease; I25.2 Old myocardial infarction; R00.1 Bradycardia, unspecified; Z79.899 Other long term (current) drug therapy; Z79.4 Long term (current) use of insulin; Z79.02 Long term (current) use of antithrombotics/antiplatelets; Z95.1 Presence of aortocoronary bypass graft; Z82.49 Family history of ischemic heart disease and other diseases of the circulatory system

== ENCOUNTER → 2016-07-24 | Outpatient (CLI) | payer BC, OTHER ==
[~2016-07-24] MED LIST changes: -ANT25 PO; -ASPEC81 PO
[2016-07-24 13:07] LABS: HEMATOCRIT 31.9 % (42-52); MEAN CELL VOLUME 87.6 fL (80-100); MEAN CORPUSCULAR HEMOGLOBIN 27.2 pg (25-34); RED BLOOD COUNT 3.64 M/uL (4.7-6.1); WHITE BLOOD COUNT 5.22 K/uL (4.8-10.8)
[2016-07-24 13:09] LABS: CALCIUM 8.5 mg/dl (8.5-10.1)
[2016-07-24 13:14] LABS: BLOOD UREA NITROGEN 30 mg/dl (7-18); BUN/CREATININE RATIO 12.1 (10-20); CARBON DIOXIDE 23 mmol/L (21-32); CHLORIDE 108 mmol/L (98-107); GLUCOSE 240 mg/dl (70-99); PHOSPHORUS 3.4 mg/dl (2.5-4.9); POTASSIUM 4.6 mmol/L (3.5-5.1); SODIUM 140 mmol/L (136-145)
[2016-07-24 13:28] LABS: BASO % 0.4 %; BASO ABS # 0.02 K/uL (0-0.2); COMPLETE YES; EOS % 0.6 %; IG% 1.1 %; LYMPH % 23.2 %; LYMPH ABS # 1.21 K/uL (1.2-3.4); MONO % 29.1 %; NEUT % 45.6 %; PLATELET COUNT 67 K/uL (130-400)
== END | disposition home or self-care (01) ==
LOC: C.LABPVFM 08:28
PROVIDERS: ATTEND Internal Medicine Hematology & Oncology
DX: Z87.19 Personal history of other diseases of the digestive system (principal); I10 Essential (primary) hypertension

== ENCOUNTER → 2016-08-14 | Outpatient (CLI) | payer BC, OTHER ==
[2016-08-14 13:04] LABS: MEAN CORPUSCULAR HGB CONC 31.1 g/dl (32-36)
[2016-08-14 13:11] LABS: ALB/GLOB RATIO 0.8 (0.9-2); ALKALINE PHOSPHATASE 62 U/L (45-117); ALT/SGPT 15 U/L (12-78); AST/SGOT 10 U/L (15-37); BLOOD UREA NITROGEN 33 mg/dl (7-18); BUN/CREATININE RATIO 11.9 (10-20); CALCIUM 8.1 mg/dl (8.5-10.1); CARBON DIOXIDE 24 mmol/L (21-32); CHLORIDE 108 mmol/L (98-107); GLUCOSE 256 mg/dl (70-99); MAGNESIUM 1.8 mg/dl (1.8-2.4); PHOSPHORUS 3.8 mg/dl (2.5-4.9); POTASSIUM 4.5 mmol/L (3.5-5.1); SODIUM 141 mmol/L (136-145)
[2016-08-14 13:16] LABS: HEMATOCRIT 33.1 % (42-52); MEAN CELL VOLUME 87.6 fL (80-100); MEAN CORPUSCULAR HEMOGLOBIN 27.2 pg (25-34); RED BLOOD COUNT 3.78 M/uL (4.7-6.1); WHITE BLOOD COUNT 11.29 K/uL (4.8-10.8)
[2016-08-14 13:52] LABS: MEAN PLATELET VOLUME 11.2 fL (7.4-10.4); PLATELET COUNT 100 K/uL (130-400)
[2016-08-14 14:30] LABS: COMPLETE YES; LYMPH ABS # 1.69 K/uL (1.2-3.4)
== END | disposition home or self-care (01) ==
LOC: C.LABPVFM 08:34
PROVIDERS: ATTEND Internal Medicine Hematology & Oncology
DX: D64.9 Anemia, unspecified (principal)

== ENCOUNTER → 2016-08-27 | Outpatient (CLI) | payer BC, OTHER ==
[2016-08-27 12:42] LABS: HEMATOCRIT 31.3 % (42-52); MEAN CELL VOLUME 86.7 fL (80-100); MEAN CORPUSCULAR HEMOGLOBIN 27.7 pg (25-34); MEAN CORPUSCULAR HGB CONC 31.9 g/dl (32-36); PLATELET COUNT 152 K/uL (130-400); RED BLOOD COUNT 3.61 M/uL (4.7-6.1); WHITE BLOOD COUNT 12.36 K/uL (4.8-10.8)
[2016-08-27 13:05] LABS: BLOOD UREA NITROGEN 30 mg/dl (7-18); BUN/CREATININE RATIO 10.9 (10-20); CALCIUM 8.7 mg/dl (8.5-10.1); CARBON DIOXIDE 21 mmol/L (21-32); CHLORIDE 107 mmol/L (98-107); GLUCOSE 286 mg/dl (70-99); MAGNESIUM 1.6 mg/dl (1.8-2.4); PHOSPHORUS 3.1 mg/dl (2.5-4.9); POTASSIUM 4.5 mmol/L (3.5-5.1); SODIUM 137 mmol/L (136-145)
[2016-08-27 13:26] LABS: ANISOCYTOSIS PRESENT; COMPLETE YES; GIANT PLATELETS 1+; LYMPHOCYTE % 11.3 %; MYELOCYTE % 0.9 %; NEUTROPHILS % 66.1 %; POLYCHROMASIA 1+
== END | disposition home or self-care (01) ==
LOC: C.LABPVFM 08:16
PROVIDERS: ATTEND Internal Medicine Hematology & Oncology
DX: D64.9 Anemia, unspecified (principal); N18.4 Chronic kidney disease, stage 4 (severe)

== ENCOUNTER → 2016-09-11 | Outpatient (CLI) | payer BC, OTHER ==
[2016-09-11 12:23] LABS: MEAN CORPUSCULAR HGB CONC 31.9 g/dl (32-36)
[2016-09-11 12:32] LABS: MEAN CELL VOLUME 85.4 fL (80-100); MEAN CORPUSCULAR HEMOGLOBIN 27.3 pg (25-34); RED BLOOD COUNT 3.63 M/uL (4.7-6.1); WHITE BLOOD COUNT 7.49 K/uL (4.8-10.8)
[2016-09-11 12:54] LABS: PLATELET COUNT 98 K/uL (130-400)
[2016-09-11 12:55] LABS: ANISOCYTOSIS PRESENT; PLT ESTIMATE DECREASED
[2016-09-11 12:56] LABS: COMPLETE YES; LYMPH ABS # 0.67 K/uL (1.2-3.4); VARIANT LYM ABS # 0.15 K/uL
== END | disposition home or self-care (01) ==
LOC: C.LABPVFM 08:23
PROVIDERS: ATTEND Internal Medicine Hematology & Oncology
DX: D64.9 Anemia, unspecified (principal)

== ENCOUNTER → 2016-10-30 | Outpatient (CLI) | payer BC, OTHER ==
[2016-10-30 13:11] LABS: URINE APPEARANCE CLEAR (CLEAR); URINE BILIRUBIN NEG (NEG); URINE COLOR YELLOW; URINE EPITHELIAL CELL AUTO >30 /lpf (0-5); URINE NITRITE NEG (NEG); URINE PH 5.5 (4.5-7.5); URINE SPECIFIC GRAVITY 1.019 (1.000-1.030); UROBILINOGEN NEG (NEG); ZZUR CULT IF INDIC CLEAN CATCH NO
[2016-10-30 13:24] LABS: MANUAL MICROSCOPIC REQUIRED? NO; REVIEW REQ? NO
[2016-10-30 13:32] LABS: URINE PROTIEN/CREAT RATIO 0.5 (0-0.2); URINE TOTAL PROTEIN 89.3 mg/dl (0-11.9)
[2016-10-30 13:38] LABS: BLOOD UREA NITROGEN 29 mg/dl (7-18); BUN/CREATININE RATIO 11.9 (10-20); CALCIUM 8.5 mg/dl (8.5-10.1); CARBON DIOXIDE 26 mmol/L (21-32); CHLORIDE 108 mmol/L (98-107); GLUCOSE 137 mg/dl (70-99); PHOSPHORUS 4.1 mg/dl (2.5-4.9); SODIUM 141 mmol/L (136-145)
[2016-10-30 13:39] LABS: MAGNESIUM 1.6 mg/dl (1.8-2.4)
== END | disposition home or self-care (01) ==
LOC: C.LABPVFM 08:16
PROVIDERS: ATTEND Internal Medicine Nephrology
DX: N18.4 Chronic kidney disease, stage 4 (severe) (principal)

== ENCOUNTER → 2016-12-18 | Outpatient (CLI) | payer BC, OTHER ==
[2016-12-18 13:05] LABS: MEAN CORPUSCULAR HGB CONC 32.1 g/dl (32-36)
[2016-12-18 13:09] LABS: HEMATOCRIT 34.3 % (42-52); MEAN CELL VOLUME 87.7 fL (80-100); MEAN CORPUSCULAR HEMOGLOBIN 28.1 pg (25-34); RED BLOOD COUNT 3.91 M/uL (4.7-6.1); WHITE BLOOD COUNT 5.75 K/uL (4.8-10.8)
[2016-12-18 13:45] LABS: ESTIMATED AVERAGE GLUCOSE 212 mg/dl; HA1C FLAG Normal (Normal)
[2016-12-18 13:49] LABS: PLATELET COUNT 64 K/uL (130-400)
[2016-12-18 13:50] LABS: BASO % 0.2 %; BASO ABS # 0.01 K/uL (0-0.2); COMPLETE YES; EOS % 0.9 %; IG% 1.9 %; LYMPH % 25.9 %; LYMPH ABS # 1.49 K/uL (1.2-3.4); MONO % 27.7 %; NEUT % 43.4 %; PLT ESTIMATE DECREASED
--- NOTE | 2016-12-23 11:18 | CODING QUERY MEDICAL NECESSITY ---
SUPPORTING DIAGNOSIS NEEDED Dr. Hackett, A supporting diagnosis is required for the test/procedure performed on this patient in order for us to be reimbursed by the patient's insurance. Please provide a supporting diagnosis for the following test/procedure listed below next to the test name along with your signature. *If there is no additional diagnosis for this patient that would support the following test/procedure please document that below next to the test/procedure. Test(s)/Procedure(s) that require a supporting diagnosis: * [id number] GLYCATED HEMOGLOBIN DIAGNOSIS: DATE OF SERVICE: 12/18/16 Provider Signature: Date: Thank you Jose Antonio [facility] Information Management Once completed, please kindly fax back to [phone] For questions please call [phone]
== END | disposition home or self-care (01) ==
LOC: C.LABPVFM 08:13
PROVIDERS: ATTEND Internal Medicine
DX: D64.9 Anemia, unspecified (principal); D69.6 Thrombocytopenia, unspecified; E11.9 Type 2 diabetes mellitus without complications

== ENCOUNTER → 2017-01-29 | Outpatient (CLI) | payer BC, OTHER ==
[2017-01-29 12:57] LABS: BASO % 0.2 %; BASO ABS # 0.02 K/uL (0-0.2); EOS % 0.7 %; HEMATOCRIT 33.8 % (42-52); IG% 3.9 %; LYMPH % 14.9 %; LYMPH ABS # 1.52 K/uL (1.2-3.4); MEAN CELL VOLUME 89.2 fL (80-100); MEAN CORPUSCULAR HEMOGLOBIN 28.2 pg (25-34); MEAN CORPUSCULAR HGB CONC 31.7 g/dl (32-36); MONO % 27.7 %; NEUT % 52.6 %; PLATELET COUNT 159 K/uL (130-400); RED BLOOD COUNT 3.79 M/uL (4.7-6.1); WHITE BLOOD COUNT 10.23 K/uL (4.8-10.8)
[2017-01-29 13:05] LABS: BLOOD UREA NITROGEN 24 mg/dl (7-18); BUN/CREATININE RATIO 9.9 (10-20); CALCIUM 8.6 mg/dl (8.5-10.1); CARBON DIOXIDE 27 mmol/L (21-32); CHLORIDE 102 mmol/L (98-107); CREATININE 2.41 mg/dl (0.60-1.40); GLUCOSE 257 mg/dl (70-99); MAGNESIUM 1.6 mg/dl (1.8-2.4); POTASSIUM 4.2 mmol/L (3.5-5.1); SODIUM 135 mmol/L (136-145)
[2017-01-29 13:06] LABS: PHOSPHORUS 3.8 mg/dl (2.5-4.9)
[2017-01-29 13:09] LABS: URINE PROTIEN/CREAT RATIO 0.8 (0-0.2); URINE TOTAL PROTEIN 109.2 mg/dl (0-11.9)
[2017-01-29 13:12] LABS: URINE APPEARANCE CLEAR (CLEAR); URINE BILIRUBIN NEG (NEG); URINE COLOR YELLOW; URINE NITRITE NEG (NEG); URINE PH 6.5 (4.5-7.5); URINE SPECIFIC GRAVITY 1.018 (1.000-1.030); UROBILINOGEN NEG (NEG); ZZUR CULT IF INDIC CLEAN CATCH NO
[2017-01-29 13:13] LABS: MANUAL MICROSCOPIC REQUIRED? NO; REVIEW REQ? NO
[2017-01-29 13:34] LABS: ANISOCYTOSIS PRESENT; COMPLETE YES; LARGE PLATELETS 1+
== END | disposition home or self-care (01) ==
LOC: C.LABPVFM 08:08
PROVIDERS: ATTEND Internal Medicine Nephrology
DX: N18.4 Chronic kidney disease, stage 4 (severe) (principal)

== ENCOUNTER → 2017-04-19 | Outpatient (CLI) | payer BC, OTHER ==
[2017-04-19 12:36] LABS: HEMATOCRIT 32.7 % (42-52); HEMOGLOBIN 10.4 g/dL (14.0-18.0); MEAN CELL VOLUME 89.8 fL (80-100); MEAN CORPUSCULAR HEMOGLOBIN 28.6 pg (25-34); MEAN CORPUSCULAR HGB CONC 31.8 g/dl (32-36); RED CELL DISTRIBUTION WIDTH CV 19.9 % (11.5-14.5); RED CELL DISTRIBUTION WIDTH SD 64.9 fL (36.4-46.3)
[2017-04-19 13:05] LABS: BASO % 0.5 %; BASO ABS # 0.03 K/uL (0-0.2); EOS ABS # 0.06 K/uL (0-0.5); IG# 0.07 K/uL (0.00-0.02); LYMPH % 20.5 %; LYMPH ABS # 1.25 K/uL (1.2-3.4); MONO % 34.4 %; NEUT % 42.5 %; NEUT ABS # 2.59 K/uL (1.4-6.5); PLATELET COUNT 76 K/uL (130-400); RETIC COUNT % 1.7 % (0.5-2.0)
[2017-04-19 14:11] LABS: ALBUMIN 3.2 gm/dl (3.4-5.0); ALKALINE PHOSPHATASE 79 U/L (45-117); ALT/SGPT 14 U/L (12-78); AST/SGOT 12 U/L (15-37); BLOOD UREA NITROGEN 26 mg/dl (7-18); CALCIUM 8.8 mg/dl (8.5-10.1); CARBON DIOXIDE 22 mmol/L (21-32); CREATININE 2.64 mg/dl (0.60-1.40); GLUCOSE 197 mg/dl (70-99); POTASSIUM 4.3 mmol/L (3.5-5.1); SODIUM 140 mmol/L (136-145); TOTAL PROTEIN 7.6 gm/dl (6.4-8.2)
== END | disposition home or self-care (01) ==
LOC: C.LABPVFM 09:22
PROVIDERS: ATTEND Internal Medicine Nephrology
DX: N18.4 Chronic kidney disease, stage 4 (severe) (principal); D63.8 Anemia in other chronic diseases classified elsewhere

== ENCOUNTER → 2017-07-05 | Outpatient (CLI) | payer BC, OTHER ==
[2017-07-05 13:25] LABS: ALBUMIN 3.3 gm/dl (3.4-5.0); ALT/SGPT 15 U/L (12-78); AST/SGOT 16 U/L (15-37); BLOOD UREA NITROGEN 29 mg/dl (7-18); CALCIUM 8.8 mg/dl (8.5-10.1); CARBON DIOXIDE 25 mmol/L (21-32); GLUCOSE 164 mg/dl (70-99); POTASSIUM 4.8 mmol/L (3.5-5.1); SODIUM 139 mmol/L (136-145)
[2017-07-05 13:28] LABS: ALKALINE PHOSPHATASE 70 U/L (45-117); TOTAL PROTEIN 7.4 gm/dl (6.4-8.2)
[2017-07-05 13:36] LABS: HEMOGLOBIN A1C 8.6 % (4.5-5.6)
== END | disposition home or self-care (01) ==
LOC: C.LABPVFM 09:02
PROVIDERS: ATTEND Internal Medicine Nephrology
DX: E11.22 Type 2 diabetes mellitus with diabetic chronic kidney disease (principal); E78.5 Hyperlipidemia, unspecified

== ENCOUNTER 2020-04-01 12:16 | Inpatient (IN) ==
[2020-04-01] MEDS ORDERED: SODIUM CHLORIDE 0.9% 1000ML 1,000 ML IV SCH (12:45)
[2020-04-01 13:06] LABS: INR 1.2 (0.9-1.1); Partial Thromboplastin Time 27.4 Seconds (21.0-31.0); Prothrombin Time 12.3 Seconds (9.0-12.0)
--- NOTE | 2020-04-01 13:13 | Emergency Department Note ---
History of Present Illness General Chief complaint: Hypotension Stated complaint: LOW BLOOD PRESSURE Time Seen by Provider: 04/01/20 12:33 Source: patient Mode of arrival: ambulatory Limitations: no limitations History of Present Illness Provider complaint: weakness, near syncope, hypotension Onset (ago): day(s) 4 Maximum Pain Intensity: 3 Associated symptoms: + loss of appetite, + shortness of breath and + weakness This is an 84-year-old male brought in by family due to concern for intermittent episodes of fatigue and altered mental status. Family thought initially related to low blood sugars and patient is a diabetic. They would give him something to eat and drink and he would slowly seem to improve. Family called to make an appointment for him to see his PCP today. They found him to be hypotensive in the office and referred him to the emergency room. Patient states he slid down several steps about 4 days ago, and had some accompanying back pain and left elbow pain. He denies hitting his head or losing consciousness. Denies chest pain, trouble breathing. He states the back pain is both sides, and occasionally comes into his abdomen. He denies any change in bowel or bladder function. He denies any numbness or tingling. Family states they did check his sugar this morning at home and it was 220 so he took 9 units of his insulin and ate some breakfast. Pt seen during a time of high acuity and national emergency pandemic while wearing PPE. Home Medications Medication Instructions Recorded Confirmed Type isosorbide mononitrate 120 mg 120 mg PO QAM #90 tab 10/09/19 04/01/20 Rx tablet,extended release 24 hr nitroglycerin 0.4 mg sublingual 0.4 mg SUBLINGUAL UD #25 tab 10/09/19 04/01/20 Rx tablet meclizine 25 mg tablet 25 mg PO TID PRN #90 tab 11/02/19 04/01/20 Rx pantoprazole 40 mg tablet,delayed 40 mg PO BID #180 tab 01/30/20 04/01/20 Rx release amlodipine 10 mg PO QAM 04/01/20 04/01/20 History atorvastatin 40 mg PO HS 04/01/20 04/01/20 History calcitriol 0.5 mcg capsule 0.5 mcg PO 3XWK #36 cap 04/01/20 04/01/20 Rx enalapril maleate 5 mg PO QAM 04/01/20 04/01/20 History furosemide 20 mg PO QAM 04/01/20 04/01/20 History insulin glargine [Lantus Solostar 14 - 16 unit SUBCUT QAM 04/01/20 04/01/20 History U-100 Insulin] insulin lispro [Humalog KwikPen 8 unit SUBCUT AC 04/01/20 04/01/20 History Insulin] Allergies Allergy/AdvReac Type Severity Reaction Status Date / Time No Known Drug Allergies Allergy Verified 04/01/20 14:33 Past Med/Surg History Medical History (Updated 04/03/20 @ 17:13 by Neha Damico DO) ACS (acute coronary syndrome) Acute back pain Anemia Anemia due to GI blood loss Arteriosclerotic cardiovascular disease (ASCVD) Atrial fibrillation Chronic ITP (idiopathic thrombocytopenia) CKD (chronic kidney disease), stage IV Diabetes mellitus Heart attack Hyperlipidemia Hypertension Lumbar compression fracture MGUS (monoclonal gammopathy of unknown significance) NSTEMI, initial episode of care Secondary hyperparathyroidism Sensorineural hearing loss (SNHL) of both ears Sick sinus syndrome Spondylisthesis Thrombocytopenia Surgical History H/O heart bypass surgery History of hernia repair Hx of CABG Family History Brother Cancer Social History Smoking Status: Never smoker Hx Alcohol Use: No Hx Substance Use: No Preferred Language: [place] Communication Ability: Effective Visual Impairment: Limited Hearing Ability: Normal [employer] Required: No Beliefs That Will Affect Care: None marital status: Current Living Situation: Family current occupational status: retired Feels Safe at Home: Yes Safety Concerns: Feels Safe At This Time Childhood Exposure to Second-Hand Smoke: No caffeine: Yes Dental Care, Regularly: No Physical Activity Frequency: Does not Exercise Seatbelt Use: never Sunscreen Use: No Assistive Devices: None Review of Systems See HPI for pertinent positives & negatives. and A total of 10 systems reviewed and were otherwise negative Physical Exam Vital Signs Vital Signs - 24 hr 04/01/20 12:19 04/01/20 12:46 Temperature 35.9 C L Temperature Source Temporal Artery Scan Pulse Rate 82 Pulse Rhythm Regular Pulse Strength Normal Respiratory Rate 22 24 Respiratory Effort / Characteristics Non-Labored Spontaneous Nasal Flaring Respiratory Depth Normal Respiratory Pattern Regular Blood Pressure 115/53 L Blood Pressure Mean 73 Blood Pressure Position Sitting Pulse Oximetry 94 96 Oxygen Delivery Method Room Air Room Air Sepsis Recent Fever Within 48 Hours No Sepsis New/Unexplained Change in Mental Status No Sepsis Action Taken by Nursing No Action Required GENERAL: alert, ill appearing, no distress, non-toxic , eyes closed EYE EXAM: normal conjunctiva, PERRL and EOM's grossly intact OROPHARYNX: no exudate, no erythema, lips, buccal mucosa, and tongue normal and mucous membranes are moist NECK: supple, no nuchal rigidity, no adenopathy, non-tender LUNGS: Clear to auscultation. Normal chest wall mechanics, no w/r/r HEART: no murmurs, S1 normal and S2 normal ABDOMEN: abdomen soft, non-tender, normo-active bowel sounds, no masses, no rebound or guarding. BACK: Back is symmetrical on inspection and there is no deformity, no midline tenderness, no CVA tenderness. Pain across bilateral low back. SKIN: no rashes and no bruising UPPER EXTREMITIES: upper extremities are grossly normal. FROM, nml pulses b/l. Edema noted at the left elbow with several scabs, no active bleeding, no surrounding erythema, no joint effusion. LOWER EXTREMITIES: No pitting edema. FROM, nml pulses b/l. No evidence of trauma, no joint effusions. NEURO EXAM: Normal sensorium, cranial nerves II-XII grossly intact, normal speech, no gross weakness of arms, no gross weakness of legs. Gross sensation intact. Course Course 1420: Vital signs stable. Updated patient and son on results and plan. Patient has not yet produced a urine specimen for testing. 1445: Updated patient and son on additional findings. 1450: Discussed with Dr. David, [facility] hospitalist. UA still pending. Repeat lactic acid pending. Administered Medications Azithromycin (Azithromycin 250 Mg Tab) 250 mg PO QAM [facility] Stop: 04/06/20 08:59 Last Admin: 04/03/20 08:07 Dose: 250 mg Documented by: [id number] Admin: 04/02/20 08:06 Dose: 250 mg Documented by: [id number] Calcitriol (Calcitriol 0.25 Mcg Capsule) 0.5 mcg PO [id number] [facility] Stop: 05/02/20 08:59 Last Admin: 04/02/20 08:06 Dose: 0.5 mcg Documented by: [id number] Cefepime HCl 2,000 mg/ Syringe 20 mls @ 5 mls/min IV Q24H [facility]; Protocol Stop: 04/04/20 13:59 Last Admin: 04/03/20 14:50 Dose: 5 mls/min Documented by: [id number] Admin: 04/02/20 16:56 Dose: 5 mls/min Documented by: [id number] Sodium Bicarbonate 75 meq/ (Sodium Chloride) 1,075 mls @ 100 mls/hr IV .[id number] [facility] Stop: 05/02/20 08:44 Last Admin: 04/03/20 11:32 Dose: 100 mls/hr Documented by: [id number] Infusion: 04/03/20 11:32 Dose: 100 mls/hr Documented by: [id number] Admin: 04/03/20 01:17 Dose: 100 mls/hr Documented by: [id number] Infusion: 04/03/20 00:27 Dose: 100 mls/hr Documented by: [id number] Infusion: 04/02/20 16:45 Dose: 100 mls/hr Documented by: [id number] Infusion: 04/02/20 11:59 Dose: 0 mls/hr Documented by: [id number] Admin: 04/02/20 08:56 Dose: 100 mls/hr Documented by: [id number] Insulin Aspart (Insulin Aspart 100 Units/Ml 3 Ml Pen) 0 units SC ACHS [facility]; Protocol Stop: 05/01/20 22:29 Last Admin: 04/03/20 16:58 Dose: 6 units Documented by: [id number] Cosigned by: [id number] Admin: 04/03/20 11:59 Dose: 6 units Documented by: [id number] Cosigned by: [id number] Admin: 04/03/20 07:50 Dose: 3 units Documented by: [id number] Cosigned by: [id number] Admin: 04/02/20 21:04 Dose: Not Given Documented by: [id number] Cosigned by: [id number] Admin: 04/02/20 16:58 Dose: 3 units Documented by: [id number] Cosigned by: [id number] Admin: 04/02/20 11:47 Dose: 4 units Documented by: [id number] Cosigned by: [id number] Admin: 04/02/20 08:09 Dose: 4 units Documented by: [id number] Cosigned by: [id number] Admin: 04/01/20 23:38 Dose: 3 units Documented by: [id number] Cosigned by: [id number] Insulin Glargine (Insulin Glargine Solostar 100 Units/Ml 3 Ml Pen) 0 units SC QAM [facility]; Protocol Stop: 05/02/20 08:59 Last Admin: 04/03/20 07:51 Dose: 13 units Documented by: [id number] Cosigned by: [id number] Admin: 04/02/20 08:08 Dose: 16 units Documented by: [id number] Cosigned by: [id number] Pantoprazole Sodium (Pantoprazole 40 Mg Tab) 40 mg PO BID [facility] Stop: 05/01/20 20:59 Last Admin: 04/03/20 08:07 Dose: 40 mg Documented by: [id number] Admin: 04/02/20 21:04 Dose: 40 mg Documented by: [id number] Admin: 04/02/20 08:06 Dose: 40 mg Documented by: [id number] Admin: 04/01/20 22:03 Dose: 40 mg Documented by: [id number] Discontinued Medications Sodium Chloride (Nss 1000ml) 1,000 mls @ 999 mls/hr IV .Q1H1M [facility] Stop: 04/01/20 13:45 Last Infusion: 04/01/20 14:00 Dose: 0 mls/hr Documented by: [id number] Admin: 04/01/20 13:00 Dose: 999 mls/hr Documented by: [id number] Cefepime HCl (Maxipime) 2,000 mg in 20 mls @ 5 mls/min IV NOW STA Stop: 04/01/20 13:35 Last Admin: 04/01/20 13:52 Dose: 5 mls/min Documented by: [id number] Vancomycin HCl 1,500 mg/ (Sodium Chloride) 530 mls @ 200 mls/hr IV NOW ONE Stop: 04/01/20 16:10 Last Infusion: 04/01/20 16:38 Dose: 0 mls/hr Documented by: [id number] Admin: 04/01/20 13:59 Dose: 200 mls/hr Documented by: [id number] Magnesium Sulfate/Dextrose (Magnesium Sulfate / D5w) 1 gm in 100 mls @ 100 mls/hr IV Q1H [facility] Stop: 04/01/20 16:17 Last Infusion: 04/01/20 16:12 Dose: 0 mls/hr Documented by: [id number] Admin: 04/01/20 14:56 Dose: 100 mls/hr Documented by: [id number] Infusion: 04/01/20 14:56 Dose: 100 mls/hr Documented by: [id number] Admin: 04/01/20 14:42 Dose: 100 mls/hr Documented by: [id number] Sodium Chloride (Nss 1000ml) 500 mls @ 999 mls/hr IV .Q31M ONE Stop: 04/01/20 21:09 Last Infusion: 04/02/20 00:02 Dose: 0 mls/hr Documented by: [id number] Admin: 04/01/20 23:32 Dose: 999 mls/hr Documented by: [id number] Sodium Chloride (Nss 1000ml) 1,000 mls @ 125 mls/hr IV .Q8H [facility] Stop: 04/02/20 12:44 Last Infusion: 04/02/20 09:08 Dose: 0 mls/hr Documented by: [id number] Admin: 04/02/20 08:03 Dose: 125 mls/hr Documented by: [id number] Infusion: 04/02/20 07:40 Dose: 125 mls/hr Documented by: [id number] Admin: 04/01/20 23:40 Dose: 125 mls/hr Documented by: [id number] Azithromycin 500 mg/ Dextrose 255 mls @ 127.5 mls/hr IV NOW ONE Stop: 04/01/20 22:59 Last Infusion: 04/02/20 00:02 Dose: 0 mls/hr Documented by: [id number] Admin: 04/01/20 21:24 Dose: 127.5 mls/hr Documented by: [id number] Critical Care Time Critical Care Time: Yes Total Critical Care Time: 42 Critical care of 42 min performed to assess and manage high likelihood of life- threatening sepsis, involving labs and imaging performed with assessment to evaluate sepsis diagnosis with frequent reassessment. This time includes bedside time, treatment discussions with patient/family/consultants, documentation time and excludes procedure time. Medical Decision Making Differential Diagnosis Differential diagnoses includes but is not limited to toxic, metabolic, infectious, traumatic, cardiac, neurologic, hematologic, psychiatric and inflammatory etiologies. Medical Records Attestation: I reviewed the patient's medical records. Home Medications Current Medication List: was personally reviewed by me Laboratory Data Attestation: I reviewed the patient's lab results. Result diagrams: 04/03/20 07:19 04/03/20 07:19 Lab Results 04/01/20 04/01/20 04/01/20 Range/Units 12:40 12:40 12:40 WBC 25.85 H (4.8-10.8) K/uL RBC 2.79 L (4.7-6.1) M/uL Hgb 8.8 L (14.0-18.0) g/dL Hct 26.7 L (42-52) % MCV 95.7 (80-100) fL MCH 31.5 (25-34) pg MCHC 33.0 (32-36) g/dL RDW Std Deviation 65.4 H (36.4-46.3) fL RDW Coeff of Carlos 18.7 H (11.5-14.5) % Plt Count 142 (130-400) K/uL MPV 13.1 H (7.4-10.4) fL Neutrophils % (Manual) 85.1 % Lymphocytes % (Manual) 2.6 % Monocytes % (Manual) 9.6 % Eosinophils % (Manual) 1.8 % Metamyelocytes % (Man) 0.9 % Neutrophils # (Manual) 22.00 H (1.4-6.5) K/uL Total Absolute Neuts 22.00 H (1.4-6.5) K/uL Lymphocytes # (Manual) 0.67 L (1.2-3.4) K/uL Total Abs Lymphocytes 0.67 L (1.2-3.4) K/uL Monocytes # (Manual) 2.48 H (0.11-0.59) K/uL Eosinophils # (Manual) 0.47 (0-0.5) K/uL Metamyelocytes # (Man) 0.23 H (0-0) K/uL Hypogranular Neuts 1+ Platelet Estimate Decreased L (Normal) PT 12.3 H (9.0-12.0) Seconds INR 1.2 H (0.9-1.1) APTT 27.4 (21.0-31.0) Seconds PTT Ratio 1.0 Sodium 137 (136-145) mmol/L Potassium 5.0 (3.5-5.1) mmol/L Chloride 107 (98-107) mmol/L Carbon Dioxide 18 L (21-32) mmol/L Anion Gap 12.0 H (3-11) BUN 60 H (7-18) mg/dl Creatinine 4.30 H (0.6-1.4) mg/dl Est Cr Clr Drug Dosing 13.4 ml/min Est GFR ( Amer) 13.6 Est GFR (Non-Af Amer) 11.7 BUN/Creatinine Ratio 13.8 (10-20) Glucose 210 H (70-99) mg/dl Lactate (0.4-2.0) mmol/L Calcium 9.1 (8.5-10.1) mg/dl Magnesium 1.5 L (1.8-2.4) mg/dl Total Bilirubin 0.8 (0.2-1) mg/dl AST 12 L (15-37) U/L ALT 14 (12-78) U/L Alkaline Phosphatase 92 (45-117) U/L Troponin I 0.469 H* (0-0.045) ng/ml Total Protein 7.8 (6.4-8.2) gm/dl Albumin 2.9 L (3.4-5.0) gm/dl Globulin 4.9 H (2.5-4.0) gm/dl Albumin/Globulin Ratio 0.6 L (0.9-2) Procalcitonin (0-0.5) ng/ml COVID-19 Eval Order SARS-CoV-2 (PCR) (Negative) Influenza Type A (PCR) (Neg) Influenza Type B (PCR) (Neg) RSV (RT-PCR) (Neg) 04/01/20 04/01/20 04/01/20 Range/Units 12:40 13:15 14:31 WBC (4.8-10.8) K/uL RBC (4.7-6.1) M/uL Hgb (14.0-18.0) g/dL Hct (42-52) % MCV (80-100) fL MCH (25-34) pg MCHC (32-36) g/dL RDW Std Deviation (36.4-46.3) fL RDW Coeff of Carlos (11.5-14.5) % Plt Count (130-400) K/uL MPV (7.4-10.4) fL Neutrophils % (Manual) % Lymphocytes % (Manual) % Monocytes % (Manual) % Eosinophils % (Manual) % Metamyelocytes % (Man) % Neutrophils # (Manual) (1.4-6.5) K/uL Total Absolute Neuts (1.4-6.5) K/uL Lymphocytes # (Manual) (1.2-3.4) K/uL Total Abs Lymphocytes (1.2-3.4) K/uL Monocytes # (Manual) (0.11-0.59) K/uL Eosinophils # (Manual) (0-0.5) K/uL Metamyelocytes # (Man) (0-0) K/uL Hypogranular Neuts Platelet Estimate (Normal) PT (9.0-12.0) Seconds INR (0.9-1.1) APTT (21.0-31.0) Seconds PTT Ratio Sodium (136-145) mmol/L Potassium (3.5-5.1) mmol/L Chloride (98-107) mmol/L Carbon Dioxide (21-32) mmol/L Anion Gap (3-11) BUN (7-18) mg/dl Creatinine (0.6-1.4) mg/dl Est Cr Clr Drug Dosing ml/min Est GFR ( Amer) Est GFR (Non-Af Amer) BUN/Creatinine Ratio (10-20) Glucose (70-99) mg/dl Lactate 2.9 H* (0.4-2.0) mmol/L Calcium (8.5-10.1) mg/dl Magnesium (1.8-2.4) mg/dl Total Bilirubin (0.2-1) mg/dl AST (15-37) U/L ALT (12-78) U/L Alkaline Phosphatase (45-117) U/L Troponin I (0-0.045) ng/ml Total Protein (6.4-8.2) gm/dl Albumin (3.4-5.0) gm/dl Globulin (2.5-4.0) gm/dl Albumin/Globulin Ratio (0.9-2) Procalcitonin 1.00 H (0-0.5) ng/ml COVID-19 Eval Order [facility]FluRsv at [facility] SARS-CoV-2 (PCR) (Negative) Influenza Type A (PCR) (Neg) Influenza Type B (PCR) (Neg) RSV (RT-PCR) (Neg) 04/01/20 04/01/20 Range/Units 14:31 15:46 WBC (4.8-10.8) K/uL RBC (4.7-6.1) M/uL Hgb (14.0-18.0) g/dL Hct (42-52) % MCV (80-100) fL MCH (25-34) pg MCHC (32-36) g/dL RDW Std Deviation (36.4-46.3) fL RDW Coeff of Carlos (11.5-14.5) % Plt Count (130-400) K/uL MPV (7.4-10.4) fL Neutrophils % (Manual) % Lymphocytes % (Manual) % Monocytes % (Manual) % Eosinophils % (Manual) % Metamyelocytes % (Man) % Neutrophils # (Manual) (1.4-6.5) K/uL Total Absolute Neuts (1.4-6.5) K/uL Lymphocytes # (Manual) (1.2-3.4) K/uL Total Abs Lymphocytes (1.2-3.4) K/uL Monocytes # (Manual) (0.11-0.59) K/uL Eosinophils # (Manual) (0-0.5) K/uL Metamyelocytes # (Man) (0-0) K/uL Hypogranular Neuts Platelet Estimate (Normal) PT (9.0-12.0) Seconds INR (0.9-1.1) APTT (21.0-31.0) Seconds PTT Ratio Sodium (136-145) mmol/L Potassium (3.5-5.1) mmol/L Chloride (98-107) mmol/L Carbon Dioxide (21-32) mmol/L Anion Gap (3-11) BUN (7-18) mg/dl Creatinine (0.6-1.4) mg/dl Est Cr Clr Drug Dosing ml/min Est GFR ( Amer) Est GFR (Non-Af Amer) BUN/Creatinine Ratio (10-20) Glucose (70-99) mg/dl Lactate 1.6 (0.4-2.0) mmol/L Calcium (8.5-10.1) mg/dl Magnesium (1.8-2.4) mg/dl Total Bilirubin (0.2-1) mg/dl AST (15-37) U/L ALT (12-78) U/L Alkaline Phosphatase (45-117) U/L Troponin I (0-0.045) ng/ml Total Protein (6.4-8.2) gm/dl Albumin (3.4-5.0) gm/dl Globulin (2.5-4.0) gm/dl Albumin/Globulin Ratio (0.9-2) Procalcitonin (0-0.5) ng/ml COVID-19 Eval Order SARS-CoV-2 (PCR) NEGATIVE (Negative) Influenza Type A (PCR) Negative (Neg) Influenza Type B (PCR) Negative (Neg) RSV (RT-PCR) Negative (Neg) Imaging Data Radiologist's Impression: XR chest 1V portable CLINICAL HISTORY: SEPSIS COMPARISON STUDY: Chest radiograph August 21, 2018. FINDINGS: There are median sternotomy wires. Elevation of the right hemidia phragm is noted. Right basilar opacity favors atelectasis although consolidation could appear similar. There may be a trace right pleural effusion. Linear left basilar opacity favors atelectasis. There is no evidence for pulmonary edema. Cardiomediastinal silhouette is stable. IMPRESSION: 1. Elevation of the right hemidiaphragm. Right basilar opacity favors atelectasis although consolidation could appear similar. Possible trace right pleural effusion. 2. Left basilar opacity which favors atelectasis. ACT 112: Negative or not required by law. Electronically signed by: Harjinder Moreira M.D. 04/01/2020 1:[address] SCAN OF THE ABDOMEN AND PELVIS WITHOUT IV CONTRAST; CT SCAN OF THE LUMBAR SPINE CLINICAL HISTORY: Trauma. Fall with ago. COMPARISON STUDY: Lumbar spine radiographs dated 02/07/2019. Abdominal CT dated 11/21/2006. TECHNIQUE: CT scan of the abdomen and pelvis is performed from the lung bases to the proximal femora. Additionally, CT scan of the lumbar spine is performed from the lower thoracic spine to sacrum. Images for both examinations are reviewed in the axial, sagittal, and coronal planes. IV contrast was not administered for this examination. Note that the examination is performed in suboptimal fashion without IV contrast. The examination is also compromised by motion artifact, and by streak artifact from the arms which could not be elevated above the abdomen. A dose lowering technique was utilized adhering to the principles of ALARA. CT DOSE: 1254.75 mGy.cm FINDINGS: Lung bases: The patient is status post midline sternotomy. The heart is mildly enlarged and without pericardial effusion. The coronary arteries are densely calcified. Calcified mediastinal lymph nodes are partially imaged. There is airspace consolidation at the right lung base. Trace pleural effusions are noted. There is a small to moderate hiatal hernia. Liver: The unenhanced liver is normal in size, contour, and attenuation. There is no intrahepatic biliary ductal dilatation. Gallbladder: There are numerous calcified gallstones with no CT evidence of acute cholecystitis. Spleen: The spleen is enlarged measuring 17 cm in length. Pancreas: The unenhanced pancreas is moderately atrophic and grossly unremarkable. Adrenal glands: A 1.7 cm right adrenal nodule meets CT criteria for a fat- containing adenoma. The left adrenal gland is normal in appearance. Kidneys: The unenhanced kidneys are atrophic and without hydronephrosis. There are no renal calculi identified. There is no evidence of contour deforming renal mass lesion. There is nonspecific bilateral perinephric stranding. Abdominal vasculature: There is advanced atherosclerotic calcification mild ecta bryce of the abdominal aorta. Bowel: There is moderate constipation. No bowel obstruction is seen. The appendix is well-visualized and normal. Peritoneum: There is no intraperitoneal free air or abdominal ascites. There is a fat-containing umbilical hernia. Lymphadenopathy: None. Pelvic viscera: The prostate gland is enlarged and heterogeneous noting median lobe hypertrophy. The bladder wall is thickened and trabeculated indicating chronic outlet obstruction. Question mild pericystic stranding. Fluid is noted along the right inguinal canal. Skeletal structures: The skeletal structures are osteopenic. See below for discussion of the lumbar spine. There are acute right posterior 11th and 12th rib fractures, as well as acute left posterolateral 10th through 12th rib fractures. The bony pelvis and proximal femora appear intact. Degenerative change is seen in the hips. No lytic or blastic lesions are seen. LUMBAR SPINE: There is no evidence of acute fracture or malalignment. There is a chronic compression deformity of L1 with moderate loss of height and fragments retropulsed by up to 6 mm. This is similar to the 02/07/2019 radiographic examination. Vertebral body height is otherwise maintained throughout the lumbar spine. There is minimal anterolisthesis at L3-L4. Alignment is otherwise preserved. Small anterior and lateral marginal osteophytes are seen throughout. The transverse and spinous processes are intact. There is no evidence of spondylolysis. Mild facet arthropathy is seen in the lower lumbar region. There is advanced disc space narrowing at L3-L4. Mild disc space narrowing is seen at the remaining lumbar levels. The paraspinous soft tissues are within normal macdonald its. There is an approximately 6 x 3 x 6 cm hematoma identified in the left gluteal soft tissues on axial image #[address] series. IMPRESSION: 1. Suboptimal examination without IV contrast. The examination is also compromised by streak and motion artifact. 2. There is right basilar airspace consolidation, likely representing pneumonia/aspiration pneumonitis. Clinical correlation will be required and radiographic follow-up to resolution is recommended. 3. There is no evidence of solid organ injury in the abdomen or pelvis on this unenhanced examination. 4. There are acute bilateral lower rib fractures as above. 5. There is no evidence of acute fracture or malalignment involving the lumbar spine. 6. A chronic compression deformity of L1 with retropulsed fragments is similar to previous. 7. Marked splenomegaly. 8. Prostatomegaly with evidence of chronic bladder outlet obstruction. 9. There is mild pericystic stranding, as well as nonspecific bilateral perinephric stranding. Correlate clinically and with urinalysis for evidence of urinary tract infection. 10. There is an approximately 6 cm left gluteal subcutaneous soft tissue hematoma. 11. Cholelithiasis. 12. Cardiomegaly and hiatal hernia. 13. Additional findings as above. ACT 112: Negative or not required by law. Electronically signed by: Tony Reagan M.D. 04/01/2020 2:[address]AST CT DOSE: HISTORY: Altered mental status. Prior fall. TECHNIQUE: Multiaxial CT images of the head were performed without the use of intravenous contrast. Automated exposure control was utilized for this study. A dose lowering technique was utilized adhering to the principles of ALARA. Comparison: Head CT 08/21/2018. Findings: The paranasal sinuses and left mastoid air cells are clear. There are few opacified right inferior mastoid air cells. The calvarium and skull base are intact. Interval development of a small left frontal acute on chronic subdural hematoma. Mild atrophy and microvascular ischemic changes are again noted. There is no mass or hematoma. Stable mild right midline shift measuring 3 mm. The left frontal subdural fluid collection measures up to 9 mm in thickness. 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 ACT 112: Negative or not required by law. Electronically signed by: Holland Steward M.D. 04/01/2020 1:53 PM LEFT ELBOW 3 VIEWS CLINICAL HISTORY: Left elbow injury. FINDINGS: 3 views of the left elbow are obtained. No prior studies are available for comparison at the time of dictation. The skeletal structures are osteopenic. There is no radiographic evidence of acute fracture. The joint spaces appear maintained. No joint effusion is identified. Soft tissue edema is present around the elbow. There is atherosclerotic calcification of the regional arteries. IMPRESSION: Soft tissue swelling with no radiographic evidence of fracture. Electronically signed by: Tony Reagan M.D. 04/01/2020 1:15 PM ECG Data Attestation: I personally reviewed and interpreted this ECG as follows: Indication: + weakness Rate (beats per minute): 51 Rhythm: + sinus bradycardia ECG Intervals/blocks: + First degree AV block, + Normal QRS and + Normal QT ECG [place]: + Left axis deviation ECG ST segments: + Normal ST segments MDM Narrative This is an elderly male who presents with his son after being evaluated in his doctor's office this morning and found to be hypotensive. Patient did sustain a fall 4 days ago. Patient ill-appearing on presentation although initial blood pressure here reassuring. Patient was found to be mildly bradycardic although stated he has been told of this in the past. A septic evaluation was started on the patient due to the concern for hypotension. Patient sent for imaging due to recent fall and complaints of pain. Patient found to be septic, with likely sekou rce of a right lower lobe pneumonia. No history of aspiration. UA pending at the time of my discussion with the hospitalist. Patient found to have an elevated lactic and a low pro calcitonin. Patient found to have acute kidney injury on top of his chronic kidney disease. Patient covered with broad- spectrum antibiotics. Patient had no recurrent hypotension, however was given IV fluid resuscitation at 30 mL/KG based on ideal body weight as a precaution. Patient found on CT to have both acute and chronic subdural hematoma. Patient and family were not aware of any prior injury to the head or bleeding around the brain. Given that his fall was 4 days ago, I do not feel the acute subdural mention by radiology would require intervention and subsequent transfer at this time. Patient denies any worsening headaches, vision changes, nausea or vomiting. Patient had no focal neuro deficit on exam. Case discussed with hospitalist for additional evaluation and management. Patient and family kept aware of all results and were in agreement with plan. An order was placed for continuous cardiac monitoring. The monitor shows a rate of _52_ with sinus bradycardia_ rhythm. Impression & Plan Sepsis, Anemia, Subdural hematoma, Elevated troponin, Acute kidney injury, Hematoma, Pneumonia Discharge Plan Visit Data Chief Complaint: Hypotension Stated Complaint: LOW BLOOD PRESSURE ED Provider: Neha Damico Discharge Problem: Sepsis, Anemia, Subdural hematoma, Elevated troponin, Acute kidney injury, Hematoma, Pneumonia Patient Disposition: Admitted As Inpatient Discharge Instructions Interventions: ED Discharge Assessment Last Done: 04/01/20 18:25 Discharge Problem: Sepsis Qualifiers: Sepsis type: sepsis due to unspecified organism Sepsis acute organ dysfunction status: with acute organ dysfunction Severe sepsis acute organ dysfunction type: acute renal failure Acute renal failure type: unspecified Severe sepsis shock status: without septic shock Qualified Code(s): A41.9 - Sepsis, unspecified organism Anemia Qualifiers: Anemia type: unspecified type Qualified Code(s): D64.9 - Anemia, unspecified Pneumonia Qualifiers: Pneumonia type: due to unspecified organism Laterality: right Lung location: l ower lobe of lung Qualified Code(s): J18.9 - Pneumonia, unspecified organism
[2020-04-01 13:14] LABS: Albumin Level 2.9 gm/dl (3.4-5.0); BUN Creatinine Ratio 13.8 (10-20); Calcium 9.1 mg/dl (8.5-10.1); Creatinine Clr Calc Pharmacy 13.4 ml/min; Est GFR (African American) 13.6; Est GFR (Non-African American) 11.7; Magnesium 1.5 mg/dl (1.8-2.4)
[2020-04-01 13:16] LABS: ALC (manual) 0.67 K/uL (1.2-3.4); Eosinophils # (manual) 0.47 K/uL (0-0.5); Eosinophils % (manual) 1.8 %; Hematocrit (blood only) 26.7 % (42-52); Hemoglobin 8.8 g/dL (14.0-18.0); Hypogranular Neutrophils 1+; Lymphocytes # (manual) 0.67 K/uL (1.2-3.4); Lymphocytes % (manual) 2.6 %; Mean Corpuscular Hemoglobin 31.5 pg (25-34); Mean Corpuscular Volume 95.7 fL (80-100); Mean Platelet Volume 13.1 fL (7.4-10.4); Metamyelocytes # (manual) 0.23 K/uL (0-0); Metamyelocytes % (manual) 0.9 %; Monocytes # (manual) 2.48 K/uL (0.11-0.59); Monocytes % (manual) 9.6 %; Neutrophils % (manual) 85.1 %; Platelet Count 142 K/uL (130-400); Platelet Estimate Decreased (Normal); RDW Coefficient of Variation 18.7 % (11.5-14.5); RDW Standard Deviation 65.4 fL (36.4-46.3); Red Blood Count 2.79 M/uL (4.7-6.1); White Blood Count 25.85 K/uL (4.8-10.8)
--- NOTE | 2020-04-01 13:16 | XRay Report ---
LEFT ELBOW 3 VIEWS CLINICAL HISTORY: Left elbow injury. FINDINGS: 3 views of the left elbow are obtained. No prior studies are available for comparison at th e time of dictation. The skeletal structures are osteopenic. There is no radiographic evidence of acu te fracture. The joint spaces appear maintained. No joint effusion is identified. Soft tissue edema i s present around the elbow. There is atherosclerotic calcification of the regional arteries. IMPRESSION: Soft tissue swelling with no radiographic evidence of fracture. Electronically signed by: Tony Reagan M.D. 04/01/2020 1:15 PM
--- NOTE | 2020-04-01 13:17 | XRay Report ---
XR chest 1V portable CLINICAL HISTORY: SEPSIS COMPARISON STUDY: Chest radiograph August 21, 2018. FINDINGS: There are median sternotomy wires. Elevation of the right hemidiaphragm is noted. Right bas ilar opacity favors atelectasis although consolidation could appear similar. There may be a trace rig ht pleural effusion. Linear left basilar opacity favors atelectasis. There is no evidence for pulmona ry edema. Cardiomediastinal silhouette is stable. IMPRESSION: 1. Elevation of the right hemidiaphragm. Right basilar opacity favors atelectasis although consolidat ion could appear similar. Possible trace right pleural effusion. 2. Left basilar opacity which favors atelectasis. ACT 112: Negative or not required by law. Electronically signed by: Harjinder Moreira M.D. 04/01/2020 1:15 PM
[2020-04-01 13:27] LABS: Albumin Globulin Ratio 0.6 (0.9-2); Bilirubin,Total 0.8 mg/dl (0.2-1); Globulin 4.9 gm/dl (2.5-4.0); Total Protein 7.8 gm/dl (6.4-8.2); Troponin I 0.469 ng/ml (0-0.045)
[2020-04-01] MEDS ORDERED: VANCOMYCIN HCL 1,500 MG in SODIUM CHLORIDE 0.9% 500 ML IV ONE (13:32)
[2020-04-01] MEDS ORDERED: VANCOMYCIN CONSULT ACTIVE PRN ×2 (13:32)
[2020-04-01] MEDS ORDERED: CEFEPIME 2,000 MG/20 ML VIAL IV STA (13:32)
--- NOTE | 2020-04-01 13:54 | CT Scan Report ---
HEAD CT NONCONTRAST CT DOSE: HISTORY: Altered mental status. Prior fall. TECHNIQUE: Multiaxial CT images of the head were performed without the use of intravenous contrast. A utomated exposure control was utilized for this study. A dose lowering technique was utilized adheri ng to the principles of ALARA. Comparison: Head CT 08/21/2018. Findings: The paranasal sinuses and left mastoid air cells are clear. There are few opacified right i nferior mastoid air cells. The calvarium and skull base are intact. Interval development of a small l eft frontal acute on chronic subdural hematoma. Mild atrophy and microvascular ischemic changes are a gain noted. There is no mass or hematoma. Stable mild right midline shift measuring 3 mm. The left fr ontal subdural fluid collection measures up to 9 mm in thickness. 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 ACT 112: Negative or not required by law. Electronically signed by: Holland Steward M.D. 04/01/2020 1:53 PM
--- NOTE | 2020-04-01 14:07 | CT Scan Report ---
CT SCAN OF THE ABDOMEN AND PELVIS WITHOUT IV CONTRAST; CT SCAN OF THE LUMBAR SPINE CLINICAL HISTORY: Trauma. Fall with ago. COMPARISON STUDY: Lumbar spine radiographs dated 02/07/2019. Abdominal CT dated 11/21/2006. TECHNIQUE: CT scan of the abdomen and pelvis is performed from the lung bases to the proximal femora. Additionally, CT scan of the lumbar spine is performed from the lower thoracic spine to sacrum. Imag es for both examinations are reviewed in the axial, sagittal, and coronal planes. IV contrast was not administered for this examination. Note that the examination is performed in suboptimal fashion with out IV contrast. The examination is also compromised by motion artifact, and by streak artifact from the arms which could not be elevated above the abdomen. A dose lowering technique was utilized adheri ng to the principles of ALARA. CT DOSE: 1254.75 mGy.cm FINDINGS: Lung bases: The patient is status post midline sternotomy. The heart is mildly enlarged and without p ericardial effusion. The coronary arteries are densely calcified. Calcified mediastinal lymph nodes a re partially imaged. There is airspace consolidation at the right lung base. Trace pleural effusions are noted. There is a small to moderate hiatal hernia. Liver: The unenhanced liver is normal in size, contour, and attenuation. There is no intrahepatic emil iary ductal dilatation. Gallbladder: There are numerous calcified gallstones with no CT evidence of acute cholecystitis. Spleen: The spleen is enlarged measuring 17 cm in length. Pancreas: The unenhanced pancreas is moderately atrophic and grossly unremarkable. Adrenal glands: A 1.7 cm right adrenal nodule meets CT criteria for a fat-containing adenoma. The lef t adrenal gland is normal in appearance. Kidneys: The unenhanced kidneys are atrophic and without hydronephrosis. There are no renal calculi i dentified. There is no evidence of contour deforming renal mass lesion. There is nonspecific bilatera l perinephric stranding. Abdominal vasculature: There is advanced atherosclerotic calcification mild ectasia of the abdominal aorta. Bowel: There is moderate constipation. No bowel obstruction is seen. The appendix is well-visualized and normal. Peritoneum: There is no intraperitoneal free air or abdominal ascites. There is a fat-containing umbi lical hernia. Lymphadenopathy: None. Pelvic viscera: The prostate gland is enlarged and heterogeneous noting median lobe hypertrophy. The bladder wall is thickened and trabeculated indicating chronic outlet obstruction. Question mild peric ystic stranding. Fluid is noted along the right inguinal canal. Skeletal structures: The skeletal structures are osteopenic. See below for discussion of the lumbar s pine. There are acute right posterior 11th and 12th rib fractures, as well as acute left posterolater al 10th through 12th rib fractures. The bony pelvis and proximal femora appear intact. Degenerative c hange is seen in the hips. No lytic or blastic lesions are seen. LUMBAR SPINE: There is no evidence of acute fracture or malalignment. There is a chronic compression deformity of L1 with moderate loss of height and fragments retropulsed by up to 6 mm. This is similar to the 02/07/2019 radiographic examination. Vertebral body height is otherwise maintained throughout the lumbar spine. There is minimal anterolisthesis at L3-L4. Alignment is otherwise preserved. Small anterior and lateral marginal osteophytes are seen throughout. The transverse and spinous processes are intact. There is no evidence of spondylolysis. Mild facet arthropathy is seen in the lower lumbar region. There is advanced disc space narrowing at L3-L4. Mild disc space narrowing is seen at the re maining lumbar levels. The paraspinous soft tissues are within normal limits. There is an approximate ly 6 x 3 x 6 cm hematoma identified in the left gluteal soft tissues on axial image #[address] of the abdom inal CT series. IMPRESSION: 1. Suboptimal examination without IV contrast. The examination is also compromised by streak and andrea on artifact. 2. There is right basilar airspace consolidation, likely representing pneumonia/aspiration pneumoniti s. Clinical correlation will be required and radiographic follow-up to resolution is recommended. 3. There is no evidence of solid organ injury in the abdomen or pelvis on this unenhanced examination . 4. There are acute bilateral lower rib fractures as above. 5. There is no evidence of acute fracture or malalignment involving the lumbar spine. 6. A chronic compression deformity of L1 with retropulsed fragments is similar to previous. 7. Marked splenomegaly. 8. Prostatomegaly with evidence of chronic bladder outlet obstruction. 9. There is mild pericystic stranding, as well as nonspecific bilateral perinephric stranding. Correl ate clinically and with urinalysis for evidence of urinary tract infection. 10. There is an approximately 6 cm left gluteal subcutaneous soft tissue hematoma. 11. Cholelithiasis. 12. Cardiomegaly and hiatal hernia. 13. Additional findings as above. ACT 112: Negative or not required by law. Electronically signed by: Tony Reagan M.D. 04/01/2020 2:06 PM
--- NOTE | 2020-04-01 14:38 | Electrocardiogram Report ---
Test Reason : Blood Pressure : / mmHG Vent. Rate : 051 BPM Atrial Rate : 051 BPM P-R Int : 204 ms QRS Dur : 090 ms QT Int : 478 ms P-R-T Axes : 000 -30 030 degrees QTc Int : 440 ms Sinus bradycardia Left axis deviation RSR' or QR pattern in V1 suggests right ventricular conduction delay Abnormal ECG When compared with ECG of 21-AUG-2018 07:48, No significant change Confirmed by Manuel Mena ([id number]) on 04/01/2020 2:37:42 PM Referred By: Confirmed By:Manuel Mena
[2020-04-01] MEDS: MAGNESIUM SULFATE / D5W 1 GM/100 ML BAG IV SCH ×2 (14:42→14:56)
--- NOTE | 2020-04-01 15:01 | History & Physical Report ---
Date of Service April 01, 2020 Assessment & Plan (1) Sepsis associated hypotension: Suspected with WBC 25.85, temp 35.8 C Unclear source, possible pneumonia with consolidation on CT A/P and elevated procalcitonin. Cepheid negative for SARS-CoV-2/influenza/RSV. UA pending - considered more likely with pericystic stranding. Continue broad-spectrum antibiotics pending blood and urine cultures. Can discontinue vancomycin if MRSA nares swab negative. Hold all antihypertensives at current time due to hypotension -holding furosemide, enalapril, amlodipine, isosorbide mononitrate. (2) Subdural hematoma: Discussed with neurosurgery Dr Vela ([facility] [place]). Plan for CT head @ 24 hours. If enlarging will need to be rediscussed with [facility]. [facility] neurosurgery to arrange follow-up. Discussed with radiology and midline shift is not new however subdural is new since his July 2018 scan. Doubtful symptomatic from this although difficult to be sure with concurrent infection. No acute vision changes or focal motor/sensory neurology on exam. Avoid NSAIDs, antiplatelets, anticoagulation. Stroke assessment every shift (3) Multiple rib fractures involving four or more ribs: Incentive spirometry every 4 hourly while awake. (4) Hematoma: Traumatic left gluteal hematoma 6 x 3 x [address] imaging. Son reports this is improving since his fall. No cellulitic changes or skin breakdown. Avoid NSAIDs, antiplatelets, anticoagulation. Monitor CBC (5) Elevated troponin: In setting of known coronary artery disease with previous MT in 1996 and stent placement with subsequent CABG x3 in 2007. Currently not on antiplatelets due to immune thrombocytopenia and recurrent GI bleeds. Not taking beta-blockers suspect due to bradycardia We will hold atorvastatin (6) Acute kidney injury: UA pending. Unable to rule out pyelonephritis on left side due to significant pain in this area secondary to fall. Bilateral perinephric stranding nonspecific but could indicate pyelonephritis. No obstructive cause seen on CT. Likely significantly prerenal with dehydration and will continue with gentle rehydration given history of ischemic cardiomyopathy on Lasix daily (suspect some degree of heart failure). (7) Hypomagnesemia: Magnesium sulfate 2 g IV given in ER (8) Normocytic anemia: 1 g/dL drop from his baseline. Possibly related to hematoma. Monitor CBC in a.m. (9) Diabetes mellitus: HbA1c 8.6 in June 2017. We will repeat with a.m. labs. Consult pharmacy for glycemic control. 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 In absence of evidence of hormonal hypersecretion and meeting CT criteria for fat-containing adenoma with size 1.[address] a CT in 1 year versus no monitoring. No acute work-up required. (11) Lumbar compression fracture: Chronic. No acute work-up or treatment required. (12) Chronic ITP (idiopathic thrombocytopenia): Monitor platelets (13) DVT prophylaxis: Anticoagulation contraindicated in setting of subdural hematoma. SCDs Admission and Anticipated Discharge Date Admission Date: April 01, 2020 History of Present Illness Chief Complaint: Generalized weakness and fatigue Primary Care Provider: Mahesh Hackett MD Gideon Riggs is an 84-year-old right-handed male who presents to the ER with fatigue. Patient is alert and orientated x3 however defers most of the history to his son at bedside. Reports ongoing progressively worse fatigue for the past 2 months. 4 days ago when he was walking up the stairs he got to the top and was very fatigued he had to sit down. When doing this he fell onto his left si de and slid down 1 flight of stairs. After this his symptoms have been getting much worse with generalized bilateral weakness and fatigue. He denies any lateralizing weakness. He denies any vision changes. 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 No change in his hearing or speech. He denies taking any NSAIDs, antiplatelets or anticoagulation. He denies any urinary symptoms, cough, aspirations, fever, chills. He does not have a recurrent history of falling and his last fall was approximately 2 years ago In the ER CT head showed interval development of a small left frontal acute on chronic subdural hematoma. This was not present on his scan in July 2018 although the mild right midline shift was present on this previous CT. He was also noted to have significant left-sided flank and hip pain with hematoma in this area which his son reports is improving. He was noted to have a significant leukocytosis of 25.85 with mainly neutrophilia concerning for infection therefore was treated with IV cefepime for empiric sepsis coverage with potential source of pneumonia with bilateral basilar opacities noted on chest x-ray and high risk of this given rib fractures also seen on CT. He was referred to medicine for admission and ongoing management of sepsis. Allergies Allergy/AdvReac Type Severity Reaction Status Date / Time No Known Drug Allergies Allergy Verified 04/01/20 14:33 Home Medications Medication Instructions Recorded Confirmed Type isosorbide mononitrate 120 mg 120 mg PO QAM #90 tab 10/09/19 04/01/20 Rx tablet,extended release 24 hr nitroglycerin 0.4 mg sublingual 0.4 mg SUBLINGUAL UD #25 tab 10/09/19 04/01/20 Rx tablet meclizine 25 mg tablet 25 mg PO TID PRN #90 tab 11/02/19 04/01/20 Rx pantoprazole 40 mg tablet,delayed 40 mg PO BID #180 tab 01/30/20 04/01/20 Rx release amlodipine 10 mg PO QAM 04/01/20 04/01/20 History atorvastatin 40 mg PO HS 04/01/20 04/01/20 History calcitriol 0.5 mcg capsule 0.5 mcg PO 3XWK #36 cap 04/01/20 04/01/20 Rx enalapril maleate 5 mg PO QAM 04/01/20 04/01/20 History furosemide 20 mg PO QAM 04/01/20 04/01/20 History insulin glargine [Lantus Solostar 14 - 16 unit SUBCUT QAM 04/01/20 04/01/20 History U-100 Insulin] insulin lispro [Humalog KwikPen 8 unit SUBCUT AC 04/01/20 04/01/20 History Insulin] Past Med/Surg History Medical History (Updated 04/02/20 @ 12:13 by Michael David MD) ACS (acute coronary syndrome) Acute back pain Anemia Anemia due to GI blood loss Arteriosclerotic cardiovascular disease (ASCVD) Atrial fibrillation Chronic ITP (idiopathic thrombocytopenia) CKD (chronic kidney disease), stage IV Diabetes mellitus Heart attack Hyperlipidemia Hypertension Lumbar compression fracture MGUS (monoclonal gammopathy of unknown significance) NSTEMI, initial episode of care Secondary hyperparathyroidism Sensorineural hearing loss (SNHL) of both ears Sick sinus syndrome Spondylisthesis Thrombocytopenia Surgical History H/O heart bypass surgery History of hernia repair Hx of CABG Family History Brother Cancer Social History Smoking Status: Never smoker Hx Alcohol Use: No Hx Substance Use: No Preferred Language: Yi Communication Ability: Effective Visual Impairment: Limited Hearing Ability: Normal Counter Supply Worker Required: No Beliefs That Will Affect Care: None marital status: Current Living Situation: Family current occupational status: retired Feels Safe at Home: Yes Safety Concerns: Feels Safe At This Time Childhood Exposure to Second-Hand Smoke: No caffeine: Yes Dental Care, Regularly: No Physical Activity Frequency: Does not Exercise Seatbelt Use: never Sunscreen Use: No Assistive Devices: None Review of Systems Review of Systems: All systems reviewed & are unremarkable except as noted in HPI & below Constitutional: + body aches, + fatigue, + malaise and + weight loss; no fever and no chills Eyes: no worsening vision (Chronic decreased vision in right eye but able to make out number of fingers at 6 feet) Respiratory: + pain on inspiration; no cough, no chest congestion, no change in sputum and no hemoptysis Gastrointestinal: + early satiety; no abdominal pain, no belching, no heartburn, no vomiting, no pain with swallowing, no dysphagia, no blood in stools and no melena Genitourinary: no problem reported Musculoskeletal: + back pain; no radicular pain Physical Exam Constitutional: well developed and + acute distress (Left buttocks pain); + not well nourished Eyes: normal visual song by confrontation, PERRL (Left, unable to examine right due to previous surgery), EOM intact bilaterally and + abnormal pupil size (Right pupil with normal shape and size due to previous surgery) Able to count fingers at 6 feet with both eyes although notably worse on his right eye with blurring which he reports is chronic and at baseline. ENMT: Ears: no external ear abnormality Nose: no external nose abnormality Mouth: + dry oral mucous membranes Neck: trachea midline, no thyromegaly Respiratory: normal respiratory effort and able to speak in complete sentences; no respiratory distress, no labored breathing, no retractions, does not use accessory muscles, no cough, normal respiratory pattern, not tachypneic and expiratory phase not prolonged Auscultation: + rhonchi (Bilateral throughout); no wheezes Cardiovascular: Rate/Rhythm: regular rhythm and + bradycardic Heart Sounds: no murmur Vessels: no JVD Extremities: normal capillary refill Gastrointestinal (Abdomen): normal bowel sounds, soft, nontender, no hepatosplenomegaly Musculoskeletal: no cyanosis or clubbing, extremities motor strength 5/5 Skin: + ecchymosis (Of the left buttocks) Neurologic: moves all extremities and awake; no focal motor deficits and not confused Psychiatric: A+Ox3, euthymic affect Genitourinary: + CVA tenderness (Left although also with ecchymosis in this area) Results & Data Results & Data ([facility]) Vital Signs (Past 12 Hours) Vital Signs Temp Pulse Resp BP Pulse Ox 04/01/20 12:46 24 96 04/01/20 12:19 35.9 C L 82 22 115/53 L [address] NONCONTRAST Impression: Interval development of a small left frontal acute on chronic subdural hematoma. XR chest 1V portable IMPRESSION: 1. Elevation of the right hemidiaphragm. Right basilar opacity favors atelectasis although consolidation could appear similar. Possible trace right pleural effusion. 2. Left basilar opacity which favors atelectasis. LEFT ELBOW 3 VIEWS IMPRESSION: Soft tissue swelling with no radiographic evidence of fracture. CT SCAN OF THE ABDOMEN AND PELVIS WITHOUT IV CONTRAST; CT SCAN OF THE LUMBAR SPINE IMPRESSION: 1. Suboptimal examination without IV contrast. The examination is also compromised by streak and motion artifact. 2. There is right basilar airspace consolidation, likely representing pneumonia/aspiration pneumonitis. Clinical correlation will be required and radiographic follow-up to resolution is recommended. 3. There is no evidence of solid organ injury in the abdomen or pelvis on this unenhanced examination. 4. There are acute bilateral lower rib fractures as above. 5. There is no evidence of acute fracture or malalignment involving the lumbar spine. 6. A chronic compression deformity of L1 with retropulsed fragments is similar to previous. 7. Marked splenomegaly. 8. Prostatomegaly with evidence of chronic bladder outlet obstruction. 9. There is mild pericystic stranding, as well as nonspecific bilateral perinephric stranding. Correlate clinically and with urinalysis for evidence of urinary tract infection. 10. There is an approximately 6 cm left gluteal subcutaneous soft tissue hematoma. 11. Cholelithiasis. 12. Cardiomegaly and hiatal hernia. 13. Additional findings as above. Medications Administered ER medications given: NSS 1 hour bolus Cefepime 2 g IV Vancomycin 1500 mg IV Magnesium sulfate 2 g IV ECG Indication: SOB/dyspnea Rate (beats per minute): 51 Rhythm: sinus bradycardia Findings: + other (Right ventricular conduction delay); no acute ischemic change Comparison ECG Date: from (August 21, 2018) Change: no significant change Code Status & VTE Plan Code Status DNR - he wishes to have all other treatment outside of cardiac arrest VTE Prophylaxis Plan VTE Prophylaxis will be ordered: Yes Reason for no VTE drug order: Contraindicated PG Care Time/CCT Total # of Minutes Spent Total Time Spent with Patient: Total time spent is greater than 50% in coordination of care (as documented) at patient's floor/unit and/or counseling patient: Coding Level of Care Code 12384 Initial Inpt Care Lvl 3 Diagnoses Sepsis associated hypotension A41.9; I95.9 Subdural hematoma S06.5X9A Multiple rib fractures involving four or more ribs S22.49XA Hematoma T14.8XXA Elevated troponin R77.8 Acute kidney injury N17.9 Hypomagnesemia E83.42 Normocytic anemia D64.9 Diabetes mellitus E11.22; N18.4; Z79.4 Chronic kidney disease stage: stage 4 (severe) Diabetes mellitus complication detail: with chronic kidney disease Diabetes mellitus complication status: with kidney complications Diabetes mellitus fpc insulin use: with bed bug exterminator use Diabetes mellitus type: type 2 Adrenal incidentaloma E27.8 Lumbar compression fracture S32.000A Chronic ITP (idiopathic thrombocytopenia) D69.3 DVT prophylaxis Z29.9 (1) Diabetes mellitus Chronic kidney disease stage: stage 4 (severe) Diabetes mellitus complication detail: with chronic kidney disease Diabetes mellitus complication status: with kidney complications Diabetes mellitus bed bug exterminator insulin use: with fpc use Diabetes mellitus type: type 2 Qualified Code(s): E11.22 - Type 2 diabetes mellitus with diabetic chronic kidney disease; N18.4 - Chronic kidney disease, stage 4 (severe); Z79.4 - emt intermediate (current) use of insulin
[2020-04-01 15:19] LABS: Influenza A virus by PCR Negative (Neg); Influenza B virus by PCR Negative (Neg); RSV by PCR Negative (Neg); SARS CoV2 RNA(COVID-19) InHosp NEGATIVE (Negative)
[2020-04-01] MEDS ORDERED: POLYETHYLENE (MIRALAX) 17 GM PACK PO PRN (19:04)
[2020-04-01] MEDS ORDERED: ONDANSETRON INJ 2 MG/ML 2 ML VIAL IV PRN (19:04)
[2020-04-01] MEDS ORDERED: ACETAMINOPHEN 325 MG TAB PO PRN (19:04)
[2020-04-01 19:06] LABS: Appearance Urine Cloudy (Clear); Bacteria Urine Automated Negative (Negative); Bilirubin Urine Negative (Negative); Blood Urine Trace (Negative); Color Urine Yellow; Glucose Urine UA Negative (Negative); Ketones Urine Negative (Negative); Leukocyte Esterase Urine Trace (Negative); Nitrite Urine Negative (Negative); Protein Urine Trace (Negative); RBC Urine Automated 0-4 /hpf (0-4); Specific Gravity Urine 1.019 (1.000-1.030); Urobilinogen Urine Negative (Negative)
[2020-04-01 19:25] LABS: Amorphous Sediment Urine Present (None Prsent)
--- NOTE | 2020-04-01 19:26 | Pharmacy Report ---
Pharmacy Abx Dose Short Note - Date of Service April 01, 2020 - Assessment & Plan Assessment 84 year old M receiving vancomycin for treatment of AMS/ sepsis Day # 1 of antimicrobial therapy. Plan Vancomycin * vancomycin 1500 mg IV x 1 (20 mg/kg) * due to KYLE and creatinine clearance of 13 mL/min, check random in the morning Pharmacy will continue to follow and will adjust dose/frequency as necessary. Thank you.
[2020-04-01] MEDS ORDERED: CEFEPIME CONSULT ACTIVE PRN (20:37)
[2020-04-01] MEDS ORDERED: SODIUM CHLORIDE 0.9% 1000ML 500 ML IV ONE (20:39)
[2020-04-01] MEDS ORDERED: AZITHROMYCIN 500 MG in DEXTROSE 5% 250 ML IV ONE (21:00)
[2020-04-01] MEDS ORDERED: CARBOHYDRATES FOR HYPOGLYCEMIA PO PRN (21:43)
[2020-04-01] MEDS ORDERED: GLUCOSE 10 TABS/TUBE PO PRN (21:43)
[2020-04-01] MEDS ORDERED: GLUCAGON FOR INJ 1 MG VIAL SQ PRN (21:43)
[2020-04-01] MEDS ORDERED: DEXTROSE 50% 50 ML SYRINGE IV PRN (21:43)
[2020-04-01] MEDS ORDERED: GLUCOSE 40% GEL 15 GM TUBE PO PRN (21:43)
[2020-04-01] MEDS: PANTOprazole 40 MG TAB PO SCH (22:03)
[2020-04-01] MEDS ORDERED: PHARMACY GLYCEMIC MGMT CONSULT PRN (22:12)
[2020-04-01] MEDS: INSULIN ASPART 100 UNITS/ML 3 ML PEN SC SCH (23:38)
[2020-04-01] MEDS: SODIUM CHLORIDE 0.9% 1000ML 1,000 ML IV SCH (23:40)
[2020-04-02 07:37] LABS: Hematocrit (blood only) 19.9 % (42-52); Hemoglobin 6.5 g/dL (14.0-18.0); Mean Corpuscular Hemoglobin 31.6 pg (25-34); Mean Corpuscular Hgb Conc 32.7 g/dL (32-36); Mean Corpuscular Volume 96.6 fL (80-100); Mean Platelet Volume 12.5 fL (7.4-10.4); Platelet Count 112 K/uL (130-400); RDW Coefficient of Variation 18.8 % (11.5-14.5); RDW Standard Deviation 65.7 fL (36.4-46.3); Red Blood Count 2.06 M/uL (4.7-6.1); White Blood Count 27.77 K/uL (4.8-10.8)
[2020-04-02 07:44] LABS: Anisocytosis Present; Basophilic Stippling 1+; Basophils # (auto) 0.01 K/uL (0-0.2); Dohle Bodies 1+; Eosinophils % (auto) 1.4 %; Giant Platelets 1+; Hypogranular Neutrophils 1+; Immature Granulocytes # (auto) 0.26 K/uL (0.00-0.02); Immature Granulocytes % (auto) 0.9 %; Lymphocytes # (auto) 1.94 K/uL (1.2-3.4); Monocytes % (auto) 18.7 %; Neutrophils # (auto) 19.96 K/uL (1.4-6.5); Polychromasia 1+
[2020-04-02] MEDS ORDERED: SODIUM CHLORIDE 0.9% 250 ML IV PRN (07:46)
[2020-04-02] MEDS: SODIUM CHLORIDE 0.9% 1000ML 1,000 ML IV SCH (08:03)
[2020-04-02 08:05] LABS: Albumin Level 2.1 gm/dl (3.4-5.0); BUN Creatinine Ratio 15.3 (10-20); Calcium 8.1 mg/dl (8.5-10.1); Creatinine Clr Calc Pharmacy 15.1 ml/min; Est GFR (African American) 15.7; Est GFR (Non-African American) 13.6; Potassium 4.5 mmol/L (3.5-5.1)
[2020-04-02] MEDS: AZITHROMYCIN 250 MG TAB PO SCH (08:06)
[2020-04-02] MEDS: CALCITRIOL 0.25 MCG CAPSULE PO SCH (08:06)
[2020-04-02] MEDS: PANTOprazole 40 MG TAB PO SCH ×2 (08:06→21:04)
[2020-04-02] MEDS: INSULIN GLARGINE SOLOSTAR 100 UNITS/ML 3 ML PEN SC SCH (08:08)
[2020-04-02] MEDS: INSULIN ASPART 100 UNITS/ML 3 ML PEN SC SCH ×4 (08:09→21:04)
[2020-04-02 08:14] LABS: Albumin Globulin Ratio 0.6 (0.9-2); Bilirubin,Total 0.5 mg/dl (0.2-1); Globulin 3.8 gm/dl (2.5-4.0); Total Protein 5.9 gm/dl (6.4-8.2); Troponin I 0.245 ng/ml (0-0.045)
--- NOTE | 2020-04-02 08:27 | Hospitalist Progress Note ---
Date of Service April 02, 2020 Assessment & Plan (1) Normocytic anemia: Hb dropped further from 8.8 to 6.5 suspect that drop in Hb is due to blood loss from 6cm hematoma in left gluteal region the 8.8 on admission may have been falsely elevated due to dehydration and volume contraction transfused two units today, no issues repeat Hb is 8.8, BP stable repeat H/H in the morning no melena or other signs of bleeding (2) Acute kidney injury: No obstructive cause seen on CT. Likely significantly prerenal with dehydration and anemia Cr improving, down to 3.5 this evening, making a lot of urine so he is non- oliguric electrolytes stable metabolic acidosis, HCO3 up to 19 from 18 continue Na bicarb 75mEq 1/2 NSS at 100cc/hr repeat labs in the AM (3) Sepsis associated hypotension: Suspected with WBC 25.85, temp 35.8 C Unclear source, possible pneumonia with consolidation on CT A/P and elevated procalcitonin. Cepheid negative for SARS-CoV-2/influenza/RSV. could be UTI no longer hypotensive, BP is normal to elevated today, lactic acid down Continue broad-spectrum antibiotics today re-evaluate tomorrow and follow up culture results (4) Subdural hematoma: repeat CT head delayed due to getting blood he is oriented, no headache, no changes in vision, he is alert can repeat CT head this evening per family, he hit his head 6 months ago, this might be the etiology no recent head trauma (5) Multiple rib fractures involving four or more ribs: Incentive spirometry every 4 hourly while awake. pain is controlled (6) Hematoma: Traumatic left gluteal hematoma 6 x 3 [address] imaging. Son reports this is improving since his fall. No cellulitic changes or skin breakdown. Avoid NSAIDs, antiplatelets, anticoagulation. as mentioned above, Hb dropped to 6.5 transfused two units and Hb up to 8.8 (7) Chronic ITP (idiopathic thrombocytopenia): platelets 112 today (8) Lumbar compression fracture: Chronic. No acute work-up or treatment required. 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 In absence of evidence of hormonal hypersecretion and meeting CT criteria for fat-containing adenoma with size 1.7 cm could consider a CT in 1 year versus no monitoring. No acute work-up required. (10) Diabetes mellitus: Consult pharmacy for glycemic control. daughter in law requesting educator consult (11) Elevated troponin: In setting of known coronary artery disease with previous PR in 1996 and stent placement with subsequent CABG x3 in 2007. Currently not on antiplatelets due to immune thrombocytopenia and recurrent GI bleeds. no chest pain, likely elevated due to hypotension and sepsis no further work up (12) Hypomagnesemia: Magnesium sulfate 2 g IV given in ER (13) DVT prophylaxis: Anticoagulation contraindicated in setting of subdural hematoma. SCDs Admission and Anticipated Discharge Date Admission Date: April 01, 2020 Subjective patient says he is feeling better this morning breathing easier, ate entire breakfast c/o some pain in left hip and left lower back, denies other pain denies headache, he is speaking clearly, no confusion reviewed chart reviewed labs this morning, Hb down to 6.5, noted to have 6cm left gluteal hematoma, likely cause of drop in Hb he consented for transfusion for two units of PRBC, said he had a transfusion 5 years ago, no issues his Cr is improved slightly at 3.8 from 4.4, K is 4.5, HCO3 18 (same as yesterday) discussed plans for repeat CT head at noon, he agrees discussed code status with him and family, he wants to be full code, changed this in the computer Review of Systems Review of Systems: All systems reviewed & are unremarkable except as noted in Subjective Constitutional: + fatigue and + weakness; no fever, no chills and no sweats Respiratory: no cough, no dyspnea and no dyspnea on exertion Cardiovascular: no chest pain and no edema Gastrointestinal: no abdominal pain, no nausea, no vomiting, no constipation and no diarrhea/loose stools Musculoskeletal: + back pain Neurologic: + unsteadiness and + falls; no tremor(s) and no seizure-like activity Physical Exam Constitutional: WD/WN, vitals as above + frail appearing and comfortable Neck: trachea midline, no thyromegaly Respiratory: normal respiratory effort, lungs clear to auscultation Cardiovascular: RRR, no murmur, no edema Gastrointestinal (Abdomen): normal bowel sounds, soft, nontender, no hepatosplenomegaly Musculoskeletal: Head/Neck/Chest: normocephalic and neck supple Extremities: extremities normal to inspection and + abnormal strength (generalized weakness); no cyanosis, no clubbing and no petechiae Skin: no rashes, warm and dry Neurologic: normal touch/pain/proprioception, CN's II-XI intact bilaterally, moves all extremities and awake; no focal motor deficits Psychiatric: A+Ox3, euthymic affect Lymphatic: no cervical or axillary lymphadenopathy Results & Data Results & Data ([facility]) Vital Signs (Past 12 Hours) Vital Signs Temp Pulse Pulse Resp BP Pulse Ox 04/02/20 07:53 37.1 C 60 16 114/61 95 04/02/20 03:48 36.5 C 64 18 116/52 L 98 04/02/20 01:29 56 L 04/02/20 00:36 36.4 C L 56 L 18 92/48 L 95 Laboratory Results Laboratory Results - last 24 hr 04/01/20 04/01/20 04/01/20 12:40 12:40 12:40 WBC 25.85 H RBC 2.79 L Hgb 8.8 L Hct 26.7 L MCV 95.7 MCH 31.5 MCHC 33.0 RDW Std Deviation 65.4 H RDW Coeff of Carlos 18.7 H Plt Count 142 MPV 13.1 H Immature Gran % (Auto) Neut % (Auto) Lymph % (Auto) Glasscock % (Auto) Eos % (Auto) Baso % (Auto) Neut # (Auto) Lymph # (Auto) Glasscock # (Auto) Eos # (Auto) Baso # (Auto) Immature Gran # (Auto) Neutrophils % (Manual) 85.1 Lymphocytes % (Manual) 2.6 Monocytes % (Manual) 9.6 Eosinophils % (Manual) 1.8 Metamyelocytes % (Man) 0.9 Neutrophils # (Manual) 22.00 H Total Absolute Neuts 22.00 H Lymphocytes # (Manual) 0.67 L Total Abs Lymphocytes 0.67 L Monocytes # (Manual) 2.48 H Eosinophils # (Manual) 0.47 Metamyelocytes # (Man) 0.23 H Hypogranular Neuts 1+ Dohle Bodies Platelet Estimate Decreased L Giant Platelets Polychromasia Basophilic Stippling Anisocytosis PT 12.3 H INR 1.2 H APTT 27.4 PTT Ratio 1.0 Sodium 137 Potassium 5.0 Chloride 107 Carbon Dioxide 18 L Anion Gap 12.0 H BUN 60 H Creatinine 4.30 H Est Cr Clr Drug Dosing 13.4 Est GFR ( Amer) 13.6 Est GFR (Non-Af Amer) 11.7 BUN/Creatinine Ratio 13.8 Glucose 210 H POC Glucose Estimat Average Glucose Hemoglobin A1c Lactate Calcium 9.1 Magnesium 1.5 L Total Bilirubin 0.8 AST 12 L ALT 14 Alkaline Phosphatase 92 Troponin I 0.469 H* Total Protein 7.8 Albumin 2.9 L Globulin 4.9 H Albumin/Globulin Ratio 0.6 L Procalcitonin Urine Color Urine Appearance Urine pH Ur Specific Marshall Urine Protein Urine Glucose (UA) Urine Ketones Urine Blood Urine Nitrite Urine Bilirubin Urine Urobilinogen Ur Leukocyte Esterase Urine WBC (Auto) Urine RBC (Auto) U Hyaline Cast (Auto) U Epithel Cells (Auto) Urine Bacteria (Auto) Amorphous Sediment Urine Yeast Nasal Screen MRSA (PCR) COVID-19 Eval Order SARS-CoV-2 (PCR) Influenza Type A (PCR) Influenza Type B (PCR) RSV (RT-PCR) Blood Type Antibody Screen Crossmatch 04/01/20 04/01/20 04/01/20 12:40 13:15 14:31 WBC RBC Hgb Hct MCV MCH MCHC RDW Std Deviation RDW Coeff of Carlos Plt Count MPV Immature Gran % (Auto) Neut % (Auto) Lymph % (Auto) Glasscock % (Auto) Eos % (Auto) Baso % (Auto) Neut # (Auto) Lymph # (Auto) Glasscock # (Auto) Eos # (Auto) Baso # (Auto) Immature Gran # (Auto) Neutrophils % (Manual) Lymphocytes % (Manual) Monocytes % (Manual) Eosinophils % (Manual) Metamyelocytes % (Man) Neutrophils # (Manual) Total Absolute Neuts Lymphocytes # (Manual) Total Abs Lymphocytes Monocytes # (Manual) Eosinophils # (Manual) Metamyelocytes # (Man) Hypogranular Neuts Dohle Bodies Platelet Estimate Giant Platelets Polychromasia Basophilic Stippling Anisocytosis PT INR APTT PTT Ratio Sodium Potassium Chloride Carbon Dioxide Anion Gap BUN Creatinine Est Cr Clr Drug Dosing Est GFR ( Amer) Est GFR (Non-Af Amer) BUN/Creatinine Ratio Glucose POC Glucose Estimat Average Glucose Hemoglobin A1c Lactate 2.9 H* Calcium Magnesium Total Bilirubin AST ALT Alkaline Phosphatase Troponin I Total Protein Albumin Globulin Albumin/Globulin Ratio Procalcitonin 1.00 H Urine Color Urine Appearance Urine pH Ur Specific Marshall Urine Protein Urine Glucose (UA) Urine Ketones Urine Blood Urine Nitrite Urine Bilirubin Urine Urobilinogen Ur Leukocyte Esterase Urine WBC (Auto) Urine RBC (Auto) U Hyaline Cast (Auto) U Epithel Cells (Auto) Urine Bacteria (Auto) Amorphous Sediment Urine Yeast Nasal Screen MRSA (PCR) COVID-19 Eval Order CovFluRsv at [facility] SARS-CoV-2 (PCR) Influenza Type A (PCR) Influenza Type B (PCR) RSV (RT-PCR) Blood Type Antibody Screen Crossmatch 04/01/20 04/01/20 04/01/20 14:31 15:46 18:18 WBC RBC Hgb Hct MCV MCH MCHC RDW Std Deviation RDW Coeff of Carlos Plt Count MPV Immature Gran % (Auto) Neut % (Auto) Lymph % (Auto) Glasscock % (Auto) Eos % (Auto) Baso % (Auto) Neut # (Auto) Lymph # (Auto) Glasscock # (Auto) Eos # (Auto) Baso # (Auto) Immature Gran # (Auto) Neutrophils % (Manual) Lymphocytes % (Manual) Monocytes % (Manual) Eosinophils % (Manual) Metamyelocytes % (Man) Neutrophils # (Manual) Total Absolute Neuts Lymphocytes # (Manual) Total Abs Lymphocytes Monocytes # (Manual) Eosinophils # (Manual) Metamyelocytes # (Man) Hypogranular Neuts Dohle Bodies Platelet Estimate Giant Platelets Polychromasia Basophilic Stippling Anisocytosis PT INR APTT PTT Ratio Sodium Potassium Chloride Carbon Dioxide Anion Gap BUN Creatinine Est Cr Clr Drug Dosing Est GFR ( Amer) Est GFR (Non-Af Amer) BUN/Creatinine Ratio Glucose POC Glucose Estimat Average Glucose Hemoglobin A1c Lactate 1.6 Calcium Magnesium Total Bilirubin AST ALT Alkaline Phosphatase Troponin I Total Protein Albumin Globulin Albumin/Globulin Ratio Procalcitonin Urine Color Yellow Urine Appearance Cloudy A Urine pH 5.0 Ur Specific Marshall 1.019 Urine Protein Trace H Urine Glucose (UA) Negative Urine Ketones Negative Urine Blood Trace H Urine Nitrite Negative Urine Bilirubin Negative Urine Urobilinogen Negative Ur Leukocyte Esterase Trace H Urine WBC (Auto) 1-5 Urine RBC (Auto) 0-4 U Hyaline Cast (Auto) 1-5 U Epithel Cells (Auto) 10-20 H Urine Bacteria (Auto) Negative Amorphous Sediment Present A Urine Yeast Not Reportable Nasal Screen MRSA (PCR) COVID-19 Eval Order SARS-CoV-2 (PCR) NEGATIVE Influenza Type A (PCR) Negative Influenza Type B (PCR) Negative RSV (RT-PCR) Negative Blood Type Antibody Screen Crossmatch 04/01/20 04/01/20 04/01/20 20:33 22:00 23:36 WBC RBC Hgb Hct MCV MCH MCHC RDW Std Deviation RDW Coeff of Carlos Plt Count MPV Immature Gran % (Auto) Neut % (Auto) Lymph % (Auto) Glasscock % (Auto) Eos % (Auto) Baso % (Auto) Neut # (Auto) Lymph # (Auto) Glasscock # (Auto) Eos # (Auto) Baso # (Auto) Immature Gran # (Auto) Neutrophils % (Manual) Lymphocytes % (Manual) Monocytes % (Manual) Eosinophils % (Manual) Metamyelocytes % (Man) Neutrophils # (Manual) Total Absolute Neuts Lymphocytes # (Manual) Total Abs Lymphocytes Monocytes # (Manual) Eosinophils # (Manual) Metamyelocytes # (Man) Hypogranular Neuts Dohle Bodies Platelet Estimate Giant Platelets Polychromasia Basophilic Stippling Anisocytosis PT INR APTT PTT Ratio Sodium Potassium Chloride Carbon Dioxide Anion Gap BUN Creatinine Est Cr Clr Drug Dosing Est GFR ( Amer) Est GFR (Non-Af Amer) BUN/Creatinine Ratio Glucose POC Glucose 193 H 213 H Estimat Average Glucose Hemoglobin A1c Lactate Calcium Magnesium Total Bilirubin AST ALT Alkaline Phosphatase Troponin I Total Protein Albumin Globulin Albumin/Globulin Ratio Procalcitonin Urine Color Urine Appearance Urine pH Ur Specific Marshall Urine Protein Urine Glucose (UA) Urine Ketones Urine Blood Urine Nitrite Urine Bilirubin Urine Urobilinogen Ur Leukocyte Esterase Urine WBC (Auto) Urine RBC (Auto) U Hyaline Cast (Auto) U Epithel Cells (Auto) Urine Bacteria (Auto) Amorphous Sediment Urine Yeast Nasal Screen MRSA (PCR) Negative COVID-19 Eval Order SARS-CoV-2 (PCR) Influenza Type A (PCR) Influenza Type B (PCR) RSV (RT-PCR) Blood Type Antibody Screen Crossmatch 04/02/20 04/02/20 04/02/20 07:07 07:07 07:07 WBC 27.77 H RBC 2.06 L Hgb 6.5 L* Hct 19.9 L* MCV 96.6 MCH 31.6 MCHC 32.7 RDW Std Deviation 65.7 H RDW Coeff of Carlos 18.8 H Plt Count 112 L MPV 12.5 H Immature Gran % (Auto) 0.9 Neut % (Auto) 72.0 Lymph % (Auto) 7.0 Glasscock % (Auto) 18.7 Eos % (Auto) 1.4 Baso % (Auto) 0.0 Neut # (Auto) 19.96 H Lymph # (Auto) 1.94 Glasscock # (Auto) 5.20 H Eos # (Auto) 0.40 Baso # (Auto) 0.01 Immature Gran # (Auto) 0.26 H Neutrophils % (Manual) Lymphocytes % (Manual) Monocytes % (Manual) Eosinophils % (Manual) Metamyelocytes % (Man) Neutrophils # (Manual) Total Absolute Neuts Lymphocytes # (Manual) Total Abs Lymphocytes Monocytes # (Manual) Eosinophils # (Manual) Metamyelocytes # (Man) Hypogranular Neuts 1+ Dohle Bodies 1+ Platelet Estimate Giant Platelets 1+ Polychromasia 1+ Basophilic Stippling 1+ Anisocytosis Present PT INR APTT PTT Ratio Sodium 141 Potassium 4.5 Chloride 112 H Carbon Dioxide 18 L Anion Gap 11.0 BUN 58 H Creatinine 3.81 H D Est Cr Clr Drug Dosing 15.1 Est GFR ( Amer) 15.7 Est GFR (Non-Af Amer) 13.6 BUN/Creatinine Ratio 15.3 Glucose 132 H POC Glucose Estimat Average Glucose Hemoglobin A1c Lactate Calcium 8.1 L Magnesium Total Bilirubin 0.5 AST 6 L ALT 9 L Alkaline Phosphatase 66 Troponin I 0.245 H* Total Protein 5.9 L D Albumin 2.1 L Globulin 3.8 Albumin/Globulin Ratio 0.6 L Procalcitonin Urine Color Urine Appearance Urine pH Ur Specific Marshall Urine Protein Urine Glucose (UA) Urine Ketones Urine Blood Urine Nitrite Urine Bilirubin Urine Urobilinogen Ur Leukocyte Esterase Urine WBC (Auto) Urine RBC (Auto) U Hyaline Cast (Auto) U Epithel Cells (Auto) Urine Bacteria (Auto) Amorphous Sediment Urine Yeast Nasal Screen MRSA (PCR) COVID-19 Eval Order SARS-CoV-2 (PCR) Influenza Type A (PCR) Influenza Type B (PCR) RSV (RT-PCR) Blood Type A Negative Antibody Screen NEGATIVE Crossmatch See Detail 04/02/20 04/02/20 07:07 07:31 WBC RBC Hgb Hct MCV MCH MCHC RDW Std Deviation RDW Coeff of Carlos Plt Count MPV Immature Gran % (Auto) Neut % (Auto) Lymph % (Auto) Glasscock % (Auto) Eos % (Auto) Baso % (Auto) Neut # (Auto) Lymph # (Auto) Glasscock # (Auto) Eos # (Auto) Baso # (Auto) Immature Gran # (Auto) Neutrophils % (Manual) Lymphocytes % (Manual) Monocytes % (Manual) Eosinophils % (Manual) Metamyelocytes % (Man) Neutrophils # (Manual) Total Absolute Neuts Lymphocytes # (Manual) Total Abs Lymphocytes Monocytes # (Manual) Eosinophils # (Manual) Metamyelocytes # (Man) Hypogranular Neuts Dohle Bodies Platelet Estimate Giant Platelets Polychromasia Basophilic Stippling Anisocytosis PT INR APTT PTT Ratio Sodium Potassium Chloride Carbon Dioxide Anion Gap BUN Creatinine Est Cr Clr Drug Dosing Est GFR ( Amer) Est GFR (Non-Af Amer) BUN/Creatinine Ratio Glucose POC Glucose 189 H Estimat Average Glucose Pending Hemoglobin A1c Pending Lactate Calcium Magnesium Total Bilirubin AST ALT Alkaline Phosphatase Troponin I Total Protein Albumin Globulin Albumin/Globulin Ratio Procalcitonin Urine Color Urine Appearance Urine pH Ur Specific Marshall Urine Protein Urine Glucose (UA) Urine Ketones Urine Blood Urine Nitrite Urine Bilirubin Urine Urobilinogen Ur Leukocyte Esterase Urine WBC (Auto) Urine RBC (Auto) U Hyaline Cast (Auto) U Epithel Cells (Auto) Urine Bacteria (Auto) Amorphous Sediment Urine Yeast Nasal Screen MRSA (PCR) COVID-19 Eval Order SARS-CoV-2 (PCR) Influenza Type A (PCR) Influenza Type B (PCR) RSV (RT-PCR) Blood Type Antibody Screen Crossmatch PG Care Time/CCT Total # of Minutes Spent Total Time Spent with Patient: Total time spent is greater than 50% in coordination of care (as documented) at patient's floor/unit and/or counseling patient: Coding Level of Care Code 17735 Subseq Hosp Care Lvl 3 Diagnoses Normocytic anemia D64.9 Acute kidney injury N17.9 Sepsis associated hypotension A41.9; I95.9 Subdural hematoma S06.5X9A Multiple rib fractures involving four or more ribs S22.49XA Hematoma T14.8XXA Chronic ITP (idiopathic thrombocytopenia) D69.3 Lumbar compression fracture S32.000A Adrenal incidentaloma E27.8 Diabetes mellitus E11.22; N18.4; Z79.4 Chronic kidney disease stage: stage 4 (severe) Diabetes mellitus complication detail: with chronic kidney disease Diabetes mellitus complication status: with kidney complications Diabetes mellitus termite treater insulin use: with termite treater use Diabetes mellitus type: type 2 Elevated troponin R77.8 Hypomagnesemia E83.42 DVT prophylaxis Z29.9 (1) Diabetes mellitus Chronic kidney disease stage: stage 4 (severe) Diabetes mellitus complication detail: with chronic kidney disease Diabetes mellitus complication status: with kidney complications Diabetes mellitus termite treater insulin use: with termite treater use Diabetes mellitus type: type 2 Qualified Code(s): E11.22 - Type 2 diabetes mellitus with diabetic chronic kidney disease; N18.4 - Chronic kidney disease, stage 4 (severe); Z79.4 - skilled nursing (current) use of insulin
[2020-04-02] MEDS ORDERED: STAT IV STA (08:30)
[2020-04-02] MEDS: SODIUM BICARBONATE 8.4% 75 MEQ in SODIUM CHLORIDE 0.45 % 1,000 ML IV SCH (08:56)
[2020-04-02 09:11] LABS: Estimated Average Glucose 163 mg/dl; Hemoglobin A1C 7.3 % (4.5-5.6)
--- NOTE | 2020-04-02 10:09 | Pharmacy Report ---
Pharmacy Glycemic Short Note 2 - Date of Service April 02, 2020 - Glycemic Short BSG Results (Last 24 hours): 04/01/20 04/01/20 04/01/20 12:40 20:33 23:36 Glucose 210 H POC Glucose 193 H 213 H 04/02/20 04/02/20 07:07 07:31 Glucose 132 H POC Glucose 189 H OUTPATIENT ANTIDIABETIC REGIMEN: * Lantus 14-16 units SC qAM * Humalog 8 units SC AC * A1c = 7.3% (04/02/20) RISK FACTORS FOR INSULIN RESISTANCE: * Possible Infection - on cefepime and azithromycin * T2DM diet ordered ASSESSMENT: * 84 yo M admitted from PCP's office secondary to weakness and hypotension. 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 His most recent HbA1c was 7.3% this morning. * POC blood sugars were elevated last evening at 193 & 213 mg/dL. His SCr was significantly elevated at 4.30 mg/dL upon admission and improved to 3.81 mg/dL. * His fasting BSG was elevated this morning at 189 mg/dL. He received his home dose of 16 units of Lantus. May need additional Lantus at lunch if BSG significantly increases. * Will follow postprandial BSGs and adjust Novolog parameters as needed. * Lunch BSG was 125 mg/dL - no change at this time * Targeting BSG Goal Range of 110 - 140 mg/dL. PLAN FOR INPATIENT GLYCEMIC CONTROL: * Basal insulin * Lantus 13 - 16 units SQ qAM depending on BSG (see eMAR for further details) * Bolus insulin * NovoLog per scale ACHS or Q6hrs while NPO * Goal Range: Low 110 mg/dL - High 140 mg/dL * Correction Factor: 30 mg/dL/unit * Nutritional / Prandial insulin per carb ratio of 1 unit per 10 grams CHO consumed PLAN FOR DISCHARGE: * HbA1c is 7.3% which is at goal for this patient based on his age and comorbidities. * Recommend continuing home regimen as long as patient is not experiencing hypoglycemia at home.
[2020-04-02] MEDS: CEFEPIME 2,000 MG in SYRINGE 0 ML IV SCH (16:56)
[2020-04-02 19:02] LABS: Hematocrit (blood only) 25.9 % (42-52); Hemoglobin 8.8 g/dL (14.0-18.0)
[2020-04-02 19:19] LABS: BUN Creatinine Ratio 16.2 (10-20); Calcium 8.3 mg/dl (8.5-10.1); Creatinine Clr Calc Pharmacy 16.3 ml/min; Est GFR (African American) 17.2; Est GFR (Non-African American) 14.9; Potassium 4.9 mmol/L (3.5-5.1)
[2020-04-03] MEDS: SODIUM BICARBONATE 8.4% 75 MEQ in SODIUM CHLORIDE 0.45 % 1,000 ML IV SCH ×3 (01:17→21:40)
--- NOTE | 2020-04-03 07:03 | CT Scan Report ---
CT head/brain wo con CLINICAL HISTORY: 84 years-old Male with Follow up subdural hematoma. Follow-up study in a patient w ith subdural hematoma TECHNIQUE: Multiple axial CT images of the head were obtained without contrast. A dose lowering tech nique was utilized adhering to the principles of ALARA. CT DOSE: 729.78 mGycm COMPARISON: Head CT 04/01/2020 FINDINGS: Unchanged acute on chronic subdural hematoma adjacent to left cerebral convexity measuring up to 9 mm in thickness. There is no midline shift, intracranial mass, hydrocephalus, territorial ischemia or a bnormal extra-axial collection. Age-related involutional changes with chronic microvascular ischemic disease. Senescent calcifications of the lentiform nuclei. Cerebral vascular calcifications also note d. The calvarium is intact. Right mastoid effusion. The left mastoid air cells and paranasal sinuses ar e generally clear. Scleral banding on the right. Unremarkable soft tissues. IMPRESSION: Unchanged small acute on chronic subdural hematoma of the left cerebral convexity. ACT 112: Negative or not required by law. The above report was generated using voice recognition software. It may contain grammatical, syntax o r spelling errors. Electronically signed by: Christian Estrada M.D. 04/03/2020 7:01 AM
[2020-04-03] MEDS: INSULIN ASPART 100 UNITS/ML 3 ML PEN SC SCH ×4 (07:50→21:31)
[2020-04-03] MEDS: INSULIN GLARGINE SOLOSTAR 100 UNITS/ML 3 ML PEN SC SCH (07:51)
[2020-04-03 08:00] LABS: Creatinine Clr Calc Pharmacy 18.3 ml/min; Est GFR (African American) 19.8; Est GFR (Non-African American) 17.1
[2020-04-03] MEDS: AZITHROMYCIN 250 MG TAB PO SCH (08:07)
[2020-04-03] MEDS: PANTOprazole 40 MG TAB PO SCH ×2 (08:07→21:31)
[2020-04-03 08:14] LABS: BUN Creatinine Ratio 17.3 (10-20); Calcium 8.5 mg/dl (8.5-10.1); Creatinine Clr Calc Pharmacy 18.6 ml/min; Est GFR (African American) 20.2; Est GFR (Non-African American) 17.5; Hematocrit (blood only) 27.8 % (42-52); Hemoglobin 9.3 g/dL (14.0-18.0); Mean Corpuscular Hemoglobin 30.9 pg (25-34); Mean Corpuscular Hgb Conc 33.5 g/dL (32-36); Mean Corpuscular Volume 92.4 fL (80-100); Mean Platelet Volume 12.4 fL (7.4-10.4); Platelet Count 135 K/uL (130-400); Potassium 4.4 mmol/L (3.5-5.1); RDW Coefficient of Variation 18.3 % (11.5-14.5); RDW Standard Deviation 61.4 fL (36.4-46.3); Red Blood Count 3.01 M/uL (4.7-6.1); White Blood Count 14.78 K/uL (4.8-10.8)
[2020-04-03 08:26] LABS: ALC (manual) 0.38 K/uL (1.2-3.4); ANC (manual) 12.19 K/uL (1.4-6.5); Basophils # (manual) 0.13 K/uL (0-0.2); Basophils % (manual) 0.9 %; Lymphocytes # (manual) 0.38 K/uL (1.2-3.4); Lymphocytes % (manual) 2.6 %; Monocytes # (manual) 1.68 K/uL (0.11-0.59); Monocytes % (manual) 11.4 %; Myelocytes # (manual) 0.38 K/uL (0-0); Myelocytes % (manual) 2.6 %; Neutrophils # (manual) 12.19 K/uL (1.4-6.5); Neutrophils % (manual) 82.5 %
--- NOTE | 2020-04-03 09:38 | Hospitalist Progress Note ---
Date of Service April 03, 2020 Assessment & Plan (1) Normocytic anemia: Hb dropped further from 8.8 to 6.5 on 2/3 suspect that drop in Hb is due to blood loss from 6cm hematoma in left gluteal region the 8.8 on admission may have been falsely elevated due to dehydration and volume contraction transfused two units 2/3, no issues Hb up to 9.3 today no melena or other signs of bleeding (2) Acute kidney injury: No obstructive cause seen on CT. Likely significantly prerenal with dehydration and anemia Cr improving, down to 3.0 this morning, making a lot of urine so he is non- oliguric electrolytes stable metabolic acidosis, HCO3 up to 20 stop IV fluids this evening, give sodium bicarb 650mg BID repeat labs in the AM (3) Sepsis associated hypotension: Suspected with WBC 25.85, temp 35.8 C Unclear source, possible pneumonia with consolidation on CT A/P and elevated procalcitonin. Cepheid negative for SARS-CoV-2/influenza/RSV. could be UTI no longer hypotensive, BP is normal Continue Cefepime and Zithromax (4) Subdural hematoma: repeat CT head shows stable changes, suggesting it is all chronic he is oriented, no headache, no changes in vision, he is alert per family, he hit his head 6 months ago, this might be the etiology no recent head trauma (5) Multiple rib fractures involving four or more ribs: Incentive spirometry every 4 hourly while awake. pain is controlled (6) Hematoma: Traumatic left gluteal hematoma 6 x 3 x [address] imaging. Son reports this is improving since his fall. No cellulitic changes or skin breakdown. Avoid NSAIDs, antiplatelets, anticoagulation. as mentioned above, Hb dropped to 6.5 transfused two units and Hb up to 9.3 (7) Chronic ITP (idiopathic thrombocytopenia): platelets 135 today (8) Lumbar compression fracture: Chronic. No acute work-up or treatment required. 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 In absence of evidence of hormonal hypersecretion and meeting CT criteria for fat-containing adenoma with size 1.7 cm could consider a CT in 1 year versus no monitoring. No acute work-up required. (10) Diabetes mellitus: Consult pharmacy for glycemic control. daughter in law requesting educator consult interested in getting glucose monitoring system that is on skin (11) Elevated troponin: In setting of known coronary artery disease with previous [place] in 1996 and stent placement with subsequent CABG x3 in 2007. Currently not on antiplatelets due to immune thrombocytopenia and recurrent GI bleeds. no chest pain, likely elevated due to hypotension and sepsis no further work up (12) Hypomagnesemia: Magnesium sulfate 2 g IV given in ER (13) DVT prophylaxis: Anticoagulation contraindicated in setting of subdural hematoma. [facility] Admission and Anticipated Discharge Date Admission Date: April 01, 2020 Subjective patient says he is feeling a little better he is eating well, breathing stable, coughing a little, not much sputum production no fever/chills, no sweats, no chest pain he worked with therapy today, did pretty well reviewed labs, WBC down to 14, Hb up to 9.3 after transfusion yesterday Cr down to 3.09, HCO3 20, K normal, making a lot of urine updated his family over the phone Review of Systems Review of Systems: All systems reviewed & are unremarkable except as noted in Subjective Constitutional: + fatigue and + weakness; no fever Respiratory: + dyspnea on exertion; no cough and no dyspnea Cardiovascular: no chest pain, no palpitations, no syncope and no edema Gastrointestinal: no abdominal pain, no nausea, no vomiting, no constipation and no diarrhea/loose stools Physical Exam Constitutional: WD/WN, vitals as above + frail appearing and comfortable Neck: trachea midline, no thyromegaly Respiratory: normal respiratory effort, lungs clear to auscultation Cardiovascular: RRR, no murmur, no edema Gastrointestinal (Abdomen): normal bowel sounds, soft, nontender, no hepatosplenomegaly Musculoskeletal: Head/Neck/Chest: normocephalic and neck supple Extremities: extremities normal to inspection and + abnormal strength (generalized weakness); no cyanosis, no clubbing and no petechiae Skin: no rashes, warm and dry Neurologic: normal touch/pain/proprioception, CN's II-XI intact bilaterally, moves all extremities and awake; no focal motor deficits Psychiatric: A+Ox3, euthymic affect Lymphatic: no cervical or axillary lymphadenopathy Results & Data Results & Data ([facility]) Vital Signs (Past 12 Hours) Vital Signs Temp Pulse Pulse Resp BP BP Pulse Ox 04/03/20 07:46 36.8 C 56 L 18 133/64 95 04/03/20 07:32 50 L 04/03/20 04:30 36.4 C L 52 L 17 142/76 H 94 04/02/20 23:55 36.5 C 51 L 20 146/68 H 92 04/02/20 22:45 56 L Laboratory Results Laboratory Results - last 24 hr 04/02/20 04/02/20 04/02/20 07:07 11:22 16:20 WBC RBC Hgb Hct MCV MCH MCHC RDW Std Deviation RDW Coeff of Carlos Plt Count MPV Neutrophils % (Manual) Lymphocytes % (Manual) Monocytes % (Manual) Basophils % (Manual) Myelocytes % (Man) Neutrophils # (Manual) Total Absolute Neuts Lymphocytes # (Manual) Total Abs Lymphocytes Monocytes # (Manual) Basophils # (Manual) Myelocytes # (Manual) Sodium Potassium Chloride Carbon Dioxide Anion Gap BUN Creatinine Est Cr Clr Drug Dosing Est GFR ( Amer) Est GFR (Non-Af Amer) BUN/Creatinine Ratio Glucose POC Glucose 125 H 79 Calcium Blood Type A Negative Antibody Screen NEGATIVE Crossmatch See Detail 04/02/20 04/02/20 04/02/20 18:52 18:52 20:38 WBC RBC Hgb 8.8 L Hct 25.9 L MCV MCH MCHC RDW Std Deviation RDW Coeff of Carlos Plt Count MPV Neutrophils % (Manual) Lymphocytes % (Manual) Monocytes % (Manual) Basophils % (Manual) Myelocytes % (Man) Neutrophils # (Manual) Total Absolute Neuts Lymphocytes # (Manual) Total Abs Lymphocytes Monocytes # (Manual) Basophils # (Manual) Myelocytes # (Manual) Sodium 141 Potassium 4.9 Chloride 113 H Carbon Dioxide 19 L Anion Gap 9.0 BUN 57 H Creatinine 3.53 H Est Cr Clr Drug Dosing 16.3 Est GFR ( Amer) 17.2 Est GFR (Non-Af Amer) 14.9 BUN/Creatinine Ratio 16.2 Glucose 87 POC Glucose 85 Calcium 8.3 L Blood Type Antibody Screen Crossmatch 04/03/20 04/03/20 04/03/20 07:18 07:19 07:19 WBC 14.78 H RBC 3.01 L Hgb 9.3 L Hct 27.8 L MCV 92.4 MCH 30.9 MCHC 33.5 RDW Std Deviation 61.4 H RDW Coeff of Carlos 18.3 H Plt Count 135 MPV 12.4 H Neutrophils % (Manual) 82.5 Lymphocytes % (Manual) 2.6 Monocytes % (Manual) 11.4 Basophils % (Manual) 0.9 Myelocytes % (Man) 2.6 Neutrophils # (Manual) 12.19 H Total Absolute Neuts 12.19 H Lymphocytes # (Manual) 0.38 L Total Abs Lymphocytes 0.38 L Monocytes # (Manual) 1.68 H Basophils # (Manual) 0.13 Myelocytes # (Manual) 0.38 H Sodium 141 Potassium 4.4 Chloride 113 H Carbon Dioxide 20 L Anion Gap 9.0 BUN 54 H Creatinine 3.15 H D 3.09 H Est Cr Clr Drug Dosing 18.3 18.6 Est GFR ( Amer) 19.8 20.2 Est GFR (Non-Af Amer) 17.1 17.5 BUN/Creatinine Ratio 17.3 Glucose 83 POC Glucose Calcium 8.5 Blood Type Antibody Screen Crossmatch 04/03/20 07:21 WBC RBC Hgb Hct MCV MCH MCHC RDW Std Deviation RDW Coeff of Carlos Plt Count MPV Neutrophils % (Manual) Lymphocytes % (Manual) Monocytes % (Manual) Basophils % (Manual) Myelocytes % (Man) Neutrophils # (Manual) Total Absolute Neuts Lymphocytes # (Manual) Total Abs Lymphocytes Monocytes # (Manual) Basophils # (Manual) Myelocytes # (Manual) Sodium Potassium Chloride Carbon Dioxide Anion Gap BUN Creatinine Est Cr Clr Drug Dosing Est GFR ( Amer) Est GFR (Non-Af Amer) BUN/Creatinine Ratio Glucose POC Glucose 86 Calcium Blood Type Antibody Screen Crossmatch Microbiology 04/01/20 13:15 Blood Aerobic Blood Culture - Preliminary No growth in Aerobic bottle after 24 hours. 04/01/20 13:15 Blood Anaerobic Blood Culture - Final 04/01/20 12:40 Blood Aerobic Blood Culture - Preliminary No growth in Aerobic bottle after 24 hours. 04/01/20 12:40 Blood Anaerobic Blood Culture - Preliminary No growth in Anaerobic bottle after 24 hours. 04/01/20 18:18 Urine,Clean Catch Urine Culture - Preliminary No growth - Less than 1,000 colonies/mL, Final report to follow. Medications Administered Current Inpatient Medications Acetaminophen (Acetaminophen 325 Mg Tab) 650 mg PO Q4H PRN PRN Reason: Pain or Fever Stop: 05/01/20 19:03 Azithromycin (Azithromycin 250 Mg Tab) 250 mg PO QAM [facility] Stop: 04/06/20 08:59 Last Admin: 04/03/20 08:07 Dose: 250 mg Documented by: Calcitriol (Calcitriol 0.25 Mcg Capsule) 0.5 mcg PO MoWeFr@0900 DARCIE Stop: 05/02/20 08:59 Last Admin: 04/02/20 08:06 Dose: 0.5 mcg Documented by: Dextrose (Dextrose 50% 50 Ml Syringe) 25 - 50 ml IV UD PRN; Protocol PRN Reason: Hypoglycemia Protocol Stop: 05/01/20 21:42 Glucagon (Glucagon For Inj 1 Mg Vial) 1 mg SQ UD PRN; Protocol PRN Reason: Hypoglycemia Protocol Stop: 05/01/20 21:42 Glucose (Glucose 10 Tabs/Tube) 4 - 8 tabs PO UD PRN; Protocol PRN Reason: Hypoglycemia Protocol Stop: 05/01/20 21:42 Glucose (Glucose 40% Gel 15 Gm Tube) 15 - 30 gm PO UD PRN; Protocol PRN Reason: Hypoglycemia Protocol Stop: 05/01/20 21:42 Cefepime HCl 2,000 mg/ Syringe 20 mls @ 5 mls/min IV Q24H [facility]; Protocol Stop: 04/04/20 13:59 Last Admin: 04/02/20 16:56 Dose: 5 mls/min Documented by: Sodium Bicarbonate 75 meq/ (Sodium Chloride) 1,075 mls @ 100 mls/hr IV .[id number] [facility] Stop: 05/02/20 08:44 Last Admin: 04/03/20 01:17 Dose: 100 mls/hr Documented by: Insulin Aspart (Insulin Aspart 100 Units/Ml 3 Ml Pen) 0 units SC ACHS [facility]; Protocol Stop: 05/01/20 22:29 Last Admin: 04/03/20 07:50 Dose: 3 units Documented by: Insulin Glargine (Insulin Glargine Solostar 100 Units/Ml 3 Ml Pen) 0 units SC QAM [facility]; Protocol Stop: 05/02/20 08:59 Last Admin: 04/03/20 07:51 Dose: 13 units Documented by: Miscellaneous (Carbohydrates For Hypoglycemia ) 15 - 30 gm PO UD PRN PRN Reason: Hypoglycemia Protocol Stop: 05/01/20 21:42 Miscellaneous Information (Cefepime Consult Active) 1 ea N/A UD PRN PRN Reason: Consult Stop: 05/01/20 20:36 Miscellaneous Information (Pharmacy Glycemic Mgmt Consult) 1 ea N/A UD PRN PRN Reason: Consult Stop: 05/01/20 22:11 Ondansetron HCl (Ondansetron Inj 2 Mg/Ml 2 Ml Vial) 4 mg IV Q6H PRN PRN Reason: Nausea Stop: 05/01/20 19:03 Pantoprazole Sodium (Pantoprazole 40 Mg Tab) 40 mg PO BID [facility] Stop: 05/01/20 20:59 Last Admin: 04/03/20 08:07 Dose: 40 mg Documented by: Polyethylene Glycol (Polyethylene (Miralax) 17 Gm Pack) 17 gm PO DAILY PRN PRN Reason: Constipation Stop: 05/01/20 19:03 PG Care Time/CCT Total # of Minutes Spent Total Time Spent with Patient: Total time spent is greater than 50% in coordination of care (as documented) at patient's floor/unit and/or counseling patient: Coding Level of Care Code 34870 Subseq Hosp Care Lvl 3 Diagnoses Normocytic anemia D64.9 Acute kidney injury N17.9 Sepsis associated hypotension A41.9; I95.9 Subdural hematoma S06.5X9A Multiple rib fractures involving four or more ribs S22.49XA Hematoma T14.8XXA Chronic ITP (idiopathic thrombocytopenia) D69.3 Lumbar compression fracture S32.000A Adrenal incidentaloma E27.8 Diabetes mellitus E11.22; N18.4; Z79.4 Chronic kidney disease stage: stage 4 (severe) Diabetes mellitus complication detail: with chronic kidney disease Diabetes mellitus complication status: with kidney complications Diabetes mellitus exterminator insulin use: with senior care use Diabetes mellitus type: type 2 Elevated troponin R77.8 Hypomagnesemia E83.42 DVT prophylaxis Z29.9 (1) Diabetes mellitus Chronic kidney disease stage: stage 4 (severe) Diabetes mellitus complication detail: with chronic kidney disease Diabetes mellitus complication status: with kidney complications Diabetes mellitus senior care insulin use: with exterminator use Diabetes mellitus type: type 2 Qualified Code(s): E11.22 - Type 2 diabetes mellitus with diabetic chronic kidney disease; N18.4 - Chronic kidney disease, stage 4 (severe); Z79.4 - senior living (current) use of insulin
[2020-04-03] MEDS: CEFEPIME 2,000 MG in SYRINGE 0 ML IV SCH (14:50)
[2020-04-04 07:00] LABS: Hematocrit (blood only) 30.4 % (42-52); Hemoglobin 10.1 g/dL (14.0-18.0); Mean Corpuscular Hemoglobin 30.8 pg (25-34); Mean Corpuscular Hgb Conc 33.2 g/dL (32-36); Mean Corpuscular Volume 92.7 fL (80-100); Mean Platelet Volume 11.7 fL (7.4-10.4); Platelet Count 166 K/uL (130-400); RDW Coefficient of Variation 18.1 % (11.5-14.5); RDW Standard Deviation 59.7 fL (36.4-46.3); Red Blood Count 3.28 M/uL (4.7-6.1); White Blood Count 12.14 K/uL (4.8-10.8)
[2020-04-04 07:22] LABS: Basophils # (auto) 0.02 K/uL (0-0.2); Basophils % (auto) 0.2 %; Eosinophils # (auto) 0.51 K/uL (0-0.5); Eosinophils % (auto) 4.2 %; Immature Granulocytes # (auto) 0.69 K/uL (0.00-0.02); Immature Granulocytes % (auto) 5.7 %; Lymphocytes # (auto) 0.64 K/uL (1.2-3.4); Lymphocytes % (auto) 5.3 %; Monocytes # (auto) 3.32 K/uL (0.11-0.59); Monocytes % (auto) 27.3 %; Neutrophils # (auto) 6.96 K/uL (1.4-6.5); Neutrophils % (auto) 57.3 %; RBC Morphology Unremarkable
[2020-04-04 07:29] LABS: Calcium 8.1 mg/dl (8.5-10.1); Creatinine Clr Calc Pharmacy 21.3 ml/min; Est GFR (African American) 23.8; Est GFR (Non-African American) 20.6; Potassium 4.5 mmol/L (3.5-5.1)
[2020-04-04] MEDS: INSULIN ASPART 100 UNITS/ML 3 ML PEN SC SCH ×4 (09:16→20:51)
[2020-04-04] MEDS: INSULIN GLARGINE SOLOSTAR 100 UNITS/ML 3 ML PEN SC SCH (09:17)
[2020-04-04] MEDS: CALCITRIOL 0.25 MCG CAPSULE PO SCH (09:17)
[2020-04-04] MEDS: PANTOprazole 40 MG TAB PO SCH ×2 (09:17→20:52)
[2020-04-04] MEDS: SODIUM BICARBONATE 650 MG TAB PO SCH ×2 (09:17→20:52)
[2020-04-04] MEDS: AZITHROMYCIN 250 MG TAB PO SCH (09:18)
--- NOTE | 2020-04-04 09:27 | Pharmacy Report ---
Pharmacy Glycemic Short Note 2 - Date of Service April 04, 2020 - Glycemic Short BSG Results (Last 24 hours): OUTPATIENT ANTIDIABETIC REGIMEN: * Lantus 14-16 units SC qAM * Humalog 8 units SC AC * A1c = 7.3% (04/02/20) RISK FACTORS FOR INSULIN RESISTANCE: * Possible Infection - on cefepime and azithromycin * T2DM diet ordered ASSESSMENT: 04/04: * Gideon has required an average of 28 units/day over the last 48 hours * Yesterday he received 13 units basal + 16 units bolus * BSGs yesterday were well controlled: [phone] mg/dL * Fasting BSG this AM was 125 mg/dL - well controlled * No change in basal or bolus regimen necessary at this time 04/02: * 84 yo M admitted from PCP's office secondary to weakness and hypotension. 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 His most recent HbA1c was 7.3% this morning. * POC blood sugars were elevated last evening at 193 & 213 mg/dL. His SCr was significantly elevated at 4.30 mg/dL upon admission and improved to 3.81 mg/dL. * His fasting BSG was elevated this morning at 189 mg/dL. He received his home dose of 16 units of Lantus. May need additional Lantus at lunch if BSG significantly increases. * Will follow postprandial BSGs and adjust Novolog parameters as needed. * Lunch BSG was 125 mg/dL - no change at this time * Targeting BSG Goal Range of 110 - 140 mg/dL. PLAN FOR INPATIENT GLYCEMIC CONTROL: * Basal insulin * Lantus 13 - 16 units SQ qAM depending on BSG (see eMAR for further details) * Bolus insulin * NovoLog per scale ACHS or Q6hrs while NPO * Goal Range: Low 110 mg/dL - High 140 mg/dL * Correction Factor: 30 mg/dL/unit * Nutritional / Prandial insulin per carb ratio of 1 unit per 10 grams CHO consumed PLAN FOR DISCHARGE: * HbA1c is 7.3% which is at goal for this patient based on his age and comorbidities. * Recommend continuing home regimen as long as patient is not experiencing hyp oglycemia at home.
--- NOTE | 2020-04-04 13:39 | Hospitalist Progress Note ---
Date of Service April 04, 2020 Assessment & Plan (1) Normocytic anemia: Hb dropped further from 8.8 to 6.5 on 2/3 suspect that drop in Hb is due to blood loss from 6cm hematoma in left gluteal region the 8.8 on admission may have been falsely elevated due to dehydration and volume contraction transfused two units 2/3, no issues Hb up to 10 today no melena or other signs of bleeding (2) Acute kidney injury: No obstructive cause seen on CT. Likely significantly prerenal with dehydration and anemia Cr improving, down to 2.7 this morning, making a lot of urine so he is non- oliguric electrolytes stable metabolic acidosis, HCO3 up to 22 continue sodium bicarb 650mg BID for today, stop tomorrow repeat labs in the AM (3) Sepsis associated hypotension: Suspected with WBC 25.85, temp 35.8 C Unclear source, possible pneumonia with consolidation on CT A/P and elevated procalcitonin. Cepheid negative for SARS-CoV-2/influenza/RSV. no longer hypotensive, BP is normal Continue Cefepime and Zithromax for 7 and 5 days respectively (4) Subdural hematoma: repeat CT head shows stable changes, suggesting it is all chronic he is oriented, no headache, no changes in vision, he is alert per family, he hit his head 6 months ago, this might be the etiology no recent head trauma (5) Multiple rib fractures involving four or more ribs: Incentive spirometry every 4 hourly while awake. pain is controlled could have led to pneumonia, less likely to take deep breath and cough (6) Hematoma: Traumatic left gluteal hematoma 6 x 3 x [address] imaging. Son reports this is improving since his fall. No cellulitic changes or skin breakdown. Avoid NSAIDs, antiplatelets, anticoagulation. as mentioned above, Hb dropped to 6.5 transfused two units on 2/3 and Hb up to 10 (7) Chronic ITP (idiopathic thrombocytopenia): platelets 166 today (8) Lumbar compression fracture: Chronic. No acute work-up or treatment required. 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 In absence of evidence of hormonal hypersecretion and meeting CT criteria for fat-containing adenoma with size 1.7 cm could consider a CT in 1 year versus no monitoring. No acute work-up required. (10) Diabetes mellitus: Consult pharmacy for glycemic control. daughter in law requesting educator consult interested in getting glucose monitoring system that is on skin (11) Elevated troponin: In setting of known coronary artery disease with previous [place] in 1996 and stent placement with subsequent CABG x3 in 2007. Currently not on antiplatelets due to immune thrombocytopenia and recurrent GI bleeds. no chest pain, likely elevated due to hypotension and sepsis no further work up (12) Hypomagnesemia: Magnesium sulfate 2 g IV given in ER (13) DVT prophylaxis: Anticoagulation contraindicated in setting of subdural hematoma. [facility] Admission and Anticipated Discharge Date Admission Date: April 01, 2020 Subjective patient feeling a lot better, asking about going home told him I need to watch his hemoglobin, he needs more IV antibiotics he reluctantly understands, his DIL at the bedside, she agrees with him staying sugars are well controlled, WBC down to 12k, Hb 10, Cr down to 2.7 (baseline 2.5) electrolytes stable he is eating really well, had a BM today, making urine no fever/chills, no cough, no chest pain has less back pain today Review of Systems Review of Systems: All systems reviewed & are unremarkable except as noted in Subjective Constitutional: + fatigue and + weakness; no fever Respiratory: no cough and no dyspnea Musculoskeletal: + back pain; no radicular pain Neurologic: + unsteadiness; no tremor(s) and no seizure-like activity Physical Exam Constitutional: WD/WN, vitals as above + frail appearing and comfortable Neck: trachea midline, no thyromegaly Respiratory: normal respiratory effort, lungs clear to auscultation Cardiovascular: RRR, no murmur, no edema Gastrointestinal (Abdomen): normal bowel sounds, soft, nontender, no hepatosplenomegaly Musculoskeletal: Head/Neck/Chest: normocephalic and neck supple Extremities: extremities normal to inspection and + abnormal strength (generalized weakness); no cyanosis, no clubbing and no petechiae Skin: no rashes, warm and dry Neurologic: normal touch/pain/proprioception, CN's II-XI intact bilaterally, moves all extremities and awake; no focal motor deficits Psychiatric: A+Ox3, euthymic affect Lymphatic: no cervical or axillary lymphadenopathy Results & Data Results & Data ([facility]) Vital Signs (Past 12 Hours) Vital Signs Temp Pulse Pulse Resp BP Pulse Ox 04/04/20 12:13 36.9 C 60 18 159/76 H 96 0205/21 08:16 64 04/04/20 08:02 37.1 C 62 16 161/81 H 95 04/04/20 04:39 36.5 C 54 L 18 159/70 H 91 Laboratory Results Laboratory Results - last 24 hr 04/03/20 04/03/20 04/04/20 16:24 20:27 06:30 WBC 12.14 H RBC 3.28 L Hgb 10.1 L Hct 30.4 L MCV 92.7 MCH 30.8 MCHC 33.2 RDW Std Deviation 59.7 H RDW Coeff of Carlos 18.1 H Plt Count 166 MPV 11.7 H Immature Gran % (Auto) 5.7 Neut % (Auto) 57.3 Lymph % (Auto) 5.3 [place] % (Auto) 27.3 Eos % (Auto) 4.2 Baso % (Auto) 0.2 Neut # (Auto) 6.96 H Lymph # (Auto) 0.64 L [place] # (Auto) 3.32 H Eos # (Auto) 0.51 H Baso # (Auto) 0.02 Immature Gran # (Auto) 0.69 H RBC Morphology Unremarkable Sodium Potassium Chloride Carbon Dioxide Anion Gap BUN Creatinine Est Cr Clr Drug Dosing Est GFR ( Amer) Est GFR (Non-Af Amer) BUN/Creatinine Ratio Glucose POC Glucose 128 H 148 H Calcium 04/04/20 04/04/20 04/04/20 06:30 07:42 11:42 WBC RBC Hgb Hct MCV MCH MCHC RDW Std Deviation RDW Coeff of Carlos Plt Count MPV Immature Gran % (Auto) Neut % (Auto) Lymph % (Auto) [place] % (Auto) Eos % (Auto) Baso % (Auto) Neut # (Auto) Lymph # (Auto) [place] # (Auto) Eos # (Auto) Baso # (Auto) Immature Gran # (Auto) RBC Morphology Sodium 142 Potassium 4.5 Chloride 113 H Carbon Dioxide 22 Anion Gap 7.0 BUN 49 H Creatinine 2.70 H D Est Cr Clr Drug Dosing 21.3 Est GFR ( Amer) 23.8 Est GFR (Non-Af Amer) 20.6 BUN/Creatinine Ratio 18.0 Glucose 101 H POC Glucose 125 H 193 H Calcium 8.1 L Medications Administered Current Inpatient Medications Acetaminophen (Acetaminophen 325 Mg Tab) 650 mg PO Q4H PRN PRN Reason: Pain or Fever Stop: 05/01/20 19:03 Azithromycin ([facility] 250 Mg Tab) [facility] Stop: 04/05/20 23:59 Last Admin: 04/04/20 09:18 Dose: 250 mg Documented by: Calcitriol (Calcitriol 0.25 Mcg Capsule) 0.5 mcg PO MoWeFr@0900 DARCIE Stop: 05/02/20 08:59 Last Admin: 04/04/20 09:17 Dose: 0.5 mcg Documented by: Dextrose (Dextrose 50% 50 Ml Syringe) 25 - 50 ml IV UD PRN; Protocol PRN Reason: Hypoglycemia Protocol Stop: 05/01/20 21:42 Glucagon (Glucagon For Inj 1 Mg Vial) 1 mg SQ UD PRN; Protocol PRN Reason: Hypoglycemia Protocol Stop: 05/01/20 21:42 Glucose (Glucose 10 Tabs/Tube) 4 - 8 tabs PO UD PRN; Protocol PRN Reason: Hypoglycemia Protocol Stop: 05/01/20 21:42 Glucose (Glucose 40% Gel 15 Gm Tube) 15 - 30 gm PO UD PRN; Protocol PRN Reason: Hypoglycemia Protocol Stop: 05/01/20 21:42 Cefepime HCl 2,000 mg/ Syringe 20 mls @ 5 mls/min IV Q24H [facility]; Protocol Stop: 04/07/20 23:59 Last Admin: 04/03/20 14:50 Dose: 5 mls/min Documented by: Insulin Aspart (Insulin Aspart 100 Units/Ml 3 Ml Pen) 0 units SC [facility]; Protocol Stop: 05/01/20 22:29 Last Admin: 04/04/20 11:56 Dose: 7 units Documented by: Insulin Glargine (Insulin Glargine Solostar 100 Units/Ml 3 Ml Pen) 0 units SC [facility]; Protocol Stop: 05/02/20 08:59 Last Admin: 04/04/20 09:17 Dose: 16 units Documented by: Miscellaneous (Carbohydrates For Hypoglycemia ) 15 - 30 gm PO UD PRN PRN Reason: Hypoglycemia Protocol Stop: 05/01/20 21:42 Miscellaneous Information (Cefepime Consult Active) 1 ea N/A UD PRN PRN Reason: Consult Stop: 05/01/20 20:36 Miscellaneous Information (Pharmacy Glycemic Mgmt Consult) 1 ea N/A UD PRN PRN Reason: Consult Stop: 05/01/20 22:11 Ondansetron HCl (Ondansetron Inj 2 Mg/Ml 2 Ml Vial) 4 mg IV Q6H PRN PRN Reason: Nausea Stop: 05/01/20 19:03 Pantoprazole Sodium (Pantoprazole 40 Mg Tab) 40 mg PO BID [facility]ARCIE Stop: 05/01/20 20:59 Last Admin: 04/04/20 09:17 Dose: 40 mg Documented by: Polyethylene Glycol (Polyethylene (Miralax) 17 Gm Pack) 17 gm PO DAILY PRN PRN Reason: Constipation Stop: 05/01/20 19:03 Sodium Bicarbonate (Sodium Bicarbonate 650 Mg Tab) 650 mg PO BID [facility]ARCIE Stop: 05/04/20 08:59 Last Admin: 04/04/20 09:17 Dose: 650 mg Documented by: PG Care Time/CCT Total # of Minutes Spent Total Time Spent with Patient: Total time spent is greater than 50% in coor dination of care (as documented) at patient's floor/unit and/or counseling patient: Coding Level of Care Code 35414 Subseq Hosp Care Lvl 3 Diagnoses Normocytic anemia D64.9 Acute kidney injury N17.9 Sepsis associated hypotension A41.9; I95.9 Subdural hematoma S06.5X9A Multiple rib fractures involving four or more ribs S22.49XA Hematoma T14.8XXA Chronic ITP (idiopathic thrombocytopenia) D69.3 Lumbar compression fracture S32.000A Adrenal incidentaloma E27.8 Diabetes mellitus E11.22; N18.4; Z79.4 Chronic kidney disease stage: stage 4 (severe) Diabetes mellitus complication detail: with chronic kidney disease Diabetes mellitus complication status: with kidney complications Diabetes mellitus prison insulin use: with prison use Diabetes mellitus type: type 2 Elevated troponin R77.8 Hypomagnesemia E83.42 DVT prophylaxis Z29.9 (1) Diabetes mellitus Chronic kidney disease stage: stage 4 (severe) Diabetes mellitus complication detail: with chronic kidney disease Diabetes mellitus complication status: with kidney complications Diabetes mellitus prison insulin 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
[2020-04-04] MEDS: CEFEPIME 2,000 MG in SYRINGE 0 ML IV SCH (14:33)
[2020-04-04] MEDS: amLODIPine BESYLATE 5 MG TAB PO SCH (18:27)
[2020-04-05] MEDS: AZITHROMYCIN 250 MG TAB PO SCH (08:07)
[2020-04-05] MEDS: PANTOprazole 40 MG TAB PO SCH ×2 (08:07→20:54)
[2020-04-05] MEDS: ISOSORBIDE MONO EXTENDED REL 60 MG TABCR PO SCH (08:07)
[2020-04-05] MEDS: INSULIN GLARGINE SOLOSTAR 100 UNITS/ML 3 ML PEN SC SCH (08:15)
[2020-04-05] MEDS: INSULIN ASPART 100 UNITS/ML 3 ML PEN SC SCH ×4 (08:16→20:53)
[2020-04-05] MEDS: amLODIPine BESYLATE 5 MG TAB PO SCH (08:26)
[2020-04-05] MEDS: SODIUM BICARBONATE 650 MG TAB PO SCH (08:26)
[2020-04-05 08:44] LABS: Hematocrit (blood only) 31.8 % (42-52); Hemoglobin 10.4 g/dL (14.0-18.0); Mean Corpuscular Hemoglobin 30.7 pg (25-34); Mean Corpuscular Hgb Conc 32.7 g/dL (32-36); Mean Corpuscular Volume 93.8 fL (80-100); Mean Platelet Volume 11.4 fL (7.4-10.4); Platelet Count 170 K/uL (130-400); RDW Coefficient of Variation 17.8 % (11.5-14.5); Red Blood Count 3.39 M/uL (4.7-6.1); White Blood Count 11.91 K/uL (4.8-10.8)
[2020-04-05 09:00] LABS: Calcium 8.7 mg/dl (8.5-10.1); Est GFR (African American) 27.5; Est GFR (Non-African American) 23.7; Potassium 4.6 mmol/L (3.5-5.1)
--- NOTE | 2020-04-05 11:01 | Pharmacy Report ---
Glycemic Control Progress Note - Date of Service April 05, 2020 - Scope Glycemic Pharmacist consulted for glycemic control to write orders per [facility] inpatient glycemic control protocol. - Objective Accuchecks BSG(last 24 hours):: 04/04/20 04/04/20 04/04/20 11:42 16:30 16:31 Glucose POC Glucose 193 H 68 L* 66 L* 04/04/20 04/04/20 04/05/20 17:06 20:05 08:13 Glucose POC Glucose 131 H 156 H 184 H 04/05/20 08:27 Glucose 135 H POC Glucose HbA1c:: Hemoglobin A1c 7.3 % (4.5-5.6) H 04/02/20 07:07 - Recent Pertinent Medications The patient is currently receiving: * Basal insulin: Lantus 16 units every 24 hours * Correctional Insulin: Novolog Correction per scale ACHS Goal Range: Low 110 mg/dL - High 140 mg/dL Correction Factor: 30 mg/dL/unit * Prandial insulin: Per carb ratio of 1 unit per 10 grams CHO consumed - Outpatient Anti-Diabetic Meds lantus 14-16 units qAM Humalog 8 units AC - Assessment & Plan ASSESSMENT: * See progress note from 04/02/2019 for more background info, in short: * Pt receiving SQ basal bolus insulin regimen for hyperglycemia secondary to baseline DM (outpatient regimen on hold). Patient with pneumonia on cefepime ad Azithromycin. * Patient is currently receiving an average of 29 units of insulin per day * 16 units of basal insulin * 13 units of prandial/correctional insulin * BSGs ranging 68 - 193 mg/dl over the past 24hrs * Changes needed to insulin regimen: * AM Fasting BSG = 184 mg/dl. This is above goal range for patient based on inpatient targets and co-morbidities. Will not adjust basal insulin at this point as all other fasting BSGs have been in range. This is also the patient's home dose. * Post-prandial BSGs were decently controlled. The patient did have a slightly low BSG prior to dinner yesterday. Will loosen CF slightly as this may possibly be too aggressive. The lower BSG was right after the patient's highest BSG (indicating CF is too much) * Total daily dose = ~29 units. This dosing is providing excellent BSGs. PLAN FOR INPATIENT GLYCEMIC CONTROL: * Continuing Lantus 16 units SQ daily * LOOSENING correction factor to 35 mg/dl/unit * Continuing carb ratio of 1 unit per 10 grams CHO consumed * Continuing goal range of Low 110 mg/dL - High 140 mg/dL RECOMMENDATIONS FOR DISCHARGE: * Patient's HbA1C indicates excellent glycemic control for his age. May continue home regimen if patient does not have hypoglycemic episodes at home. * Defer to Jaida Feng's education note. Thank you.
--- NOTE | 2020-04-05 12:52 | Hospitalist Progress Note ---
Date of Service April 05, 2020 Assessment & Plan (1) Community acquired bacterial pneumonia: likely complication from rib fractures, unwilling to take deep breath and cough responding well to antibiotics no oxygen requirements, no more sputum production continue Zithromax x 5 days and Cefepime x 7 days (2) Normocytic anemia: Hb dropped further from 8.8 to 6.5 on 04/02 suspect that drop in Hb was due to blood loss from 6cm hematoma in left gluteal region the 8.8 on admission may have been falsely elevated due to dehydration and volume contraction transfused two units 04/02, no issues Hb stable at 10.1 today no melena or other signs of bleeding downgrade to medical floor (3) Acute kidney injury: No obstructive cause seen on CT. Likely significantly prerenal with dehydration and anemia Cr improving, down to 2.4 this morning, making a lot of urine so he is non- oliguric electrolytes stable metabolic acidosis, HCO3 up to 23 stop sodium bicarb 650mg BID repeat labs in the AM (4) Sepsis associated hypotension: Suspected with WBC 25.85, temp 35.8 C Unclear source, possible pneumonia with consolidation on CT A/P and elevated procalcitonin. Cepheid negative for SARS-CoV-2/influenza/RSV. no longer hypotensive, BP is elevated Continue Cefepime and Zithromax for 7 and 5 days respectively (5) Subdural hematoma: repeat CT head shows stable changes, suggesting it is all chronic he is oriented, no headache, no changes in vision, he is alert per family, he hit his head 6 months ago, this might be the etiology no recent head trauma (6) Multiple rib fractures involving four or more ribs: Incentive spirometry every 4 hourly while awake. pain is controlled could have led to pneumonia, less likely to take deep breath and cough (7) Hematoma: Traumatic left gluteal hematoma 6 x 3 x [address] imaging. Son reports this is improving since his fall. No cellulitic changes or skin breakdown. Avoid NSAIDs, antiplatelets, anticoagulation. as mentioned above, Hb dropped to 6.5 transfused two units on 04/02 and Hb up to 10 (8) Chronic ITP (idiopathic thrombocytopenia): platelets 170 today (9) Lumbar compression fracture: Chronic. No acute work-up or treatment required. 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 In absence of evidence of hormonal hypersecretion and meeting CT criteria for fat-containing adenoma with size 1.7 cm could consider a CT in 1 year versus no monitoring. No acute work-up required. (11) Diabetes mellitus: Consult pharmacy for glycemic control. daughter in law requesting educator consult interested in getting glucose monitoring system that is on skin educator is arranging through PCP (12) Elevated troponin: In setting of known coronary artery disease with previous [place] in 1996 and stent placement with subsequent CABG x3 in 2007. Currently not on antiplatelets due to immune thrombocytopenia and recurrent GI bleeds. no chest pain, likely elevated due to hypotension and sepsis no further work up (13) Hypomagnesemia: Magnesium sulfate 2 g IV given in ER (14) DVT prophylaxis: Anticoagulation contraindicated in setting of subdural hematoma. [facility] Admission and Anticipated Discharge Date Admission Date: April 01, 2020 Subjective reviewed labs, Hb going up to 10, Cr down to 2.4 which is baseline he is eating well, breathing well on room air yesterday he walked 90 feet with rolling walker, got a little short of breath but not hypoxic d/w family, plan to go home tomorrow he is stable on monitor, will downgrade to medical floor Review of Systems Review of Systems: All systems reviewed & are unremarkable except as noted in Subjective Constitutional: + weakness; no fever and no fatigue Respiratory: no cough and no dyspnea Cardiovascular: no chest pain and no edema Gastrointestinal: no abdominal pain, no nausea, no vomiting, no constipation and no diarrhea/loose stools Physical Exam Constitutional: WD/WN, vitals as above + frail appearing and comfortable Neck: trachea midline, no thyromegaly Respiratory: normal respiratory effort, lungs clear to auscultation Cardiovascular: RRR, no murmur, no edema Gastrointestinal (Abdomen): normal bowel sounds, soft, nontender, no hepatosplenomegaly Musculoskeletal: Head/Neck/Chest: normocephalic and neck supple Extremities: extremities normal to inspection and + abnormal strength (generalized weakness); no cyanosis, no clubbing and no petechiae Skin: no rashes, warm and dry Neurologic: normal touch/pain/proprioception, CN's II-XI intact bilaterally, moves all extremities and awake; no focal motor deficits Psychiatric: A+Ox3, euthymic affect Lymphatic: no cervical or axillary lymphadenopathy Results & Data Results & Data ([facility]) Vital Signs (Past 12 Hours) Vital Signs Temp Pulse Pulse Resp BP Pulse Ox 04/05/20 11:57 36.5 C 53 L 17 144/65 H 94 04/05/20 08:00 56 L 04/05/20 07:42 36.4 C L 53 L 17 176/72 H 93 04/05/20 03:55 36.3 C L 53 L 16 172/80 H 91 04/05/20 01:15 160/73 H 04/05/20 01:07 56 L Laboratory Results Laboratory Results - last 24 hr 04/04/20 04/04/20 04/04/20 16:30 16:31 17:06 WBC RBC Hgb Hct MCV MCH MCHC RDW Std Deviation RDW Coeff of Carlos Plt Count MPV Sodium Potassium Chloride Carbon Dioxide Anion Gap BUN Creatinine Est Cr Clr Drug Dosing Est GFR ( Amer) Est GFR (Non-Af Amer) BUN/Creatinine Ratio Glucose POC Glucose 68 L* 66 L* 131 H Calcium 04/04/20 04/05/20 04/05/20 20:05 08:13 08:27 WBC 11.91 H RBC 3.39 L Hgb 10.4 L Hct 31.8 L MCV 93.8 MCH 30.7 MCHC 32.7 RDW Std Deviation 60.0 H RDW Coeff of Carlos 17.8 H Plt Count 170 MPV 11.4 H Sodium Potassium Chloride Carbon Dioxide Anion Gap BUN Creatinine Est Cr Clr Drug Dosing Est GFR ( Amer) Est GFR (Non-Af Amer) BUN/Creatinine Ratio Glucose POC Glucose 156 H 184 H Calcium 04/05/20 04/05/20 08:27 11:51 WBC RBC Hgb Hct MCV MCH MCHC RDW Std Deviation RDW Coeff of Carlos Plt Count MPV Sodium 139 Potassium 4.6 Chloride 110 H Carbon Dioxide 23 Anion Gap 6.0 BUN 41 H Creatinine 2.40 H D Est Cr Clr Drug Dosing 24.0 Est GFR ( Amer) 27.5 Est GFR (Non-Af Amer) 23.7 BUN/Creatinine Ratio 17.0 Glucose 135 H POC Glucose 120 H Calcium 8.7 Medications Administered Current Inpatient Medications Acetaminophen (Acetaminophen 325 Mg Tab) 650 mg PO Q4H PRN PRN Reason: Pain or Fever Stop: 05/01/20 19:03 Amlodipine Besylate (Amlodipine Besylate 5 Mg Tab) 10 mg PO QAM DARCIE Stop: 05/04/20 18:14 Last Admin: 04/05/20 08:26 Dose: 10 mg Documented by: Azithromycin (Azithromycin 250 Mg Tab) 250 mg PO [facility] Stop: 04/05/20 23:59 Last Admin: 04/05/20 08:07 Dose: 250 mg Documented by: Calcitriol (Calcitriol 0.25 Mcg Capsule) 0.5 mcg PO MoWeFr@0900 [facility] Stop: 05/02/20 08:59 Last Admin: 04/04/20 09:17 Dose: 0.5 mcg Documented by: Dextrose (Dextrose 50% 50 Ml Syringe) 25 - 50 ml IV UD PRN; Protocol PRN Reason: Hypoglycemia Protocol Stop: 05/01/20 21:42 Glucagon (Glucagon For Inj 1 Mg Vial) 1 mg SQ UD PRN; Protocol PRN Reason: Hypoglycemia Protocol Stop: 05/01/20 21:42 Glucose (Glucose 10 Tabs/Tube) 4 - 8 tabs PO UD PRN; Protocol PRN Reason: Hypoglycemia Protocol Stop: 05/01/20 21:42 Glucose (Glucose 40% Gel 15 Gm Tube) 15 - 30 gm PO UD PRN; Protocol PRN Reason: Hypoglycemia Protocol Stop: 05/01/20 21:42 Cefepime HCl 2,000 mg/ Syringe 20 mls @ 5 mls/min IV Q24H [facility]; Protocol Stop: 04/07/20 23:59 Last Admin: 04/04/20 14:33 Dose: 5 mls/min Documented by: Insulin Aspart (Insulin Aspart 100 Units/Ml 3 Ml Pen) 0 units SC [facility]; Protocol Stop: 05/01/20 22:29 Last Admin: 04/05/20 11:54 Dose: 4 units Documented by: Insulin Glargine (Insulin Glargine Solostar 100 Units/Ml 3 Ml Pen) 0 units SC [facility]; Protocol Stop: 05/02/20 08:59 Last Admin: 04/05/20 08:15 Dose: 16 units Documented by: Isosorbide Mononitrate (Isosorbide Ceiba Extended Rel 60 Mg Tabcr) 120 mg PO [facility] Stop: 05/05/20 08:59 Last Admin: 04/05/20 08:07 Dose: 120 mg Documented by: Miscellaneous (Carbohydrates For Hypoglycemia ) 15 - 30 gm PO UD PRN PRN Reason: Hypoglycemia Protocol Stop: 05/01/20 21:42 Last Admin: 04/04/20 16:35 Dose: 15 gm Documented by: Miscellaneous Information (Cefepime Consult Active) 1 ea N/A UD PRN PRN Reason: Consult Stop: 05/01/20 20:36 Miscellaneous Information (Pharmacy Glycemic Mgmt Consult) 1 ea N/A UD PRN PRN Reason: Consult Stop: 05/01/20 22:11 Ondansetron HCl (Ondansetron Inj 2 Mg/Ml 2 Ml Vial) 4 mg IV Q6H PRN PRN Reason: Nausea Stop: 05/01/20 19:03 Pantoprazole Sodium (Pantoprazole 40 Mg Tab) 40 mg PO BID DARCIE Stop: 05/01/20 20:59 Last Admin: 04/05/20 08:07 Dose: 40 mg Documented by: Polyethylene Glycol (Polyethylene (Miralax) 17 Gm Pack) 17 gm PO DAILY PRN PRN Reason: Constipation Stop: 05/01/20 19:03 Sodium Bicarbonate (Sodium Bicarbonate 650 Mg Tab) 650 mg PO BID DARCIE Stop: 05/04/20 08:59 Last Admin: 04/05/20 08:26 Dose: 650 mg Documented by: PG Care Time/CCT Total # of Minutes Spent Total Time Spent with Patient: Total time spent is greater than 50% in coordination of care (as documented) at patient's floor/unit and/or counseling patient: Coding Level of Care Code 32341 Subseq Hosp Care Lvl 2 Diagnoses Community acquired bacterial pneumonia J15.9 Normocytic anemia D64.9 Acute kidney injury N17.9 Sepsis associated hypotension A41.9; I95.9 Subdural hematoma S06.5X9A Multiple rib fractures involving four or more ribs S22.49XA Hematoma T14.8XXA Chronic ITP (idiopathic thrombocytopenia) D69.3 Lumbar compression fracture S32.000A Adrenal incidentaloma E27.8 Diabetes mellitus E11.22; N18.4; Z79.4 Diabetes mellitus type: type 2 Diabetes mellitus halfway insulin use: with front end alignment specialist use Diabetes mellitus complication status: with kidney complications Diabetes mellitus complication detail: with chronic kidney disease Chronic kidney disease stage: stage 4 (severe) Elevated troponin R77.8 Hypomagnesemia E83.42 DVT prophylaxis Z29.9 (1) Diabetes mellitus Diabetes mellitus type: type 2 Diabetes mellitus halfway insulin use: with halfway use Diabetes mellitus complication status: with kidney complications Diabetes mellitus complication detail: with chronic kidney disease Chronic kidney disease stage: stage 4 (severe) Qualified Code(s): E11.22 - Type 2 diabetes mellitus with diabetic chronic kidney disease; N18.4 - Chronic kidney disease, stage 4 (severe); Z79.4 - correction (current) use of insulin
[2020-04-05] MEDS: CEFEPIME 2,000 MG in SYRINGE 0 ML IV SCH (13:27)
[2020-04-05] MEDS ORDERED: ATORVASTATIN 40 MG TAB PO SCH (21:00)
[2020-04-06] MEDS ORDERED: FUROSEMIDE 20 MG TAB PO SCH (09:00)
[2020-04-06] MEDS: PANTOprazole 40 MG TAB PO SCH (09:06)
[2020-04-06] MEDS: ISOSORBIDE MONO EXTENDED REL 60 MG TABCR PO SCH (09:06)
[2020-04-06] MEDS: amLODIPine BESYLATE 5 MG TAB PO SCH (09:07)
[2020-04-06] MEDS: INSULIN ASPART 100 UNITS/ML 3 ML PEN SC SCH ×2 (09:09→12:39)
[2020-04-06] MEDS: INSULIN GLARGINE SOLOSTAR 100 UNITS/ML 3 ML PEN SC SCH (09:10)
[2020-04-06 09:13] LABS: Hematocrit (blood only) 28.6 % (42-52); Hemoglobin 9.6 g/dL (14.0-18.0); Mean Corpuscular Hemoglobin 31.3 pg (25-34); Mean Corpuscular Hgb Conc 33.6 g/dL (32-36); Mean Corpuscular Volume 93.2 fL (80-100); Mean Platelet Volume 11.4 fL (7.4-10.4); Platelet Count 171 K/uL (130-400); RDW Coefficient of Variation 17.6 % (11.5-14.5); RDW Standard Deviation 58.8 fL (36.4-46.3); Red Blood Count 3.07 M/uL (4.7-6.1); White Blood Count 11.46 K/uL (4.8-10.8)
[2020-04-06 09:39] LABS: BUN Creatinine Ratio 15.9 (10-20); Calcium 8.5 mg/dl (8.5-10.1); Creatinine Clr Calc Pharmacy 23.6 ml/min; Est GFR (African American) 26.9; Est GFR (Non-African American) 23.2; Magnesium 1.2 mg/dl (1.8-2.4); Potassium 5.1 mmol/L (3.5-5.1)
[2020-04-06 09:40] LABS: Phosphorus 3.4 mg/dl (2.5-4.9)
[2020-04-06] MEDS: MAGNESIUM SULFATE / D5W 1 GM/100 ML BAG IV SCH ×2 (11:13→13:13)
--- NOTE | 2020-04-06 12:51 | Discharge Summary ---
Date of Service April 06, 2020 Admission HPI Per Admitting Provider Gideon Riggs is an 84-year-old right-handed male who presents to the ER with fatigue. Patient is alert and orientated x3 however defers most of the history to his son at bedside. Reports ongoing progressively worse fatigue for the past 2 months. 4 days ago when he was walking up the stairs he got to the top and was very fatigued he had to sit down. When doing this he fell onto his left side and slid down 1 flight of stairs. After this his symptoms have been getting much worse with generalized bilateral weakness and fatigue. He denies any lateralizing weakness. He denies any vision changes. 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 No change in his hearing or speech. He denies taking any NSAIDs, antiplatelets or anticoagulation. He denies any urinary symptoms, cough, aspirations, fever, chills. He does not have a recurrent history of falling and his last fall was approximately 2 years ago In the ER CT head showed interval development of a small left frontal acute on chronic subdural hematoma. This was not present on his scan in July 2018 although the mild right midline shift was present on this previous CT. He was also noted to have significant left-sided flank and hip pain with hematoma in this area which his son reports is improving. He was noted to have a sig nificant leukocytosis of 25.85 with mainly neutrophilia concerning for infection therefore was treated with IV cefepime for empiric sepsis coverage with potential source of pneumonia with bilateral basilar opacities noted on chest x- ray and high risk of this given rib fractures also seen on CT. He was referred to medicine for admission and ongoing management of sepsis. Principal Diagnosis Sepsis due to pneumonia Discharge Exam Constitutional WD/WN, vitals as above comfortable Neck trachea midline, no thyromegaly Respiratory normal respiratory effort, lungs clear to auscultation Cardiovascular RRR, no murmur, no edema Gastrointestinal (Abdomen) normal bowel sounds, soft, nontender, no hepatosplenomegaly Musculoskeletal Head/Neck/Chest: normocephalic and neck supple Extremities: extremities normal to inspection and + abnormal strength (generalized weakness); no cyanosis, no clubbing and no petechiae Skin no rashes, warm and dry Neurologic normal touch/pain/proprioception, CN's II-XI intact bilaterally, moves all extremities and awake; no focal motor deficits Psychiatric A+Ox3, euthymic affect Lymphatic no cervical or axillary lymphadenopathy Discharge Data Allergies Allergy/AdvReac Type Severity Reaction Status Date / Time No Known Drug Allergies Allergy Verified 04/01/20 14:33 Consultations 04/01/20 17:02 ED Decision to Admit Stat Ordered Studies 04/01/20 12:56 CT abd pelvis wo con Stat CT head/brain wo con Stat CT lumbar spine wo con Stat 04/02/20 12:00 CT head/brain wo con Routine Hospital Course (1) Community acquired bacterial pneumonia: likely complication from rib fractures, unwilling to take deep breath and cough responding well to antibiotics no oxygen requirements, no more sputum production completed 5 days of Zithromax and 6 days of Cefepime, no further antibiotics needed breathing well, no fever, WBC down to 11k, minimal cough encouraged him to be upright throughout the day, incentive spirometer do not want him laying in bed all day (2) Normocytic anemia: Hb dropped further from 8.8 to 6.5 on 04/02 suspect that drop in Hb was due to blood loss from 6cm hematoma in left gluteal region the 8.8 on admission may have been falsely elevated due to dehydration and volume contraction transfused two units 04/02, no issues Hb stable at 9.6 no melena or other signs of bleeding (3) Acute kidney injury: No obstructive cause seen on CT. Likely significantly prerenal with dehydration and anemia Cr improved quickly with fluids and PRBC transfusion, making a lot of urine so he is non-oliguric Cr is 2.44 on discharge which is baseline, electrolytes stable except for low magnesium this was replaced IV prior to discharge (4) Sepsis associated hypotension: Suspected with WBC 25.85, temp 35.8 C most likely source is pneumonia with consolidation on CT A/P and elevated procalcitonin. Cepheid negative for SARS-CoV-2/influenza/RSV. no longer hypotensive, BP is elevated Continue Cefepime and Zithromax, completed 6 days of treatment (5) Subdural hematoma: repeat CT head shows stable changes, suggesting it is all chronic he is oriented, no headache, no changes in vision, he is alert per family, he hit his head 6 months ago, this might be the etiology no recent head trauma (6) Multiple rib fractures involving four or more ribs: Incentive spirometry every 4 hourly while awake. pain is controlled could have led to pneumonia, less likely to take deep breath and cough want patient out of bed during the day, sitting upright, encourage deep breathing (7) Hematoma: Traumatic left gluteal hematoma 6 x 3 x [address] imaging. Son reports this is improving since his fall. No cellulitic changes or skin breakdown. Avoid NSAIDs, antiplatelets, anticoagulation. as mentioned above, Hb dropped to 6.5 transfused two units on 04/02 and Hb up to 10 (8) Chronic ITP (idiopathic thrombocytopenia): platelets 170 today (9) Lumbar compression fracture: Chronic. No acute work-up or treatment required. 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 In absence of evidence of hormonal hypersecretion and meeting CT criteria for fat-containing adenoma with size 1.7 cm could consider a CT in 1 year versus no monitoring. No acute work-up required. (11) Diabetes mellitus: Consult pharmacy for glycemic control. daughter in law requesting educator consult interested in getting glucose monitoring system that is on skin educator is arranging through PCP (12) Elevated troponin: In setting of known coronary artery disease with previous [place] in 1996 and stent placement with subsequent CABG x3 in 2007. Currently not on antiplatelets due to immune thrombocytopenia and recurrent GI bleeds. no chest pain, likely elevated due to hypotension and sepsis no further work up (13) Hypomagnesemia: Magnesium sulfate 2 g IV given on day of discharge (14) DVT prophylaxis: Anticoagulation contraindicated in setting of subdural hematoma. SCDs Total Time Total Time Spent Total Time Spent (In Minutes): 35 minutes Total Time Includes: Examination of the Patient, Discharge Planning and Medication Reconciliation Discharge Plan Discharge Items Patient Disposition: Home - Home Health Services Reason For Visit: Sepsis due to pneumonia Discharge Diagnosis: Sepsis due to pneumonia Anemia due to blood loss, hematoma Acute kidney injury on CKD stage IV Condition on Discharge: Good Goals: stay well nourished, well hydrated, well rested improve strength and mobility with home therapy Activity: Resume your previous activity Lifting: None Exercise/Sports: Gradually increase as tolerated Weightbearing: Full weightbearing Non-emergency contact: Primary Care Provider Call non-emergency contact if: you have any medication questions, your symptoms worsen and you have a fever Follow-up/Referrals: Mahesh Hackett MD [Primary Care Provider] - (one week) Diet: Carb Consistent or DM2 Addtl Attending Provider Instructions: Medications: no changes Sepsis, pneumonia, acute kidney injury and acute on chronic anemia treated with Cefepime and Zithromax for 6 days, no fever, WBC down, breathing well on room air likely developed pneumonia due to rib fractures, unwillingness to take deep breath or cough due to pain important to continue to use incentive spirometer, want you taking deep breaths several times an hour do not want you laying flat in bed all day, spend time upright in chair, walk throughout the day no further antibiotics needed treated kidneys with IV fluids as you were dehydrated on admission Cr has returned to baseline function which is 2.4, it has been stable for two days, making urine continue to stay well hydrated at home, force yourself to drink fluids even if you are not thirsty worsening anemia, suspect this is due to hematoma in gluteal region from fall Hb was down to 6.5, gave two units, Hb now is 9.6, no signs of GI bleeding subdural hematoma, seen on CT head, repeat head CT 36 hours later shows no change, suspect this is chronic, no further work up Pending Studies at Discharge: No Stand-Alone Forms: My Evver, Smoking Cessation Medications and DC Order Prescriptions: New (DME) FreeStyle Itzel 14 Day [employer] Misc See Rx Instructions .ROUTE .MEDSUPPLY Qty: 1 RF: 0 (DME) FreeStyle Itzel 14 Day Sensor Kit See Rx Instructions .ROUTE .MEDSUPPLY Qty: 1 RF: 0 Continued isosorbide mononitrate 120 mg tablet extended release 24 hr 120 mg PO QAM Qty: 90 RF: 3 nitroglycerin 0.4 mg tablet, sublingual 0.4 mg sublingual UD Qty: 25 RF: 5 meclizine 25 mg tablet 25 mg PO TID PRN (Reason: dizziness) Qty: 90 RF: 0 calcitriol 0.5 mcg capsule 0.5 mcg PO 3XWK Qty: 36 RF: 3 pantoprazole 40 mg tablet,delayed release (DR/EC) 40 mg PO BID Qty: 180 RF: 3 atorvastatin 40 mg tablet 40 mg PO HS RF: 0 enalapril maleate 5 mg tablet 5 mg PO QAM RF: 0 amlodipine 10 mg tablet 10 mg PO QAM RF: 0 furosemide 20 mg tablet 20 mg PO QAM RF: 0 insulin lispro [Humalog KwikPen Insulin] 100 unit/mL insulin pen 8 unit subcut AC RF: 0 Lantus Solostar U-100 Insulin 100 unit/mL (3 mL) insulin pen 14 - 16 unit subcut QAM RF: 0 Discharge Orders: Discharge Order (Routine); Ordered 04/06/20 Ordered By: Asim Lockett/Other Patient Handouts: Managing Type 2 Diabetes Admission Data Admit Date/Time: 04/01/20 16:03 Attending Provider: Asim Bee Admit Provider: Michael David Primary Care Provider: Mahesh Hackett Other Providers: [facility] ; Michael David Other Interventions: Discharge Summary Assessment (RN) Last Done: 04/06/20 13:46 Coding Level of Care Code D/C Day Management >30 mins Diagnoses Community acquired bacterial pneumonia J15.9 Normocytic anemia D64.9 Acute kidney injury N17.9 Sepsis associated hypotension A41.9; I95.9 Subdural hematoma S06.5X9A Multiple rib fractures involving four or more ribs S22.49XA Hematoma T14.8XXA Chronic ITP (idiopathic thrombocytopenia) D69.3 Lumbar compression fracture S32.000A Adrenal incidentaloma E27.8 Diabetes mellitus E11.22; N18.4; Z79.4 Chronic kidney disease stage: stage 4 (severe) Diabetes mellitus complication detail: with chronic kidney disease Diabetes mellitus complication status: with kidney complications Diabetes mellitus detention insulin use: with detention use Diabetes mellitus type: type 2 Elevated troponin R77.8 Hypomagnesemia E83.42 DVT prophylaxis Z29.9
[2020-04-06] MEDS: CEFEPIME 2,000 MG in SYRINGE 0 ML IV SCH (15:19)
== END 2020-04-06 16:19 | disposition home health service (06) | DRG 871 ==
LOC: ED 12:16 → SUATTDRO 16:03 → 2S 16:03 → 3N 04-05 15:17
DX: E86.0 Dehydration; J15.9 Unspecified bacterial pneumonia; Z95.1 Presence of aortocoronary bypass graft; Z79.899 Other long term (current) drug therapy; I25.5 Ischemic cardiomyopathy; S30.0XXA Contusion of lower back and pelvis, initial encounter; R79.89 Other specified abnormal findings of blood chemistry; S22.43XA Multiple fractures of ribs, bilateral, initial encounter for closed fracture; N17.8 Other acute kidney failure; I25.10 Atherosclerotic heart disease of native coronary artery without angina pectoris; Z87.19 Personal history of other diseases of the digestive system; E11.9 Type 2 diabetes mellitus without complications; E27.8 Other specified disorders of adrenal gland; Z20.822 Contact with and (suspected) exposure to COVID-19; D62 Acute posthemorrhagic anemia; E83.42 Hypomagnesemia; M48.56XA Collapsed vertebra, not elsewhere classified, lumbar region, initial encounter for fracture; I25.2 Old myocardial infarction; Z66 Do not resuscitate; D69.3 Immune thrombocytopenic purpura; W19.XXXA Unspecified fall, initial encounter; S06.5X0A Traumatic subdural hemorrhage without loss of consciousness, initial encounter; E87.2 Acidosis; A41.9 Sepsis, unspecified organism; Z79.4 Long term (current) use of insulin; Z95.5 Presence of coronary angioplasty implant and graft